=== PATIENT | female | born 1960 | race Caucasian/White ===

== ENCOUNTER → 2020-06-28 10:16 | Outpatient (BNVA) | payer OTHER, SELFPAY | PROVIDERS: PCP Internal Medicine; Referring Provider Internal Medicine; Visit Provider Nurse Practitioner | DX: R11.2 Nausea with vomiting, unspecified (principal); K58.0 Irritable bowel syndrome with diarrhea; K22.4 Dyskinesia of esophagus; K21.9 Gastro-esophageal reflux disease without esophagitis; R63.4 Abnormal weight loss; Z79.899 Other long term (current) drug therapy | CPT/HCPCS: 99213 ==

== ENCOUNTER → 2020-07-19 11:36 | Outpatient (BNVA) | payer OTHER, SELFPAY | PROVIDERS: PCP Internal Medicine; Visit Provider Family Medicine Adult Medicine | DX: G89.29 Other chronic pain (principal); G35 Multiple sclerosis; K50.90 Crohn's disease, unspecified, without complications; F43.10 Post-traumatic stress disorder, unspecified; Z79.891 Long term (current) use of opiate analgesic; Z87.81 Personal history of (healed) traumatic fracture | CPT/HCPCS: 99214 ==

== ENCOUNTER → 2020-08-07 10:07 | Outpatient (BNVA) | payer OTHER, SELFPAY | PROVIDERS: PCP Internal Medicine; Visit Provider Nurse Practitioner | DX: K58.0 Irritable bowel syndrome with diarrhea (principal); K21.9 Gastro-esophageal reflux disease without esophagitis; R63.4 Abnormal weight loss; K22.4 Dyskinesia of esophagus; R11.2 Nausea with vomiting, unspecified; N81.6 Rectocele; Z79.891 Long term (current) use of opiate analgesic | CPT/HCPCS: 99212 ==

== ENCOUNTER → 2020-08-16 11:27 | Outpatient (BNVA) | payer OTHER, SELFPAY | PROVIDERS: PCP Internal Medicine; Visit Provider Family Medicine Adult Medicine | DX: M79.7 Fibromyalgia (principal); K50.90 Crohn's disease, unspecified, without complications; Z87.81 Personal history of (healed) traumatic fracture; Z79.891 Long term (current) use of opiate analgesic | CPT/HCPCS: 99212 ==

== ENCOUNTER → 2020-08-21 13:51 | Outpatient (BNVA) | payer OTHER, SELFPAY | PROVIDERS: PCP Internal Medicine; Visit Provider Family Medicine Adult Medicine | DX: Z87.81 Personal history of (healed) traumatic fracture (principal); Z79.891 Long term (current) use of opiate analgesic | CPT/HCPCS: 99212 ==

== ENCOUNTER 2020-09-20 11:05 | Outpatient (REF) | payer OTHER, SELFPAY | END 2020-09-20 11:06 | disposition home or self-care (01) | LOC: HO.LAB 11:05 | PROVIDERS: Absent Provider Internal Medicine; PCP Internal Medicine; Visit Provider Family Medicine Adult Medicine | DX: J45.909 Unspecified asthma, uncomplicated (principal) | CPT/HCPCS: 36415; 82785; 86003; 99212 ==

== ENCOUNTER → 2020-11-01 16:09 | Outpatient (BNVA) | payer OTHER, SELFPAY | PROVIDERS: PCP Internal Medicine; Visit Provider Family Medicine Adult Medicine ==

== ENCOUNTER → 2020-11-22 15:04 | Outpatient (BNVA) | payer OTHER, SELFPAY | PROVIDERS: PCP Internal Medicine; Visit Provider Family Medicine Adult Medicine | DX: M13.0 Polyarthritis, unspecified (principal); K50.90 Crohn's disease, unspecified, without complications; Z87.81 Personal history of (healed) traumatic fracture | CPT/HCPCS: 99212 ==

== ENCOUNTER → 2020-12-12 10:25 | Outpatient (BNVA) | payer OTHER, SELFPAY | PROVIDERS: PCP Internal Medicine; Visit Provider Orthopaedic Surgery | DX: M65.312 Trigger thumb, left thumb (principal); R20.0 Anesthesia of skin; R20.2 Paresthesia of skin; M18.12 Unilateral primary osteoarthritis of first carpometacarpal joint, left hand | CPT/HCPCS: 99202; J1100 ==

== ENCOUNTER → 2020-12-25 15:59 | Outpatient (BNVA) | payer OTHER, SELFPAY | PROVIDERS: PCP Internal Medicine; Visit Provider Family Medicine Adult Medicine ==

== ENCOUNTER 2020-12-28 16:33 | Outpatient (REF) | payer OTHER, SELFPAY | END 2020-12-28 16:34 | disposition home or self-care (01) | LOC: HO.LNP 16:33 | PROVIDERS: Visit Provider Hospitalist | DX: J01.90 Acute sinusitis, unspecified (principal); Z20.822 Contact with and (suspected) exposure to COVID-19 | CPT/HCPCS: U0003; U0005 ==

== ENCOUNTER 2021-01-18 11:00 | Outpatient (RCR) | payer OTHER, SELFPAY | END 2021-03-08 12:43 | disposition other institution (70) | LOC: HO.PTWFD 11:00 | PROVIDERS: Visit Provider Internal Medicine | DX: M47.816 Spondylosis without myelopathy or radiculopathy, lumbar region (principal) | CPT/HCPCS: 97110; 97162; 97535 ==

== ENCOUNTER → 2021-02-07 11:52 | Outpatient (BNVA) | payer OTHER, SELFPAY | PROVIDERS: PCP Internal Medicine; Visit Provider Family Medicine Adult Medicine ==

== ENCOUNTER → 2021-03-15 14:28 | Outpatient (BNVA) | payer OTHER, SELFPAY | PROVIDERS: PCP Internal Medicine; Visit Provider Nurse Practitioner ==

== ENCOUNTER → 2021-03-29 14:26 | Outpatient (BNVA) | payer OTHER, SELFPAY | PROVIDERS: PCP Internal Medicine; Visit Provider Internal Medicine Pulmonary Disease | DX: J44.9 Chronic obstructive pulmonary disease, unspecified (principal); G47.33 Obstructive sleep apnea (adult) (pediatric); U07.0 Vaping-related disorder; F12.10 Cannabis abuse, uncomplicated; F17.210 Nicotine dependence, cigarettes, uncomplicated; J30.1 Allergic rhinitis due to pollen; Z88.6 Allergy status to analgesic agent; Z88.2 Allergy status to sulfonamides; Z88.8 Allergy status to other drugs, medicaments and biological substances; Z91.048 Other nonmedicinal substance allergy status | CPT/HCPCS: 99212 ==

== ENCOUNTER 2021-05-08 10:05 | Outpatient (REF) | payer OTHER, SELFPAY ==
--- NOTE | 2021-05-08 10:08 | EMG_ITS ---
This is a 60-year-old woman with a history of chronic MS, who was treated with Betaseron in the past, currently off that and taking donepezil and memantine for cognitive and language related problems. She has had bilateral rotator cuff tears and now comes in because of progressive difficulty using her hands with the right being worse than the left with pain and weakness. PHYSICAL EXAMINATION: On examination, she is alert and oriented with slightly hesitant speech at times. She walks with a cane. Her cranial nerves are normal. She has mild atrophy of the ulnar innervated intrinsic hand muscles on the right side with weakness of finger spread. Reflexes symmetrical. IMPRESSION: Multiple sclerosis, rule out carpal tunnel syndrome, rule out ulnar entrapment, rule out cervical radiculopathy. Nerve conduction EMG study: Moderately severe compression palsy of the right ulnar nerve at the elbow. [id number] carpal tunnel syndrome on the right, and mild carpal tunnel syndrome on the left. EMG of the right C5-T1 innervated muscles is consistent with mild denervated changes in the right ulnar innervated intrinsic hand muscles consistent with ulnar neuropathy. MD REBA Kapadia/REINIER / [id number]
== END 2021-05-08 10:06 | disposition home or self-care (01) ==
LOC: HO.NEURO 10:05
PROVIDERS: Visit Provider Orthopaedic Surgery
DX: R20.0 Anesthesia of skin (principal); R20.2 Paresthesia of skin
CPT/HCPCS: 95885; 95913

== ENCOUNTER → 2021-05-13 11:23 | Outpatient (BNVA) | payer OTHER, SELFPAY | PROVIDERS: Visit Provider Orthopaedic Surgery | DX: G56.21 Lesion of ulnar nerve, right upper limb (principal); G56.01 Carpal tunnel syndrome, right upper limb | CPT/HCPCS: 99202 ==

== ENCOUNTER 2021-05-22 12:31 | Outpatient (REF) | payer OTHER, SELFPAY ==
--- NOTE | ~2021-05-22 | US_ITS ---
EXAMINATION: US VENOUS ULTRASOUND WITH DOPPLER LOWER EXTREMITY, BILATERAL CLINICAL INFORMATION: Lower extremity edema. Assess for DVT COMPARISON: None TECHNIQUE: Ultrasound of the deep veins is performed from the hip to the calf with compression sonography and color and pulse Doppler assessment. Spectral analysis with color-flow imaging is performed. FINDINGS: RIGHT: There is normal venous compression and respiratory variation and augmented flow. The visualized common femoral vein, superficial femoral vein, profunda femoral vein, popliteal vein, and the trifurcation region shows no evidence of deep venous thrombosis. No popliteal fossa cyst demonstrated. LEFT: There is normal venous compression and respiratory variation and augmented flow. The visualized common femoral vein, superficial femoral vein, profunda femoral vein, popliteal vein, and the trifurcation region shows no evidence of deep venous thrombosis. No popliteal fossa cyst demonstrated. US/US venous duplex LE BI IMPRESSION: No DVT demonstrated in the bilateral lower extremity.
== END 2021-05-22 12:32 | disposition home or self-care (01) ==
LOC: HO.US 12:31
PROVIDERS: PCP Physician Assistant; Visit Provider Physician Assistant
DX: I77.6 Arteritis, unspecified (principal); R60.0 Localized edema
CPT/HCPCS: 93970

== ENCOUNTER 2021-06-06 09:11 | Day surgery (SDC) | payer OTHER, SELFPAY ==
--- NOTE | 2021-06-05 08:57 | P.CONAN_ITS ---
Documented by User: Pratima Leach NP 06/05/21 09:04 HPI - Anesthesia Eval Consult details Narrative: 60yo F for Right Carpal Tunnel Release with Cubital Tunnel Release vs Transposition *Multiple Med Allergies* Chronic pain, ? treatment. H/O of suboxone per chart PMFSH Active Problems Active Problems: All Active Problems (Updated 05/13/21 @ 13:00 by Mariela Haley MD) Carpal tunnel syndrome of right wrist (Acute) Cubital tunnel syndrome on right (Acute) Smoker (Acute) Screening for hypothyroidism (Acute) Screening for hypercholesterolemia (Acute) Screening for diabetes mellitus (DM) (Acute) Vasculitis (Acute) Lower extremity edema (Acute) Asthma-COPD overlap syndrome (Acute) Constipation (Acute) Thrush (Acute) Furuncles (Acute) Left otitis media (Acute) Annual physical exam (Acute) Lice infested hair (Acute) Domestic concerns (Acute) Bedbug bite (Acute) Laceration of finger (Acute) Acute sinusitis (Acute) Arthritis of carpometacarpal (CMC) joint of left thumb (Acute) Numbness and tingling in both hands (Acute) Trigger finger of left thumb (Acute) Allergic rhinitis, unspecified (Acute) Crohn disease (Acute) Crohn's disease (Acute) Dementia (Acute) Thumb pain (Acute) Lumbar arthropathy (Acute) Polyarthritis (Acute) History of posttraumatic stress disorder (PTSD) (Acute) Right shoulder pain (Acute) History of cervical fracture (Acute) History of Crohn's disease (Acute) Weight loss, abnormal (Acute) GERD (gastroesophageal reflux disease) (Acute) Irritable bowel syndrome with diarrhea (Acute) Rectocele (Acute) Esophageal dysmotility (Acute) Nausea and vomiting (Acute) HSV (herpes simplex virus) anogenital infection (Acute) VÁSQUEZ (nonalcoholic steatohepatitis) (Acute) COPD (chronic obstructive pulmonary disease) (Acute) Depression (Acute) Fibromyalgia (Acute) Multiple sclerosis (Acute) Osteoarthritis (Acute) Migraines, neuralgic (Acute) Past Medical History Medical History Annual physical exam Asthma-COPD overlap syndrome Bladder cancer Crohn disease Crohn's disease Dementia History of cervical fracture History of Crohn's disease History of posttraumatic stress disorder (PTSD) IBS (irritable colon syndrome) Lumbar arthropathy Migraines, neuralgic Multiple sclerosis VÁSQUEZ (nonalcoholic steatohepatitis) Polyarthritis Right shoulder pain Smoker Thumb pain Family History Family History Father Alzheimer disease Lymphoma Cancer Mother Lung cancer Sudden cardiac Cancer CVD (cardiovascular disease) Paternal Grandfather Colon cancer Cancer Maternal Grandfather Sudden cardiac CVD (cardiovascular disease) Surgical History Surgical History History of adenoidectomy History of bladder surgery History of resection of terminal ileum Hx of breast augmentation Hx of colonoscopy (08/07/11) Hx of endoscopy (08/07/11) Hx of foot surgery (04/25/14) Hx of tonsillectomy Social History Social History Household Members Other:: ALONE DISABLED SINCE AROUND 2014 DUE TO MS Housing: Apartment Alcohol intake: current Alcohol intake frequency: holidays/special occasions only Alcohol type: hard liquor Patient Tobacco Use Status: Current everyday Tobacco user Cigarette Packs Per Day: 1 Cigarettes Per Day: 20.00 e-Cigarette/Vaping Use: Former Use Second Hand Smoke Exposure: Yes Use of substances other than those prescribed or required for medical reasons: Yes Substance Use Type: Marijuana Have you been hit, kicked, punched, or otherwise hurt by someone within the past year? If so, by whom?: No Are you DNR?: No Advance Directives: No Advance Directives Information Provided: Yes service: No Current occupational status: disabled Meds Allergies Allergy/AdvReac Type Severity Reaction Status Date / Time aspirin [ASPIRIN] Allergy Unknown STOMACH Verified 05/13/21 11:32 UPSET blue dye [BLUE DYE] Allergy Unknown ANAPHYLAXIS Verified 05/13/21 11:32 escitalopram [From LEXAPRO] Allergy Unknown UNKNOWN Verified 05/13/21 11:32 infliximab [From REMICADE] Allergy Unknown EXACERBATES Verified 05/13/21 11:32 MS naproxen [NAPROXEN] Allergy Unknown SWELLING Verified 05/13/21 11:32 ALL NSAIDS NSAIDS (Non-Steroidal Allergy Unknown ABDOMINAL Verified 05/13/21 11:32 Anti-Inflamma PAIN [NSAIDS (NON-STEROIDAL ANTI-INFLAMMA] olanzapine [OLANZAPINE] Allergy Unknown UNKNOWN Verified 05/13/21 11:32 paroxetine [From PAXIL] Allergy Unknown DIZZINESS Verified 05/13/21 11:32 prednisone [PREDNISONE] Allergy Unknown HALLUCINATI Verified 05/13/21 11:32 ONS Sulfa (Sulfonamide Allergy Unknown HIVES Verified 05/13/21 11:32 Antibiotics) [SULFA (SULFONAMIDE ANTIBIOTICS)] ciprofloxacin [From CIPRO] AdvReac Unknown SKIN Verified 05/13/21 11:32 PEELING ENVIRONMENTAL Allergy Unknown CATS,DOGS,HORSES,MOLD-RED Uncoded 02/07/21 16:10 SKIN,FACIAL SWELLING Home Medications Medication Instructions Recorded Confirmed Last Taken Type donepezil 23 mg tablet 23 mg PO DAILY 06/27/20 04/15/21 Unknown History gabapentin 600 mg tablet 600 mg PO TID 06/27/20 04/15/21 Unknown History ketoconazole 2 % shampoo TOPICAL DAILY 06/27/20 04/15/21 Unknown History lorazepam 0.5 mg tablet 0.5 mg PO BID PRN 06/27/20 04/15/21 Unknown History memantine 5 mg tablet 5 mg PO BID 06/27/20 04/15/21 Unknown History metronidazole 0.75 % topical cream applic TOPICAL 06/27/20 04/15/21 Unknown History miconazole nitrate 2 % vaginal 1 appful VAGINAL BEDTIME 06/27/20 04/15/21 Unknown History cream quetiapine 25 mg tablet mg PO 06/27/20 04/15/21 Unknown History hydroxyzine HCl 25 mg tablet 50 mg PO TID tab 03/15/21 04/15/21 Unknown History hydroxyzine pamoate 50 mg capsule mg PO 03/15/21 04/15/21 Unknown History trazodone 50 mg tablet 75 mg PO BEDTIME PRN tab 03/15/21 04/15/21 Unknown History Exam Exam Date and Time: June 05, 2021 0857 Assessment and Plan Assessment Anesthesia Assessment: Chart Reviewed Documented by User: Nigel Connolly MD 06/06/21 11:41 HPI - Anesthesia Eval Consult details Narrative: 60yo F for Right Carpal Tunnel Release with Cubital Tunnel Release vs Transposition *Multiple Med Allergies* Chronic pain, subtsance abuse. H/O of suboxone per chart On presentation to preop, patient rudely insisting on being given intravenous sedatives and pain medications. [facility] Past Medical History Medical History Annual physical exam Asthma-COPD overlap syndrome Bladder cancer Crohn disease Crohn's disease Dementia History of cervical fracture History of Crohn's disease History of posttraumatic stress disorder (PTSD) IBS (irritable colon syndrome) Lumbar arthropathy Migraines, neuralgic Multiple sclerosis VÁSQUEZ (nonalcoholic steatohepatitis) Polyarthritis Right shoulder pain Smoker Thumb pain Family History Family History Father Alzheimer disease Lymphoma Cancer Mother Lung cancer Sudden cardiac Cancer CVD (cardiovascular disease) Paternal Grandfather Colon cancer Cancer Maternal Grandfather Sudden cardiac CVD (cardiovascular disease) Family history of problems with anesthesia: No Surgical History Surgical History History of adenoidectomy History of bladder surgery History of resection of terminal ileum Hx of breast augmentation Hx of colonoscopy (08/07/11) Hx of endoscopy (08/07/11) Hx of foot surgery (04/25/14) Hx of tonsillectomy History of Problems with Anesthesia: No Social History Social History Household Members Other:: ALONE DISABLED SINCE AROUND 2014 DUE TO MS Housing: Apartment Alcohol intake: current Alcohol intake frequency: holidays/special occasions only Alcohol type: hard liquor Patient Tobacco Use Status: Current everyday Tobacco user Cigarette Packs Per Day: 1 Cigarettes Per Day: 20.00 e-Cigarette/Vaping Use: Former Use Second Hand Smoke Exposure: Yes Use of substances other than those prescribed or required for medical reasons: Yes Substance Use Type: Marijuana Have you been hit, kicked, punched, or otherwise hurt by someone within the past year? If so, by whom?: No Are you DNR?: No Advance Directives: No Advance Directives Information Provided: Yes service: No Current occupational status: disabled Meds Allergies Allergy/AdvReac Type Severity Reaction Status Date / Time aspirin [ASPIRIN] Allergy Unknown STOMACH Verified 05/13/21 11:32 UPSET blue dye [BLUE DYE] Allergy Unknown ANAPHYLAXIS Verified 05/13/21 11:32 escitalopram [From LEXAPRO] Allergy Unknown UNKNOWN Verified 05/13/21 11:32 infliximab [From REMICADE] Allergy Unknown EXACERBATES Verified 05/13/21 11:32 MS naproxen [NAPROXEN] Allergy Unknown SWELLING Verified 05/13/21 11:32 ALL NSAIDS NSAIDS (Non-Steroidal Allergy Unknown ABDOMINAL Verified 05/13/21 11:32 Anti-Inflamma PAIN [NSAIDS (NON-STEROIDAL ANTI-INFLAMMA] olanzapine [OLANZAPINE] Allergy Unknown UNKNOWN Verified 05/13/21 11:32 paroxetine [From PAXIL] Allergy Unknown DIZZINESS Verified 05/13/21 11:32 prednisone [PREDNISONE] Allergy Unknown HALLUCINATI Verified 05/13/21 11:32 ONS Sulfa (Sulfonamide Allergy Unknown HIVES Verified 05/13/21 11:32 Antibiotics) [SULFA (SULFONAMIDE ANTIBIOTICS)] ciprofloxacin [From CIPRO] AdvReac Unknown SKIN Verified 05/13/21 11:32 PEELING [employer]VIRONMENTAL Allergy Unknown CATS,DOGS,HORSES,MOLD-RED Uncoded 02/07/21 16:10 SKIN,FACIAL SWELLING Home Medications Medication Instructions Recorded Confirmed Last Taken Type donepezil 23 mg tablet 23 mg PO DAILY 06/27/20 04/15/21 Unknown History gabapentin 600 mg tablet 600 mg PO TID 06/27/20 04/15/21 Unknown History ketoconazole 2 % shampoo TOPICAL DAILY 06/27/20 04/15/21 Unknown History lorazepam 0.5 mg tablet 0.5 mg PO BID PRN 06/27/20 04/15/21 Unknown History memantine 5 mg tablet 5 mg PO BID 06/27/20 04/15/21 Unknown History metronidazole 0.75 % topical cream applic TOPICAL 06/27/20 04/15/21 Unknown History miconazole nitrate 2 % vaginal 1 appful VAGINAL BEDTIME 06/27/20 04/15/21 Unknown History cream quetiapine 25 mg tablet mg PO 06/27/20 04/15/21 Unknown History hydroxyzine HCl 25 mg tablet 50 mg PO TID tab 03/15/21 04/15/21 Unknown History hydroxyzine pamoate 50 mg capsule mg PO 03/15/21 04/15/21 Unknown History trazodone 50 mg tablet 75 mg PO BEDTIME PRN tab 03/15/21 04/15/21 Unknown History Exam Airway Mallampati Class: I TM Dist: >3cm Neck ROM: Full Denture: Upper and Lower Loose/Missing/Broken Teeth: Yes (Multiple missing and crowns) Assessment and Plan Assessment Anesthesia Assessment: Anesthesia Plan Discussed (Explained that we are unable to give sedatives prior to surgical readiness, including all consents and preop discussions. Plan to premedicate prior to going back to OR.) Final Anesthetic Review Family History of Problems with Anesthesia: No History of Problems with Anesthesia: No NPO: Yes ASA Class: III Final Preanesthetic Review: No Changes in Pt Med Stat and Consent Obtained/Reviewed Patient Risk: Intermediate Procedure Risk: Low Anesthetic Plan Anesthetic Plan: GA Disposition: Standard PACU
[2021-06-06] VITALS (12 sets, daily range): BP systolic 125–176; BP diastolic 66–85; PULSE 60–75; RESP 14–20; TEMP 36.6–37.1; O2SAT 92–98; BMI 20.3
[2021-06-06] MEDS: Lactated Ringers 1,000 ML 100 ML IVCONT (10:17)
--- NOTE | 2021-06-06 11:14 | PC.NURSE ---
PATIENT IRRITATED AND UPSET. STATES SHE HAS BEEN HERE FOR 2 HOURS. STATES SHE TOOK NO MEDICATIONS THIS AM. LIFE CARE PLANNER NOTIFIED (INOCENCIA). DR. HAMLIN NOTIFIED AND ASKED IF OKAY IF PATIENT TOOK HER AM GABAPENTIN AND FAMOTIDINE. DR. HAMLIN STATED IT WAS OKAY AND SO LAYA TOOK HER OWN MEDICATIONS.
--- NOTE | 2021-06-06 11:26 | PC.NURSE ---
MANAGED CARE COORDINATOR (INOCENCIA) SPOKE WITH PATIENT AT BEDSIDE WELL DR. HAMLIN.
--- NOTE | 2021-06-06 12:32 | MHC.SHP ---
Pre-Procedural Eval Section A Date of Service: 06/06/21 The patient is an INPATIENT: No Changes since office visit: No Cold of Flu in the past 2 weeks, No New Medical Problems, No Changes in Medication and No Patient answered all questions The History & Physical has been completed within 30 days and I have reviewed it.: Yes Section B Chief Complaint: Carpal Tunnel Syndrome, Lesion of Ulnar nerve Left Allergies: Allergies Allergy/AdvReac Type Severity Reaction Status Date / Time aspirin [ASPIRIN] Allergy Unknown STOMACH Verified 05/13/21 11:32 UPSET blue dye [BLUE DYE] Allergy Unknown ANAPHYLAXIS Verified 05/13/21 11:32 escitalopram [From LEXAPRO] Allergy Unknown UNKNOWN Verified 05/13/21 11:32 infliximab [From REMICADE] Allergy Unknown EXACERBATES Verified 05/13/21 11:32 MS naproxen [NAPROXEN] Allergy Unknown SWELLING Verified 05/13/21 11:32 ALL NSAIDS NSAIDS (Non-Steroidal Allergy Unknown ABDOMINAL Verified 05/13/21 11:32 Anti-Inflamma PAIN [NSAIDS (NON-STEROIDAL ANTI-INFLAMMA] olanzapine [OLANZAPINE] Allergy Unknown UNKNOWN Verified 05/13/21 11:32 paroxetine [From PAXIL] Allergy Unknown DIZZINESS Verified 05/13/21 11:32 prednisone [PREDNISONE] Allergy Unknown HALLUCINATI Verified 05/13/21 11:32 ONS Sulfa (Sulfonamide Allergy Unknown HIVES Verified 05/13/21 11:32 Antibiotics) [SULFA (SULFONAMIDE ANTIBIOTICS)] ciprofloxacin [From CIPRO] AdvReac Unknown SKIN Verified 05/13/21 11:32 PEELING ENVIRONMENTAL Allergy Unknown CATS,DOGS,HORSES,MOLD-RED Uncoded 02/07/21 16:10 SKIN,FACIAL SWELLING Plan I have reviewed the history and physical and performed a pertinent physical examination on my patient. No changes have occurred unless specified.
--- NOTE | 2021-06-06 12:33 | P.OP_ITS ---
Operative Note Operative Note Date of Service: 06/06/21 Narrative: Operative Note Narrative: Preop diagnosis: 1. Right Cubital tunnel syndrome 2. Right carpal tunnel syndrome Postop diagnosis: Same Procedure: 1. Right Cubital Tunnel Release 2. Right carpal tunnel release Surgeon: Mariela Haley MD Anesthesia: General Findings: Thickening and fibrosis about the ulnar nerve at the cubital tunnel Implants: none Tourniquet time: 28 minutes EBL: 5.0 ml Specimen: none Drains: None Complications: None Disposition: Brought to the recovery room in stable condition Plan: Follow-up in 10-14 days for wound check, and suture removal Indications: The patient is 60 years old with right cubital tunnel syndrome and right carpal tunnel syndrome with dense numbness. She was somewhat tearful and angry in preop hold this morning. When I asked her what was wrong she said her whole body hurts. It sounds like she may have violated a rule with her pain management provider . The risks and benefits of operative treatment, including but not limited to risk of damage to blood vessels, nerves, tendons, infection, recurrence, persistent pain or numbness, incomplete resolution of preoperative symptoms, or need for further surgery were discussed with the patient and they wished to proceed with surgery. Procedure: Once consent was obtained patient was brought back to the operating suite and placed in the operating table in a supine position. Perioperative antibiotics and anesthesia was administered by the anesthesia team. The limb was prepped and draped in a standard surgical fashion, and a sterile tourniquet applied to the proximal aspect of the right upper extremity. The limb was elevated exsanguinated with Esmarch bandage and the tourniquet inflated to 250 mm of mercury for a total tourniquet time of 28 minutes. Once assured that we had a good block, a 1.5 cm longitudinal incision was made centered over the right carpal tunnel. The incision was made through the skin to the subcutaneous tissues using a #15 blade. Dissection was made down to the level of the transverse carpal ligament with care being taken to protect the palmar cutaneous nerve. Once the transverse carpal ligament was clearly visualized, a longitudinal incision was made in the transverse carpal ligament 1st using a #15 blade, then using tenotomy scissors under direct visualization. Care was taken to look for and protect the motor branch of the median nerve when seen in this area. Once satisfied with our carpal tunnel release the wound was irrigated with normal saline. A 6 cm gently curved but longitudinally oriented incision was made centered over the cubital tunnel of the right upper extremity. Incision was made through the skin to the subcutaneous tissues using a # 15 Blade. I then dissected down to the level of the medial epicondyle and the cubital tunnel using tenotomy scissors. Care was taken to protect the lateral antebrachial cutaneous nerve. The ulnar nerve was identified just posterior to the medial intermuscular sept um. Small vessel loop was passed behind the ulnar nerve and used to apply gentle traction to facilitate our release. The ulnar nerve was released in a proximal to distal direction using tenotomy in iris scissors while directly visualizing and protecting the ulnar nerve. Thickening and fibrosis was appreciated about the ulnar nerve as it passed through the cubital tunnel. The ulnar nerve was assessed as I passed the elbow through full flexion and extension and was found to remain stable within its groove. At this point the tourniquet was deflated and hemostasis obtained with a brief period of local pressure and bipolar electrocautery. The wound was copiously irrigated with normal saline. The subcutaneous layer was closed with 4-0 Vicryl suture, and the skin edges were reapproximated with 5-0 nylon suture. The wounds were infiltrated with some 1% lidocaine with epinephrine, and some 0.5% plain Marcaine for postop pain control and sterile dressings and a posterior splint was applied. The patient appears to have tolerated the procedure well and with no complications. All digits were well vascularized conclusion of the case.
[2021-06-06] MEDS: oxyCODONE HCl Immed Release 5 MG TABLET PO (14:04)
[2021-06-06] MEDS: HYDROmorphone HCl 0.5 MG/0.5 ML SYRINGE 0.25 MG IVPUSH (14:11)
[2021-06-06] MEDS: fentaNYL citrate/PF 100 MCG/2 ML VIAL 25 MCG IVPUSH (14:55)
--- NOTE | 2021-06-06 16:39 | W.MHC.F2F ---
Service Date Service Date: 06/06/21 Reasons for Services Reason for physical therapy: therapeutic exercises, restore joint function, assess need for DME and ADL training Reason for occupational therapy: therapeutic exercises, assess need for DME and ADL training Homebound: Leaving the home is medically contraindicated at this time without the asist of a device and/or another person due th the listed conditions above and below. Homebound supporting statement: Pt. is considered homebound due to recent surgery. Unable to drive and unable to use the right upper extremity. Certification: Based on the above findings, I certify that this patient is confined to the home and needs intermittent long term care, physical therapy and/or speech therapy, or continues to need occupational therapy. The patient is under my care, and I have initiated the establishment of the plan of care. The patient will be followed by a physician who will periodically review the plan of care.
== END 2021-06-06 15:49 | disposition home or self-care (01) ==
PROVIDERS: PCP Physician Assistant; Visit Provider Orthopaedic Surgery
PROC: (CPT 64721; principal; 2021-06-06 10:40)
DX: G56.21 Lesion of ulnar nerve, right upper limb (principal); G56.01 Carpal tunnel syndrome, right upper limb; G35 Multiple sclerosis; J44.9 Chronic obstructive pulmonary disease, unspecified; K50.90 Crohn's disease, unspecified, without complications; F43.10 Post-traumatic stress disorder, unspecified; Z88.8 Allergy status to other drugs, medicaments and biological substances; Z88.2 Allergy status to sulfonamides; Z79.899 Other long term (current) drug therapy; F17.210 Nicotine dependence, cigarettes, uncomplicated
CPT/HCPCS: 64718; 64721; J0690; J1170; J2250; J2405; J3010

== ENCOUNTER → 2021-06-17 11:33 | Outpatient (BNVA) | payer OTHER, SELFPAY | PROVIDERS: Visit Provider Orthopaedic Surgery | DX: G56.01 Carpal tunnel syndrome, right upper limb (principal); G56.21 Lesion of ulnar nerve, right upper limb | CPT/HCPCS: 99212 ==

== ENCOUNTER → 2021-07-09 11:26 | Outpatient (BNVA) | payer OTHER, SELFPAY | PROVIDERS: PCP Physician Assistant; Visit Provider Internal Medicine Pulmonary Disease | DX: G47.33 Obstructive sleep apnea (adult) (pediatric) (principal); J44.9 Chronic obstructive pulmonary disease, unspecified | CPT/HCPCS: 99212 ==

== ENCOUNTER → 2021-07-22 09:50 | Outpatient (BNVA) | payer OTHER, SELFPAY | PROVIDERS: PCP Physician Assistant; Visit Provider Nurse Practitioner ==

== ENCOUNTER 2021-08-06 11:05 | Outpatient (REF) | payer OTHER, SELFPAY ==
[2021-08-06 14:08] LABS: MANUAL DIFF FLAG NO
[2021-08-06 14:21] LABS: Basophils Percent Auto 0.5 % (0-2); Eosinophils Absolute Auto 0.1 X10*3/uL (0.0-0.4); Eosinophils Percent Auto 0.9 % (0-4); Hematocrit 44.5 % (37.0-47.0); Hemoglobin 14.8 g/dl (12.0-16.0); Imm Gran Abs Auto 0.02 X10*3/uL (0.00-0.03); Imm Gran Pct Auto 0.2 % (0.0-0.4); Lymphocytes Absolute Auto 2.4 X10*3/uL (1.2-4.9); Lymphocytes Percent Auto 29.3 % (20-40); Mean Corpuscular HGB Conc 33.3 g/dl (31.0-35.0); Mean Corpuscular Hemoglobin 34.4 pg (27.0-33.0); Mean Corpuscular Volume 103.5 fL (80.0-98.0); Mean Platelet Volume 9.4 fL (9.4-12.3); Monocytes Absolute Auto 0.6 X10*3/uL (0.1-1.2); Monocytes Percent Auto 7.6 % (2-11); Neutrophils Percent Auto 61.5 % (45-73); Platelet Count 291 X10*3/uL (160-400); Red Cell Distribution Width 13.8 % (11.0-16.0); White Blood Count 8.1 X10*3/uL (4.8-10.8)
[2021-08-06 14:28] LABS: Alanine Aminotransferase 11 U/L (0-31); Alkaline Phosphatase 110 U/L (39-117); Anion Gap 11 (12-20); Aspartate Amino Transferase 13 U/L (5-31); Bilirubin Total 0.8 mg/dL (0.0-1.0); Blood Urea Nitrogen 15 mg/dL (9-16); Calcium 9.8 mg/dL (8.4-10.2); Carbon Dioxide 26 mmol/L (22-29); Chloride 110 mmol/L (96-108); Estimated Glomerular Filt Rate 57; Glucose Random 94 mg/dL (60-115); Potassium 4.5 mmol/L (3.3-5.1); Rheumatoid Factor < 15.0 IU/mL (<15.0); Sodium 142 mmol/L (135-145); Total Protein 7.6 g/dL (6.5-8.0)
[2021-08-06 14:35] LABS: Estimated Average Glucose 103 mg/dL; Hemoglobin A1c % 5.2 %
[2021-08-06 14:36] LABS: Alanine Aminotransferase 10 U/L (0-31); Alkaline Phosphatase 110 U/L (39-117); Anion Gap 11 (12-20); Aspartate Amino Transferase 14 U/L (5-31); Bilirubin Total 0.8 mg/dL (0.0-1.0); Blood Urea Nitrogen 15 mg/dL (9-16); Calcium 9.7 mg/dL (8.4-10.2); Carbon Dioxide 25 mmol/L (22-29); Chloride 110 mmol/L (96-108); Cholesterol 165 mg/dL; Estimated Glomerular Filt Rate 56; Glucose Fasting 94 mg/dL (60-99); HDL Cholesterol 55 mg/dL; LDL Cholesterol Calculated 95 mg/dl; Potassium 4.3 mmol/L (3.3-5.1); Sodium 142 mmol/L (135-145); Total Protein 7.6 g/dL (6.5-8.0); Triglycerides 75 mg/dL
[2021-08-06 14:58] LABS: TSH reflex Free T4 1.95 uIU/mL (0.32-4.0)
[2021-08-06 15:10] LABS: Folate > 20.0 ng/mL (> or = 4.0); Vitamin B12 1001 pg/mL (200-900)
[2021-08-08 13:51] LABS: Anti Nuclear Antibody Screen NEGATIVE (NEGATIVE)
[2021-08-10 20:06] LABS: JCV Antibody INDETERMINATE; JCV Index Value 0.25
[2021-08-10 21:51] LABS: JCV Ab Inhibition FINAL RSLT: NEGATIVE
== END 2021-08-06 11:06 | disposition home or self-care (01) ==
LOC: HO.WFDLDS 11:05
PROVIDERS: Visit Provider Physician Assistant
DX: Z13.29 Encounter for screening for other suspected endocrine disorder (principal); Z13.220 Encounter for screening for lipoid disorders; G35 Multiple sclerosis; E53.8 Deficiency of other specified B group vitamins; E55.9 Vitamin D deficiency, unspecified; Z79.899 Other long term (current) drug therapy
CPT/HCPCS: 36415; 80053; 80061; 82607; 82746; 83036; 84443; 85025; 86038; 86039; 86431; 86711

== ENCOUNTER → 2021-10-08 11:32 | Outpatient (BNVA) | payer OTHER, SELFPAY | PROVIDERS: PCP Physician Assistant; Visit Provider Internal Medicine Pulmonary Disease | DX: J44.9 Chronic obstructive pulmonary disease, unspecified (principal); G47.33 Obstructive sleep apnea (adult) (pediatric) | CPT/HCPCS: 99212 ==

== ENCOUNTER 2021-10-08 13:46 | Outpatient (REF) | payer OTHER, SELFPAY ==
--- NOTE | ~2021-10-08 | XR_ITS ---
EXAMINATION: XR CERVICAL SPINE CLINICAL INFORMATION: Neck pain COMPARISON: None TECHNIQUE: 3 views of the cervical spine were obtained. FINDINGS: There is maintained cervical lordosis. There is loss of C5-C6 and C6-C7 disc heights with moderate ventral spondylosis. The rest of the disc heights are maintained normal. The vertebral heights and alignment is normal. On oblique views there is a moderate narrowing of bilateral neural foramina at C5-C6 and C6-C7 slightly worse on the left side. There is moderate facet joint arthropathy in the left at C3-C4 and C4-C5 disc levels. The craniovertebral junction and the C1-C2 alignment is normal. The prevertebral soft tissues are normal. XR/XR cervical spine 4V IMPRESSION: Degenerative disc changes with spondylosis C5-C6 and C6-C7 disc levels. Bilateral narrowing of neural foramina C5-C6 and C6-C7 disc level slightly greater on the left side. If patient has upper extremity weakness or numbness an MRI of cervical spine can be performed.
== END 2021-10-08 13:47 | disposition home or self-care (01) ==
LOC: HO.XRAY 13:46
PROVIDERS: PCP Physician Assistant; Visit Provider Nurse Practitioner Family
DX: M54.2 Cervicalgia (principal)
CPT/HCPCS: 72050

== ENCOUNTER 2021-10-23 13:00 | Outpatient (REF) | payer OTHER, SELFPAY ==
--- NOTE | ~2021-10-23 | CT_ITS ---
EXAMINATION: CT HEAD WITHOUT CONTRAST CLINICAL INFORMATION: Headache. COMPARISON: CT head 03/18/2019 TECHNIQUE: Contiguous axial imaging was performed from the skull base to vertex without intravenous administration of contrast. This CT examination was performed using dose optimization techniques as appropriate, variously including the following: *Automated exposure control *Adjustment of mA and/or kV according to patient size (this includes techniques or standardized protocols for targeted exams where dose is matched to indication/reason for exam; i.e. extremities or head) *Use of iterative reconstruction technique DLP: 738 mGy-cm FINDINGS: There is no evidence of acute intracranial hemorrhage or territorial infarction. No abnormal mass effect or midline shift is seen. Moreno to white matter differentiation is well preserved. No extra-axial fluid collections are identified. There is generalized global volume loss. There is mild prominence of the ventricles and the sulci . There is mild hypodensity of the periventricular white matter due to chronic small vessel ischemic disease. There are vascular calcifications of the internal carotid arteries bilaterally. The osseous structures and soft tissues are normal. The mastoid air cells and visualized portions of the paranasal sinuses are well aerated. CT/CT head/brain wo con IMPRESSION: No acute intracranial pathology.
[2021-10-23 13:23] LABS: MANUAL DIFF FLAG NO
[2021-10-23 13:37] LABS: Basophils Percent Auto 0.3 % (0-2); Eosinophils Absolute Auto 0.1 X10*3/uL (0.0-0.4); Eosinophils Percent Auto 0.8 % (0-4); Hematocrit 46.2 % (37.0-47.0); Hemoglobin 15.4 g/dl (12.0-16.0); Imm Gran Abs Auto 0.01 X10*3/uL (0.00-0.03); Imm Gran Pct Auto 0.1 % (0.0-0.4); Lymphocytes Absolute Auto 2.6 X10*3/uL (1.2-4.9); Lymphocytes Percent Auto 27.2 % (20-40); Mean Corpuscular HGB Conc 33.3 g/dl (31.0-35.0); Mean Corpuscular Hemoglobin 35.2 pg (27.0-33.0); Mean Corpuscular Volume 105.7 fL (80.0-98.0); Mean Platelet Volume 9.2 fL (9.4-12.3); Monocytes Absolute Auto 0.6 X10*3/uL (0.1-1.2); Monocytes Percent Auto 6.3 % (2-11); Neutrophils Absolute Auto 6.3 x10*3/uL (2.0-8.3); Neutrophils Percent Auto 65.3 % (45-73); Platelet Count 260 X10*3/uL (160-400); Red Blood Count 4.37 X10*6/uL (4.20-5.50); Red Cell Distribution Width 12.3 % (11.0-16.0); White Blood Count 9.7 X10*3/uL (4.8-10.8)
[2021-10-23 13:57] LABS: Alanine Aminotransferase 12 U/L (0-31); Albumin Level 5.4 g/dL (3.5-5.0); Alkaline Phosphatase 98 U/L (39-117); Anion Gap 17 (12-20); Aspartate Amino Transferase 18 U/L (5-31); Bilirubin Total 0.4 mg/dL (0.0-1.0); Blood Urea Nitrogen 14 mg/dL (9-16); Calcium 10.6 mg/dL (8.4-10.2); Carbon Dioxide 23 mmol/L (22-29); Chloride 105 mmol/L (96-108); Estimated Glomerular Filt Rate 52; Glucose Random 85 mg/dL (60-115); Potassium 4.6 mmol/L (3.3-5.1); Sodium 140 mmol/L (135-145); Total Protein 8.4 g/dL (6.5-8.0)
[2021-10-24 07:47] LABS: HBc Num1 0.14 S/CO (0.00-0.79); HBsAGNum1 0.21 S/CO (0.00-0.99); Hepatitis B Core Antibody Nonreactive (Nonreactive); Hepatitis B Surface Antigen Negative (Negative)
[2021-10-26 11:31] LABS: TS Negative Control Passed; TS Panel A 0; TS Panel B 1; TS Positive Control Passed; TSpotTB Negative (Negative)
== END 2021-10-23 13:01 | disposition home or self-care (01) ==
LOC: HO.CT 13:00
PROVIDERS: Absent Provider Student in an Organized Health Care Education/Training Program; PCP Physician Assistant; Visit Provider Nurse Practitioner Family
DX: R51.9 Headache, unspecified (principal); G35 Multiple sclerosis; Z79.899 Other long term (current) drug therapy
CPT/HCPCS: 36415; 70450; 80053; 85025; 86481; 86704; 86787; 87340

== ENCOUNTER 2021-11-12 11:42 | Outpatient (REF) | payer OTHER, SELFPAY ==
--- NOTE | ~2021-11-12 | MM_ITS ---
EXAMINATION: MM SCREENING DIGITAL BREAST TOMOSYNTHESIS, BILATERAL CLINICAL INFORMATION: Screening. Asymptomatic. The lifetime risk of breast cancer based on the Tyrer-Cuzick Model is 6%. COMPARISON: Mammography: 01/25/2020, 09/30/2016, 03/04/2016, 02/19/2016 TECHNIQUE: Digital mammography is performed in craniocaudal and mediolateral oblique views along with computer-aided detection (CAD). Digital breast tomosynthesis is performed in implant-displaced craniocaudal and implant-displaced mediolateral oblique views along with computer-aided detection (CAD). Synthesized 2D images are generated from the tomosynthesis. FINDINGS: There are scattered areas of fibroglandular density (ACR BI-RADS breast composition Category b). Parenchymal pattern is similar to prior exams. There is no interval mass or developing density or architectural abnormality. No abnormal calcifications. There are bilateral implants with some scattered benign coarse capsular calcification. The right implant again has focal 1 cm herniation superior aspect similar to prior MLO view 2020. MM/MM tomosynthesis screen imp BI IMPRESSION: 1. No mammographic evidence of malignancy. 2. Focal 1 cm herniation superior aspect right implant similar to prior exam 2020. ASSESSMENT: BI-RADS 2: Benign RECOMMENDATION: 1. Routine annual mammography screening. 2. If clinically indicated, noncontrast MRI breasts may be considered for assessment of implant integrity. This patient's information was entered into a reminder system with a target due date for their next mammogram.
== END 2021-11-12 11:43 | disposition home or self-care (01) ==
LOC: HO.MAMMO 11:42
PROVIDERS: PCP Physician Assistant; Visit Provider Physician Assistant
DX: Z12.31 Encounter for screening mammogram for malignant neoplasm of breast (principal)
CPT/HCPCS: 77063; 77067

== ENCOUNTER 2021-12-26 10:29 | Outpatient (REF) | payer OTHER, SELFPAY ==
[2021-12-26 13:40] LABS: Alanine Aminotransferase 17 U/L (0-31); Albumin Level 4.6 g/dL (3.5-5.0); Alkaline Phosphatase 76 U/L (39-117); Anion Gap 14 (12-20); Aspartate Amino Transferase 16 U/L (5-31); Bilirubin Total 0.6 mg/dL (0.0-1.0); Blood Urea Nitrogen 17 mg/dL (9-16); Calcium 9.7 mg/dL (8.4-10.2); Carbon Dioxide 20 mmol/L (22-29); Chloride 110 mmol/L (96-108); Cholesterol 167 mg/dL; Estimated Glomerular Filt Rate 57; Glucose Fasting 93 mg/dL (60-99); HDL Cholesterol 55 mg/dL; LDL Cholesterol Calculated 93 mg/dl; Potassium 4.1 mmol/L (3.3-5.1); Sodium 140 mmol/L (135-145); Total Protein 7.2 g/dL (6.5-8.0); Triglycerides 99 mg/dL
[2021-12-26 13:43] LABS: Estimated Average Glucose 100 mg/dL; Hemoglobin A1c % 5.1 %
== END 2021-12-26 10:30 | disposition home or self-care (01) ==
LOC: HO.WFDLDS 10:29
PROVIDERS: Visit Provider Physician Assistant
DX: Z13.220 Encounter for screening for lipoid disorders (principal); Z13.29 Encounter for screening for other suspected endocrine disorder
CPT/HCPCS: 36415; 80053; 80061; 83036; 84443

== ENCOUNTER 2022-01-30 07:38 | Outpatient (REF) | payer OTHER, SELFPAY | END 2022-01-30 07:39 | disposition home or self-care (01) | LOC: HO.HOSX 07:38 | PROVIDERS: Visit Provider Physician Assistant | DX: Z13.89 Encounter for screening for other disorder (principal) ==

== ENCOUNTER → 2022-02-10 13:12 | Outpatient (BNVA) | payer OTHER, SELFPAY | PROVIDERS: PCP Physician Assistant; Visit Provider Internal Medicine Pulmonary Disease | DX: G47.33 Obstructive sleep apnea (adult) (pediatric) (principal); J44.9 Chronic obstructive pulmonary disease, unspecified | CPT/HCPCS: 99212 ==

== ENCOUNTER 2022-02-10 13:52 | Emergency (ER) | payer OTHER, SELFPAY | END 2022-02-10 15:05 | disposition left against medical advice (07) | PROVIDERS: Emergency Provider Emergency Medicine; PCP Physician Assistant | DX: N39.0 Urinary tract infection, site not specified (principal) ==

== ENCOUNTER 2022-02-11 11:26 | Outpatient (REF) | payer OTHER, SELFPAY | END 2022-02-11 11:27 | disposition home or self-care (01) | LOC: HO.LNP 11:26 | PROVIDERS: Visit Provider Family Medicine | DX: R82.90 Unspecified abnormal findings in urine (principal) | CPT/HCPCS: 87086 ==

== ENCOUNTER 2022-02-14 13:30 | Outpatient (REF) | payer OTHER, SELFPAY ==
--- NOTE | ~2022-02-14 | XR_ITS ---
EXAMINATION: XR SHOULDER, RIGHT CLINICAL INFORMATION: Pain COMPARISON: Previous exam January 2022 TECHNIQUE: 3 views of the right shoulder. FINDINGS: Bone alignment is normal. No fracture or dislocation is seen. There is arthritis at the glenohumeral joint with joint space narrowing and osteophyte formation. There is bony protuberance off the medial humeral neck questionable for a bony exostosis. This appears increased in size inferiorly from most recent exam November 2016. There is mild arthritis at the acromioclavicular joint. Soft tissues are unremarkable. XR/XR shoulder RT min 2V IMPRESSION: Arthritis. Interval increase in size in the bony protuberance off the medial humeral neck probably representing a bony exostosis. Follow-up CT or MRI recommended. Findings will be communicated by the [facility] work flow utilization review coordinator.
== END 2022-02-14 13:31 | disposition home or self-care (01) ==
LOC: HO.HOSX 13:30
PROVIDERS: PCP Physician Assistant; Visit Provider Physician Assistant
DX: M19.011 Primary osteoarthritis, right shoulder (principal)
CPT/HCPCS: 73030; 99202

== ENCOUNTER → 2022-02-17 14:31 | Outpatient (BNVA) | payer OTHER, SELFPAY | PROVIDERS: PCP Physician Assistant; Visit Provider Orthopaedic Surgery | DX: M19.011 Primary osteoarthritis, right shoulder (principal) | CPT/HCPCS: 99212 ==

== ENCOUNTER 2022-03-14 13:05 | Outpatient (REF) | payer OTHER, SELFPAY ==
--- NOTE | ~2022-03-14 | CT_ITS ---
EXAMINATION: CT SHOULDER WITHOUT CONTRAST, RIGHT CLINICAL INFORMATION: Osteoarthritis. COMPARISON: Right shoulder radiographs dated 02/14/2022. TECHNIQUE: Diffuse axial CT images of the right shoulder were obtained without contrast. Multiplanar reformats were provided and reviewed. This CT examination was performed using dose optimization techniques as appropriate, variously including the following: *Automated exposure control *Adjustment of mA and/or kV according to patient size (this includes techniques or standardized protocols for targeted exams where dose is matched to indication/reason for exam; i.e. extremities or head) *Use of iterative reconstruction technique DLP: 187 mGy-cm. FINDINGS: Visualized right lung: Mild emphysematous changes. Bone/joint: Chronic posterior subluxation humeral head with severe posterior glenoid and humeral head bony remodeling. Subchondral sclerosis or subchondral cystic change and large marginal osteophytes. Mild acromioclavicular osteoarthritis. No acute fracture or dislocation. No concerning lytic or blastic osseous lesion. Glenoid version: There is approximately 37 degrees of glenoid retroversion. Estimated depth of the glenoid vault: Approximately 1.6 cm. Glenoid morphology: Walch Type B2. Joint fluid/bursa/soft tissues: Small joint effusion. Multiple ossified loose bodies, the largest of which is within the subcoracoid recess measuring up to 1.[address]/CT shoulder RT wo con IMPRESSION: Severe glenohumeral osteoarthritis with chronic posterior subluxation and prominent glenoid retroversion. Small joint effusion with multiple ossified loose bodies measuring up to 1.9 cm. Mild acromioclavicular osteoarthritis.
== END 2022-03-14 13:06 | disposition home or self-care (01) ==
LOC: HO.CT 13:05
PROVIDERS: Visit Provider Orthopaedic Surgery
DX: M19.011 Primary osteoarthritis, right shoulder (principal)
CPT/HCPCS: 73200

== ENCOUNTER 2022-05-07 06:10 | Inpatient (IN) | payer OTHER, SELFPAY ==
[2022-04-23 12:59] VITALS: BP 143/70; PULSE 76; RESP 20; O2SAT 96; BMI 22.1
--- NOTE | 2022-04-23 13:25 | ECG_ITS ---
Test Reason : PREOP Blood Pressure : / mmHG Vent. Rate : 070 BPM Atrial Rate : 070 BPM P-R Int : 162 ms QRS Dur : 078 ms QT Int : 398 ms P-R-T Axes : 080 079 071 degrees QTc Int : 429 ms Normal sinus rhythm Normal ECG When compared with ECG of 03-SEP-2018 16:41, No significant change was found Referred By: Evangelista Nuno Electronically Signed By:GUMARO LIN
[2022-04-23 13:57] LABS: MANUAL DIFF FLAG NO
[2022-04-23 14:29] LABS: Basophils Percent Auto 0.4 % (0-2); Eosinophils Absolute Auto 0.1 X10*3/uL (0.0-0.4); Eosinophils Percent Auto 1.4 % (0-4); Hematocrit 46.4 % (37.0-47.0); Hemoglobin 15.7 g/dl (12.0-16.0); Imm Gran Abs Auto 0.04 X10*3/uL (0.00-0.03); Imm Gran Pct Auto 0.4 % (0.0-0.4); Lymphocytes Absolute Auto 2.3 X10*3/uL (1.2-4.9); Lymphocytes Percent Auto 24.8 % (20-40); Mean Corpuscular HGB Conc 33.8 g/dl (31.0-35.0); Mean Corpuscular Hemoglobin 34.7 pg (27.0-33.0); Mean Corpuscular Volume 102.7 fL (80.0-98.0); Mean Platelet Volume 8.7 fL (9.4-12.3); Monocytes Absolute Auto 0.8 X10*3/uL (0.1-1.2); Platelet Count 315 X10*3/uL (160-400); Red Blood Count 4.52 X10*6/uL (4.20-5.50); Red Cell Distribution Width 12.8 % (11.0-16.0); White Blood Count 9.4 X10*3/uL (4.8-10.8)
[2022-04-23 14:43] LABS: Anion Gap 16 (12-20); Blood Urea Nitrogen 18 mg/dL (9-16); Calcium 10.6 mg/dL (8.4-10.2); Carbon Dioxide 23 mmol/L (22-29); Chloride 108 mmol/L (96-108); Creatinine Clr Calc Pharmacy 46.2; Estimated Glomerular Filt Rate 45; Glucose Random 97 mg/dL (60-115); Potassium 5.4 mmol/L (3.3-5.1); Sodium 142 mmol/L (135-145)
[2022-04-23 15:33] LABS: MRSA Nasal PCR NEGATIVE (Negative); SA Nasal PCR NEGATIVE (Negative)
--- NOTE | 2022-05-05 13:00 | P.CONAN_ITS ---
Documented by User: Pratima Leach NP 05/05/22 13:03 HPI - Anesthesia Eval Consult details Narrative: 61yo F for Right Shoulder Total Repair [facility] PCP cleared, Neurologist aware of surgery *Multiple Med Allergies* MS tx with Ocrevus infusions PMFSH Active Problems Active Problems: All Active Problems (Updated 05/02/22 @ 13:40 by Theo Kelley) Pre-operative clearance (Acute) Osteoarthritis (Acute) Fibromyalgia (Acute) Depression (Acute) COPD (chronic obstructive pulmonary disease) (Acute) HSV (herpes simplex virus) anogenital infection (Acute) Nausea and vomiting (Acute) Esophageal dysmotility (Acute) Rectocele (Acute) Irritable bowel syndrome with diarrhea (Acute) GERD (gastroesophageal reflux disease) (Acute) Weight loss, abnormal (Acute) Crohn disease (Acute) Allergic rhinitis, unspecified (Acute) Trigger finger of left thumb (Acute) Numbness and tingling in both hands (Acute) Arthritis of carpometacarpal (CMC) joint of left thumb (Acute) Acute sinusitis (Acute) Laceration of finger (Acute) Bedbug bite (Acute) Domestic concerns (Acute) Lice infested hair (Acute) Left otitis media (Acute) Furuncles (Acute) Thrush (Acute) Constipation (Acute) Lower extremity edema (Acute) Vasculitis (Acute) Screening for diabetes mellitus (DM) (Acute) Screening for hypercholesterolemia (Acute) Screening for hypothyroidism (Acute) Cubital tunnel syndrome on right (Acute) Carpal tunnel syndrome of right wrist (Acute) YOHAN (obstructive sleep apnea) (Acute) Annual physical exam (Acute) Multiple sclerosis (Acute) Otitis media (Acute) Breast cancer screening (Acute) Neck pain (Acute) Headache (Acute) Tendinopathy of right shoulder (Acute) Conjunctivitis (Acute) B12 deficiency (Acute) Sinus infection (Acute) Tobacco dependence (Acute) Dysuria (Acute) Chronic pain (Acute) Osteoarthritis of right shoulder (Acute) Laboratory exam ordered as part of routine general medical examination (Acute) Anxiety with depression (Acute) Smoker (Acute) Asthma-COPD overlap syndrome (Acute) Annual physical exam (Acute) Crohn's disease (Acute) Dementia (Acute) Thumb pain (Acute) Lumbar arthropathy (Acute) Polyarthritis (Acute) History of posttraumatic stress disorder (PTSD) (Acute) Right shoulder pain (Acute) History of cervical fracture (Acute) Past Medical History Medical History (Updated 05/02/22 @ 13:40 by Theo Kelley) Annual physical exam Asthma-COPD overlap syndrome Bladder cancer Crohn's disease Dementia History of cervical fracture History of dysphagia History of posttraumatic stress disorder (PTSD) IBS (irritable colon syndrome) Lumbar arthropathy Migraines, neuralgic Multiple sclerosis VÁSQUEZ (nonalcoholic steatohepatitis) Neuropathy OCD (obsessive compulsive disorder) YOHAN (obstructive sleep apnea) Polyarthritis Right shoulder pain Smoker Thumb pain Family History Family History Father Alzheimer disease Lymphoma Cancer Mother Lung cancer Sudden cardiac Cancer CVD (cardiovascular disease) Paternal Grandfather Colon cancer Cancer Maternal Grandfather Sudden cardiac CVD (cardiovascular disease) Family history of problems with anesthesia: No Surgical History Surgical History (Updated 04/23/22 @ 12:13 by Michelle Gómez RN) History of adenoidectomy History of bladder surgery History of carpal tunnel surgery of right wrist History of resection of terminal ileum Hx of breast augmentation Hx of cholecystectomy Hx of colonoscopy (08/07/11) Hx of endoscopy (08/07/11) Hx of foot surgery (04/25/14) Hx of tonsillectomy History of Problems with Anesthesia: No Social History Social History Household Members Other:: ALONE DISABLED SINCE AROUND 2014 DUE TO MS Housing: Apartment Are you a primary child care cook to a significant other at home: No Do you presently have visiting nurse or other home services: Yes (laundry service, meals on wheels - to have eval from elder care) Alcohol intake: current Alcohol intake frequency: holidays/special occasions only Alcohol type: hard liquor Patient Tobacco Use Status: Current everyday Tobacco user Tobacco use type: Cigarette Cigarette Packs Per Day: 0.5 Cigarettes Per Day: 10.0 Years Smoked: 40 yrs Smoked in Last 30 Days: Yes e-Cigarette/Vaping Use: Former Use Patient Interested in Nicotine Replacement: Yes Patient Given Instructions on How to Stop Smoking: Yes Date Education Initiated: 04/23/22 Second Hand Smoke Exposure: Yes Use of substances other than those prescribed or required for medical reasons: Yes Substance Use Type: Marijuana Substance Use Frequency: Daily Have you been hit, kicked, punched, or otherwise hurt by someone within the past year? If so, by whom?: No Are you DNR?: No Advance Directives: No Advance Directives Information Provided: No (refuses) Advance Directives on File: No Recently lost weight without trying: No Eating poorly because of decreased appetite: No Nutrition Risks: Difficulty swallowing Patient : No : No Poor oral hygiene: Yes (Partials) service: No Current occupational status: disabled Current occupational exposures/hazards: No Cognitive needs: No Hearing needs: No Vision needs: No Meds Allergies Allergy/AdvReac Type Severity Reaction Status Date / Time blue dye [BLUE DYE] Allergy Unknown ANAPHYLAXIS Verified 05/02/22 13:19 escitalopram [From LEXAPRO] Allergy Unknown UNKNOWN Verified 05/02/22 13:19 infliximab [From REMICADE] Allergy Unknown EXACERBATES Verified 05/02/22 13:19 MS naproxen [NAPROXEN] Allergy Unknown SWELLING Verified 05/02/22 13:19 ALL NSAIDS NSAIDS (Non-Steroidal Allergy Unknown ABDOMINAL Verified 05/02/22 13:19 Anti-Inflamma PAIN [NSAIDS (NON-STEROIDAL ANTI-INFLAMMA] olanzapine [OLANZAPINE] Allergy Unknown UNKNOWN Verified 05/02/22 13:19 paroxetine [From PAXIL] Allergy Unknown DIZZINESS Verified 05/02/22 13:19 prednisone [PREDNISONE] Allergy Unknown HALLUCINATIONS Verified 05/02/22 13:19 with high doses Sulfa (Sulfonamide Allergy Unknown HIVES Verified 05/02/22 13:19 Antibiotics) [SULFA (SULFONAMIDE ANTIBIOTICS)] sulfasalazine Allergy Hives Verified 05/02/22 13:19 [From Azulfidine] aspirin [ASPIRIN] AdvReac Unknown STOMACH Verified 05/02/22 13:19 UPSET ciprofloxacin [From CIPRO] AdvReac Unknown SKIN Verified 05/02/22 13:19 PEELING clarithromycin [From Biaxin] AdvReac Abdominal Verified 05/02/22 13:19 Pain ENVIRONMENTAL Allergy Unknown CATS,DOGS,HORSES,MOLD-RED Uncoded 04/22/22 08:30 SKIN,FACIAL SWELLING Home Medications Medication Instructions Recorded Confirmed Last Taken Type donepezil 23 mg tablet 23 mg PO BEDTIME 06/27/20 04/23/22 Unknown History gabapentin 600 mg tablet 600 mg PO TID 06/27/20 04/22/22 Unknown History lorazepam 0.5 mg tablet 0.5 mg PO BID PRN Muscle Spasm 06/27/20 04/22/22 Unknown History memantine 5 mg tablet 5 mg PO BID 06/27/20 04/22/22 Unknown History quetiapine 25 mg tablet 25 mg PO BEDTIME 06/27/20 04/23/22 Unknown History hydroxyzine HCl 25 mg tablet 50 mg PO BID 03/15/21 04/23/22 Unknown History trazodone 50 mg tablet 75 mg PO BEDTIME 03/15/21 04/22/22 Unknown History epinephrine 0.3 mg/0.3 mL 0.3 ml IM ONCE PRN Allergic 07/22/21 04/22/22 Unknown History injection, auto-injector Reaction fluocinonide 0.05 % topical topical 07/22/21 04/08/22 Unknown History solution hydroxyzine pamoate 25 mg capsule 25 mg PO DAILY PRN Anxiety 07/22/21 04/22/22 Unknown History sumatriptan succinate 50 mg tablet 50 mg PO NEEDED PRN Migraine 07/22/21 04/23/22 Unknown History Headache acetic acid 2 % ear solution 3 drp otic (ear) left Q6H PRN 04/23/22 04/22/22 Unknown History itchy ear albuterol sulfate 0.63 mg/3 mL 0.63 mg inhalation Q4-6H PRN 04/23/22 04/23/22 Unknown History solution for nebulization Wheezing lifitegrast 5 % eye drops in a 1 drp ophthalmic (eye) BID 04/23/22 04/23/22 05/07/22 History dropperette (Xiidra) mesalamine 1,000 mg rectal 1,000 mg SD BEDTIME PRN rectal 04/23/22 04/22/22 Unknown History suppository bleeding, pain multivitamin 1 tab PO DAILY 04/23/22 04/23/22 Unknown History valacyclovir 1 gram tablet 1,000 mg PO BEDTIME 04/23/22 04/23/22 Unknown History vitamin B complex 1 cap PO DAILY 04/23/22 04/23/22 Unknown History cholecalciferol (vitamin D3) 25 1 PO DAILY 05/02/22 Unknown History mcg (1,000 unit) capsule (Vitamin D3) triamcinolone acetonide 0.1 % 1 appl topical BID 05/02/22 Unknown History lotion Exam Exam Date and Time: May 05, 2022 1300 Height,Weight and Vital Signs: Height 5 ft 7 in Weight 63.957 kg Last Vital Signs Pulse 76 04/23/22 12:59 Resp 20 04/23/22 12:59 BP 143/70 H 04/23/22 12:59 Pulse Ox 96 04/23/22 12:59 O2 Del Method 04/23/22 12:59 Pertinent Lab Results Pertinent Lab Results: Laboratory Tests 04/23/22 04/23/22 04/23/22 13:50 13:55 13:55 Sodium 142 Potassium 5.4 H D Chloride 108 Carbon Dioxide 23 Anion Gap 16 BUN 18 H Creatinine 1.21 Estim Creat Clear Calc 46.2 Estimated GFR 45 Random Glucose 97 Calcium 10.6 H D Nasal Screen MRSA (PCR) Nasal S. aureus Screen Nasal MRSA/S.aureus Interp Blood Type O Negative Antibody Screen NEGATIVE 04/23/22 04/23/22 04/23/22 13:55 13:55 Unknown WBC 9.4 RBC 4.52 Hgb 15.7 Hct 46.4 MCV 102.7 H MCH 34.7 H MCHC 33.8 RDW 12.8 Plt Count 315 MPV 8.7 L Immature Gran % (Auto) 0.4 Neut % (Auto) 64.0 Lymph % (Auto) 24.8 [place] % (Auto) 9.0 Eos % (Auto) 1.4 Baso % (Auto) 0.4 Lymph # (Auto) 2.3 [place] # (Auto) 0.8 Eos # (Auto) 0.1 Baso # (Auto) 0.0 Abs Immat Gran (auto) 0.04 H Absolute Neuts (auto) 6.0 Absolute Nucleated RBC 0.000 Nucleated RBC % (auto) 0.0 Nasal Screen MRSA (PCR) NEGATIVE Nasal S. aureus Screen NEGATIVE Nasal MRSA/S.aureus Interp SEE NOTE Blood Type Antibody Screen Narrative Narrative: EKG 03/2022 Vent. Rate : 070 BPM ? ? Atrial Rate : 070 BPM ?? P-R Int : 162 ms? QRS Dur : 078 ms ? ? QT Int : 398 ms ? ? ? P-R-T Axes : 080 079 071 degrees ?? QTc Int : 429 ms ? Normal sinus rhythm Normal ECG When compared with ECG of 03-SEP-2018 16:41, No significant change was found Assessment and Plan Assessment Anesthesia Assessment: Chart Reviewed Final Anesthetic Review Family History of Problems with Anesthesia: No History of Problems with Anesthesia: No Documented by User: Codi Che MD 05/07/22 09:00 [facility] Past Medical History Medical History (Updated 05/02/22 @ 13:40 by Theo Kelley) Annual physical exam Asthma-COPD overlap syndrome Bladder cancer Crohn's disease Dementia History of cervical fracture History of dysphagia History of posttraumatic stress disorder (PTSD) IBS (irritable colon syndrome) Lumbar arthropathy Migraines, neuralgic Multiple sclerosis VÁSQUEZ (nonalcoholic steatohepatitis) Neuropathy OCD (obsessive compulsive disorder) YOHAN (obstructive sleep apnea) Polyarthritis Right shoulder pain Smoker Thumb pain Family History Family History Father Alzheimer disease Lymphoma Cancer Mother Lung cancer Sudden cardiac Cancer CVD (cardiovascular disease) Paternal Grandfather Colon cancer Cancer Maternal Grandfather Sudden cardiac CVD (cardiovascular disease) Surgical History Surgical History (Updated 04/23/22 @ 12:13 by Michelle Gómez RN) History of adenoidectomy History of bladder surgery History of carpal tunnel surgery of right wrist History of resection of terminal ileum Hx of breast augmentation Hx of cholecystectomy Hx of colonoscopy (08/07/11) Hx of endoscopy (08/07/11) Hx of foot surgery (04/25/14) Hx of tonsillectomy Social History Social History Household Members Other:: ALONE DISABLED SINCE AROUND 2014 DUE TO MS Housing: Apartment Are you a primary child care cook to a significant other at home: No Do you presently have visiting nurse or other home services: Yes (laundry service, meals on wheels - to have eval from elder care) Alcohol intake: current Alcohol intake frequency: holidays/special occasions only Alcohol type: hard liquor Patient Tobacco Use Status: Current everyday Tobacco user Tobacco use type: Cigarette Cigarette Packs Per Day: 0.5 Cigarettes Per Day: 10.0 Years Smoked: 40 yrs Smoked in Last 30 Days: Yes e-Cigarette/Vaping Use: Former Use Patient Interested in Nicotine Replacement: Yes Patient Given Instructions on How to Stop Smoking: Yes Date Education Initiated: 04/23/22 Second Hand Smoke Exposure: Yes Use of substances other than those prescribed or required for medical reasons: Yes Substance Use Type: Marijuana Substance Use Frequency: Daily Have you been hit, kicked, punched, or otherwise hurt by someone within the past year? If so, by whom?: No Are you DNR?: No Advance Directives: No Advance Directives Information Provided: No (refuses) Advance Directives on File: No Recently lost weight without trying: No Eating poorly because of decreased appetite: No Nutrition Risks: Difficulty swallowing Patient : No : No Poor oral hygiene: Yes (Partials) service: No Current occupational status: disabled Current occupational exposures/hazards: No Cognitive needs: No Hearing needs: No Vision needs: No Meds Allergies Allergy/AdvReac Type Severity Reaction Status Date / Time blue dye [BLUE DYE] Allergy Unknown ANAPHYLAXIS Verified 05/02/22 13:19 escitalopram [From LEXAPRO] Allergy Unknown UNKNOWN Verified 05/02/22 13:19 infliximab [From REMICADE] Allergy Unknown EXACERBATES Verified 05/02/22 13:19 MS naproxen [NAPROXEN] Allergy Unknown SWELLING Verified 05/02/22 13:19 ALL NSAIDS NSAIDS (Non-Steroidal Allergy Unknown ABDOMINAL Verified 05/02/22 13:19 Anti-Inflamma PAIN [NSAIDS (NON-STEROIDAL ANTI-INFLAMMA] olanzapine [OLANZAPINE] Allergy Unknown UNKNOWN Verified 05/02/22 13:19 paroxetine [From PAXIL] Allergy Unknown DIZZINESS Verified 05/02/22 13:19 prednisone [PREDNISONE] Allergy Unknown HALLUCINATIONS Verified 05/02/22 13:19 with high doses Sulfa (Sulfonamide Allergy Unknown HIVES Verified 05/02/22 13:19 Antibiotics) [SULFA (SULFONAMIDE ANTIBIOTICS)] sulfasalazine Allergy Hives Verified 05/02/22 13:19 [From Azulfidine] aspirin [ASPIRIN] AdvReac Unknown STOMACH Verified 05/02/22 13:19 UPSET ciprofloxacin [From CIPRO] AdvReac Unknown SKIN Verified 05/02/22 13:19 PEELING clarithromycin [From Biaxin] AdvReac Abdominal Verified 05/02/22 13:19 Pain ENVIRONMENTAL Allergy Unknown CATS,DOGS,HORSES,MOLD-RED Uncoded 04/22/22 08:30 SKIN,FACIAL SWELLING Home Medications Medication Instructions Recorded Confirmed Last Taken Type donepezil 23 mg tablet 23 mg PO BEDTIME 06/27/20 04/23/22 Unknown History gabapentin 600 mg tablet 600 mg PO TID 06/27/20 04/22/22 Unknown History lorazepam 0.5 mg tablet 0.5 mg PO BID PRN Muscle Spasm 06/27/20 04/22/22 Unknown History memantine 5 mg tablet 5 mg PO BID 06/27/20 04/22/22 Unknown History quetiapine 25 mg tablet 25 mg PO BEDTIME 06/27/20 04/23/22 Unknown History hydroxyzine HCl 25 mg tablet 50 mg PO BID 03/15/21 04/23/22 Unknown History trazodone 50 mg tablet 75 mg PO BEDTIME 03/15/21 04/22/22 Unknown History epinephrine 0.3 mg/0.3 mL 0.3 ml IM ONCE PRN Allergic 07/22/21 04/22/22 Unknown History injection, auto-injector Reaction fluocinonide 0.05 % topical topical 07/22/21 04/08/22 Unknown History solution hydroxyzine pamoate 25 mg capsule 25 mg PO DAILY PRN Anxiety 07/22/21 04/22/22 Unknown History sumatriptan succinate 50 mg tablet 50 mg PO NEEDED PRN Migraine 07/22/21 0 04/23/22 Unknown History Headache acetic acid 2 % ear solution 3 drp otic (ear) left Q6H PRN 04/23/22 04/22/22 Unknown History itchy ear albuterol sulfate 0.63 mg/3 mL 0.63 mg inhalation Q4-6H PRN 04/23/22 04/23/22 Unknown History solution for nebulization Wheezing lifitegrast 5 % eye drops in a 1 drp ophthalmic (eye) BID 04/23/22 04/23/22 05/07/22 History dropperette (Xiidra) mesalamine 1,000 mg rectal 1,000 mg SD BEDTIME PRN rectal 04/23/22 04/22/22 Unknown History suppository bleeding, pain multivitamin 1 tab PO DAILY 04/23/22 04/23/22 Unknown History valacyclovir 1 gram tablet 1,000 mg PO BEDTIME 04/23/22 04/23/22 Unknown History vitamin B complex 1 cap PO DAILY 04/23/22 04/23/22 Unknown History cholecalciferol (vitamin D3) 25 1 PO DAILY 05/02/22 Unknown History mcg (1,000 unit) capsule (Vitamin D3) triamcinolone acetonide 0.1 % 1 appl topical BID 05/02/22 Unknown History lotion Exam Height,Weight and Vital Signs: Height 5 ft 7 in Weight 63.957 kg Last Vital Signs Pulse 76 04/23/22 12:59 Resp 20 04/23/22 12:59 BP 143/70 H 04/23/22 12:59 Pulse Ox 96 04/23/22 12:59 O2 Del Method 04/23/22 12:59 Vital Signs Temp Pulse Resp BP Pulse Ox O2 Del Method 05/07/22 07:14 63 16 05/07/22 06:57 99.1 F 66 16 138/68 95 Room Air Pertinent Lab Results Pertinent Lab Results: Laboratory Tests 04/23/22 04/23/22 04/23/22 13:50 13:55 13:55 Sodium 142 Potassium 5.4 H D Chloride 108 Carbon Dioxide 23 Anion Gap 16 BUN 18 H Creatinine 1.21 Estim Creat Clear Calc 46.2 Estimated GFR 45 Random Glucose 97 Calcium 10.6 H D Nasal Screen MRSA (PCR) Nasal S. aureus Screen Nasal MRSA/S.aureus Interp Blood Type O Negative Antibody Screen NEGATIVE 04/23/22 04/23/22 04/23/22 13:55 13:55 Unknown WBC 9.4 RBC 4.52 Hgb 15.7 Hct 46.4 MCV 102.7 H MCH 34.7 H MCHC 33.8 RDW 12.8 Plt Count 315 MPV 8.7 L Immature Gran % (Auto) 0.4 Neut % (Auto) 64.0 Lymph % (Auto) 24.8 [place] % (Auto) 9.0 Eos % (Auto) 1.4 Baso % (Auto) 0.4 Lymph # (Auto) 2.3 [place] # (Auto) 0.8 Eos # (Auto) 0.1 Baso # (Auto) 0.0 Abs Immat Gran (auto) 0.04 H Absolute Neuts (auto) 6.0 Absolute Nucleated RBC 0.000 Nucleated RBC % (auto) 0.0 Nasal Screen MRSA (PCR) NEGATIVE Nasal S. aureus Screen NEGATIVE Nasal MRSA/S.aureus Interp SEE NOTE Blood Type Antibody Screen Lab Results 04/23/22 04/23/22 04/23/22 Range/Units 13:50 13:55 13:55 WBC Cancelled RBC Cancelled Hgb Cancelled Hct Cancelled MCV Cancelled MCH Cancelled MCHC Cancelled RDW Cancelled Plt Count Cancelled MPV Cancelled Immature Gran % (Auto) (0.0-0.4) % Neut % (Auto) (45-73) % Lymph % (Auto) (20-40) % [place] % (Auto) (2-11) % Eos % (Auto) (0-4) % Baso % (Auto) (0-2) % Lymph # (Auto) (1.2-4.9) X10*3/uL [place] # (Auto) (0.1-1.2) X10*3/uL Eos # (Auto) (0.0-0.4) X10*3/uL Baso # (Auto) (0.0-0.2) X10*3/uL Abs Immat Gran (auto) (0.00-0.03) X10*3/uL Absolute Neuts (auto) (2.0-8.3) x10*3/uL Absolute Nucleated RBC Cancelled Nucleated RBC % (auto) Cancelled Sodium 142 (135-145) mmol/L Potassium 5.4 H D (3.3-5.1) mmol/L Chloride 108 (96-108) mmol/L Carbon Dioxide 23 (22-29) mmol/L Anion Gap 16 (12-20) BUN 18 H (9-16) mg/dL Creatinine 1.21 (0.5-1.4) mg/dL Estim Creat Clear Calc 46.2 Estimated GFR 45 Random Glucose 97 (60-115) mg/dL Calcium 10.6 H D (8.4-10.2) mg/dL Nasal Screen MRSA (PCR) (Negative) Nasal S. aureus Screen (Negative) Nasal MRSA/S.aureus Interp COVID-19 (SIA) (Negative) COVID-19 Clin Com Blood Type O Negative Antibody Screen NEGATIVE 04/23/22 04/23/22 04/23/22 Range/Units 13:55 13:55 Unknown WBC 9.4 RBC 4.52 Hgb 15.7 Hct 46.4 MCV 102.7 H MCH 34.7 H MCHC 33.8 RDW 12.8 Plt Count 315 MPV 8.7 L Immature Gran % (Auto) 0.4 (0.0-0.4) % Neut % (Auto) 64.0 (45-73) % Lymph % (Auto) 24.8 (20-40) % [place] % (Auto) 9.0 (2-11) % Eos % (Auto) 1.4 (0-4) % Baso % (Auto) 0.4 (0-2) % Lymph # (Auto) 2.3 (1.2-4.9) X10*3/uL [place] # (Auto) 0.8 (0.1-1.2) X10*3/uL Eos # (Auto) 0.1 (0.0-0.4) X10*3/uL Baso # (Auto) 0.0 (0.0-0.2) X10*3/uL Abs Immat Gran (auto) 0.04 H (0.00-0.03) X10*3/uL Absolute Neuts (auto) 6.0 (2.0-8.3) x10*3/uL Absolute Nucleated RBC 0.000 Nucleated RBC % (auto) 0.0 Sodium Cancelled (135-145) mmol/L Potassium Cancelled (3.3-5.1) mmol/L Chloride Cancelled (96-108) mmol/L Carbon Dioxide Cancelled (22-29) mmol/L Anion Gap Cancelled (12-20) BUN Cancelled (9-16) mg/dL Creatinine Cancelled (0.5-1.4) mg/dL Estim Creat Clear Calc Cancelled Estimated GFR Cancelled Random Glucose Cancelled (60-115) mg/dL Calcium Cancelled (8.4-10.2) mg/dL Nasal Screen MRSA (PCR) NEGATIVE (Negative) Nasal S. aureus Screen NEGATIVE (Negative) Nasal MRSA/S.aureus Interp SEE NOTE COVID-19 (SIA) (Negative) COVID-19 Clin Com Blood Type Antibody Screen 05/07/22 05/07/22 Range/Units 06:08 06:40 WBC RBC Hgb 14.1 Hct 41.6 MCV MCH MCHC RDW Plt Count MPV Immature Gran % (Auto) (0.0-0.4) % Neut % (Auto) (45-73) % Lymph % (Auto) (20-40) % [place] % (Auto) (2-11) % Eos % (Auto) (0-4) % Baso % (Auto) (0-2) % Lymph # (Auto) (1.2-4.9) X10*3/uL [place] # (Auto) (0.1-1.2) X10*3/uL Eos # (Auto) (0.0-0.4) X10*3/uL Baso # (Auto) (0.0-0.2) X10*3/uL Abs Immat Gran (auto) (0.00-0.03) X10*3/uL Absolute Neuts (auto) (2.0-8.3) x10*3/uL Absolute Nucleated RBC Nucleated RBC % (auto) Sodium (135-145) mmol/L Potassium (3.3-5.1) mmol/L Chloride (96-108) mmol/L Carbon Dioxide (22-29) mmol/L Anion Gap (12-20) BUN (9-16) mg/dL Creatinine (0.5-1.4) mg/dL Estim Creat Clear Calc Estimated GFR Random Glucose (60-115) mg/dL Calcium (8.4-10.2) mg/dL Nasal Screen MRSA (PCR) (Negative) Nasal S. aureus Screen (Negative) Nasal MRSA/S.aureus Interp COVID-19 (SIA) Negative (Negative) COVID-19 Clin Com See Note Blood Type Antibody Screen Airway Mallampati Class: II TM Dist: >3cm Neck ROM: Full Loose/Missing/Broken Teeth: Yes (Poor-many missing) Heart: RRR Lungs: CTAB post albuterol treatment Assessment and Plan Assessment Anesthesia Assessment: Anesthesia Plan Discussed Final Anesthetic Review NPO: Yes ASA Class: III Final Preanesthetic Review: No Changes in Pt Med Stat, Meds/Allgs Chart Reviewed, Consent Obtained/Reviewed and Anes Risks/Benef Reviewed Patient Risk: Intermediate Procedure Risk: Intermediate Assessment/Block/Sedation in : Assess/Block/Sedation- Anesthetic Plan Anesthetic Plan: GA and Regional Block (Right brachial plexus block- supraclavicular) Disposition: Standard PACU
[2022-05-07] VITALS (14 sets, daily range): BP systolic 128–167; BP diastolic 58–75; PULSE 63–89; RESP 16–18; TEMP 36.3–37.3; O2SAT 95–99
--- NOTE | ~2022-05-07 | XR_ITS ---
EXAMINATION: XR SHOULDER, RIGHT CLINICAL INFORMATION: Right total shoulder arthroplasty COMPARISON: Radiographs right shoulder 02/14/2022. Breast tomosynthesis 11/12/2021, chest radiograph 09/03/2018 TECHNIQUE: Frontal and lateral views of the right shoulder are obtained. FINDINGS: Status post right shoulder arthroplasty since prior radiographs. Humeral prosthesis is intact. There is no fracture or dislocation or destructive process. No periostitis or osteolysis. The acromioclavicular alignment is normal. There are overlying skin heather. Density with rim calcification overlying lower right chest corresponds to breast implant. XR/XR shoulder RT min 2V IMPRESSION: Status post right shoulder arthroplasty.
[2022-05-07 06:49] LABS: Hematocrit 41.6 % (37.0-47.0); Hemoglobin 14.1 g/dl (12.0-16.0)
[2022-05-07] MEDS: Lactated Ringers 1,000 ML 100 ML IVCONT ×2 (07:06→17:41)
[2022-05-07] MEDS: Albuterol Sulfate (0.083%) 2.5 MG/3 ML VIAL.NEB INHALE (07:12)
[2022-05-07 07:14] LABS: COVID-19 Test Negative (Negative); IDNOW Serial# 55D5AD1C
--- NOTE | 2022-05-07 07:30 | MHC.SHP ---
Pre-Procedural Eval Section A Date of Service: 05/07/22 The patient is an INPATIENT: No Changes since office visit: Yes Patient answered all questions; No Cold of Flu in the past 2 weeks, No New Medical Problems and No Changes in Medication The History & Physical has been completed within 30 days and I have reviewed it.: Yes Section B Chief Complaint: rt shoulder OA Allergies: Allergies Allergy/AdvReac Type Severity Reaction Status Date / Time blue dye [BLUE DYE] Allergy Unknown ANAPHYLAXIS Verified 05/02/22 13:19 escitalopram [From LEXAPRO] Allergy Unknown UNKNOWN Verified 05/02/22 13:19 infliximab [From REMICADE] Allergy Unknown EXACERBATES Verified 05/02/22 13:19 MS naproxen [NAPROXEN] Allergy Unknown SWELLING Verified 05/02/22 13:19 ALL NSAIDS NSAIDS (Non-Steroidal Allergy Unknown ABDOMINAL Verified 05/02/22 13:19 Anti-Inflamma PAIN [NSAIDS (NON-STEROIDAL ANTI-INFLAMMA] olanzapine [OLANZAPINE] Allergy Unknown UNKNOWN Verified 05/02/22 13:19 paroxetine [From PAXIL] Allergy Unknown DIZZINESS Verified 05/02/22 13:19 prednisone [PREDNISONE] Allergy Unknown HALLUCINATIONS Verified 05/02/22 13:19 with high doses Sulfa (Sulfonamide Allergy Unknown HIVES Verified 05/02/22 13:19 Antibiotics) [SULFA (SULFONAMIDE ANTIBIOTICS)] sulfasalazine Allergy Hives Verified 05/02/22 13:19 [From Azulfidine] aspirin [ASPIRIN] AdvReac Unknown STOMACH Verified 05/02/22 13:19 UPSET ciprofloxacin [From CIPRO] AdvReac Unknown SKIN Verified 05/02/22 13:19 PEELING clarithromycin [From Biaxin] AdvReac Abdominal Verified 05/02/22 13:19 Pain ENVIRONMENTAL Allergy Unknown CATS,DOGS,HORSES,MOLD-RED Uncoded 04/22/22 08:30 SKIN,FACIAL SWELLING Plan I have reviewed the history and physical and performed a pertinent physical examination on my patient. No changes have occurred unless specified.
--- NOTE | 2022-05-07 07:36 | PHA.MEDREC ---
Pharmacy Consult ? Medication Reconciliation Pharmacy has completed the medication reconciliation. Reviewed med rec done by nursing
--- NOTE | 2022-05-07 12:00 | PC.NURSE ---
patient made aware her plan of care multiple times. oob with assistance to commode. agitated for the length of time she has been waiting. awaiting for equipment to arrive. c/o right elbow to hand numbness and not her right shoulder. explained multiple times that it is normal from the block and isnt understanding why her shoulder isnt numb. shes been told multiple times by myself and the anesthesiologist of why. repositioned and resting comfortably using her phone at this time.
--- NOTE | 2022-05-07 14:58 | P.BOP_ITS ---
Brief Operative Note Date of Service: 05/07/22 Pre-op diagnosis: Right Shoulder OA Post-op diagnosis: same Procedure: Right TSA Implants: Tournier Surgeon: Evangelista Nuno MD Anesthesia: regional and local Was an Work Environment Safety Inspector used for this Procedure?: Yes Work Environment Safety Inspector: Janet Serrano Estimated blood loss (mL): 200 IV fluids (mL): 1,100 Pathology: other Condition: stable Disposition: PACU
[2022-05-07] MEDS: ondansetron HCL 4 MG/2 ML VIAL IVPUSH (15:42)
[2022-05-07] MEDS: 0.9 % Sodium Chloride Flush 3 ML SYRINGE IVFLUSH (17:40)
[2022-05-07] MEDS: ceFAZolin Sodium/Dextrose,Iso 2 GM/50 ML PIGGYBACK IV (17:41)
[2022-05-07] MEDS: Salmeterol Xinafoate 50 MCG BLST.W.DEV 1 PUFF INHALE (20:01)
[2022-05-07] MEDS: Fluticasone Propionate 100 MCG BLST.W.DEV 2 PUFF INHALE (20:01)
[2022-05-07] MEDS: oxyCODONE HCl Immed Release 5 MG TABLET 10 MG PO (20:11)
[2022-05-07] MEDS: traZODone HCL 25 MG HALFTAB 75 MG PO (20:13)
[2022-05-07] MEDS: Lactase TABLET 1 TAB PO (20:13)
[2022-05-07] MEDS: hydrOXYzine HCL 50 MG TABLET PO (20:14)
[2022-05-07] MEDS: Docusate Sodium 100 MG CAPSULE PO (20:14)
[2022-05-07] MEDS: Famotidine 20 MG TABLET PO (20:14)
[2022-05-07] MEDS: Celecoxib 200 MG CAPSULE PO (20:15)
[2022-05-07] MEDS: oxyCODONE HCl ER 10 MG TAB.ER.12H PO (20:15)
[2022-05-07] MEDS: Memantine HCl 5 MG TABLET PO (20:15)
[2022-05-07] MEDS: Gabapentin 600 MG TABLET PO (20:16)
[2022-05-07] MEDS: Nystatin Oral Susp 500,000 UNIT/5 ML ORAL.SUSP 500000 UNIT PO (20:16)
[2022-05-07] MEDS: Fluticasone Propionate Nasal 16 GM SPRAY 2 SPRAY NOSTRIL-B (20:25)
[2022-05-07] MEDS: QUEtiapine Fumarate 25 MG TABLET PO (21:32)
[2022-05-07] MEDS: HYDROmorphone HCl 0.5 MG/0.5 ML SYRINGE 0.25 MG IVPUSH (23:05)
[2022-05-08] VITALS (9 sets, daily range): BP systolic 118–135; BP diastolic 57–68; PULSE 56–65; RESP 16–18; TEMP 36.2–36.8; O2SAT 95–98
[2022-05-08] MEDS: diphenhydrAMINE HCL 50 MG/ML VIAL 25 MG IVPUSH (00:32)
[2022-05-08] MEDS: oxyCODONE HCl Immed Release 5 MG TABLET 10 MG PO ×4 (01:05→18:36)
[2022-05-08] MEDS: Lactated Ringers 1,000 ML 100 ML IVCONT ×3 (02:45→23:45)
[2022-05-08] MEDS: HYDROmorphone HCl 0.5 MG/0.5 ML SYRINGE 0.25 MG IVPUSH ×3 (04:24→23:43)
[2022-05-08 05:52] LABS: MANUAL DIFF FLAG NO
[2022-05-08 05:53] LABS: Basophils Percent Auto 0.3 % (0-2); Eosinophils Percent Auto 0.2 % (0-4); Hematocrit 33.6 % (37.0-47.0); Hemoglobin 11.7 g/dl (12.0-16.0); Imm Gran Abs Auto 0.04 X10*3/uL (0.00-0.03); Imm Gran Pct Auto 0.4 % (0.0-0.4); Lymphocytes Absolute Auto 1.6 X10*3/uL (1.2-4.9); Lymphocytes Percent Auto 14.4 % (20-40); Mean Corpuscular HGB Conc 34.8 g/dl (31.0-35.0); Mean Corpuscular Hemoglobin 34.9 pg (27.0-33.0); Mean Corpuscular Volume 100.3 fL (80.0-98.0); Mean Platelet Volume 9.1 fL (9.4-12.3); Monocytes Absolute Auto 1.5 X10*3/uL (0.1-1.2); Monocytes Percent Auto 13.1 % (2-11); Neutrophils Absolute Auto 8.1 x10*3/uL (2.0-8.3); Neutrophils Percent Auto 71.6 % (45-73); Platelet Count 228 X10*3/uL (160-400); Red Blood Count 3.35 X10*6/uL (4.20-5.50); Red Cell Distribution Width 12.5 % (11.0-16.0); White Blood Count 11.2 X10*3/uL (4.8-10.8)
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
[2022-05-08 06:27] LABS: Anion Gap 15 (12-20); Blood Urea Nitrogen 14 mg/dL (9-16); Calcium 8.5 mg/dL (8.4-10.2); Carbon Dioxide 21 mmol/L (22-29); Chloride 106 mmol/L (96-108); Creatinine Clr Calc Pharmacy 63.6; Estimated Glomerular Filt Rate > 60; Glucose Fasting 110 mg/dL (60-99); Potassium 4.4 mmol/L (3.3-5.1); Sodium 138 mmol/L (135-145)
[2022-05-08] MEDS: Salmeterol Xinafoate 50 MCG BLST.W.DEV 1 PUFF INHALE ×2 (08:06→19:58)
[2022-05-08] MEDS: Fluticasone Propionate 100 MCG BLST.W.DEV 2 PUFF INHALE ×2 (08:07→19:57)
[2022-05-08] MEDS: Fluticasone Propionate Nasal 16 GM SPRAY 2 SPRAY NOSTRIL-B ×2 (08:22→23:47)
[2022-05-08] MEDS: 0.9 % Sodium Chloride Flush 3 ML SYRINGE IVFLUSH (08:22)
[2022-05-08] MEDS: Famotidine 20 MG TABLET PO ×2 (08:22→21:02)
[2022-05-08] MEDS: hydrOXYzine HCL 50 MG TABLET PO ×2 (08:22→21:02)
[2022-05-08] MEDS: Gabapentin 600 MG TABLET PO ×3 (08:23→21:02)
[2022-05-08] MEDS: Folic Acid 1 MG TABLET PO (08:23)
[2022-05-08] MEDS: Lactase TABLET 1 TAB PO ×4 (08:23→21:02)
[2022-05-08] MEDS: oxyCODONE HCl ER 10 MG TAB.ER.12H PO ×2 (08:23→21:02)
[2022-05-08] MEDS: Cholecalciferol (Vitamin D3) 25 MCG TABLET PO (08:23)
[2022-05-08] MEDS: Celecoxib 200 MG CAPSULE PO ×2 (08:23→21:02)
[2022-05-08] MEDS: Megestrol Acetate 20 MG TABLET 40 MG PO (08:23)
[2022-05-08] MEDS: Multivitamin TABLET 1 TAB PO (08:23)
[2022-05-08] MEDS: Memantine HCl 5 MG TABLET PO ×2 (08:23→21:02)
[2022-05-08] MEDS: Docusate Sodium 100 MG CAPSULE PO ×2 (08:23→21:02)
[2022-05-08] MEDS: Nystatin Oral Susp 500,000 UNIT/5 ML ORAL.SUSP 500000 UNIT PO ×3 (08:24→21:01)
[2022-05-08] MEDS: Lidocaine 4 % Patch ADH..PATCH 2 PATCH TRANSDERMA (08:24)
--- NOTE | 2022-05-08 08:24 | PM.PNORT ---
Subjective Subjective Date of Service: 05/08/22 Interval history: POD1 s/p RTSA. Patient is resting in the chair. Complains of pain increase after working with OT. Ice applied to shoulder. No overnight events. No additional complaints. Physical Exam Vital Signs: Vital Signs: Last Vital Signs Temp 97.4 F 05/08/22 07:20 Pulse 63 05/08/22 08:13 Resp 18 05/08/22 08:13 BP 135/62 05/08/22 07:20 Pulse Ox 97 05/08/22 07:20 O2 Del Method 05/08/22 07:20 O2 Flow Rate 2.0 05/08/22 07:20 BMI result Body Mass Index 22.1 Const: General: cooperative, healthy appearing and no acute distress Resp: Effort & Inspection: normal respiratory effort and able to speak in complete sentences Cardio: Rate: regular rate Peripheral pulses: Peripheral pulses 2+ throughout GI: Palpation (GI): Soft to palpation Skin: Lesions: no lesions Rashes: no rashes Extrem: Other: Right shoulder Aquacel is clean, dry, and intact. Sensation intact. Able to move digits. NVI. Procedures Date of Service Date of Service: 05/08/22 Progress Note: A&P Assessment and plan (1) Status post total shoulder arthroplasty: Status: Acute Plan Continue pain mgmnt Begin ASA for dvt ppx begin OT for RTSA Dispo planning-Pending PT eval, pain mgmnt Time Spent With Patient Time: Total time spent is greater than 50% in coordination of care (as documented) at patient's floor/unit and/or counseling patient: Quality Stroke Does the patient have a stroke diagnosis?: No VTE Prior VTE?: No VTE Risk Level:: Medical - moderate - high VTE Device Contraindication: N/A - Device Ordered VTE Drug Contraindication: N/A - Med Ordered
--- NOTE | 2022-05-08 09:51 | HO.POSTANES ---
Post Anesthesia Evaluation Post Anesthesia Evaluation Vital Signs: Vital Signs Temp Pulse Resp BP Pulse Ox O2 Del Method O2 Flow Rate 05/08/22 08:20 63 05/08/22 08:13 63 18 05/08/22 07:20 97.4 F 58 17 135/62 97 Nasal Cannula 2.0 05/08/22 03:24 97.7 F 58 18 121/57 L 98 Nasal Cannula 2 05/07/22 23:27 97.4 F 68 18 138/62 97 Nasal Cannula 2 05/07/22 23:08 66 156/70 H Anesthesia: Nerve Block and General Endotracheal-GETA Mental Status: Awake Pain Control: Satisfactory (after oral medications) Nausea/Vomiting: None Hydration: Adequate Anesthesia-Related Issues: No Anes. Related Issues Comments: Nerve block did not cover shoulder and wore off 6 hours post-surgery per patient; unable to get sleep; feels better now after oral medications
[2022-05-08] MEDS: Aspirin 325 MG TABLET PO (13:22)
--- NOTE | 2022-05-08 13:49 | MHC.CM.PN ---
EMR REVIEWED, PT ADMITTED S/P R TSA, PT REPORTS SHE LIVES ALONE, USES A CANE FOR DISTANCES BUT NOT AROUND THE HOUSE, PT ALSO HAS A CPAP HOWEVER REPORTS SHE HASN'T USED IT IN OVER 10MOS IT WAS RECALLED, PER RESPIRATORY PT WILL NEED A NEW SLEEP STUDY IT HAS BEEN 2YRS SINCE LAST ONE. PT REPORTS SHE DID HAVE A WAREHOUSE TEAM MEMBER/GRAIN UNLOADER W/[facility] HOWEVER CURRENTLY DOES NOT HAVE ANYONE HER LAST WAREHOUSE TEAM MEMBER STOLE HAIR CONDITIONER FROM HER, PT REPORTS SOMEONE FROM [facility] WAS SUPPOSED TO SEE HER ON THURSDAY HOWEVER THEY CANCELLED. PT LEFT [facility] AND NOW HAS MENTAL HEALTH SERVICES W/[facility]. NEUROLOGIST IS AT THE [facility]. PT DENIES BEING VACCINATED FOR COVID AND ADAMANTLY REFUSES HCP AT THIS TIME OT/PT RECOMMENDING ACUTE REHAB HOWEVER PT ONLY WANTS [facility]REFERRED [facility] AND THEY HAVE DECLINED PT, PT AGREEABLE TO BLANKET SEARCH OF STR'S W/CM REVIEWING BED OFFERS ONCE RECEIVED. D/C PLAN: STR W/BLS TRANSPORT
--- NOTE | 2022-05-08 14:42 | MHC.CM.PN ---
Addendum entered by Breann Jose RN 05/08/22 15:15: Chalo received call back from Rafi and he reported pt declined to set up first appt as she was getting shoulder surgery, Rafi reports he will try to expedite grader tender and services however it could take at least 2 weeks to get a nurse in for assessment and then another week to months to get HH in house however pt is in [place] and they typically have an easier time getting hh services in [place]. Original Note: Chalo left message w/steamfitter supervisor at [facility] [phone] to discuss/clarify home health services as pt reports she currently does not have a claim clerk/paving contractor coming to house.
[2022-05-08] MEDS: QUEtiapine Fumarate 25 MG TABLET PO (21:02)
[2022-05-08] MEDS: LORazepam 0.5 MG TABLET PO (21:02)
[2022-05-08] MEDS: traZODone HCL 25 MG HALFTAB 75 MG PO (21:03)
[2022-05-09] VITALS (8 sets, daily range): BP systolic 98–161; BP diastolic 51–72; PULSE 58–73; RESP 16–20; TEMP 36–36.8; O2SAT 93–97
[2022-05-09] MEDS: oxyCODONE HCl Immed Release 5 MG TABLET 10 MG PO ×3 (03:37→15:21)
[2022-05-09 06:08] LABS: MANUAL DIFF FLAG NO
[2022-05-09 06:14] LABS: Basophils Percent Auto 0.3 % (0-2); Eosinophils Absolute Auto 0.1 X10*3/uL (0.0-0.4); Hematocrit 30.7 % (37.0-47.0); Hemoglobin 10.4 g/dl (12.0-16.0); Imm Gran Abs Auto 0.01 X10*3/uL (0.00-0.03); Imm Gran Pct Auto 0.1 % (0.0-0.4); Lymphocytes Percent Auto 28.1 % (20-40); Mean Corpuscular HGB Conc 33.9 g/dl (31.0-35.0); Mean Corpuscular Hemoglobin 34.2 pg (27.0-33.0); Mean Platelet Volume 9.5 fL (9.4-12.3); Monocytes Absolute Auto 0.9 X10*3/uL (0.1-1.2); Monocytes Percent Auto 12.7 % (2-11); Neutrophils Percent Auto 56.8 % (45-73); Platelet Count 191 X10*3/uL (160-400); Red Blood Count 3.04 X10*6/uL (4.20-5.50); Red Cell Distribution Width 12.8 % (11.0-16.0)
[2022-05-09] MEDS: HYDROmorphone HCl 0.5 MG/0.5 ML SYRINGE 0.25 MG IVPUSH ×4 (06:30→23:30)
--- NOTE | 2022-05-09 06:33 | PC.NURSE ---
pt refused asa last night d/t stomach upset ,
[2022-05-09 06:42] LABS: Anion Gap 12 (12-20); Blood Urea Nitrogen 13 mg/dL (9-16); Carbon Dioxide 23 mmol/L (22-29); Chloride 108 mmol/L (96-108); Estimated Glomerular Filt Rate > 60; Glucose Fasting 105 mg/dL (60-99); Potassium 3.9 mmol/L (3.3-5.1); Sodium 139 mmol/L (135-145)
[2022-05-09] MEDS: Fluticasone Propionate 100 MCG BLST.W.DEV 2 PUFF INHALE ×2 (08:27→20:29)
[2022-05-09] MEDS: Salmeterol Xinafoate 50 MCG BLST.W.DEV 1 PUFF INHALE ×2 (08:27→20:28)
[2022-05-09] MEDS: 0.9 % Sodium Chloride Flush 3 ML SYRINGE IVFLUSH ×2 (09:33→20:32)
[2022-05-09] MEDS: hydrOXYzine HCL 50 MG TABLET PO ×2 (09:34→20:13)
[2022-05-09] MEDS: Acetaminophen 325 MG TABLET 650 MG PO ×2 (09:34→15:22)
[2022-05-09] MEDS: Lactase TABLET 1 TAB PO ×4 (09:34→20:14)
[2022-05-09] MEDS: Multivitamin TABLET 1 TAB PO (09:35)
[2022-05-09] MEDS: oxyCODONE HCl ER 10 MG TAB.ER.12H PO ×2 (09:35→20:15)
[2022-05-09] MEDS: Famotidine 20 MG TABLET PO ×2 (09:35→20:13)
[2022-05-09] MEDS: Gabapentin 600 MG TABLET PO ×3 (09:35→20:13)
[2022-05-09] MEDS: Celecoxib 200 MG CAPSULE PO ×2 (09:35→20:13)
[2022-05-09] MEDS: Lidocaine 4 % Patch ADH..PATCH 2 PATCH TRANSDERMA (09:36)
[2022-05-09] MEDS: Nystatin Oral Susp 500,000 UNIT/5 ML ORAL.SUSP 500000 UNIT PO ×3 (09:36→20:15)
[2022-05-09] MEDS: Folic Acid 1 MG TABLET PO (09:36)
[2022-05-09] MEDS: Docusate Sodium 100 MG CAPSULE PO ×2 (09:36→23:35)
[2022-05-09] MEDS: Memantine HCl 5 MG TABLET PO ×2 (09:36→20:13)
[2022-05-09] MEDS: Fluticasone Propionate Nasal 16 GM SPRAY 2 SPRAY NOSTRIL-B ×2 (09:37→20:22)
[2022-05-09] MEDS: Lactated Ringers 1,000 ML 100 ML IVCONT (09:38)
--- NOTE | 2022-05-09 09:39 | MHC.CM.PN ---
NO BED OFFERS AT THIS TIME, SNF REFERRAL EXPANDED, CM AWAITING BED OFFER.
[2022-05-09] MEDS: Megestrol Acetate 20 MG TABLET 40 MG PO (09:43)
[2022-05-09] MEDS: Cholecalciferol (Vitamin D3) 25 MCG TABLET PO (09:55)
--- NOTE | 2022-05-09 13:49 | MHC.CM.PN ---
CM CONFIRMED W/[facility] PT IS NOT DUE FOR OCREVUS INFUSION ON 06/27/22.
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
[2022-05-09] MEDS: QUEtiapine Fumarate 25 MG TABLET PO (20:13)
[2022-05-09] MEDS: Aspirin 325 MG TABLET PO (20:14)
[2022-05-09] MEDS: traZODone HCL 25 MG HALFTAB 75 MG PO (20:15)
[2022-05-09] MEDS: LORazepam 0.5 MG TABLET PO (23:30)
[2022-05-10] VITALS (9 sets, daily range): BP systolic 110–187; BP diastolic 58–80; PULSE 63–79; RESP 16–18; TEMP 36.2–37; O2SAT 95–98
[2022-05-10] MEDS: oxyCODONE HCl Immed Release 5 MG TABLET 10 MG PO ×3 (03:35→14:28)
[2022-05-10] MEDS: HYDROmorphone HCl 0.5 MG/0.5 ML SYRINGE 0.25 MG IVPUSH ×4 (06:15→21:24)
[2022-05-10 06:25] LABS: MANUAL DIFF FLAG NO
[2022-05-10 06:35] LABS: Basophils Percent Auto 0.5 % (0-2); Eosinophils Absolute Auto 0.2 X10*3/uL (0.0-0.4); Hematocrit 30.2 % (37.0-47.0); Hemoglobin 10.3 g/dl (12.0-16.0); Imm Gran Abs Auto 0.03 X10*3/uL (0.00-0.03); Imm Gran Pct Auto 0.5 % (0.0-0.4); Lymphocytes Absolute Auto 1.6 X10*3/uL (1.2-4.9); Lymphocytes Percent Auto 25.3 % (20-40); Mean Corpuscular HGB Conc 34.1 g/dl (31.0-35.0); Mean Corpuscular Hemoglobin 34.7 pg (27.0-33.0); Mean Corpuscular Volume 101.7 fL (80.0-98.0); Mean Platelet Volume 9.3 fL (9.4-12.3); Monocytes Absolute Auto 0.8 X10*3/uL (0.1-1.2); Monocytes Percent Auto 12.2 % (2-11); Neutrophils Absolute Auto 3.7 x10*3/uL (2.0-8.3); Neutrophils Percent Auto 58.5 % (45-73); Platelet Count 194 X10*3/uL (160-400); Red Blood Count 2.97 X10*6/uL (4.20-5.50); White Blood Count 6.3 X10*3/uL (4.8-10.8)
[2022-05-10 07:00] LABS: Anion Gap 14 (12-20); Blood Urea Nitrogen 10 mg/dL (9-16); Calcium 8.3 mg/dL (8.4-10.2); Carbon Dioxide 25 mmol/L (22-29); Chloride 109 mmol/L (96-108); Creatinine Clr Calc Pharmacy 64.3; Estimated Glomerular Filt Rate > 60; Glucose Fasting 85 mg/dL (60-99); Potassium 4.6 mmol/L (3.3-5.1); Sodium 143 mmol/L (135-145)
--- NOTE | 2022-05-10 07:41 | PM.PNORT ---
Subjective Subjective Date of Service: 05/10/22 Interval history: POD 4 s/p TSA no overnight events her pain is improving Physical Exam Vital Signs: Vital Signs: Last Vital Signs Temp 97.2 F 05/10/22 07:05 Pulse 63 05/10/22 07:05 Resp 18 05/10/22 07:05 BP 110/58 L 05/10/22 07:05 Pulse Ox 96 05/10/22 07:05 O2 Del Method 05/10/22 07:05 O2 Flow Rate 2 05/10/22 07:05 BMI result Body Mass Index 22.1 Const: General: cooperative, healthy appearing and no acute distress Resp: Effort & Inspection: normal respiratory effort and able to speak in complete sentences Cardio: Rate: regular rate Peripheral pulses: Peripheral pulses 2+ throughout GI: Palpation (GI): Soft to palpation Skin: General skin exam: no rashes or lesions noted Extrem: Other: Right shoulder Aquacel is clean, dry, and intact. Sensation intact. Able to move digits. NVI. Procedures Date of Service Date of Service: 05/10/22 Progress Note: A&P Assessment and plan (1) Status post total shoulder arthroplasty: Status: Acute Plan Continue pain mgmnt Begin ASA for dvt ppx begin OT for RTSA Dispo planning-Pending rehab placement vs home care Time Spent With Patient Time: Total time spent is greater than 50% in coordination of care (as documented) at patient's floor/unit and/or counseling patient: Quality Stroke Does the patient have a stroke diagnosis?: No VTE Prior VTE?: No VTE Risk Level:: Medical - moderate - high VTE Device Contraindication: N/A - Device Ordered VTE Drug Contraindication: N/A - Med Ordered
[2022-05-10] MEDS: Salmeterol Xinafoate 50 MCG BLST.W.DEV 1 PUFF INHALE ×2 (08:01→21:05)
[2022-05-10] MEDS: Fluticasone Propionate 100 MCG BLST.W.DEV 2 PUFF INHALE ×2 (08:01→21:05)
[2022-05-10] MEDS: Multivitamin TABLET 1 TAB PO (09:28)
[2022-05-10] MEDS: Megestrol Acetate 20 MG TABLET 40 MG PO (09:28)
[2022-05-10] MEDS: Nystatin Oral Susp 500,000 UNIT/5 ML ORAL.SUSP 500000 UNIT PO ×3 (09:28→21:22)
[2022-05-10] MEDS: Folic Acid 1 MG TABLET PO (09:29)
[2022-05-10] MEDS: Celecoxib 200 MG CAPSULE PO ×2 (09:29→21:20)
[2022-05-10] MEDS: Gabapentin 600 MG TABLET PO ×3 (09:29→21:21)
[2022-05-10] MEDS: Docusate Sodium 100 MG CAPSULE PO ×2 (09:29→21:21)
[2022-05-10] MEDS: Cholecalciferol (Vitamin D3) 25 MCG TABLET PO (09:29)
[2022-05-10] MEDS: oxyCODONE HCl ER 10 MG TAB.ER.12H PO ×2 (09:29→21:23)
[2022-05-10] MEDS: Famotidine 20 MG TABLET PO ×2 (09:30→21:21)
[2022-05-10] MEDS: Memantine HCl 5 MG TABLET PO ×2 (09:30→21:24)
[2022-05-10] MEDS: Lidocaine 4 % Patch ADH..PATCH 2 PATCH TRANSDERMA (09:30)
[2022-05-10] MEDS: hydrOXYzine HCL 50 MG TABLET PO ×2 (09:30→21:22)
[2022-05-10] MEDS: Acetaminophen 325 MG TABLET 650 MG PO ×2 (09:30→16:41)
[2022-05-10] MEDS: Lactase TABLET 1 TAB PO ×4 (09:30→21:22)
[2022-05-10] MEDS: 0.9 % Sodium Chloride Flush 3 ML SYRINGE IVFLUSH ×3 (09:31→22:33)
[2022-05-10] MEDS: Fluticasone Propionate Nasal 16 GM SPRAY 2 SPRAY NOSTRIL-B ×2 (09:36→21:33)
[2022-05-10] MEDS: Aspirin 325 MG TABLET PO (17:28)
[2022-05-10] MEDS: LORazepam 0.5 MG TABLET PO (21:24)
[2022-05-10] MEDS: traZODone HCL 25 MG HALFTAB 75 MG PO (21:24)
[2022-05-10] MEDS: QUEtiapine Fumarate 25 MG TABLET PO (22:32)
[2022-05-11] VITALS (8 sets, daily range): BP systolic 125–145; BP diastolic 58–67; PULSE 57–70; RESP 14–20; TEMP 35.9–37.1; O2SAT 94–97
[2022-05-11] MEDS: HYDROmorphone HCl 0.5 MG/0.5 ML SYRINGE 0.25 MG IVPUSH ×3 (02:26→20:36)
[2022-05-11 05:33] LABS: MANUAL DIFF FLAG NO
[2022-05-11 05:35] LABS: Basophils Percent Auto 0.3 % (0-2); Eosinophils Absolute Auto 0.2 X10*3/uL (0.0-0.4); Eosinophils Percent Auto 3.5 % (0-4); Hemoglobin 11.3 g/dl (12.0-16.0); Imm Gran Abs Auto 0.02 X10*3/uL (0.00-0.03); Imm Gran Pct Auto 0.3 % (0.0-0.4); Lymphocytes Absolute Auto 1.7 X10*3/uL (1.2-4.9); Lymphocytes Percent Auto 26.9 % (20-40); Mean Corpuscular HGB Conc 34.2 g/dl (31.0-35.0); Mean Corpuscular Hemoglobin 34.5 pg (27.0-33.0); Mean Corpuscular Volume 100.6 fL (80.0-98.0); Monocytes Absolute Auto 0.8 X10*3/uL (0.1-1.2); Monocytes Percent Auto 13.2 % (2-11); Neutrophils Absolute Auto 3.5 x10*3/uL (2.0-8.3); Neutrophils Percent Auto 55.8 % (45-73); Platelet Count 225 X10*3/uL (160-400); Red Blood Count 3.28 X10*6/uL (4.20-5.50); Red Cell Distribution Width 12.7 % (11.0-16.0); White Blood Count 6.3 X10*3/uL (4.8-10.8)
[2022-05-11 05:59] LABS: Anion Gap 13 (12-20); Blood Urea Nitrogen 12 mg/dL (9-16); Calcium 8.8 mg/dL (8.4-10.2); Carbon Dioxide 26 mmol/L (22-29); Chloride 109 mmol/L (96-108); Creatinine Clr Calc Pharmacy 58.9; Estimated Glomerular Filt Rate 59; Glucose Fasting 100 mg/dL (60-99); Potassium 4.9 mmol/L (3.3-5.1); Sodium 143 mmol/L (135-145)
[2022-05-11] MEDS: Salmeterol Xinafoate 50 MCG BLST.W.DEV 1 PUFF INHALE ×2 (08:09→19:58)
[2022-05-11] MEDS: Fluticasone Propionate 100 MCG BLST.W.DEV 2 PUFF INHALE ×2 (08:09→19:59)
[2022-05-11] MEDS: Lactase TABLET 1 TAB PO ×4 (08:51→20:40)
[2022-05-11] MEDS: Memantine HCl 5 MG TABLET PO ×2 (08:51→20:41)
[2022-05-11] MEDS: Docusate Sodium 100 MG CAPSULE PO ×2 (08:51→20:39)
[2022-05-11] MEDS: Multivitamin TABLET 1 TAB PO (08:51)
[2022-05-11] MEDS: Folic Acid 1 MG TABLET PO (08:51)
[2022-05-11] MEDS: hydrOXYzine HCL 50 MG TABLET PO ×2 (08:51→20:39)
[2022-05-11] MEDS: oxyCODONE HCl ER 10 MG TAB.ER.12H PO ×2 (08:52→20:39)
[2022-05-11] MEDS: Megestrol Acetate 20 MG TABLET 40 MG PO (08:52)
[2022-05-11] MEDS: Cholecalciferol (Vitamin D3) 25 MCG TABLET PO (08:52)
[2022-05-11] MEDS: Celecoxib 200 MG CAPSULE PO ×2 (08:52→20:40)
[2022-05-11] MEDS: Gabapentin 600 MG TABLET PO ×3 (08:52→20:39)
[2022-05-11] MEDS: Nystatin Oral Susp 500,000 UNIT/5 ML ORAL.SUSP 500000 UNIT PO ×3 (08:52→20:39)
[2022-05-11] MEDS: Famotidine 20 MG TABLET PO ×2 (08:52→20:39)
[2022-05-11] MEDS: Lidocaine 4 % Patch ADH..PATCH 2 PATCH TRANSDERMA (08:53)
[2022-05-11] MEDS: Fluticasone Propionate Nasal 16 GM SPRAY 2 SPRAY NOSTRIL-B ×2 (09:13→20:54)
[2022-05-11] MEDS: 0.9 % Sodium Chloride Flush 3 ML SYRINGE IVFLUSH ×3 (09:14→20:55)
--- NOTE | 2022-05-11 12:47 | PM.PNORT ---
Subjective Subjective Date of Service: 05/11/22 Interval history: POD 5 s/p TSA no overnight events her pain is improving Physical Exam Vital Signs: Vital Signs: Last Vital Signs Temp 96.6 F L 05/11/22 11:01 Pulse 66 05/11/22 11:01 Resp 17 05/11/22 11:01 BP 132/61 05/11/22 11:01 Pulse Ox 95 05/11/22 11:01 O2 Del Method 05/11/22 11:01 O2 Flow Rate 2.0 05/11/22 11:01 BMI result Body Mass Index 22.1 Const: General: cooperative, healthy appearing and no acute distress Resp: Effort & Inspection: normal respiratory effort and able to speak in complete sentences Cardio: Rate: regular rate Peripheral pulses: Peripheral pulses 2+ throughout GI: Palpation (GI): Soft to palpation Skin: General skin exam: no rashes or lesions noted Extrem: Other: Right shoulder Aquacel is clean, dry, and intact. Sensation intact. Able to move digits. NVI. Procedures Date of Service Date of Service: 05/11/22 Progress Note: A&P Assessment and plan (1) Status post total shoulder arthroplasty: Status: Acute Plan Continue pain mgmnt Begin ASA for dvt ppx begin OT for RTSA Dispo planning-Pending rehab placement vs home care Time Spent With Patient Time: Total time spent is greater than 50% in coordination of care (as documented) at patient's floor/unit and/or counseling patient: Quality Stroke Does the patient have a stroke diagnosis?: No VTE Prior VTE?: No VTE Risk Level:: Medical - moderate - high VTE Device Contraindication: N/A - Device Ordered VTE Drug Contraindication: N/A - Med Ordered
--- NOTE | 2022-05-11 13:08 | MHC.CM.PN ---
STRs updated today
[2022-05-11] MEDS: oxyCODONE HCl Immed Release 5 MG TABLET 10 MG PO ×3 (17:02→22:48)
[2022-05-11] MEDS: Sodium Phosphate,Mono-Dibasic 133 ML ENEMA PR (18:07)
[2022-05-11] MEDS: QUEtiapine Fumarate 25 MG TABLET PO (20:41)
[2022-05-11] MEDS: traZODone HCL 25 MG HALFTAB 75 MG PO (20:41)
[2022-05-11] MEDS: LORazepam 0.5 MG TABLET PO (21:14)
[2022-05-12] MEDS: HYDROmorphone HCl 0.5 MG/0.5 ML SYRINGE 0.25 MG IVPUSH ×2 (03:01→10:10)
[2022-05-12 03:15] VITALS: RESP 20
[2022-05-12 05:43] LABS: MANUAL DIFF FLAG NO
[2022-05-12 05:50] LABS: Basophils Percent Auto 0.4 % (0-2); Eosinophils Absolute Auto 0.2 X10*3/uL (0.0-0.4); Eosinophils Percent Auto 3.2 % (0-4); Hematocrit 32.5 % (37.0-47.0); Hemoglobin 10.9 g/dl (12.0-16.0); Imm Gran Abs Auto 0.03 X10*3/uL (0.00-0.03); Imm Gran Pct Auto 0.4 % (0.0-0.4); Lymphocytes Absolute Auto 1.5 X10*3/uL (1.2-4.9); Lymphocytes Percent Auto 19.9 % (20-40); Mean Corpuscular HGB Conc 33.5 g/dl (31.0-35.0); Mean Corpuscular Hemoglobin 33.7 pg (27.0-33.0); Mean Corpuscular Volume 100.6 fL (80.0-98.0); Mean Platelet Volume 9.3 fL (9.4-12.3); Monocytes Absolute Auto 0.9 X10*3/uL (0.1-1.2); Monocytes Percent Auto 12.5 % (2-11); Neutrophils Absolute Auto 4.8 x10*3/uL (2.0-8.3); Neutrophils Percent Auto 63.6 % (45-73); Platelet Count 222 X10*3/uL (160-400); Red Blood Count 3.23 X10*6/uL (4.20-5.50); Red Cell Distribution Width 12.7 % (11.0-16.0); White Blood Count 7.5 X10*3/uL (4.8-10.8)
[2022-05-12 06:15] LABS: Anion Gap 17 (12-20); Blood Urea Nitrogen 13 mg/dL (9-16); Calcium 8.4 mg/dL (8.4-10.2); Carbon Dioxide 20 mmol/L (22-29); Chloride 108 mmol/L (96-108); Creatinine Clr Calc Pharmacy 62.1; Estimated Glomerular Filt Rate > 60; Glucose Fasting 92 mg/dL (60-99); Potassium 4.6 mmol/L (3.3-5.1); Sodium 140 mmol/L (135-145)
[2022-05-12] MEDS: oxyCODONE HCl Immed Release 5 MG TABLET 10 MG PO ×2 (06:32→12:49)
[2022-05-12] MEDS: Fluticasone Propionate 100 MCG BLST.W.DEV 2 PUFF INHALE (07:48)
[2022-05-12] MEDS: Salmeterol Xinafoate 50 MCG BLST.W.DEV 1 PUFF INHALE (07:48)
[2022-05-12 08:00] VITALS: BP 138/63; PULSE 65; RESP 18; TEMP 36.5; O2SAT 97
[2022-05-12] MEDS: hydrOXYzine HCL 50 MG TABLET PO (09:37)
[2022-05-12] MEDS: Gabapentin 600 MG TABLET PO (09:37)
[2022-05-12] MEDS: Docusate Sodium 100 MG CAPSULE PO (09:37)
[2022-05-12] MEDS: oxyCODONE HCl ER 10 MG TAB.ER.12H PO (09:40)
[2022-05-12] MEDS: Folic Acid 1 MG TABLET PO (09:40)
[2022-05-12] MEDS: Famotidine 20 MG TABLET PO (09:40)
[2022-05-12] MEDS: Cholecalciferol (Vitamin D3) 25 MCG TABLET PO (09:41)
[2022-05-12] MEDS: Memantine HCl 5 MG TABLET PO (09:41)
[2022-05-12] MEDS: Megestrol Acetate 20 MG TABLET 40 MG PO (09:41)
[2022-05-12] MEDS: Lactase TABLET 1 TAB PO (09:41)
[2022-05-12] MEDS: Celecoxib 200 MG CAPSULE PO (09:41)
[2022-05-12] MEDS: Multivitamin TABLET 1 TAB PO (09:41)
[2022-05-12] MEDS: Nystatin Oral Susp 500,000 UNIT/5 ML ORAL.SUSP 500000 UNIT PO (09:42)
[2022-05-12] MEDS: Fluticasone Propionate Nasal 16 GM SPRAY 2 SPRAY NOSTRIL-B (09:42)
[2022-05-12] MEDS: Lidocaine 4 % Patch ADH..PATCH 2 PATCH TRANSDERMA (09:43)
[2022-05-12] MEDS: 0.9 % Sodium Chloride Flush 3 ML SYRINGE IVFLUSH (09:54)
--- NOTE | 2022-05-12 11:46 | W.MHC.F2F ---
Service Date Service Date: 05/12/22 Encounter Date of encounter: 05/12/22 Reasons for Services Signs and symptoms assessed: right shoulder replacement-difficulty with balance and ADLs Reason for physical therapy: home safety and mobility, therapeutic exercises, restore joint function, gait/transfer training, ADL training and energy conservation Reason for occupational therapy: home safety and mobility, therapeutic exercises, restore joint function, gait/transfer training, ADL training and energy conservation Overseeing Care: Evangelista Nuno Homebound: Leaving the home is medically contraindicated at this time without the asist of a device and/or another person due th the listed conditions above and below. Reason homebound: unsteady gait / fall risk, poor balance / fall risk and unable to drive Homebound supporting statement: Pt. is considered home bound due to recent surgery. Unable to drive, poor balance, poor gait mechanics. Certification: Based on the above findings, I certify that this patient is confined to the home and needs intermittent care home care, physical therapy and/or speech therapy, or continues to need occupational therapy. The patient is under my care, and I have initiated the establishment of the plan of care. The patient will be followed by a physician who will periodically review the plan of care.
--- NOTE | 2022-05-12 12:00 | MHC.CM.PN ---
PATIENT TO DC HOME WITH NEW [facility] PATIENT TO ARRANGE HER OWN TRANSPORT [facility]ROUGH [facility] (PT-1) RN AWARE OF PLAN
--- NOTE | 2022-05-12 12:34 | P.DS_ITS ---
DS: Providers Provider Date of Service: 05/13/22 Date of admission: 05/07/22 06:10 Primary care physician: Santiago Valladares PA-C Consults: 05/07/22 16:59 Consult to Hospitalist Routine Consulting Provider: Hospitalist Reason For Exam: routine medical management DS: Diagnosis Discharge Diagnosis (1) Status post total shoulder arthroplasty: Status: Acute DS: Summary Hospital Course Hospital Course: The patient underwent a successful right total shoulder arthroplasty, was transferred to PACU and then to the floor to recover. During their stay, their vitals were stable 97.7, afebrile at . Labs were unremarkable, H/H 10.9/32.5. POD 1 she was started on ASA 325 mg bid for DVT ppx, they also received OT daily. Prior to discharge, their dressing was change, incision clean dry and intact, new Aquacel dressing applied and the plan was to be discharged home with services. Time Spent with Patient Time attestation: Total time spent providing and/or coordinating discharge services: Discharge coordination time: Less than 30 minutes Quality: Safe Use of Opioids Does Pt have an Active Cancer Diagnosis on the Problem List?: No Quality: Stroke Does the patient have a stroke diagnosis?: No Physical Exam Vital Signs: Vital Signs: Last Vital Signs Temp 97.7 F 05/12/22 08:00 Pulse 65 05/12/22 08:00 Resp 18 05/12/22 08:00 BP 138/63 05/12/22 08:00 Pulse Ox 97 05/12/22 08:00 O2 Del Method 05/12/22 08:00 O2 Flow Rate 2.0 05/12/22 08:00 BMI result Body Mass Index 22.1 Const: General: cooperative, healthy appearing and no acute distress Resp: Effort & Inspection: normal respiratory effort and able to speak in complete sentences Cardio: Rate: regular rate Peripheral pulses: Peripheral pulses 2+ throughout GI: Palpation (GI): Soft to palpation Skin: General skin exam: no rashes or lesions noted Extrem: Other: Right shoulder Aquacel is clean, dry, and intact. Sensation intact. Able to move digits. NVI. DS: Data Data Completed and Pending Pending studies at discharge: Pending at discharge 05/07/22 15:21 Surgical [PTH] Routine Labs on day of discharge: Laboratory Results - last 24 hr 05/12/22 05/12/22 05:14 05:14 WBC 7.5 RBC 3.23 L Hgb 10.9 L Hct 32.5 L MCV 100.6 H MCH 33.7 H MCHC 33.5 RDW 12.7 Plt Count 222 MPV 9.3 L Immature Gran % (Auto) 0.4 Neut % (Auto) 63.6 Lymph % (Auto) 19.9 L Sutton % (Auto) 12.5 H Eos % (Auto) 3.2 Baso % (Auto) 0.4 Lymph # (Auto) 1.5 Sutton # (Auto) 0.9 Eos # (Auto) 0.2 Baso # (Auto) 0.0 Abs Immat Gran (auto) 0.03 Absolute Neuts (auto) 4.8 Absolute Nucleated RBC 0.000 Nucleated RBC % (auto) 0.0 Sodium 140 Potassium 4.6 Chloride 108 Carbon Dioxide 20 L Anion Gap 17 BUN 13 Creatinine 0.90 Estim Creat Clear Calc 62.1 Estimated GFR > 60 Fasting Glucose 92 Calcium 8.4 Discharge Plan Discharge Patient Disposition: Home Health Service Discharge Diagnosis: TSA right shoulder Referrals: Aline MEDRANO [Outside] - 1 Week Janet Serrano PA-C [Physician Deputy Chief Sheriff] - 2 Weeks (05/22/22 2:00 [facility] Janet Serrano PA-C) Discharge Medications: New oxycodone 10 mg tablet 10 mg PO Q4H PRN (Reason: Pain, Moderate (Pain Scale 4-6) 7 Days Qty: 42 0RF Rx Instructions: Partial Fill upon patient request. celecoxib 200 mg Capsule 200 mg PO BID 30 Days Qty: 60 0RF acetaminophen 325 mg Tablet 650 mg PO Q6H PRN (Reason: Pain, Mild (Pain Scale 1-3)) 30 Days Qty: 240 0RF aspirin 325 mg Tablet 325 mg PO BID 42 Days Qty: 84 0RF docusate sodium 100 mg Capsule 100 mg PO BID 14 Days Qty: 28 0RF Continued Narcan 4 mg/actuation spray,non-aerosol 4 mg intranasal Q2M PRN (Reason: opioid overdose) 1 Days Qty: 2 1RF Rx Instructions: spray 1 dose into ONE nostril; alternate nostrils w each dose until help arrives diclofenac sodium 1 % gel 2 g topical .QD Qty: 100 3RF lidocaine [Lidoderm] 5 % adhesive patch,medicated 2 patch topical DAILY Qty: 60 2RF Rx Instructions: leave on most painful area both shoulders for up to 12 hrs prochlorperazine [Compro] 25 mg suppository 25 mg MO TID PRN (Reason: for nausea/vomiting) Qty: 90 3RF folic acid 1 mg tablet 1 mg PO DAILY 90 Days Qty: 90 2RF magnesium chloride 71.5 mg tablet,delayed release (DR/EC) 71.5 mg PO BID Qty: 180 3RF cyanocobalamin (vitamin B-12) 1,000 mcg/mL solution 1,000 mcg IM QWEEK Qty: 12 12RF (DME) BD Integra Syringe 3 mL 25 gauge x 5/8 syringe See Rx Instructions .Route Qty: 100 1RF Rx Instructions: As directed cholecalciferol (vitamin D3) 25 mcg (1,000 unit) tablet 25 mcg PO DAILY Qty: 90 1RF megestrol 40 mg tablet 40 mg PO DAILY Qty: 30 3RF fluticasone propionate [Flovent HFA] 110 mcg/actuation HFA aerosol inhaler 2 puff PO Q12H 30 Days Qty: 1 12RF Spiriva with HandiHaler 18 mcg capsule, w/inhalation device 1 cap inhalation DAILY 30 Days Qty: 60 3RF Rx Instructions: puncture 1 cap using device; one dose = 2 inhalations lactase 3,000 unit tablet 3,000 unit PO QID Qty: 240 5RF fluticasone propionate 50 mcg/actuation spray,suspension 2 spray intranasal BID 30 Days Qty: 16 2RF Serevent Diskus 50 mcg/dose blister with device 1 inh inhalation BID Qty: 60 3RF Xiidra 5 % dropperette 1 drp ophthalmic (eye) BID acetic acid 2 % solution 3 drp otic (ear) left Q6H PRN (Reason: itchy ear) Rx Instructions: apply to (cotton) wick; replace wick every 24 hours valacyclovir 1 gram tablet 1,000 mg PO BEDTIME mesalamine 1,000 mg suppository 1,000 mg MO BEDTIME PRN (Reason: rectal bleeding, pain) multivitamin Tablet 1 tab PO DAILY vitamin B complex Capsule 1 cap PO DAILY albuterol sulfate 0.63 mg/3 mL Solution For Nebulization 0.63 mg INHALATION Q4-6H PRN (Reason: Wheezing) miscellaneous medical supply Misc 1 ea miscellaneous DAILY 99 Days Qty: 2 0RF olopatadine 0.2 % drops 1 drp ophthalmic (eye) DAILY 15 Days Qty: 2.5 0RF nicotine (polacrilex) 4 mg mini lozenge 4 mg buccal Q8H PRN (Reason: nicotine cravings) 30 Days Qty: 81 0RF triamcinolone acetonide 0.1 % lotion 1 appl topical BID cholecalciferol (vitamin D3) [Vitamin D3] 25 mcg (1,000 unit) capsule 1 PO DAILY memantine 5 mg tablet 5 mg PO BID donepezil 23 mg tablet 23 mg PO BEDTIME quetiapine 25 mg tablet 25 mg PO BEDTIME gabapentin 600 mg tablet 600 mg PO TID lorazepam 0.5 mg tablet 0.5 mg PO BID PRN (Reason: Muscle Spasm) trazodone 50 mg tablet 75 mg PO BEDTIME hydroxyzine HCl 25 mg tablet 50 mg PO BID sumatriptan succinate 50 mg tablet 50 mg PO NEEDED PRN (Reason: Migraine Headache) hydroxyzine pamoate 25 mg capsule 25 mg PO DAILY PRN (Reason: Anxiety) fluocinonide 0.05 % solution topical epinephrine 0.3 mg/0.3 mL auto-injector 0.3 ml IM ONCE PRN (Reason: Allergic Reaction) nystatin 100,000 unit/mL suspension 5 ml PO TID 7 Days Qty: 105 3RF Rx Instructions: swish and swallow psyllium husk [Metamucil] 0.52 gram capsule 0.52 g PO DAILY 30 Days Qty: 30 6RF famotidine 20 mg tablet 20 mg PO BID Qty: 180 3RF No Action albuterol sulfate [ProAir HFA] 90 mcg/actuation HFA aerosol inhaler 2 puff PO Q2H PRN (Reason: for wheezing) Qty: 8.5 12RF Discharge Orders: Discharge Order (Routine); Ordered 05/12/22 Ordered By: Jair Taylor Diet: Regular diet Activity on Discharge: sling Stand Alone Forms: Patient Portal Discharge page Care Plan Goals: Restore function of joint Health Concerns: none Plan of Treatment: Physical Therapy Pain management DVT prophylaxis Assessment: * Wear sling at all times unless for hygiene and exercises * Pendelums three times a day * Physical Therapy/ Occupation therapy * ---No raising Right arm above 30 degrees, No ER/IR beyond 30 degrees, no Abduction beyond 90 degrees * ---No heavy lifting * ---Elbow and wrist ROM ok * Aspirin 81mg twice a day * Follow up with orthopedics in 2 weeks Discharge Date/Time: 05/12/22 13:21
[2022-05-12] MEDS: Sodium Phosphate,Mono-Dibasic 133 ML ENEMA PR (12:49)
--- NOTE | 2022-05-20 07:43 | P.OP_ITS ---
Operative Note Operative Note Date of Service: 05/07/22 Narrative: Date of Service: 05/07/22 Pre-op diagnosis: Right Shoulder OA Post-op diagnosis: same Procedure: Right TSA Implants: Tournier: Cortiloc pegged glenoid- M40 48 132.5 Flex stem with a 19mm low offset 45 HH Surgeon: Evangelista Nuno MD Anesthesia: regional and local Was an Scientist/Engineer used for this Procedure?: Yes Scientist/Engineer: Janet Serrano Estimated blood loss (mL): 200 IV fluids (mL): 1,100 Pathology: other Condition: stable Disposition: PACU Procedure in detail: Patient was brought to the operating room and placed in the beach chair position on the surgical table. The limb was prepped and draped in standard sterile fashion and a time out was called to identify proper site, proper procedure and IV antibiotics per weight were administered. I began by making a deltopectoral incision from the coracoid to the pectoralis insertion. Blunt dissection identified the cephalic vein which was retracted laterally. Blunt dissection was taken down to the 3 sisters which were cauterized. I then made a full- thickness capsulotomy including the subscapularis. A 1 cm cuff was left for repair. This was then tagged and the arm was externally rotated and extended and the head was dislocated. The humeral head was eburnated and there was a very large inferior osteophyte that was removed with an osteotome. The RTC was intact. An anatomic head cut was made in patient's natural inclination (approximately 132 degree) . A starter awl was used to identify the canal and then I broached up to a size #4 at 30 degrees of version. I then placed my head protector and turned my attention to the glenoid. Posterior anterior and superior glenoid retractors were placed and the biceps was tenotomized and labral tissue was removed. Based on the preoperative CT and templating a guide pin was placed in approximately 5 degrees of retroversion and neutral inclination. Using a wedge Reamer I reamed down to bleeding bone circumferentially and placed the size 40M glenoid drill guide. My final glenoid was cemented in place while applying axial compression. Once the cement was dry all excess cement was removed. I then returned to the humerus where I trialed a 4b stem with a low offset 19 head. I was satisfied with the height and the stability. I irrigated copiously and then implanted in the final implants. I was satisfied with the stability of the implants. I then irrigated and repaired the subscapularis with fiberwire. I closed in a layered fashion with absorbable suture and heather and the patient was placed in a sterile dressing and an abduction sling. She was extubated brought to recovery room stable condition there were no known complications.
== END 2022-05-12 13:21 | disposition home health service (06) | DRG 322 ==
LOC: HO.SSSA 06:33 → HO.S3 14:42
PROVIDERS: Physician Assistant; Admitting Provider Orthopaedic Surgery; PCP Family Medicine; Visit Provider Orthopaedic Surgery
PROC: 0RRJ0JZ Replacement of Right Shoulder Joint with Synthetic Substitute, Open Approach (ICD-10-PCS; principal; 2022-05-07 07:30)
DX: M19.011 Primary osteoarthritis, right shoulder (principal); K75.81 Nonalcoholic steatohepatitis (NASH); F17.210 Nicotine dependence, cigarettes, uncomplicated; J44.9 Chronic obstructive pulmonary disease, unspecified; G47.33 Obstructive sleep apnea (adult) (pediatric); G35 Multiple sclerosis; F32.A Depression, unspecified; F41.9 Anxiety disorder, unspecified; F43.10 Post-traumatic stress disorder, unspecified; K52.9 Noninfective gastroenteritis and colitis, unspecified; Z71.6 Tobacco abuse counseling; Z20.822 Contact with and (suspected) exposure to COVID-19; Z88.0 Allergy status to penicillin; Z88.2 Allergy status to sulfonamides; Z88.1 Allergy status to other antibiotic agents; Z88.6 Allergy status to analgesic agent; Z88.8 Allergy status to other drugs, medicaments and biological substances; Z79.51 Long term (current) use of inhaled steroids; Z79.899 Other long term (current) drug therapy
CPT/HCPCS: 36415; 73030; 80048; 80051; 82310; 82565; 82947; 84520; 85014; 85018; 85025; 85027; 86850; 86900; 86901; 87635; 87640; 87641; 88304; 88311; 93005; 97110; 97116; 97162; 97166; 97535; C1713; C1776; J0131; J0690; J1100; J1170; J1200; J2250; J2405; J2550; J2795; J3010

== ENCOUNTER → 2022-06-12 12:53 | Outpatient (BNVA) | payer OTHER, SELFPAY | PROVIDERS: PCP Family Medicine; Visit Provider Internal Medicine Pulmonary Disease | DX: J44.9 Chronic obstructive pulmonary disease, unspecified (principal); J45.40 Moderate persistent asthma, uncomplicated; G47.33 Obstructive sleep apnea (adult) (pediatric); Z79.899 Other long term (current) drug therapy | CPT/HCPCS: 99212 ==

== ENCOUNTER 2022-06-19 07:48 | Outpatient (REF) | payer OTHER, SELFPAY ==
--- NOTE | ~2022-06-19 | XR_ITS ---
EXAMINATION: XR SHOULDER, RIGHT CLINICAL INFORMATION: Pain COMPARISON: Right shoulder x-rays 05/07/2022 TECHNIQUE: Two views of the right shoulder. FINDINGS: Patient is status post right shoulder arthroplasty. Components are in expected orientation. There is no periprosthetic fracture identified. Mild hypertrophic changes of the right acromioclavicular joint. Visualized right-sided ribs and lung parenchyma are unremarkable. Peripherally calcified breast implant partially visualized. XR/XR shoulder RT min 2V IMPRESSION: Unremarkable postoperative appearance of the right shoulder.
== END 2022-06-19 07:49 | disposition home or self-care (01) ==
LOC: HO.HOSX 07:48
PROVIDERS: Visit Provider Physician Assistant
DX: M25.511 Pain in right shoulder (principal)
CPT/HCPCS: 73030

== ENCOUNTER → 2022-07-03 13:54 | Outpatient (BNVA) | payer OTHER, SELFPAY | PROVIDERS: PCP Family Medicine; Visit Provider Internal Medicine Pulmonary Disease | DX: J44.9 Chronic obstructive pulmonary disease, unspecified (principal) | CPT/HCPCS: 99211 ==

== ENCOUNTER → 2022-09-04 13:29 | Outpatient (BNVA) | payer OTHER, SELFPAY | PROVIDERS: PCP Family Medicine; Visit Provider Internal Medicine Pulmonary Disease | DX: G47.33 Obstructive sleep apnea (adult) (pediatric) (principal); U07.0 Vaping-related disorder; F12.20 Cannabis dependence, uncomplicated; J44.9 Chronic obstructive pulmonary disease, unspecified; J45.40 Moderate persistent asthma, uncomplicated; F17.210 Nicotine dependence, cigarettes, uncomplicated; Z91.09 Other allergy status, other than to drugs and biological substances; Z99.89 Dependence on other enabling machines and devices | CPT/HCPCS: 99212 ==

== ENCOUNTER 2022-10-03 11:00 | Outpatient (RCR) | payer OTHER, SELFPAY ==
--- NOTE | 2022-05-23 09:11 | MHC.PT.EP ---
[facility] [place] [facility] [place] [facility] [place] [facility] [address] [place] [address] [phone] F: [phone] F: [phone] F: [phone] F: [phone] Physical Therapy Plan of Care Date of Evaluation: Date of Surgery: 05/07/22 Diagnosis: S/P Rt TSA Assessment: 61 YO FEMALE REF TO PT S/P Rt TSA ON 05/07/22. SHE IS RIGHT HAND DOMINANT AND SHE RESIDES ALONE. OBJECTIVELY, Pt HAS POST-OP FINDINGS OF LIMITED Rt SH ROM, DECR POSTURAL AWARENESS , (+) SOFT TISSUE IRRIT, DECR POST RC/ SCAP STRENGTH, AND FLUCTUATING PAIN. FUNCTIONALLY, Pt HAS BEEN COMPENSATING W ADLs SHE RESIDES ALONE-> INCR DEMANDS ON LEFT UE FOR DRESSING, HYGIENE, ETC. Pt IS A GOOD CANDIDATE FOR SKILLED PT TO GUIDE HER ALONG HER POST-OP COURSE, REINFORCE PRECAUTIONS/RESTRICTIONS, ADDRESS PAIN MGMT, AND PER PROTOCOL INCR ROM AND STRENGTH TO MAXIMIZE HER FUNCTIONAL INDEPENDENCE. Frequency and Duration: The patient will be seen 2 x WK x 10 WKS Short Term Goals: *Pt'S Rt SH PAIN DECR TO 2-3/10 W REG ADLs *Pt INDEP SELF-CORRECT POSTURE TO REDUCE SH MECH STRESS *Pt DEMON IMPROVED PROM-> AAROM Rt SH PER PROTOCOL Shelter Goals: *Pt INDEP HEP PROGR AND SELF-SX MGMT STRATEGIES FOR Rt SH Pt RESUME REG ADLs TO [place] PER PROTOCOL/ ORTHO CLEARANCE *Pt ACHIEVE WFL STRENGTH AND AROM IN Rt SH COMPLEX Treatment Plan: Modalities to reduce pain, spasms and effusion. Manual therapy to restore motion and function. Therapeutic exercise to improve strength and flexibility. Neuromuscular re-education for posture and balance. Therapeutic activities to return to functional activities of daily living. Electronically signed by: ZAC VASQUEZ,PT Please sign and return to therapist. Thank you for your referral.
--- NOTE | 2022-08-06 13:47 | MHC.PT.OD ---
[facility] [place] Office [place] Office [place] Office [address] [place] [address] [phone] F: [phone] F: [phone] F: [phone] F: [phone] Physical Therapy Daily Note Diagnosis: S/P Rt TSA Date of Surgery: 05/07/22 Date of Evaluation: 05/22/22 Date of Treatment: 07/23/22 Treatments to Date: 11 Cancellations to Date: No Shows to Date: Authorized Visits: Insurance End Date: Precautions/ Contraindications:PER ABBEY PORRAS (+)Rt SUBSCAPULARIS REPAIR : ER TO NEUTRAL ONLY, NO RESISTANCE AND FOLLOW TSA RESTRICTIONS/ PRECAUTIONS PER PROTOCOL IN CHART Subjective: Pt IS 11 WEEKS PO TODAY. REPORTS SOME RELIEF WITH KT, OVERALL SOME INCREASE IN PAIN WITH NEW TB EXS, REPORTS RELIEF FROM STM Pain Score and Location: 7 R UPPER ARM Objective Flowsheet: Tests & Measures [facility] [address] [place] [address] Drive [address] [place] [address] Office Visit Report Signed Patient: Negirta LuMR#: [id number] : 9Acct:[id number] Age/Sex: 61 / FADM/SER Date: 06/19/22 Loc: HO.HOSADM/SER Time:1312 Attending Provider: Janet Serrano PA-C cc: Lito Castro MD; Janet Serrano PA-C~ Intake Vital Signs 06/19/22 13:27 Height 5 ft 3 in Weight 147 lb BMI 26.0 Intake Visit Reasons: PO TSA 05/07/22 NE Intake Note: Negrita 61 yr old female presents today for her P/O visit for her TSA from 05/07/22. States she is working with P.T for improvement. Feeling a little sore today after P.T messaging her arm. Allergies blue dye [BLUE DYE] Allergy (Unknown, Verified 06/19/22 13:28) ANAPHYLAXIS escitalopram [From LEXAPRO] Allergy (Unknown, Verified 06/19/22 13:28) UNKNOWN infliximab [From REMICADE] Allergy (Unknown, Verified 06/19/22 13:28) EXACERBATES MS naproxen [NAPROXEN] Allergy (Unknown, Verified 06/19/22 13:28) SWELLING ALL NSAIDS NSAIDS (Non-Steroidal Anti-Inflamma [NSAIDS (NON-STEROIDAL ANTI-INFLAMMA] Allergy (Unknown, Verified 06/19/22 13:28) ABDOMINAL PAIN olanzapine [OLANZAPINE] Allergy (Unknown, Verified 06/19/22 13:28) UNKNOWN paroxetine [From PAXIL] Allergy (Unknown, Verified 06/19/22 13:28) DIZZINESS prednisone [PREDNISONE] Allergy (Unknown, Verified 06/19/22 13:28) HALLUCINATIONS with high doses Sulfa (Sulfonamide Antibiotics) [SULFA (SULFONAMIDE ANTIBIOTICS)] Allergy (Unknown, Verified 06/19/22 13:28) HIVES sulfasalazine [From Azulfidine] Allergy (Verified 06/19/22 13:28) Hives aspirin [ASPIRIN] Adverse Reaction (Unknown, Verified 06/19/22 13:28) STOMACH UPSET ciprofloxacin [From CIPRO] Adverse Reaction (Unknown, Verified 06/19/22 13:) SKIN PEELING clarithromycin [From Biaxin] Adverse Reaction (Verified 06/19/22 13:28) Abdominal Pain ENVIRONMENTAL Allergy (Unknown, Uncoded 06/19/22 13:28) CATS,DOGS,HORSES,MOLD-RED SKIN,FACIAL SWELLING HPI PO TSA 05/07/22 NE HPI Details 61-year-old female presents in the office today 6 weeks status post right total shoulder arthroplasty, which was performed on 05/07/[address] Nuno. The patient confirms working with physical therapy for improvement in the right shoulder. She states she is sore today but that is due to physical therapy measuring her arms. [facility] Medical History Annual physical exam Asthma-COPD overlap syndrome Bladder cancer Crohn's disease Dementia History of cervical fracture History of dysphagia History of posttraumatic stress disorder (PTSD) IBS (irritable colon syndrome) Lumbar arthropathy Migraines, neuralgic Multiple sclerosis VÁSQUEZ (nonalcoholic steatohepatitis) Neuropathy OCD (obsessive compulsive disorder) YOHAN (obstructive sleep apnea) Polyarthritis Right shoulder pain Smoker Thumb pain Surgical History History of adenoidectomy History of bladder surgery History of carpal tunnel surgery of right wrist History of resection of terminal ileum Hx of breast augmentation Hx of cholecystectomy Hx of colonoscopy (08/07/11) Hx of endoscopy (08/07/11) Hx of foot surgery (04/25/14) Hx of tonsillectomy Family History Father Alzheimer disease Lymphoma Cancer Mother Lung cancer Sudden cardiac Cancer CVD (cardiovascular disease) Paternal Grandfather Colon cancer Cancer Maternal Grandfather Sudden cardiac CVD (cardiovascular disease) Social History Household Members: None Household Members Other:: ALONE DISABLED SINCE AROUND 2014 DUE TO MS Housing: Apartment Are you a primary career coach to a significant other at home: No Do you presently have visiting nurse or other home services: No Alcohol intake: current Alcohol intake frequency: holidays/special occasions only Alcohol type: hard liquor Patient Tobacco Use Status: Current someday Tobacco user Tobacco use type: Cigarette Cigarette Packs Per Day: 0.5 Cigarettes Per Day: 0.5 Years Smoked: 47 e-Cigarette/Vaping Use: Former Use Second Hand Smoke Exposure: No Substance Use Type: Marijuana service: No Current occupational status: disabled Current occupational exposures/hazards: No Cognitive needs: No Hearing needs: No Vision needs: No Review of Systems Const All systems reviewed & are unremarkable except as noted in HPI and below Physical Exam Vital Signs: BMI result Body Mass Index 26.0 Const General: cooperative and no acute distress Orientation/consciousness: patient oriented x3 Resp Effort & Inspection: normal respiratory effort and able to speak in complete sentences Cardio Rate: regular rate Peripheral pulses: Peripheral pulses 2+ throughout GI Palpation (GI): Soft to palpation Skin Lesions: no lesions Rashes: no rashes Neuro General: patient oriented x3 Extrem Other: Right shoulder: Incision sites are completely healed and well approximated. No signs of infection. Forward flexion is 80 degrees. Abduction is 80 degrees. NVI. Psych Mental Status: mental status grossly normal Assessment & Plan Assessment & Plan (1) Osteoarthritis of right shoulder: Code(s): M19.011 - Primary osteoarthritis, right shoulder Plan Ms. Lu is a 61-year-old female who presents in the office today 6 weeks status post right total shoulder arthroplasty, which was performed on 05/07/[address] Nuno. The patient confirms working with physical therapy for improvement in the right shoulder. She states she is sore today but that is due to physical therapy measuring her arms. The patient will discontinue the use of the sling at 6 weeks. She will continue to work with physical therapy. Follow up with Dr. Nuno in 6 weeks, or sooner if needed. X-rays of the right shoulder, obtained while in the office today, revealed intact orthopedic hardware with no dislocation. Orders: Orders XR shoulder RT min 2V Today M25.519 - Pain in unspecified shoulder Medications: Changed From oxycodone Partial Fill upon patient request. 10 mg PO Q6H 7 days PRN 28 tabs 0RF Pain, Moderate (Pain Scale 4-6 To oxycodone Partial Fill upon patient request. 5 mg PO Q6H PRN 28 tabs 0RF Pain, Moderate (Pain Scale 4-6 7 days Patient Instructions: Scribed for Janet Serrano PA-C by Dorothy Nelson medical staff assistant, on 06/19/2022. I, Janet Serrano PA-C, have personally reviewed and agreed with the information entered by the medical staff assistant. Coding Level of Care Code Global (55510) Diagnoses Osteoarthritis of right shoulder M19.011 Documented By:Janet Serrano06/19/22 1325 Signed By:<Electronically signed by Janet Serrano>06/19/22 1431 PROM Rt Sh flex 90*, abd 45*, ER TO NEUTRAL No steri-strips, Presents to office with DONJOY sling with ABD wedge. 07/30/22 Dr. Nuno follow-up. Exercises REV AAROM TABLE SLIDE SHLDER FLEXION, AAROM SHLDER FLEX WITH CANE IN HL, REV MAT EX R SHLDER FLEX, EXT, ABD WITH POSTURE CUES X 10 R EA. AT MIRROR FOR AROM SHLDER FLEX AND ABD X 5 R EA WITH EMPHASIS ON NO UT COMP Education re: postural awareness, iso scap squeeze seated and supine, impact of posture. SEATED FOR STM/IASTM HG 6 R UPPER ARM F/B MH X 10 MIN TO SAME Modalities Pt encouraged to stretch 2x/ daily, low reps gentle intensity of pull, states has been stretching, 1x/daily because the stretch hurts too much. Pt seated with application of ice x 10 minutes each. Assessment: FU ORTHO =NOV 2. CUES FOR FORM WITH STRETCHES AND EXS. 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
--- NOTE | 2022-11-19 15:01 | MHC.PT.DC ---
[facility] [place] Office [place] Office [place] Office [address] [place] [address] [phone] F: [phone] F: [phone] F: [phone] F: [phone] Physical Therapy Discharge Report Diagnosis: S/p Rt TSA Date of Surgery: 05/07/22 Date of Evaluation: 05/22/22 Date of Discharge: 10/03/22 Treatments to Date: 15 Cancellations to Date: No Shows to Date: Discharge Status: Achieved Goals Improved Function Independent with HEP Discharge Summary: 10/03/21 Pt has attended 15 sessions of PT to date since R TSA 05/07/22. Pt has been issued a written HEP program and has been educated re: joint protection measures. She continues to express pain in her proximal shoulder and reports using it more than before. She has been advised to modify movements of abduction and perform flexion to reduce strain on her replacement. Functionally she is able to complete ADLS with good ability. She has met STG/LTG with therapy at this time and has been encouraged to keep her exercises pain-free. She verbalizes understanding but reports inconsistent completion of gentle IR and periscap strengthening activities She has ongoing weakness but has plateaued in her progress with PT at this time. She expresses overall significant improvement in her R shoulder since having surgery and reports muscular pain in her bicep today. Electronically signed by: Please sign and return to therapist. Thank you for your referral.
== END 2022-11-19 15:02 | disposition home or self-care (01) ==
LOC: HO.PTWFD 11:00
PROVIDERS: Visit Provider Physician Assistant
DX: Z96.611 Presence of right artificial shoulder joint (principal)
CPT/HCPCS: 97110; 97140; 97150; 97161; 97530

== ENCOUNTER 2022-10-03 11:00 | Outpatient (REF) | payer OTHER, SELFPAY ==
[2022-10-06 09:20] LABS: Syphilis Screen Nonreactive (Nonreactive)
[2022-10-06 09:35] LABS: HBsAGNum1 0.39 S/CO (0.00-0.99); HIV AB/AG Nonreactive (Nonreactive); HIV Num 1 0.05 S/CO (0.00-0.99); Hepatitis B Surface Antigen Negative (Negative); ~HepC Num1 0.05 S/CO (0.00-0.79); ~Hepatitis C Antibody Nonreactive (Nonreactive)
== END 2022-10-03 11:01 | disposition home or self-care (01) ==
LOC: HO.WFDLDS 11:00
PROVIDERS: PCP Family Medicine; Visit Provider Obstetrics & Gynecology Female Pelvic Medicine and Reconstructive Surgery
DX: Z11.4 Encounter for screening for human immunodeficiency virus [HIV] (principal); Z11.3 Encounter for screening for infections with a predominantly sexual mode of transmission
CPT/HCPCS: 36415; 86780; 86803; 87340; 87389

== ENCOUNTER 2022-12-04 09:42 | Outpatient (REF) | payer OTHER, SELFPAY ==
[2022-12-04 11:43] LABS: MANUAL DIFF FLAG NO
[2022-12-04 12:05] LABS: Basophils Absolute Auto 0.1 X10*3/uL (0.0-0.2); Basophils Percent Auto 0.8 % (0-2); Eosinophils Absolute Auto 0.4 X10*3/uL (0.0-0.4); Eosinophils Percent Auto 4.7 % (0-4); Hematocrit 45.9 % (37.0-47.0); Hemoglobin 15.3 g/dl (12.0-16.0); Imm Gran Abs Auto 0.02 X10*3/uL (0.00-0.03); Imm Gran Pct Auto 0.3 % (0.0-0.4); Mean Corpuscular HGB Conc 33.3 g/dl (31.0-35.0); Mean Corpuscular Hemoglobin 33.8 pg (27.0-33.0); Mean Corpuscular Volume 101.3 fL (80.0-98.0); Mean Platelet Volume 8.9 fL (9.4-12.3); Monocytes Absolute Auto 0.8 X10*3/uL (0.1-1.2); Monocytes Percent Auto 9.8 % (2-11); Neutrophils Absolute Auto 4.5 x10*3/uL (2.0-8.3); Neutrophils Percent Auto 58.4 % (45-73); Platelet Count 302 X10*3/uL (160-400); Red Blood Count 4.53 X10*6/uL (4.20-5.50); Red Cell Distribution Width 12.7 % (11.0-16.0); White Blood Count 7.7 X10*3/uL (4.8-10.8)
[2022-12-04 12:08] LABS: Appearance Urine Cloudy; Color Urine Dark Yellow; Glucose Urine UA Negative (Negative); Leukocyte Esterase Urine Small (1+) (Negative); Nitrite Urine Negative (Negative); PH 5.5 (5.0-9.0); Specific Gravity - Urine 1.025 (1.005-1.025); UMIC TRIGGER UA YES; Urine Blood Negative (Negative); Urine Ketones Trace mg/dL (Negative); Urine Protein Negative (Neg-Trace)
[2022-12-04 12:22] LABS: Bacteria Urine 1+ (None Seen); Calcium Oxalate Crystals Urine Present; Hyaline Casts Urine 0-2 /LPF (0-2); RBC Urine 0-2 /HPF (0-2); WBC Urine 21-50 /HPF (0-5)
[2022-12-04 12:49] LABS: Creatinine Urine 221.46 mg/dL; Microalbum/Creatinine Ratio Ur 5.4 ug/mg cr
[2022-12-04 16:31] LABS: Alanine Aminotransferase 36 U/L (0-31); Albumin Level 4.5 g/dL (3.5-5.0); Alkaline Phosphatase 93 U/L (39-117); Anion Gap 17 (12-20); Aspartate Amino Transferase 23 U/L (5-31); Bilirubin Total 0.7 mg/dL (0.0-1.0); Blood Urea Nitrogen 15 mg/dL (9-16); Calcium 9.4 mg/dL (8.4-10.2); Carbon Dioxide 22 mmol/L (22-29); Chloride 108 mmol/L (96-108); Cholesterol 196 mg/dL; Estimated Glomerular Filt Rate > 60; Glucose Fasting 110 mg/dL (60-99); HDL Cholesterol 59 mg/dL; Iron 68 mcg/dL (30-160); LDL Cholesterol Calculated 120 mg/dl; Percent Iron Saturation 21 % (15-50); Potassium 4.5 mmol/L (3.3-5.1); Sodium 142 mmol/L (135-145); Total Iron Binding Capacity 319 mcg/dL (228-428); Total Protein 6.5 g/dL (6.5-8.0); Triglycerides 85 mg/dL; Unsaturated Iron Binding 251 ug/dL
[2022-12-04 16:43] LABS: Folate 18.7 ng/mL (> or = 4.0); Vitamin B12 1557 pg/mL (200-900); Vitamin D 25-OH Total 46.3 ng/mL (>30)
== END 2022-12-04 09:43 | disposition home or self-care (01) ==
LOC: HO.WFDLDS 09:42
PROVIDERS: Visit Provider Family Medicine
DX: Z00.00 Encounter for general adult medical examination without abnormal findings (principal); E53.8 Deficiency of other specified B group vitamins; E55.9 Vitamin D deficiency, unspecified; D64.9 Anemia, unspecified; I10 Essential (primary) hypertension
CPT/HCPCS: 36415; 80053; 80061; 81001; 81003; 82043; 82306; 82607; 82746; 83540; 84443; 85025

== ENCOUNTER → 2022-12-05 13:35 | Outpatient (BNVA) | payer OTHER, SELFPAY | PROVIDERS: PCP Family Medicine; Visit Provider Internal Medicine Pulmonary Disease | DX: G47.33 Obstructive sleep apnea (adult) (pediatric) (principal); J44.9 Chronic obstructive pulmonary disease, unspecified; Z99.89 Dependence on other enabling machines and devices | CPT/HCPCS: 99212 ==

== ENCOUNTER 2022-12-23 13:51 | Outpatient (REF) | payer OTHER, SELFPAY ==
--- NOTE | ~2022-12-23 | MM_ITS ---
EXAMINATION: MM SCREENING DIGITAL BREAST TOMOSYNTHESIS, BILATERAL CLINICAL INFORMATION: Screening. Asymptomatic. The lifetime risk of breast cancer based on the Tyrer-Cuzick Model is 4.7%. COMPARISON: Mammography: November 12, 2021 and studies dating back to February 19, 2016 TECHNIQUE: Digital mammography is performed in craniocaudal and mediolateral oblique views along with computer-aided detection (CAD). Digital breast tomosynthesis is performed in implant-displaced craniocaudal and implant-displaced mediolateral oblique views along with computer-aided detection (CAD). Synthesized 2D images are generated from the tomosynthesis. FINDINGS: There are scattered areas of fibroglandular density (ACR BI-RADS breast composition Category b). There is a stable parenchymal pattern without new abnormal dominant mass or suspicious grouping of microcalcifications. There is stable appearance of the bilateral breast implants. Focal superior capsular herniation is again seen. Some capsular calcifications are noted. No evidence of free silicone. MM/MM tomosynthesis screen imp BI IMPRESSION: There are no significant changes from prior study. ASSESSMENT: BI-RADS 2: Benign RECOMMENDATION: Routine annual mammography screening. This patient's information was entered into a reminder system with a target due date for their next mammogram.
== END 2022-12-23 13:52 | disposition home or self-care (01) ==
LOC: HO.MAMMO 13:51
PROVIDERS: Visit Provider Family Medicine
DX: Z12.31 Encounter for screening mammogram for malignant neoplasm of breast (principal)
CPT/HCPCS: 77063; 77067

== ENCOUNTER 2023-03-13 15:10 | Outpatient (REF) | payer OTHER, SELFPAY ==
[2023-03-13 19:22] LABS: Influenza A PCR NEGATIVE (Negative); Influenza B PCR NEGATIVE (Negative); Resp Syncy Virus RNA Qual PCR NEGATIVE (Negative); SARS COV2 PCR INHOUSE NEGATIVE (Negative)
== END 2023-03-13 15:11 | disposition home or self-care (01) ==
LOC: HO.LAB 15:10
PROVIDERS: Visit Provider Family Medicine
DX: Z20.822 Contact with and (suspected) exposure to COVID-19 (principal); Z00.00 Encounter for general adult medical examination without abnormal findings; R05.9 Cough, unspecified
CPT/HCPCS: 0241U

== ENCOUNTER 2023-04-30 07:46 | Outpatient (REF) | payer OTHER, SELFPAY ==
--- NOTE | ~2023-04-30 | XR_ITS ---
EXAMINATION: XR SHOULDER, RIGHT CLINICAL INFORMATION: Pain in unspecified shoulder COMPARISON: Right shoulder 06/19/2022 TECHNIQUE: AP neutral, Grashey and axillary views of the right shoulder. FINDINGS: The patient is status post right shoulder arthroplasty. Components are in expected orientation. There is no periprosthetic fracture identified. Mild hypertrophic changes of the right acromioclavicular joint. Visualized right-sided ribs and lung parenchyma are unremarkable. Partially calcified breast implant is partially visualized. XR/XR shoulder RT min 2V IMPRESSION: Unremarkable postoperative appearance of the right shoulder.
== END 2023-04-30 07:47 | disposition home or self-care (01) ==
LOC: HO.HOSX 07:46
PROVIDERS: Visit Provider Orthopaedic Surgery
DX: M25.511 Pain in right shoulder (principal); Z96.611 Presence of right artificial shoulder joint
CPT/HCPCS: 73030; 99212

== ENCOUNTER 2023-04-30 13:12 | Outpatient (AMB) | payer OTHER, SELFPAY ==
--- NOTE | 2023-04-30 13:20 | MHC.OFFVIS ---
Intake Intake Visit Reasons: Ov- S/P TSA 05/07/22 NE Intake Note: Negrita is a 62 year old female who presents today for a follow up appointment of her right shoulder s/p Right TSA 05/07/22. Patient reports that she is doing well but feels a pain /tightness around the arm below the shoulder but the shoulder itself is feeling great. She is no longer in physical therapy. She would like to discuss restrictions with stretching.reaching and lifting. Allergies blue dye [BLUE DYE] Allergy (Unknown, Verified 04/30/23 13:33) ANAPHYLAXIS escitalopram [From LEXAPRO] Allergy (Unknown, Verified 04/30/23 13:33) UNKNOWN infliximab [From REMICADE] Allergy (Unknown, Verified 04/30/23 13:33) EXACERBATES MS naproxen [NAPROXEN] Allergy (Unknown, Verified 04/30/23 13:33) SWELLING ALL NSAIDS NSAIDS (Non-Steroidal Anti-Inflamma [NSAIDS (NON-STEROIDAL ANTI-INFLAMMA] Allergy (Unknown, Verified 04/30/23 13:33) ABDOMINAL PAIN olanzapine [OLANZAPINE] Allergy (Unknown, Verified 04/30/23 13:33) UNKNOWN paroxetine [From PAXIL] Allergy (Unknown, Verified 04/30/23 13:33) DIZZINESS prednisone [PREDNISONE] Allergy (Unknown, Verified 04/30/23 13:33) HALLUCINATIONS with high doses Sulfa (Sulfonamide Antibiotics) [SULFA (SULFONAMIDE ANTIBIOTICS)] Allergy (Unknown, Verified 04/30/23 13:33) HIVES sulfasalazine [From Azulfidine] Allergy (Verified 04/30/23 13:33) Hives aspirin [ASPIRIN] Adverse Reaction (Unknown, Verified 04/30/23 13:33) STOMACH UPSET ciprofloxacin [From CIPRO] Adverse Reaction (Unknown, Verified 04/30/23 13:33) SKIN PEELING clarithromycin [From Biaxin] Adverse Reaction (Verified 04/30/23 13:33) Abdominal Pain ENVIRONMENTAL Allergy (Unknown, Uncoded 04/30/23 13:33) CATS,DOGS,HORSES,MOLD-RED SKIN,FACIAL SWELLING HPI Ov- S/P TSA 05/07/22 NE HPI Details Negrita is a 61 year old woman ~1 year S/P right TSA. She says she is doing well in regards to her shoulder. She denies any pain and is happy with the results of her surgery. She complains of some tightness in her arm, below her shoulder. She says she has a feeling of some muscle soreness in her arm, and is somewhat limited in overhead motion. She completed her course of PT. She has Crohn's disease and is unable to tolerate normal NSAIDs. She takes Celebrex and says this helps her pain without causing GI upset. [facility] Medical History (Updated 03/13/23 @ 15:16 by Theo Kelley) Annual physical exam Asthma-COPD overlap syndrome Bladder cancer Crohn's disease Dementia History of cervical fracture History of dysphagia History of posttraumatic stress disorder (PTSD) IBS (irritable colon syndrome) Lumbar arthropathy Migraines, neuralgic Multiple sclerosis VÁSQUEZ (nonalcoholic steatohepatitis) Neuropathy OCD (obsessive compulsive disorder) YOHAN (obstructive sleep apnea) Polyarthritis Right shoulder pain Smoker Thumb pain Surgical History (Updated 04/30/23 @ 13:23 by Radha Guzman [facility]) History of adenoidectomy History of arthroplasty of right shoulder (05/07/22) History of bladder surgery History of carpal tunnel surgery of right wrist (~05/2021) History of resection of terminal ileum Hx of breast augmentation Hx of cholecystectomy Hx of colonoscopy (08/07/11) Hx of endoscopy (08/07/11) Hx of foot surgery (04/25/14) Hx of tonsillectomy Family History Father Alzheimer disease Lymphoma Cancer Mother Lung cancer Sudden cardiac Cancer CVD (cardiovascular disease) Paternal Grandfather Colon cancer Cancer Maternal Grandfather Sudden cardiac CVD (cardiovascular disease) Social History Household Members: None Household Members Other:: ALONE DISABLED SINCE AROUND 2014 DUE TO MS Housing: Apartment Are you a primary healthcare management consultant to a significant other at home: No Do you presently have visiting nurse or other home services: No Alcohol intake: current Alcohol intake frequency: holidays/special occasions only Alcohol type: hard liquor Patient Tobacco Use Status: Current everyday Tobacco user Tobacco use type: Cigarette Cigarette Packs Per Day: 0.5 Cigarettes Per Day: 0.5 Years Smoked: 47 e-Cigarette/Vaping Use: Former Use Second Hand Smoke Exposure: No Substance Use Type: Marijuana service: No Current occupational status: disabled Current occupational exposures/hazards: No Cognitive needs: No Hearing needs: No Vision needs: No Review of Systems Const All systems reviewed & are unremarkable except as noted in HPI and below Physical Exam Const General: no acute distress and alert Orientation/consciousness: patient oriented x3 Neuro General: patient oriented x3 Extrem Other: Right Shoulder: Well-healed incision 90/120/40/L5 - liftoff Excellent strength in empty can testing Psych Appearance: grossly normal Affect: normal affect Attitude: cooperative Results Reviewed Results Reviewed: I personally reviewed relevant radiographs. Unremarkable postoperative appearance of the right shoulder. Assessment & Plan Assessment & Plan (1) Status post total shoulder arthroplasty: Code(s): Z96.619 - Presence of unspecified artificial shoulder joint Plan: This is a 61 year old woman S/P right TSA, DOS: 05/07/22. She is doing well and is happy with the results of her surgery. She denies any shoulder pain, but has some soreness in her deltoid and is mildly limitedi n overhead motion. I recommend she continue activity as tolerated and work on kamari-scapular strengthening and maintaining posture. She should avoid overhead lifting and may continue taking Celebrex as needed. She can follow up prn. Plan Scribed for Evangelista Nuno MD by César Glez, medical services assistant, on 04/30/23 at 1:45 PM, EST. Coding Level of Care Code Est Pt Level 3 (22731) Diagnoses Status post total shoulder arthroplasty Z96.619
== END 2023-04-30 13:43 | disposition home or self-care (01) ==
PROVIDERS: Visit Provider Orthopaedic Surgery
DX: Z47.1 Aftercare following joint replacement surgery (principal); Z96.611 Presence of right artificial shoulder joint
CPT/HCPCS: 99213

== ENCOUNTER 2023-05-12 09:11 | Outpatient (AMB) | payer OTHER, SELFPAY ==
--- NOTE | 2023-05-12 09:28 | A.OFFPC_ITS ---
Vital Signs 05/12/23 09:29 Height 5 ft 3 in Weight 146 lb 6 oz BMI 25.9 BP 120/72 Blood Pressure Location Lt brachial Position Sitting Pulse 83 Pulse Source Pulse Oximeter Pulse Oximetry (%) 98 Oxygen Delivery Method Room Air Intake Visit Reasons: F/U Intake Note: Patient is here for follow up on blood sugar. Allergies blue dye [BLUE DYE] Allergy (Unknown, Verified 05/12/23 09:35) ANAPHYLAXIS escitalopram [From LEXAPRO] Allergy (Unknown, Verified 05/12/23 09:35) UNKNOWN infliximab [From REMICADE] Allergy (Unknown, Verified 05/12/23 09:35) EXACERBATES MS naproxen [NAPROXEN] Allergy (Unknown, Verified 05/12/23 09:35) SWELLING ALL NSAIDS NSAIDS (Non-Steroidal Anti-Inflamma [NSAIDS (NON-STEROIDAL ANTI-INFLAMMA] Allergy (Unknown, Verified 05/12/23 09:35) ABDOMINAL PAIN olanzapine [OLANZAPINE] Allergy (Unknown, Verified 05/12/23 09:35) UNKNOWN paroxetine [From PAXIL] Allergy (Unknown, Verified 05/12/23 09:35) DIZZINESS prednisone [PREDNISONE] Allergy (Unknown, Verified 05/12/23 09:35) HALLUCINATIONS with high doses Sulfa (Sulfonamide Antibiotics) [SULFA (SULFONAMIDE ANTIBIOTICS)] Allergy (Unknown, Verified 05/12/23 09:35) HIVES sulfasalazine [From Azulfidine] Allergy (Verified 05/12/23 09:35) Hives aspirin [ASPIRIN] Adverse Reaction (Unknown, Verified 05/12/23 09:35) STOMACH UPSET ciprofloxacin [From CIPRO] Adverse Reaction (Unknown, Verified 05/12/23 09:35) SKIN PEELING clarithromycin [From Biaxin] Adverse Reaction (Verified 05/12/23 09:35) Abdominal Pain ENVIRONMENTAL Allergy (Unknown, Uncoded 05/12/23 09:35) CATS,DOGS,HORSES,MOLD-RED SKIN,FACIAL SWELLING Medication List - Last Reconciled 05/12/23 by Lito Castro MD acetaminophen 650 mg (2 x 325 mg) PO Q6H PRN acetic acid 2% 3 drps otic (ear) left Q6H PRN 10 days albuterol sulfate 0.63 mg inhalation Q4-6H PRN azithromycin (Zithromax Z-Jose Elias) take 500 mg today (day 1), then 250 mg for 4 days (days 2-5) PO 5 days nvrdhujllw-wyxxpkqn-iuuyzlmkqa 160-9-4.8 mcg/actuation (Breztri Aerosphere) 2 inhalations inhalation BID 30 days calcium polycarbophil (FiberCon) 625 mg PO DAILY 90 days celecoxib 200 mg PO BID cetirizine 10 mg PO DAILY cholecalciferol (vitamin D3) (Vitamin D3) 25 mcg PO DAILY 30 days cyanocobalamin (vitamin B-12) 1,000 mcg IM QWEEK diclofenac sodium 1% 2 grams topical .QD donepezil 23 mg PO BEDTIME epinephrine 0.3 mL IM ONCE PRN famotidine 20 mg PO BID fluocinonide 0.05% topical fluticasone propionate 50 mcg/actuation 2 sprays intranasal BID 30 days folic acid 1 mg PO DAILY 90 days gabapentin 600 mg PO TID 30 days hydroxyzine HCl 25 mg PO BEDTIME incontinence pad, liner, disp Long. Daily as directed, 90 days lactase 3,000 units PO QID Lactobac. rhamnosus GG-inulin 10 billion cell -200 mg ([facility] Mighty[employer]eting) 1 cap PO DAILY 90 days lifitegrast 5% (Xiidra) 1 drp ophthalmic (eye) BID loperamide 4 mg PO BID lorazepam 0.5 mg PO BID PRN magnesium chloride 71.5 mg PO BID megestrol 20 mg PO DAILY 30 days memantine 5 mg PO BID mesalamine 1,000 mg TX BEDTIME PRN miscellaneous medical supply 1 ea miscellaneous DAILY 99 days miscellaneous medical supply Poise pads. 2 per day. 90 day supply; 90 days multivitamin 1 tab PO DAILY naloxone 4 mg/actuation (Narcan) 4 mg intranasal Q2M PRN 1 day nicotine (polacrilex) 4 mg buccal Q8H PRN 30 days nystatin 5 mL PO TID 7 days prochlorperazine (Compro) 25 mg TX TID PRN sumatriptan succinate 50 mg PO NEEDED PRN syringe with needle, safety (BD Integra Syringe) As directed trazodone 75 mg PO BEDTIME triamcinolone acetonide 0.1% 1 appl topical BID valacyclovir 1,000 mg PO BEDTIME Tobacco use date assessed: 05/12/23 Dental Screening Dental Screen Date: 05/12/23 Did you have a dental visit in the last 12 months?: Yes Did you have a dental problem in the last 6 months where you did not have access to dental care?: No Was dental information given to patient?: No HPI F/U HPI Details Pt presents to f/u chronic conditions. Hx of elevated fasting glucose. A1c today 05/12/23 5.3%, which improved from 5.6% in November. Pt notes she has made changes to her diet and has lost about 14 lbs. She continues to be followed by orthopedics for multiple joint pain. [facility] Medical History Annual physical exam Asthma-COPD overlap syndrome Bladder cancer Crohn's disease Dementia History of cervical fracture History of dysphagia History of posttraumatic stress disorder (PTSD) IBS (irritable colon syndrome) Lumbar arthropathy Migraines, neuralgic Multiple sclerosis VÁSQUEZ (nonalcoholic steatohepatitis) Neuropathy OCD (obsessive compulsive disorder) YOHAN (obstructive sleep apnea) Polyarthritis Right shoulder pain Smoker Thumb pain Surgical History History of adenoidectomy History of arthroplasty of right shoulder (05/07/22) History of bladder surgery History of carpal tunnel surgery of right wrist (~05/2021) History of resection of terminal ileum Hx of breast augmentation Hx of cholecystectomy Hx of colonoscopy (08/07/11) Hx of endoscopy (08/07/11) Hx of foot surgery (04/25/14) Hx of tonsillectomy Family History Father Alzheimer disease Lymphoma Cancer Mother Lung cancer Sudden cardiac Cancer CVD (cardiovascular disease) Paternal Grandfather Colon cancer Cancer Maternal Grandfather Sudden cardiac CVD (cardiovascular disease) Social History Household Members: None Household Members Other:: ALONE DISABLED SINCE AROUND 2014 DUE TO MS Housing: Apartment Are you a primary career development director to a significant other at home: No Do you presently have visiting nurse or other home services: No Alcohol intake: current Alcohol intake frequency: holidays/special occasions only Alcohol type: hard liquor Patient Tobacco Use Status: Current everyday Tobacco user Tobacco use type: Cigarette Cigarette Packs Per Day: 0.5 Cigarettes Per Day: 3 Years Smoked: 47 e-Cigarette/Vaping Use: Former Use Second Hand Smoke Exposure: No Substance Use Type: Marijuana service: No Current occupational status: disabled Current occupational exposures/hazards: No Cognitive needs: No Hearing needs: No Vision needs: No Questionnaire Thrive Questionnaire Date Thrive assessed: 02/05/22 JOSIE-7 AMB Questionnaire JOSIE-7 Date JOSIE - 7 assessed: 02/05/22 Source: Developed by Drs. Derrick Alfonso, Veronica Caraballo, Raul Zepeda and colleagues, with an educational fabi from [employer]. Review of Systems Const Denies chills, Denies fatigue, Denies fever(s), Denies headache(s) and Denies weakness ENT Denies dizziness and Denies headache(s) Card Denies dyspnea Resp Denies cough, Denies dyspnea, Denies wheezing and Denies other (shortness of breath) Musc Denies numbness and Denies tingling Neuro Denies dizziness, Denies headache(s), Denies numbness, Denies tingling and Denies weakness Psych Denies anxiety and Denies depression Endo Denies fatigue Aller/Immun Denies wheezing Physical exam (Primary Care) Vital Signs: Last Vital Signs Pulse 83 05/12/23 09:29 BP 120/72 05/12/23 09:29 Pulse Ox 98 05/12/23 09:29 Oxygen Delivery Method Room Air 05/12/23 09:29 BMI result Body Mass Index 25.9 Tobacco/Smoking Status: Tobacco use Status Tobacco use date assessed 05/12/23 05/12/23 09:48 Patient Tobacco Use Status Current everyday Tobacco 05/12/23 09:32 Tobacco use type Cigarette 05/12/23 09:32 e-Cigarette/Vaping Use Former Use 05/12/23 09:32 Thrive Assessment: Date of Thrive Assessment Date Thrive assessed 02/05/22 05/12/23 09:32 Const General: well developed; No acute distress Nutritional Appearance: well nourished Orientation/consciousness: patient oriented x3 HENMT Head: Yes normocephalic and Yes atraumatic Eyes General: appearance normal, both eyes and all related structures Pupils: Equal, round and reactive pupils present EOM: EOMs intact bilaterally Resp Effort & Inspection: normal respiratory effort Neuro General: patient oriented x3 and gait normal Cranial nerves: Yes Equal, round and reactive pupils present Psych Affect: normal affect Assessment and Plan Assessment & Plan (1) Elevated fasting glucose: Code(s): R73.01 - Impaired fasting glucose Plan: A1c had been 5.6% in November so we were following this. She has been working on some dietary changes and her A1c is now 5.3%. She has a strong family history of diabetes Will continue to follow and I encouraged ongoing lifestyle changes including exercise. (2) Otitis externa: Code(s): H60.90 - Unspecified otitis externa, unspecified ear Plan: Patient already has ascetic acid drops at home though she has not been using them. Encouraged her to try this. She will call me if not improved (3) Crohn's disease: Code(s): K50.90 - Crohn's disease, unspecified, without complications Plan: History of Crohn's and on mesalamine which is helping. Continue current regimen and follow-up with GI as recommended (4) Multiple sclerosis: Code(s): G35 - Multiple sclerosis Plan: Currently stable (5) Left wrist pain: Code(s): M25.532 - Pain in left wrist Plan: Multiple joints with pain including shoulders and she is followed by Ortho. Also having issues with her left risks and base of thumb She will see Dr. Haley for this Orders: Orders Comprehensive [place]. Panel Fast Today Z00.00 - Encounter for general adult medical examination without abnormal findings Hemoglobin A1c Today R73.01 - Impaired fasting glucose Lipid Panel Today Z00.00 - Encounter for general adult medical examination without abnormal findings TSH reflex Free T4 Today Z00.00 - Encounter for general adult medical examination without abnormal findings Microalbumin, Random (w Creat) Today I10 - Essential (primary) hypertension Complete Blood Count Auto Diff Today Z00.00 - Encounter for general adult medical examination without abnormal findings UA and rflx microscopic Today Z00.00 - Encounter for general adult medical examination without abnormal findings Coding Level of Care Code Est Pt Level 4 (71635) Diagnoses Elevated fasting glucose R73.01 Otitis externa H60.90 Crohn's disease K50.90 Multiple sclerosis G35 Left wrist pain M25.532
[2023-05-12 09:29] VITALS: BP 120/72; PULSE 83; O2SAT 98; BMI 25.9
== END 2023-05-12 10:18 | disposition home or self-care (01) ==
PROVIDERS: PCP Family Medicine; Visit Provider Family Medicine
DX: R73.01 Impaired fasting glucose (principal); K50.90 Crohn's disease, unspecified, without complications; G35 Multiple sclerosis; M25.532 Pain in left wrist
CPT/HCPCS: 83036; 99214

== ENCOUNTER 2023-06-03 07:12 | Outpatient (REF) | payer OTHER, SELFPAY ==
--- NOTE | ~2023-06-03 | XR_ITS ---
EXAMINATION: XR HAND, LEFT CLINICAL INFORMATION: Pain left hand. COMPARISON: None available. TECHNIQUE: PA, lateral, and oblique views of the left hand. FINDINGS: There is loss of PIP and DIP joint space with minimal periarticular spurring in the DIP joints second through fifth digit. And PIP joint second fourth and fifth digits. No visible acute fracture, dislocation or subluxation. No bony erosive changes. No soft tissue abnormality. There is mild loss of first carpometacarpal joint space with periarticular spurring. The soft tissues are normal.. XR/XR hand LT min 3V IMPRESSION: Mild degenerative changes PIP and DIP joints and first carpometacarpal joint. No visible acute fracture, dislocation or subluxation seen.
== END 2023-06-03 07:13 | disposition home or self-care (01) ==
LOC: HO.HOSX 07:12
PROVIDERS: Visit Provider Orthopaedic Surgery
DX: M18.12 Unilateral primary osteoarthritis of first carpometacarpal joint, left hand (principal)
CPT/HCPCS: 73130; 99212

== ENCOUNTER 2023-06-03 10:31 | Outpatient (AMB) | payer OTHER, SELFPAY ==
[2023-06-03 10:49] VITALS: BMI 25.9
--- NOTE | 2023-06-03 10:49 | A.OFFVIS_ITS ---
Intake Vital Signs 06/03/23 10:49 Height 5 ft 3 in Weight 146 lb BMI 25.9 Intake Visit Reasons: New Prob- Left hand/ thumb pain Intake Note: Negrita 62 yr old - hand dominant female presents today for her left hand thumb pain. Hx of right CTR and cubital 06/06/[address] Haley. States while doing laundry she slammed her thumb into her washer. Seen at [facility] in February 2022 where xrays were taken and finger was splinted. States she thought would it get better but it hasnt gotten better. She does play Call of Duty and uses her thumb a lot. Hx Of MS, crohn's disease. Allergies blue dye [BLUE DYE] Allergy (Unknown, Verified 06/03/23 10:59) ANAPHYLAXIS escitalopram [From LEXAPRO] Allergy (Unknown, Verified 06/03/23 10:59) UNKNOWN infliximab [From REMICADE] Allergy (Unknown, Verified 06/03/23 10:59) EXACERBATES MS naproxen [NAPROXEN] Allergy (Unknown, Verified 06/03/23 10:59) SWELLING ALL NSAIDS NSAIDS (Non-Steroidal Anti-Inflamma [NSAIDS (NON-STEROIDAL ANTI-INFLAMMA] Allergy (Unknown, Verified 06/03/23 10:59) ABDOMINAL PAIN olanzapine [OLANZAPINE] Allergy (Unknown, Verified 06/03/23 10:59) UNKNOWN paroxetine [From PAXIL] Allergy (Unknown, Verified 06/03/23 10:59) DIZZINESS prednisone [PREDNISONE] Allergy (Unknown, Verified 06/03/23 10:59) HALLUCINATIONS with high doses Sulfa (Sulfonamide Antibiotics) [SULFA (SULFONAMIDE ANTIBIOTICS)] Allergy (Unknown, Verified 06/03/23 10:59) HIVES sulfasalazine [From Azulfidine] Allergy (Verified 06/03/23 10:59) Hives aspirin [ASPIRIN] Adverse Reaction (Unknown, Verified 06/03/23 10:59) STOMACH UPSET ciprofloxacin [From CIPRO] Adverse Reaction (Unknown, Verified 06/03/23 10:59) SKIN PEELING clarithromycin [From Biaxin] Adverse Reaction (Verified 06/03/23 10:59) Abdominal Pain ENVIRONMENTAL Allergy (Unknown, Uncoded 06/03/23 10:59) CATS,DOGS,HORSES,MOLD-RED SKIN,FACIAL SWELLING HPI New Prob- Left hand/ thumb pain HPI Details Negrita is a 62 year old right hand dominant woman who presents with complaints of chronic left thumb pain. She complains of pain in her left thumb, worse with pinching, gripping, and overuse of her thumb. The pain seems to be in the ulnar aspect of her MCP joint, and also in the volar aspect of her basal joint. 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 In talking with her, it seems that what bothers her most is the fact that she has an adduction deformity of her 1st metacarpal that does not allow her hand to be open fully, or allow for a wide open medical staff services manager which she demonstrates that she can do with her right hand. She says she jammed her thumb into her washing machine last year (02/2022), and was seen at [facility] where she was given a splint and X-rays were taken. She asked about pain medication or a referral to Pain Management, as she has pain all over her body. She says she is tired of injections in the past and says she had several prior to having her right TSA ~1 year ago. She has a hx of right carpal & cubital tunnel release by me on 06/06/21. She says this improved her symptoms but she continues to have some numbness as she has neuropathy related to her MS. She plays video games and uses her thumbs frequently, which is painful. She has a hx of MS and Crohn's disease. She is currently on Entocort steroids. [facility] Medical History Annual physical exam Asthma-COPD overlap syndrome Bladder cancer Crohn's disease Dementia History of cervical fracture History of dysphagia History of posttraumatic stress disorder (PTSD) IBS (irritable colon syndrome) Lumbar arthropathy Migraines, neuralgic Multiple sclerosis VÁSQUEZ (nonalcoholic steatohepatitis) Neuropathy OCD (obsessive compulsive disorder) YOHAN (obstructive sleep apnea) Polyarthritis Right shoulder pain Smoker Thumb pain Surgical History History of adenoidectomy History of arthroplasty of right shoulder (05/07/22) History of bladder surgery History of carpal tunnel surgery of right wrist (~05/2021) History of resection of terminal ileum Hx of breast augmentation Hx of cholecystectomy Hx of colonoscopy (08/07/11) Hx of endoscopy (08/07/11) Hx of foot surgery (04/25/14) Hx of tonsillectomy Family History (Reviewed 05/12/23 @ 09:37 by Cristin Voss [facility]) Father Alzheimer disease Lymphoma Cancer Mother Lung cancer Sudden cardiac Cancer CVD (cardiovascular disease) Paternal Grandfather Colon cancer Cancer Maternal Grandfather Sudden cardiac CVD (cardiovascular disease) Social History Household Members: None Household Members Other:: ALONE DISABLED SINCE AROUND 2014 DUE TO MS Housing: Apartment Are you a primary pet care attendant to a significant other at home: No Do you presently have visiting nurse or other home services: No Alcohol intake: current Alcohol intake frequency: holidays/special occasions only Alcohol type: hard liquor Patient Tobacco Use Status: Current everyday Tobacco user Tobacco use type: Cigarette Cigarette Packs Per Day: 0.5 Cigarettes Per Day: 3 Years Smoked: 47 e-Cigarette/Vaping Use: Former Use Second Hand Smoke Exposure: No Substance Use Type: Marijuana service: No Current occupational status: disabled Current occupational exposures/hazards: No Cognitive needs: No Hearing needs: No Vision needs: No Review of Systems Const All systems reviewed & are unremarkable except as noted in HPI and below Physical Exam Vital Signs: BMI result Body Mass Index 25.9 Const General: cooperative, healthy appearing and no acute distress Orientation/consciousness: patient oriented x3 HEENT Head: Yes normocephalic and Yes atraumatic Eyes EOM: EOMs intact bilaterally Resp Effort & Inspection: normal respiratory effort and able to speak in complete sentences Cardio Jugular venous distension: no JVD Skin General skin exam: turgor normal Rashes: no rashes Neuro General: patient oriented x3 Extrem Other: Evaluation of Left Upper Extremity: The patient is alert, oriented, and in no acute distress Neuro: Median, Ulnar, Radial nerves motor and sensory intact and sensation is normal to the tips of all digits Vascular: Cap refill brisk ROM: She can make a fist and extend all her digits No locking or catching Skin: No lacerations or abrasions. General: No Ecchymosis. No Erythema or evidence of infection. Mildly tender over the volar aspect of the basal joint No tenderness over the dorsal aspect of the basal joint + Shoulder sign Mild tenderness over the MCP ulnar collateral ligament. MCP radial collateral and ulnar collateral ligaments stable. Visible ADduction deformity of the 1st metacarpal and she feels limited in her motion She cannot get her hand flat on the table and cannot ABduct her thumb to a wide grasp No tenderness over the MCP joint No tenderness over the 1st dorsal compartment Radiographs: 3 views of the left hand, with attention to the thumb, were taken and viewed by me today in clinic. They show end stage basal joint osteoarthritis with near complete loss of joint space, subluxation, subchondral sclerosis, and osteophyte formation. Psych Appearance: grossly normal Affect: normal affect Attitude: cooperative Assessment & Plan Assessment & Plan (1) Osteoarthritis of carpometacarpal joint of left thumb: Code(s): M18.12 - Unilateral primary osteoarthritis of first carpometacarpal joint, left hand Plan Assessment & Plan: 1. Left basal joint osteoarthritis With visible ADduction deformity I educated her about this condition Her primary complaint today seems to be her limited motion, as she is concerned that she cannot get her hand flat on a table surface or ABduct her thumb to a wide grasp without discomfort in the ulnar aspect of the MCP joint I had a long discussion with her concerning treatment options, and she continued to express a desire to proceed with surgery. It seems she primarily wants surgery to change the position of her thumb and correct her ABduction deformity I do not think she would benefit much from a steroid injection as she did not have much tenderness on exam, the joint does not appear to be particularly painful, and the patient was not interested in injections either She was fitted for a comfort cool brace to wear with daily activity I discussed activity modification, she should limit or avoid any heavy or r epetitive pinching or gripping activities I ordered OT hand therapy to work on optimizing left hand function She is pretty sure that she wants to have this surgery. I want to make sure that the indications are appropriate, and her expectations and understanding of the surgery and its postop recovery are well understood by our patient. She definitely has significant basal joint arthritis. Pain does not seem to be so much of an issue, but it appears to me that it is the lack of 1st metacarpal abduction and how this affects her overall hand function that bothers her the most. She will follow up in 2 months. We can again discuss surgery, and in particular the postoperative course as we consider possible basal joint arthroplasty with madison trapezii ectomy and LR TI. This should be a 30 minute appointment Please note that greater than 60 minutes was spent with this patient going over the history, evaluating the patient and radiographs, formulating possible treatment options, discussing them with the patient, and documenting the visit. Scribed for Mariela Haley MD by César Glez, biomedical engineer, on 06/03/23 at 11:35 AM, EST. Orders: Orders XR hand LT min 3V Today M79.642 - Pain in left hand OT Evaluation and Treatment Today M18.12 - Unilateral primary osteoarthritis of first carpometacarpal joint, left hand Coding Level of Care Code New Pt Level 5 (40849) Diagnoses Osteoarthritis of carpometacarpal joint of left thumb M18.12
== END 2023-06-03 11:43 | disposition home or self-care (01) ==
PROVIDERS: PCP Family Medicine; Visit Provider Orthopaedic Surgery
DX: M18.12 Unilateral primary osteoarthritis of first carpometacarpal joint, left hand (principal)
CPT/HCPCS: 99214

== ENCOUNTER 2023-06-12 13:18 | Outpatient (AMB) | payer OTHER, SELFPAY ==
--- NOTE | 2023-06-12 13:29 | A.OFFVIS_ITS ---
Intake Vital Signs 06/12/23 13:30 Height 5 ft 3 in Weight 147 lb 11.355 oz BMI 26.2 BP 132/64 Blood Pressure Location Lt brachial Position Sitting Pulse 72 Pulse Source Doppler Pulse Oximetry (%) 96 Oxygen Delivery Method Room Air Intake Visit Reasons: Obstructive sleep apnea Allergies blue dye [BLUE DYE] Allergy (Unknown, Verified 06/12/23 13:35) ANAPHYLAXIS escitalopram [From LEXAPRO] Allergy (Unknown, Verified 06/12/23 13:35) UNKNOWN infliximab [From REMICADE] Allergy (Unknown, Verified 06/12/23 13:35) EXACERBATES MS naproxen [NAPROXEN] Allergy (Unknown, Verified 06/12/23 13:35) SWELLING ALL NSAIDS NSAIDS (Non-Steroidal Anti-Inflamma [NSAIDS (NON-STEROIDAL ANTI-INFLAMMA] Allergy (Unknown, Verified 06/12/23 13:35) ABDOMINAL PAIN olanzapine [OLANZAPINE] Allergy (Unknown, Verified 06/12/23 13:35) UNKNOWN paroxetine [From PAXIL] Allergy (Unknown, Verified 06/12/23 13:35) DIZZINESS prednisone [PREDNISONE] Allergy (Unknown, Verified 06/12/23 13:35) HALLUCINATIONS with high doses Sulfa (Sulfonamide Antibiotics) [SULFA (SULFONAMIDE ANTIBIOTICS)] Allergy (Unknown, Verified 06/12/23 13:35) HIVES sulfasalazine [From Azulfidine] Allergy (Verified 06/12/23 13:35) Hives aspirin [ASPIRIN] Adverse Reaction (Unknown, Verified 06/12/23 13:35) STOMACH UPSET ciprofloxacin [From CIPRO] Adverse Reaction (Unknown, Verified 06/12/23 13:35) SKIN PEELING clarithromycin [From Biaxin] Adverse Reaction (Verified 06/12/23 13:35) Abdominal Pain ENVIRONMENTAL Allergy (Unknown, Uncoded 06/03/23 10:59) CATS,DOGS,HORSES,MOLD-RED SKIN,FACIAL SWELLING HPI Obstructive sleep apnea HPI Details 62-year-old, active 40+ pack-year smoker , now also vapes marijuana, followed for underlying severe obstructive sleep apnea and moderate persistent asthma. Patient is using BrezTri with good control of her underlying symptoms.? She was tried on Dupixent, however she was not able to tolerated.? 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 She continues on CPAP with reasonable control of her underlying obstructive sleep apnea. Today patient complains of exacerbation of underlying allergic rhinitis. [facility] Medical History Annual physical exam Asthma-COPD overlap syndrome Bladder cancer Crohn's disease Dementia History of cervical fracture History of dysphagia History of posttraumatic stress disorder (PTSD) IBS (irritable colon syndrome) Lumbar arthropathy Migraines, neuralgic Multiple sclerosis VÁSQUEZ (nonalcoholic steatohepatitis) Neuropathy OCD (obsessive compulsive disorder) YOHAN (obstructive sleep apnea) Polyarthritis Right shoulder pain Smoker Thumb pain Surgical History History of adenoidectomy History of arthroplasty of right shoulder (05/07/22) History of bladder surgery History of carpal tunnel surgery of right wrist (~05/2021) History of resection of terminal ileum Hx of breast augmentation Hx of cholecystectomy Hx of colonoscopy (08/07/11) Hx of endoscopy (08/07/11) Hx of foot surgery (04/25/14) Hx of tonsillectomy Family History Father Alzheimer disease Lymphoma Cancer Mother Lung cancer Sudden cardiac Cancer CVD (cardiovascular disease) Paternal Grandfather Colon cancer Cancer Maternal Grandfather Sudden cardiac CVD (cardiovascular disease) Social History Household Members: None Household Members Other:: ALONE DISABLED SINCE AROUND 2014 DUE TO MS Housing: Apartment Are you a primary patient care specialist to a significant other at home: No Do you presently have visiting nurse or other home services: No Alcohol intake: current Alcohol intake frequency: holidays/special occasions only Alcohol type: hard liquor Patient Tobacco Use Status: Current everyday Tobacco user Tobacco use type: Cigarette Cigarette Packs Per Day: 0.5 Cigarettes Per Day: 3 Years Smoked: 47 e-Cigarette/Vaping Use: Former Use Second Hand Smoke Exposure: No Substance Use Type: Marijuana service: No Current occupational status: disabled Current occupational exposures/hazards: No Cognitive needs: No Hearing needs: No Vision needs: No Review of Systems Const Denies daytime sleepiness, Denies excessive sweating, Denies fatigue, Denies fever(s), Denies lethargy, Denies malaise, Denies night sweats, Denies snoring and Denies weight loss Eyes Denies blurry vision and Denies itchy eyes ENT Reports nasal congestion, Reports post nasal drip, Denies sinus pain, Denies sinus pressure and Denies other ( Thrush) Card Denies chest pain, Denies pedal edema, Denies dyspnea, Denies orthopnea and Denies paroxysmal nocturnal dyspnea Resp Denies cough, Denies hemoptysis, Denies excessive phlegm production, Denies dyspnea, Denies snoring and Denies wheezing GI Denies abdominal pain and Denies heartburn Musc Denies myalgias, Denies arthralgias and Denies joint swelling Skin/Breast Denies rash Neuro Denies memory loss and Denies seizure-like activity Psych Denies abnormal sleep pattern, Denies anxiety and Denies memory loss Endo Denies excessive sweating, Denies fatigue and Denies heat intolerance Arian/Lymph Denies easy bruising Aller/Immun Denies itchy eyes, Denies seasonal rhinorrhea and Denies wheezing Physical Exam Vital Signs: Last Vital Signs Pulse 72 06/12/23 13:30 BP 132/64 06/12/23 13:30 Pulse Ox 96 06/12/23 13:30 Oxygen Delivery Method Room Air 06/12/23 13:30 BMI result Body Mass Index 26.2 Const General: no acute distress and alert Nutritional Appearance: not obese Orientation/consciousness: Other orientation findings ( oriented) HEENT Head: Yes atraumatic Eyes General: appearance normal, both eyes and all related structures Sclerae: sclerae normal EOM: EOMs intact bilaterally Neck Neck: Yes supple Lymphatic: no lymphadenopathy noted Resp Effort & Inspection: normal respiratory effort and no use of accessory muscles Auscultation: clear to auscultation bilaterally Cardio Rate: regular rate Rhythm: regular rhythm Heart sounds: no gallops, no murmurs and no rubs Skin General skin exam: other ( warm) Extrem General: No clubbing, No cyanosis and No edema Assessment & Plan Assessment & Plan (1) COPD (chronic obstructive pulmonary disease): Code(s): J44.9 - Chronic obstructive pulmonary disease, unspecified Plan: Reasonably well controlled on current regimen of BrezTri and albuterol MDI. Continue current regimen. (2) YOHAN on CPAP: Code(s): G47.33 - Obstructive sleep apnea (adult) (pediatric); Z99.89 - Dependence on other enabling machines and devices Plan: Control on current CPAP regimen. Continue current CPAP regimen. (3) Allergic rhinitis, unspecified: Code(s): J30.9 - Allergic rhinitis, unspecified Qualifiers: Allergic rhinitis trigger: other Allergic rhinitis seasonality: unspecified Qualified Code(s): J30.89 - Other allergic rhinitis Plan: Now with worsening symptoms. Will start on empiric nasal ipratropium. Medications: New ipratropium bromide administer into each nostril 2 sprays intranasal TID-QID 30 days PRN 15 mL 6RF allergy symptoms Coding Level of Care Code Est Pt Level 4 (41576) Diagnoses COPD (chronic obstructive pulmonary disease) J44.9 YOHAN on CPAP G47.33; Z99.89 Allergic rhinitis due to other allergic trigger, unspecified seasonality J30.89 Allergic rhinitis trigger: other Allergic rhinitis seasonality: unspecified
[2023-06-12 13:30] VITALS: BP 132/64; PULSE 72; O2SAT 96; BMI 26.2
== END 2023-06-12 13:52 | disposition home or self-care (01) ==
PROVIDERS: PCP Family Medicine; Visit Provider Internal Medicine Pulmonary Disease
DX: J44.9 Chronic obstructive pulmonary disease, unspecified (principal); G47.33 Obstructive sleep apnea (adult) (pediatric); Z99.89 Dependence on other enabling machines and devices; J30.89 Other allergic rhinitis
CPT/HCPCS: 99214

== ENCOUNTER → 2023-06-12 13:18 | Outpatient (BNVA) | payer OTHER, SELFPAY | PROVIDERS: PCP Family Medicine; Visit Provider Internal Medicine Pulmonary Disease | DX: G47.33 Obstructive sleep apnea (adult) (pediatric) (principal); J44.9 Chronic obstructive pulmonary disease, unspecified; J30.89 Other allergic rhinitis; Z99.89 Dependence on other enabling machines and devices | CPT/HCPCS: 99212 ==

== ENCOUNTER 2023-06-19 10:39 | Outpatient (AMB) | payer OTHER, SELFPAY ==
[2023-06-19 10:42] VITALS: BP 130/76; PULSE 86; O2SAT 96; BMI 26.2
--- NOTE | 2023-06-19 10:42 | A.OFFPC_ITS ---
Vital Signs 06/19/23 10:42 Height 5 ft 3 in Weight 148 lb BMI 26.2 BP 130/76 Blood Pressure Location Lt brachial Position Sitting Pulse 86 Pulse Source Pulse Oximeter Pulse Oximetry (%) 96 Oxygen Delivery Method Room Air Intake Visit Reasons: left hand, back & neck pain - pain mgmt referral Intake Note: Patient is here for left hand, back and neck pain, and pain management referral. Allergies blue dye [BLUE DYE] Allergy (Unknown, Verified 06/19/23 10:46) ANAPHYLAXIS escitalopram [From LEXAPRO] Allergy (Unknown, Verified 06/19/23 10:46) UNKNOWN infliximab [From REMICADE] Allergy (Unknown, Verified 06/19/23 10:46) EXACERBATES MS naproxen [NAPROXEN] Allergy (Unknown, Verified 06/19/23 10:46) SWELLING ALL NSAIDS NSAIDS (Non-Steroidal Anti-Inflamma [NSAIDS (NON-STEROIDAL ANTI-INFLAMMA] Allergy (Unknown, Verified 06/19/23 10:46) ABDOMINAL PAIN olanzapine [OLANZAPINE] Allergy (Unknown, Verified 06/19/23 10:46) UNKNOWN paroxetine [From PAXIL] Allergy (Unknown, Verified 06/19/23 10:46) DIZZINESS prednisone [PREDNISONE] Allergy (Unknown, Verified 06/19/23 10:46) HALLUCINATIONS with high doses Sulfa (Sulfonamide Antibiotics) [SULFA (SULFONAMIDE ANTIBIOTICS)] Allergy (Unknown, Verified 06/19/23 10:46) HIVES sulfasalazine [From Azulfidine] Allergy (Verified 06/19/23 10:46) Hives aspirin [ASPIRIN] Adverse Reaction (Unknown, Verified 06/19/23 10:46) STOMACH UPSET ciprofloxacin [From CIPRO] Adverse Reaction (Unknown, Verified 06/19/23 10:46) SKIN PEELING clarithromycin [From Biaxin] Adverse Reaction (Verified 06/19/23 10:46) Abdominal Pain ENVIRONMENTAL Allergy (Unknown, Uncoded 06/19/23 10:46) CATS,DOGS,HORSES,MOLD-RED SKIN,FACIAL SWELLING Tobacco use date assessed: 06/19/23 Dental Screening Dental Screen Date: 06/19/23 Did you have a dental visit in the last 12 months?: Yes Did you have a dental problem in the last 6 months where you did not have access to dental care?: No Was dental information given to patient?: Patient has dentist HPI left hand, back & neck pain - pain mgmt referral HPI Details 62 y/o female presents to f/u L hand [place] n, back pain, and neck pain. She is requesting a pain management referral. Pt notes naproxen has helped with her arthritis but reports it bothers her Crohns disease. She has been using only gabapentin [place] pain [facility] Medical History OCD (obsessive compulsive disorder) History of dysphagia Neuropathy YOHAN (obstructive sleep apnea) Smoker Asthma-COPD overlap syndrome Annual physical exam Dementia Thumb pain Lumbar arthropathy Polyarthritis History of posttraumatic stress disorder (PTSD) Right shoulder pain History of cervical fracture VÁSQUEZ (nonalcoholic steatohepatitis) Bladder cancer Multiple sclerosis Migraines, neuralgic IBS (irritable colon syndrome) Crohn's disease Surgical History History of arthroplasty of right shoulder (05/07/22) Hx of cholecystectomy History of carpal tunnel surgery of right wrist (~05/2021) History of bladder surgery Hx of endoscopy (08/07/11) Hx of colonoscopy (08/07/11) Hx of foot surgery (04/25/14) History of resection of terminal ileum History of adenoidectomy Hx of tonsillectomy Hx of breast augmentation Family History Father Alzheimer disease Lymphoma Cancer Mother Lung cancer Sudden cardiac Cancer CVD (cardiovascular disease) Paternal Grandfather Colon cancer Cancer Maternal Grandfather Sudden cardiac CVD (cardiovascular disease) Social History Household Members: None Household Members Other:: ALONE DISABLED SINCE AROUND 2014 DUE TO MS Housing: Apartment Are you a primary senior care provider to a significant other at home: No Do you presently have visiting nurse or other home services: No Alcohol intake: current Alcohol intake frequency: holidays/special occasions only Alcohol type: hard liquor Patient Tobacco Use Status: Current everyday Tobacco user Tobacco use type: Cigarette Cigarette Packs Per Day: 0.5 Cigarettes Per Day: 3 Years Smoked: 47 e-Cigarette/Vaping Use: Former Use Second Hand Smoke Exposure: No Substance Use Type: Marijuana service: No Current occupational status: disabled Current occupational exposures/hazards: No Cognitive needs: No Hearing needs: No Vision needs: No Questionnaire Thrive Questionnaire Date Thrive assessed: 02/05/22 JOSIE-7 AMB Questionnaire JOSIE-7 Date JOSIE - 7 assessed: 02/05/22 Source: Developed by Drs. Derrick Alfonso, Veronica Caraballo, Raul Zepeda and colleagues, with an educational fabi from [employer]. Physical exam (Primary Care) Vital Signs: Last Vital Signs Pulse 86 06/19/23 10:42 BP 130/76 06/19/23 10:42 Pulse Ox 96 06/19/23 10:42 Oxygen Delivery Method Room Air 06/19/23 10:42 BMI result Body Mass Index 26.2 Tobacco/Smoking Status: Tobacco use Status Tobacco use date assessed 06/19/23 06/19/23 10:54 Patient Tobacco Use Status Current everyday Tobacco 06/19/23 10:54 Tobacco use type Cigarette 06/19/23 10:54 e-Cigarette/Vaping Use Former Use 06/19/23 10:54 Thrive Assessment: Date of Thrive Assessment Date Thrive assessed 02/05/22 06/19/23 10:54 Assessment and Plan Assessment & Plan (1) Neck pain: Code(s): M54.2 - Cervicalgia Plan: Neck and back pain as well as polyarthralgia. Also has osteoarthritis, fibromyalgia and history of MS. Numerous forms of pain - referred to pain management Patient notes that she had been given opioids in the past with Dr. Prabhakar. We discussed that I want to have pain management see her for other modalities of pain control and she understands this. We can follow-up after pain management to evaluate for a need for any other pain control methods. (2) Back pain: Code(s): M54.9 - Dorsalgia, unspecified (3) Polyarthritis: Code(s): M13.0 - Polyarthritis, unspecified Plan: As above (4) Left hand pain: Code(s): M79.642 - Pain in left hand Plan: She is followed by Hand surgery for osteoarthritis in the left hand and thumb Orders: Referrals Pain Management Referral M54.2 - Cervicalgia, M54.9 - Dorsalgia, unspecified Medications: New duloxetine (Cymbalta) 30 mg PO BID 60 caps 1RF 30 days Coding Level of Care Code Est Pt Level 4 (99558) Diagnoses Neck pain M54.2 Back pain M54.9 Polyarthritis M13.0 Left hand pain M79.642
== END 2023-06-19 12:05 | disposition home or self-care (01) ==
PROVIDERS: PCP Family Medicine; Visit Provider Family Medicine
DX: M54.2 Cervicalgia (principal); M54.9 Dorsalgia, unspecified; M13.0 Polyarthritis, unspecified; M79.642 Pain in left hand
CPT/HCPCS: 99214

== ENCOUNTER 2023-06-19 12:09 | Outpatient (REF) | payer OTHER, SELFPAY ==
[2023-06-19 14:27] LABS: MANUAL DIFF FLAG NO
[2023-06-19 14:40] LABS: Basophils Absolute Auto 0.1 X10*3/uL (0.0-0.2); Basophils Percent Auto 0.5 % (0-2); Eosinophils Absolute Auto 0.1 X10*3/uL (0.0-0.4); Eosinophils Percent Auto 0.6 % (0-4); Hematocrit 44.9 % (37.0-47.0); Hemoglobin 14.7 g/dl (12.0-16.0); Imm Gran Abs Auto 0.08 X10*3/uL (0.00-0.03); Imm Gran Pct Auto 0.6 % (0.0-0.4); Mean Corpuscular HGB Conc 32.7 g/dl (31.0-35.0); Mean Corpuscular Hemoglobin 33.9 pg (27.0-33.0); Mean Corpuscular Volume 103.5 fL (80.0-98.0); Mean Platelet Volume 9.2 fL (9.4-12.3); Monocytes Absolute Auto 1.1 X10*3/uL (0.1-1.2); Neutrophils Absolute Auto 9.3 x10*3/uL (2.0-8.3); Neutrophils Percent Auto 73.3 % (45-73); Platelet Count 305 X10*3/uL (160-400); Red Blood Count 4.34 X10*6/uL (4.20-5.50); Red Cell Distribution Width 13.9 % (11.0-16.0); White Blood Count 12.7 X10*3/uL (4.8-10.8)
[2023-06-19 14:45] LABS: Estimated Average Glucose 105 mg/dL; Hemoglobin A1c % 5.3 % (<6.0)
[2023-06-19 14:52] LABS: Appearance Urine Clear; Color Urine Dark Yellow; Glucose Urine UA Negative (Negative); Leukocyte Esterase Urine Trace (Negative); Nitrite Urine Negative (Negative); PH 5.5 (5.0-9.0); Specific Gravity - Urine >= 1.030 (1.005-1.025); UMIC TRIGGER UA YES; Urine Blood Negative (Negative); Urine Ketones Trace mg/dL (Negative); Urine Protein Trace mg/dL (Neg-Trace)
[2023-06-19 14:59] LABS: Alanine Aminotransferase 17 U/L (0-31); Albumin Level 4.7 g/dL (3.5-5.0); Alkaline Phosphatase 101 U/L (39-117); Aspartate Amino Transferase 14 U/L (5-31); Bilirubin Direct 0.2 mg/dL (0.0-0.5); Bilirubin Total 0.4 mg/dL (0.0-1.0); Blood Urea Nitrogen 20 mg/dL (9-16); Estimated Glomerular Filt Rate > 60; Total Protein 7.5 g/dL (6.5-8.0)
[2023-06-19 15:03] LABS: Alanine Aminotransferase 18 U/L (0-31); Albumin Level 4.7 g/dL (3.5-5.0); Alkaline Phosphatase 101 U/L (39-117); Anion Gap 15 (12-20); Aspartate Amino Transferase 15 U/L (5-31); Bilirubin Total 0.4 mg/dL (0.0-1.0); Blood Urea Nitrogen 20 mg/dL (9-16); Calcium 9.9 mg/dL (8.4-10.2); Carbon Dioxide 22 mmol/L (22-29); Chloride 110 mmol/L (96-108); Cholesterol 175 mg/dL (<200); Estimated Glomerular Filt Rate > 60; Glucose Fasting 101 mg/dL (60-99); HDL Cholesterol 81 mg/dL (>40); LDL Cholesterol Calculated 81 mg/dL (<100); Potassium 5.2 mmol/L (3.3-5.1); Sodium 142 mmol/L (135-145); Total Protein 7.6 g/dL (6.5-8.0); Triglycerides 68 mg/dL (<150)
[2023-06-19 15:20] LABS: TSH reflex Free T4 1.37 uIU/mL (0.32-4.0)
[2023-06-19 15:24] LABS: Bacteria Urine 1+ (None Seen); Calcium Oxalate Crystals Urine Present; Hyaline Casts Urine 0-2 /LPF (0-2); WBC Urine 21-50 /HPF (0-5)
[2023-06-19 15:33] LABS: Creatinine Urine 207.93 mg/dL; Microalbum/Creatinine Ratio Ur 7.6 ug/mg cr (<30)
[2023-06-24 12:08] LABS: IgA 78 mg/dL (70-320); IgG 772 mg/dL (600-1540); IgM 58 mg/dL (50-300)
== END 2023-06-19 12:10 | disposition home or self-care (01) ==
LOC: HO.WFDLDS 12:09
PROVIDERS: Physician Assistant; Visit Provider Family Medicine
DX: Z00.00 Encounter for general adult medical examination without abnormal findings (principal); R73.01 Impaired fasting glucose; I10 Essential (primary) hypertension; G35 Multiple sclerosis; Z51.81 Encounter for therapeutic drug level monitoring
CPT/HCPCS: 36415; 80053; 80061; 80076; 81001; 82043; 82248; 82565; 82570; 82784; 83036; 84443; 84520; 85025

== ENCOUNTER 2023-07-24 11:11 | Outpatient (AMB) | payer OTHER, SELFPAY ==
[2023-07-24 11:14] VITALS: BP 166/77; PULSE 83; RESP 14; O2SAT 94; BMI 25.9
--- NOTE | 2023-07-24 11:14 | A.OFFVIS_ITS ---
Intake Vital Signs 07/24/23 11:14 Height 5 ft 3 in Weight 146 lb BMI 25.9 BP 166/77 H Blood Pressure Location Lt brachial Position Sitting Respiration 14 Pulse 83 Pulse Source Pulse Oximeter Pulse Oximetry (%) 94 Oxygen Delivery Method Room Air Intake Visit Reasons: back pain/confirmed Allergies blue dye [BLUE DYE] Allergy (Unknown, Verified 07/24/23 11:17) ANAPHYLAXIS escitalopram [From LEXAPRO] Allergy (Unknown, Verified 07/24/23 11:17) UNKNOWN infliximab [From REMICADE] Allergy (Unknown, Verified 07/24/23 11:17) EXACERBATES MS naproxen [NAPROXEN] Allergy (Unknown, Verified 07/24/23 11:17) SWELLING ALL NSAIDS NSAIDS (Non-Steroidal Anti-Inflamma [NSAIDS (NON-STEROIDAL ANTI-INFLAMMA] Allergy (Unknown, Verified 07/24/23 11:17) ABDOMINAL PAIN olanzapine [OLANZAPINE] Allergy (Unknown, Verified 07/24/23 11:17) UNKNOWN paroxetine [From PAXIL] Allergy (Unknown, Verified 07/24/23 11:17) DIZZINESS prednisone [PREDNISONE] Allergy (Unknown, Verified 07/24/23 11:17) HALLUCINATIONS with high doses Sulfa (Sulfonamide Antibiotics) [SULFA (SULFONAMIDE ANTIBIOTICS)] Allergy (Unknown, Verified 07/24/23 11:17) HIVES sulfasalazine [From Azulfidine] Allergy (Verified 07/24/23 11:17) Hives aspirin [ASPIRIN] Adverse Reaction (Unknown, Verified 07/24/23 11:17) STOMACH UPSET ciprofloxacin [From CIPRO] Adverse Reaction (Unknown, Verified 07/24/23 11:17) SKIN PEELING clarithromycin [From Biaxin] Adverse Reaction (Verified 07/24/23 11:17) Abdominal Pain ENVIRONMENTAL Allergy (Unknown, Uncoded 07/24/23 11:17) CATS,DOGS,HORSES,MOLD-RED SKIN,FACIAL SWELLING Medication List - Last Reconciled 07/24/23 by Nae De Leon LPN acetaminophen 650 mg (2 x 325 mg) PO Q6H PRN acetic acid 2% 3 drps otic (ear) left Q6H PRN 10 days albuterol sulfate 0.63 mg inhalation Q4-6H PRN amoxicillin 2,000 mg (4 x 500 mg) PO ONCE 1 day [id number]-[id number] 160-9-4.8 mcg/actuation (Breztri Aerosphere) 2 inhalations inhalation BID 30 days calcium polycarbophil (FiberCon) 625 mg PO DAILY 90 days cetirizine 10 mg PO DAILY cholecalciferol (vitamin D3) (Vitamin D3) 25 mcg PO DAILY 30 days cyanocobalamin (vitamin B-12) 1,000 mcg IM QWEEK diclofenac sodium 1% 2 grams topical .QD donepezil 23 mg PO BEDTIME epinephrine 0.3 mL IM ONCE PRN famotidine 20 mg PO BID fluocinonide 0.05% topical fluticasone propionate 50 mcg/actuation 2 sprays intranasal BID 30 days folic acid 1 mg PO DAILY 90 days gabapentin 600 mg PO TID 30 days incontinence pad, liner, disp Long. Daily as directed, 90 days ipratropium bromide 2 sprays intranasal TID-QID PRN 30 days lactase 3,000 units PO QID Lactobac. rhamnosus GG-inulin 10 billion cell -200 mg ([facility] CausePlay) 1 cap PO DAILY 90 days lifitegrast 5% (Xiidra) 1 drp ophthalmic (eye) BID loperamide 4 mg PO BID lorazepam 0.5 mg PO BID PRN magnesium chloride 71.5 mg PO BID megestrol 20 mg PO DAILY 30 days memantine 5 mg PO BID mesalamine 1,000 mg MA BEDTIME PRN miscellaneous medical supply 1 ea miscellaneous DAILY 99 days miscellaneous medical supply Poise pads. 2 per day. 90 day supply; 90 days naloxone 4 mg/actuation (Narcan) 4 mg intranasal Q2M PRN 1 day nicotine (polacrilex) 4 mg buccal Q8H PRN 30 days nystatin 5 mL PO TID 7 days prochlorperazine (Compro) 25 mg MA TID PRN sumatriptan succinate 50 mg PO NEEDED PRN syringe with needle, safety (BD Integra Syringe) As directed trazodone 75 mg PO BEDTIME triamcinolone acetonide 0.1% 1 appl topical BID valacyclovir 1,000 mg PO BEDTIME HPI back pain/confirmed HPI Details 62-year-old female who presents today to the office for a back pain. She reports muscle spasticity in multiple locations of her body. Her legs are most bothersome. Her neurology provider recommended trialing the baclofen pump. She tried taking tizanidine three times a day, but she developed urinary incontinence and blurry vision. She started taking gabapentin and Ativan 0.5 mg with minimal benefit. She has difficulty with movements. She also has mild muscle spasms around her abdomen. She used to work 40 to 56 hours a week in the past. She has noticed weakness in her lower extremities, and she has difficulty sitting straight for long periods of time. She was put on disability in 2013. She had shoulder replacement surgery. She has a history of MS. [facility] Medical History OCD (obsessive compulsive disorder) History of dysphagia Neuropathy YOHAN (obstructive sleep apnea) Smoker Asthma-COPD overlap syndrome Annual physical exam Dementia Thumb pain Lumbar arthropathy Polyarthritis History of posttraumatic stress disorder (PTSD) Right shoulder pain History of cervical fracture VÁSQUEZ (nonalcoholic steatohepatitis) Bladder cancer Multiple sclerosis Migraines, neuralgic IBS (irritable colon syndrome) Crohn's disease Surgical History History of arthroplasty of right shoulder (05/07/22) Hx of cholecystectomy History of carpal tunnel surgery of right wrist (~05/2021) History of bladder surgery Hx of endoscopy (08/07/11) Hx of colonoscopy (08/07/11) Hx of foot surgery (04/25/14) History of resection of terminal ileum History of adenoidectomy Hx of tonsillectomy Hx of breast augmentation Family History Father Alzheimer disease Lymphoma Cancer Mother Lung cancer Sudden cardiac Cancer CVD (cardiovascular disease) Paternal Grandfather Colon cancer Cancer Maternal Grandfather Sudden cardiac CVD (cardiovascular disease) Social History Household Members: None Household Members Other:: ALONE DISABLED SINCE AROUND 2014 DUE TO MS Housing: Apartment Are you a primary primary care provider to a significant other at home: No Do you presently have visiting nurse or other home services: No Alcohol intake: current Alcohol intake frequency: holidays/special occasions only Alcohol type: hard liquor Patient Tobacco Use Status: Current everyday Tobacco user Tobacco use type: Cigarette Cigarette Packs Per Day: 0.5 Cigarettes Per Day: 3 Years Smoked: 47 e-Cigarette/Vaping Use: Former Use Second Hand Smoke Exposure: No Substance Use Type: Marijuana service: No Current occupational status: disabled Current occupational exposures/hazards: No Cognitive needs: No Hearing needs: No Vision needs: No Review of Systems Const All systems reviewed & are unremarkable except as noted in HPI and below Physical Exam Vital Signs: Last Vital Signs Pulse 83 07/24/23 11:14 Resp 14 07/24/23 11:14 BP 166/77 H 07/24/23 11:14 Pulse Ox 94 07/24/23 11:14 Oxygen Delivery Method Room Air 07/24/23 11:14 BMI result Body Mass Index 25.9 General: Appears afebrile. Alert and oriented. Mood and affect appropriate. Follows and participates in conversation appropriately. Respiratory effort is unlabored. Able to transition from sit to stand unassisted. Ambulates with bilaterally normal heel strike and toe off. Results Reviewed Results Reviewed: No imaging is available for review. Assessment & Plan Assessment & Plan (1) Multiple sclerosis: Code(s): G35 - Multiple sclerosis (2) Muscle spasticity: Code(s): M62.838 - Other muscle spasm Plan Discussed trial of intrathecal pain pump with baclofen as a treatment option. 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 Will schedule her for a trial of intrathecal Baclofen injection at L3-4 (50 mcg). Discussed the risks and benefits of the procedure with the patient in detail. All questions were answered. The patient is on board with the plan. We will place a psychology referral for clearance prior to proceeding. Justification for interventional therapy: ? Patient with average pain > 6/10 ? Patient has exhausted conservative therapy Scribed for Dr. Connolly by Juan M Morris, spanish medical interpreter, on 07/24/2023. I, Dr. Connolly, have personally reviewed and agree with the information entered by the scribe. Coding Level of Care Code Est Pt Level 4 (57067) Diagnoses Multiple sclerosis G35 Muscle spasticity M62.838
== END 2023-07-24 11:58 | disposition home or self-care (01) ==
PROVIDERS: PCP Family Medicine; Visit Provider Internal Medicine
DX: G35 Multiple sclerosis (principal); M62.838 Other muscle spasm
CPT/HCPCS: 99214

== ENCOUNTER → 2023-07-24 11:11 | Outpatient (BNVA) | payer OTHER, SELFPAY | PROVIDERS: PCP Family Medicine; Visit Provider Internal Medicine | DX: G35 Multiple sclerosis (principal); G62.9 Polyneuropathy, unspecified; M62.838 Other muscle spasm | CPT/HCPCS: 99212 ==

== ENCOUNTER 2023-08-18 11:50 | Outpatient (AMB) | payer OTHER, SELFPAY ==
--- NOTE | 2023-08-18 11:52 | MHC.PC.OV ---
Vital Signs 08/18/23 11:53 Height 5 ft 3 in Weight 148 lb 2 oz BMI 26.2 Respiration 18 Pulse 92 Pulse Source Pulse Oximeter Temp 98.2 F Temp Source Oral Pulse Oximetry (%) 96 Oxygen Delivery Method Room Air Intake Visit Reasons: CPE Intake Note: Patient reports she has been feeling unwell and weakened x3 weeks, post Ocrevus. Patient reports low temperatures as low as 93 degrees, upper respiratory pain, breathing difficulty, sore throat, ear pain in particular left ear. Patient reports coughing nonstop for 30 minutes while trying to breathe between coughing. Patient states she has rib pain from this coughing. Patient reports she has dizziness all of the time. Patient reports she has spasms with her hands. She states if she prepares a meal she can't eat the meal because her hands seize up. Director Of Strategic Programs Required: No Accompanied by: Self / Same As Patient Allergies blue dye [BLUE DYE] Allergy (Unknown, Verified 08/18/23 12:03) ANAPHYLAXIS escitalopram [From LEXAPRO] Allergy (Unknown, Verified 08/18/23 12:03) UNKNOWN infliximab [From REMICADE] Allergy (Unknown, Verified 08/18/23 12:03) EXACERBATES MS naproxen [NAPROXEN] Allergy (Unknown, Verified 08/18/23 12:03) SWELLING ALL NSAIDS NSAIDS (Non-Steroidal Anti-Inflamma [NSAIDS (NON-STEROIDAL ANTI-INFLAMMA] Allergy (Unknown, Verified 08/18/23 12:03) ABDOMINAL PAIN olanzapine [OLANZAPINE] Allergy (Unknown, Verified 08/18/23 12:03) UNKNOWN paroxetine [From PAXIL] Allergy (Unknown, Verified 08/18/23 12:03) DIZZINESS prednisone [PREDNISONE] Allergy (Unknown, Verified 08/18/23 12:03) HALLUCINATIONS with high doses Sulfa (Sulfonamide Antibiotics) [SULFA (SULFONAMIDE ANTIBIOTICS)] Allergy (Unknown, Verified 08/18/23 12:03) HIVES sulfasalazine [From Azulfidine] Allergy (Verified 08/18/23 12:03) Hives aspirin [ASPIRIN] Adverse Reaction (Unknown, Verified 08/18/23 12:03) STOMACH UPSET ciprofloxacin [From CIPRO] Adverse Reaction (Unknown, Verified 08/18/23 12:03) SKIN PEELING clarithromycin [From Biaxin] Adverse Reaction (Verified 08/18/23 12:03) Abdominal Pain ENVIRONMENTAL Allergy (Unknown, Uncoded 08/18/23 12:03) CATS,DOGS,HORSES,MOLD-RED SKIN,FACIAL SWELLING Tobacco use date assessed: 08/18/23 Fall risk assessment: No Falls in past year Last assessed Fall Risk: 08/18/23 Dental Screening Dental Screen Date: 08/18/23 Did you have a dental visit in the last 12 months?: Yes Did you have a dental problem in the last 6 months where you did not have access to dental care?: No Was dental information given to patient?: Patient has dentist HPI CPE HPI Details 62 y/o female presents today for a physical but would like to convert this visit to an acute visit. Patient reports she has been feeling unwell and weakened x3 weeks, post Ocrevus. Patient reports low temperatures as low as 93 degrees, upper respiratory pain, breathing difficulty, sore throat, ear pain in particular left ear. Patient reports coughing nonstop for 30 minutes while trying to breathe between coughing. Patient states she has rib pain from this coughing. Patient reports she has dizziness all of the time. Patient reports she has spasms with her hands. She states if she prepares a meal she can't eat the meal because her hands seize up. [facility] Medical History OCD (obsessive compulsive disorder) History of dysphagia Neuropathy YOHAN (obstructive sleep apnea) Smoker Asthma-COPD overlap syndrome Annual physical exam Dementia Thumb pain Lumbar arthropathy Polyarthritis History of posttraumatic stress disorder (PTSD) Right shoulder pain History of cervical fracture VÁSQUEZ (nonalcoholic steatohepatitis) Bladder cancer Multiple sclerosis Migraines, neuralgic IBS (irritable colon syndrome) Crohn's disease Surgical History History of arthroplasty of right shoulder (05/07/22) Hx of cholecystectomy History of carpal tunnel surgery of right wrist (~05/2021) History of bladder surgery Hx of endoscopy (08/07/11) Hx of colonoscopy (08/07/11) Hx of foot surgery (04/25/14) History of resection of terminal ileum History of adenoidectomy Hx of tonsillectomy Hx of breast augmentation Family History Father Alzheimer disease Lymphoma Cancer Mother Lung cancer Sudden cardiac Cancer CVD (cardiovascular disease) Paternal Grandfather Colon cancer Cancer Maternal Grandfather Sudden cardiac CVD (cardiovascular disease) Household Members: None Household Members Other:: ALONE DISABLED SINCE AROUND 2014 DUE TO MS Housing: Apartment Are you a primary behavioral health care manager to a significant other at home: No Do you presently have visiting nurse or other home services: No Alcohol intake: current Alcohol intake frequency: holidays/special occasions only Alcohol type: hard liquor Patient Tobacco Use Status: Current everyday Tobacco user Tobacco use type: Cigarette Cigarette Packs Per Day: 0.5 Cigarettes Per Day: 3 Years Smoked: 47 e-Cigarette/Vaping Use: Former Use Second Hand Smoke Exposure: No Substance Use Type: Marijuana service: No Current occupational status: disabled Current occupational exposures/hazards: No Cognitive needs: No Hearing needs: No Vision needs: No Questionnaire PHQ-9 Over the last 2 weeks, how often have you been bothered by any of the following problems? 1. Little interest or pleasure in doing things: not at all 2. Feeling down, depressed, or hopeless: not at all 3. Trouble falling or staying asleep, or sleeping too much: not at all 4. Feeling tired or having little energy: not at all 5. Poor appetite or overeating: not at all 6. Feeling bad about yourself - or that you are a failure or have let yourself or your family down: not at all 7. Trouble concentrating on things, such as reading the newspaper or watching television: not at all 8. Moving or speaking so slowly that other people could have noticed. Or the opposite - being so fidgety or restless that you have been moving around a lot more than usual: not at all 9. Thoughts that you would be better off or of hurting yourself in some way: not at all Total score: 0 Depression Screening Interpretation: Negative Depression Screening Done: Yes 71747 - PHQ-9 Billing: Yes Source: Developed by Drs. Derrick Alfonso, Veronica Caraballo, Raul Zepeda and colleagues, with an educational fabi from [employer]. Thrive Questionnaire Date Thrive assessed: 08/18/23 I am a: Patient What is your living situation today?: I have a steady place to live Within the past 12 months, did the food you bought not last and you didn't have the money to get more?: Never true Within the past 12 months, did you worry whether your food would run out before you got money to buy more?: Never true Do you have trouble paying for medicines?: No Do you have trouble getting transportation to medical appointments?: No Do you have trouble paying your heating and electricity bill?: No Do you have trouble taking care of your child, family member or friend?: No Do you have trouble with day-to-day activities such as bathing, preparing meals, shopping, managing finances, etc.?: No Are you currently unemployed and looking for a job?: No Are you interested in more education?: No Please select the resources that you would like help with: None Currently or been in a relationship where the following occur: no concerns reported AUDIT C Alcohol Use Questionnaire (AUDIT-C) 1. How often do you have a drink containing alcohol?: Never 3. How often do you have six or more drinks on one occasion?: Never Total Score: 0 JOSIE-7 AMB Questionnaire JOSIE-7 Date JOSIE - 7 assessed: 08/18/23 Feeling nervous, anxious, or on edge: 0 = Not at all Not being able to stop or control worryin = Not at all Worrying too much about different things: 0 = Not at all Trouble relaxin = Not at all Being so restless that it is hard to sit still: 0 = Not at all Becoming easily annoyed or irritable: 0 = Not at all Feeling afraid as if something awful might happen: 0 = Not at all Total JOSIE-7 score (0-4 normal; 5-9 mild; 10-14 moderate; 15-21 severe): 0 Source: Developed by Drs. Derrick Alfonso, Veronica Caraballo, Raul Zepeda and colleagues, with an educational fabi from [employer]. JOSIE-7 Assessment Billing JOSIE-7 Assessment Tool: JOSIE-7 Assessment 40551 Review of Systems Const Reports fatigue, Denies headache(s) and Reports weakness ENT Denies dizziness, Denies headache(s) and Reports sore throat Card Denies chest pain, Denies lightheadedness, Denies dyspnea and Denies other (Palpitations) Resp Denies cough, Denies dyspnea, Denies wheezing and Denies other ( shortness of breath) Musc Denies numbness and Denies tingling Neuro Denies dizziness, Denies headache(s), Denies numbness, Denies tingling, Denies paresthesias and Reports weakness Psych Denies anxiety and Denies depression Endo Reports fatigue Aller/Immun Denies wheezing Physical exam (Primary Care) Vital Signs: Last Vital Signs Temp 98.2 F 08/18/23 11:53 Pulse 92 08/18/23 11:53 Resp 18 08/18/23 11:53 Pulse Ox 96 08/18/23 11:53 Oxygen Delivery Method Room Air 08/18/23 11:53 BMI result Body Mass Index 26.2 Tobacco/Smoking Status: Tobacco use Status Tobacco use date assessed 08/18/23 08/18/23 12:12 Patient Tobacco Use Status Current everyday Tobacco 08/18/23 12:12 Tobacco use type Cigarette 08/18/23 12:12 e-Cigarette/Vaping Use Former Use 08/18/23 12:12 PHQ-9: PHQ-9 Score PHQ-9: Total score 0 08/18/23 12:14 Depression Screening Interpretation: Negative Thrive Assessment: Date of Thrive Assessment Date Thrive assessed 08/18/23 08/18/23 12:12 Currently or been in a relationship where the following occur: no concerns reported Const General: no acute distress and well developed Nutritional Appearance: well nourished Orientation/consciousness: patient oriented x3 [facility] Head: Yes normocephalic and Yes atraumatic Eyes General: appearance normal, both eyes and all related structures Pupils: Equal, round and reactive pupils present EOM: EOMs intact bilaterally Resp Effort & Inspection: normal respiratory effort Cardio Rate: regular rate Rhythm: regular rhythm Heart sounds: S1 normal heart sound present, S2 normal heart sound present, no gallops, no murmurs and no rubs Neuro General: patient oriented x3 and gait normal Cranial nerves: Yes Equal, round and reactive pupils present Psych Affect: normal affect Assessment and Plan Assessment & Plan (1) Abnormal lung sounds: Code(s): R09.89 - Other specified symptoms and signs involving the circulatory and respiratory systems Plan: Urine?for?pneumonia Start?amoxicillin Get?chest?x-ray (2) Fatigue: Code(s): R53.83 - Other fatigue Plan: Possible?viral?illness?verses?pneumonia Checking?COVID/flu/RSV?as?well?as?interventions?above (3) Viral illness: Code(s): B34.9 - Viral infection, unspecified Plan: May?have?underlying?viral?illness Checking?COVID/flu/RSV (4) Fibromyalgia: Code(s): M79.7 - Fibromyalgia Plan: Had?discussed?Cymbalta?but?this?has?a?blue?diet?patient?has?anaphylaxis?from?blue?dyes. Should?be?able?to?use?another?SNRI?with?similar?characteristics. Can?try?devenlafaxine?which?does?not?have?blue?dye.??Will?likely?need?a?prior?authorization?as?insurance?would?likely?prefer?venlafaxine?which?does?have?blue?dye. Will?send?script?for?desvenlafaxine?and?get?PA?if?needed. Advised?she?check?with?the?pharmacist?regarding desvenlafaxine to?ensure?it?has?no?blue dye (5) Chronic pain: Code(s): G89.29 - Other chronic pain Plan: Muscle?cramping?and?pain?which?may?be?partly?secondary?to?multiple?sclerosis Now?seeing?pain?management?and?plan?is?for?a?baclofen?pump Follow-up?with?pain?management?as?recommended (6) Multiple sclerosis: Code(s): G35 - Multiple sclerosis Plan: Taking Ocrevus. Has?a?few rash?like?spots?on?posterior?forearms?but?no?were?else.??She?notes?that?these?coincided?with?Ocrevus?administration Check?with?your?neurologist Orders: Orders Comprehensive [place]. Panel Fast Today Z00.00 - Encounter for general adult medical examination without abnormal findings UA and rflx microscopic Today Z00.00 - Encounter for general adult medical examination without abnormal findings XR chest 2V Today R09.89 - Other specified symptoms and signs involving the circulatory and respiratory systems Complete Blood Count Auto Diff Today Z00.00 - Encounter for general adult medical examination without abnormal findings Lipid Panel Today Z00.00 - Encounter for general adult medical examination without abnormal findings Microalbumin, Random (w Creat) Today I10 - Essential (primary) hypertension TSH reflex Free T4 Today Z00.00 - Encounter for general adult medical examination without abnormal findings Medications: New desvenlafaxine ER 100 mg PO DAILY 30 days 30 tabs 2RF amoxicillin 500 mg PO Q12H 20 tabs 0RF 10 days Coding Level of Care Code Est Pt Level 4 (62477) Diagnoses Abnormal lung sounds R09.89 Fatigue R53.83 Viral illness B34.9 Fibromyalgia M79.7 Chronic pain G89.29 Multiple sclerosis G35 Additional Codes JOSIE-7 Assessment Billing - JOSIE-7 Assessment Tool: JOSIE-7 Assessment 10041 ([id number])
[2023-08-18 11:53] VITALS: PULSE 92; RESP 18; TEMP 36.8; O2SAT 96; BMI 26.2
== END 2023-08-18 12:48 | disposition home or self-care (01) ==
PROVIDERS: PCP Family Medicine; Visit Provider Family Medicine
DX: R09.89 Other specified symptoms and signs involving the circulatory and respiratory systems (principal); G35 Multiple sclerosis; R53.83 Other fatigue; F17.210 Nicotine dependence, cigarettes, uncomplicated; B34.9 Viral infection, unspecified; M79.7 Fibromyalgia; G89.29 Other chronic pain
CPT/HCPCS: 99214

== ENCOUNTER 2023-08-18 12:53 | Outpatient (REF) | payer OTHER, SELFPAY ==
[2023-08-19 13:27] LABS: Influenza A PCR NEGATIVE (Negative); Influenza B PCR NEGATIVE (Negative); Resp Syncy Virus RNA Qual PCR NEGATIVE (Negative); SARS COV2 PCR INHOUSE NEGATIVE (Negative)
== END 2023-08-18 12:54 | disposition home or self-care (01) ==
LOC: HO.LAB 12:53
PROVIDERS: Visit Provider Family Medicine
DX: Z11.52 Encounter for screening for COVID-19 (principal); Z20.822 Contact with and (suspected) exposure to COVID-19; B34.9 Viral infection, unspecified
CPT/HCPCS: 0241U

== ENCOUNTER 2023-09-01 13:30 | Outpatient (RCR) | payer OTHER, SELFPAY ==
--- NOTE | 2023-07-14 14:03 | MHC.OT.EP ---
[address] [phone] Occupational Therapy Plan of Care Patient Name: Negrita Lu Date of Evaluation: 07/14/23 Diagnosis: Left thumb MCP OA Pain Location: Left MCP and CMC, ache and tender Pain Score: 6 Pain Scale Used: Numeric (0 - 10) Aggravating Factors: Pinching, heavy gripping Alleviating Factors: Thumb spica orthosis, Tylenol, Ice pack, Heat packs Assessment: Pt w/ hx of left thumb pain after injury two years ago, pain has persisted and she followed up with Dr Haley for further assessment. X-ray shows mild degenerative changes PIP and DIP joints and first carpometacarpal joint. Pt referred to OT for cont'd management of pain, joint protection and stability. On assessment today, she reports difficulty with heavier gripping and pinching tasks, joint ache and deformity in left thumb. She has good strength with gross grasp, but painful w/ pinch and impaired coordination/speed w/ FMC tasks. She has been wearing pre-bonnie thumb spica orthosis with some relief, but will benefit from cont'd therapy services to address functional strengthening, joint protection, activity modification and pain management. Frequency and Duration: The patient will be seen 2x/wk for 3 weeks Short Term Goals: Ind w/ orthosis wear at nighttime and w/ functional tasks Good follow through w/ HEP Pt to report use of heat/cold modalities for comfort in home Pt to demo ease w/ correction of thumb CMC/MCP positioning for light pinch/pick-up tasks Pt to report good follow through w/ joint protection for self care and cooking/homecare tasks Histologist Goals: same as above Treatment Plan: Therapeutic Exercise Therapeutic Activity Home Exercise Program Splinting Patient Education ADL Training Paraffin Fluidotherapy MHP Cold Packs Joint Mobilization Soft Tissue Mobilization Kinesiotaping Electronically Signed By: Thea Barrera OTR/L CHT Please Sign and return to therapist. Thank you once again for your referral.
--- NOTE | 2023-09-11 08:32 | MHC.OT.DC ---
[address] [phone] F: [phone] Occupational Therapy Discharge Note Patient Name: Negrita Lu Provider: Dr Mariela Haley Diagnosis: Left thumb MCP OA Date of Evaluation: 07/14/23 Date of Discharge: 09/11/23 Treatments to Date: 7 Discharge Summary: Negrita was referred to OT for left hand pain due to OA. She has had good follow through w/ HEP, CMC orthosis wear and mindfulness of CMC joint protection. Still w/ thumb pain and difficulty w/ heavy tasks, reports spasms in thumb that cause thumb to flex/adduct into painful position. Still w/ adduction deformity but good understanding of self management and will follow up w/ MD for further options. Electronically Signed By: MEENAKSHI Bernal/Laury ALFARO Reviewed/agree with student documentation: N/A Therapist: MEENAKSHI Bernal/Laury ALFARO Please Sign and return to therapist, thank you for your referral.
== END 2023-09-11 08:32 | disposition home or self-care (01) ==
LOC: HO.OT 13:30
PROVIDERS: PCP Family Medicine; Visit Provider Orthopaedic Surgery
DX: M18.12 Unilateral primary osteoarthritis of first carpometacarpal joint, left hand (principal)
CPT/HCPCS: 97110; 97140; 97166

== ENCOUNTER 2023-09-04 13:27 | Outpatient (AMB) | payer OTHER, SELFPAY ==
[2023-09-04 13:41] VITALS: BP 134/70; PULSE 93; O2SAT 94; BMI 26.4
--- NOTE | 2023-09-04 13:41 | A.OFFPC_ITS ---
Vital Signs 09/04/23 13:41 Height 5 ft 3 in Weight 149 lb BMI 26.4 BP 134/70 Blood Pressure Location Lt brachial Position Sitting Pulse 93 Pulse Source Pulse Oximeter Pulse Oximetry (%) 94 Oxygen Delivery Method Room Air Intake Visit Reasons: ? ear infection, right eye concern Intake Note: Patient is here with question of ear infection in her ears, she would like to know what her LFT's are. She had a lot of work done at the hospital. Patient has not heard from pain management. Allergies blue dye [BLUE DYE] Allergy (Unknown, Verified 09/04/23 13:47) ANAPHYLAXIS escitalopram [From LEXAPRO] Allergy (Unknown, Verified 09/04/23 13:47) UNKNOWN infliximab [From REMICADE] Allergy (Unknown, Verified 09/04/23 13:47) EXACERBATES MS naproxen [NAPROXEN] Allergy (Unknown, Verified 09/04/23 13:47) SWELLING ALL NSAIDS NSAIDS (Non-Steroidal Anti-Inflamma [NSAIDS (NON-STEROIDAL ANTI-INFLAMMA] Allergy (Unknown, Verified 09/04/23 13:47) ABDOMINAL PAIN olanzapine [OLANZAPINE] Allergy (Unknown, Verified 09/04/23 13:47) UNKNOWN paroxetine [From PAXIL] Allergy (Unknown, Verified 09/04/23 13:47) DIZZINESS prednisone [PREDNISONE] Allergy (Unknown, Verified 09/04/23 13:47) HALLUCINATIONS with high doses Sulfa (Sulfonamide Antibiotics) [SULFA (SULFONAMIDE ANTIBIOTICS)] Allergy (Unknown, Verified 09/04/23 13:47) HIVES sulfasalazine [From Azulfidine] Allergy (Verified 09/04/23 13:47) Hives aspirin [ASPIRIN] Adverse Reaction (Unknown, Verified 09/04/23 13:47) STOMACH UPSET ciprofloxacin [From CIPRO] Adverse Reaction (Unknown, Verified 09/04/23 13:47) SKIN PEELING clarithromycin [From Biaxin] Adverse Reaction (Verified 09/04/23 13:47) Abdominal Pain ENVIRONMENTAL Allergy (Unknown, Uncoded 09/04/23 13:47) CATS,DOGS,HORSES,MOLD-RED SKIN,FACIAL SWELLING Tobacco use date assessed: 09/04/23 Dental Screening Dental Screen Date: 09/04/23 Did you have a dental visit in the last 12 months?: Yes Did you have a dental problem in the last 6 months where you did not have access to dental care?: No Was dental information given to patient?: Patient has dentist HPI ? ear infection, right eye concern HPI Details 62 y/o female presents with ? ear infect ion. She had questions about labs from [facility] - liver enzymes were fine. She notes she had been there for shortness of breath/possible COPD exacerbation. She?was?given?prednisone Also?has?complaints?of?bilateral?ear?pain,?left?worse?than?right [facility] Medical History OCD (obsessive compulsive disorder) History of dysphagia Neuropathy YOHAN (obstructive sleep apnea) Smoker Asthma-COPD overlap syndrome Annual physical exam Dementia Thumb pain Lumbar arthropathy Polyarthritis History of posttraumatic stress disorder (PTSD) Right shoulder pain History of cervical fracture VÁSQUEZ (nonalcoholic steatohepatitis) Bladder cancer Multiple sclerosis Migraines, neuralgic IBS (irritable colon syndrome) Crohn's disease Surgical History History of arthroplasty of right shoulder (05/07/22) Hx of cholecystectomy History of carpal tunnel surgery of right wrist (~05/2021) History of bladder surgery Hx of endoscopy (08/07/11) Hx of colonoscopy (08/07/11) Hx of foot surgery (04/25/14) History of resection of terminal ileum History of adenoidectomy Hx of tonsillectomy Hx of breast augmentation Family History Father Alzheimer disease Lymphoma Cancer Mother Lung cancer Sudden cardiac Cancer CVD (cardiovascular disease) Paternal Grandfather Colon cancer Cancer Maternal Grandfather Sudden cardiac CVD (cardiovascular disease) Social History Household Members: None Household Members Other:: ALONE DISABLED SINCE AROUND 2014 DUE TO MS Housing: Apartment Are you a primary vision care associate to a significant other at home: No Do you presently have visiting nurse or other home services: No Alcohol intake: current Alcohol intake frequency: holidays/special occasions only Alcohol type: hard liquor Patient Tobacco Use Status: Current everyday Tobacco user Tobacco use type: Cigarette Cigarette Packs Per Day: 0.5 Cigarettes Per Day: 3 Years Smoked: 47 e-Cigarette/Vaping Use: Former Use Second Hand Smoke Exposure: No Substance Use Type: Marijuana service: No Current occupational status: disabled Current occupational exposures/hazards: No Cognitive needs: No Hearing needs: No Vision needs: No Questionnaire Thrive Questionnaire Date Thrive assessed: 08/18/23 JOSIE-7 AMB Questionnaire JOSIE-7 Date JOSIE - 7 assessed: 08/18/23 Source: Developed by Drs. Derrick Alfonso, Veronica Caraballo, Raul Zepeda and colleagues, with an educational fabi from [employer]. Review of Systems Const Denies chills, Denies fatigue, Denies fever(s), Denies headache(s) and Denies weakness ENT Denies dizziness and Denies headache(s) Card Denies chest pain, Denies lightheadedness, Denies dyspnea and Denies other (Palpitations) Resp Denies cough, Denies dyspnea, Denies wheezing and Denies other ( shortness of breath) Musc Denies numbness and Denies tingling Neuro Denies dizziness, Denies headache(s), Denies numbness, Denies tingling, Denies paresthesias and Denies weakness Psych Denies anxiety and Denies depression Endo Denies fatigue Aller/Immun Denies wheezing Physical exam (Primary Care) Vital Signs: Last Vital Signs Pulse 93 09/04/23 13:41 BP 134/70 09/04/23 13:41 Pulse Ox 94 09/04/23 13:41 Oxygen Delivery Method Room Air 09/04/23 13:41 BMI result Body Mass Index 26.4 Tobacco/Smoking Status: Tobacco use Status Tobacco use date assessed 09/04/23 09/04/23 13:55 Patient Tobacco Use Status Current everyday Tobacco 09/04/23 13:45 Tobacco use type Cigarette 09/04/23 13:45 e-Cigarette/Vaping Use Former Use 09/04/23 13:45 Thrive Assessment: Date of Thrive Assessment Date Thrive assessed 08/18/23 09/04/23 13:45 Const General: no acute distress and well developed Nutritional Appearance: well nourished Orientation/consciousness: patient oriented x3 HENMT Other: Erythema bilaterally and purulence behind the L TM Head: Yes normocephalic and Yes atraumatic Eyes General: appearance normal, both eyes and all related structures Pupils: Equal, round and reactive pupils present EOM: EOMs intact bilaterally Resp Effort & Inspection: normal respiratory effort Auscultation: not clear to auscultation bilaterally Cardio Rate: regular rate Rhythm: regular rhythm Heart sounds: S1 normal heart sound present, S2 normal heart sound present, no gallops, no murmurs and no rubs Neuro General: patient oriented x3 and gait normal Cranial nerves: Yes Equal, round and reactive pupils present Psych Affect: normal affect Assessment and Plan Assessment & Plan (1) Otitis media: Code(s): H66.90 - Otitis media, unspecified, unspecified ear Qualifiers: Chronicity: unspecified Laterality: left Otitis media type: allergic Qualified Code(s): H65.92 - Unspecified nonsuppurative otitis media, left ear Plan: Left?otitis?media Will?give?her?a?Z-Jose Elias.??Patient?denies?allergy?to?Z-Jose Elias Continue?prednisone?whi ch?was?given?for?shortness?of?breath?and?COPD?exacerbation She?can?let?me?know?if?not?getting?better She?has?an?appointment?in?October (2) Abnormal lung sounds: Code(s): R09.89 - Other specified symptoms and signs involving the circulatory and respiratory systems Plan: As?above (3) COPD exacerbation: Code(s): J44.1 - Chronic obstructive pulmonary disease with (acute) exacerbation Plan: As?above?and?continue?inhaled?medications (4) Crohn disease: Code(s): K50.90 - Crohn's disease, unspecified, without complications Qualifiers: Digestive disease complication type: unspecified complication Gastrointestinal tract location: large intestine Qualified Code(s): K50.119 - Crohn's disease of large intestine with unspecified complications Plan: Followed?by?GI?at[facility] She?notes?that?she?still?has?abdominal?discomfort?and?bloating Advised?she?follow-up?with?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 She?can?give?me?the?name?of?a?medical?massage?therapist Coding Level of Care Code Est Pt Level 4 (24265) Diagnoses Allergic otitis media of left ear, unspecified chronicity H65.92 Chronicity: unspecified Laterality: left Otitis media type: allergic Abnormal lung sounds R09.89 COPD exacerbation J44.1 Crohn's disease of large intestine with complication K50.119 Digestive disease complication type: unspecified complication Gastrointestinal tract location: large intestine Multiple sclerosis G35
== END 2023-09-04 14:24 | disposition home or self-care (01) ==
PROVIDERS: PCP Family Medicine; Visit Provider Family Medicine
DX: J44.1 Chronic obstructive pulmonary disease with (acute) exacerbation (principal); K50.119 Crohn's disease of large intestine with unspecified complications; G35 Multiple sclerosis; H65.92 Unspecified nonsuppurative otitis media, left ear; R09.89 Other specified symptoms and signs involving the circulatory and respiratory systems
CPT/HCPCS: 99214

== ENCOUNTER 2023-10-09 13:25 | Outpatient (AMB) | payer OTHER, SELFPAY ==
[2023-10-09 13:32] VITALS: BP 142/90; PULSE 101; O2SAT 96; BMI 26.9
--- NOTE | 2023-10-09 13:32 | MHC.OFFVIS ---
Intake Vital Signs 10/09/23 13:32 Height 5 ft 3 in Weight 152 lb BMI 26.9 BP 142/90 H Blood Pressure Location Rt brachial Position Sitting Pulse 101 H Pulse Source Doppler Pulse Oximetry (%) 96 Oxygen Delivery Method Room Air Intake Visit Reasons: Obstructive sleep apnea Allergies blue dye [BLUE DYE] Allergy (Unknown, Verified 09/04/23 13:47) ANAPHYLAXIS escitalopram [From LEXAPRO] Allergy (Unknown, Verified 09/04/23 13:47) UNKNOWN infliximab [From REMICADE] Allergy (Unknown, Verified 09/04/23 13:47) EXACERBATES MS naproxen [NAPROXEN] Allergy (Unknown, Verified 09/04/23 13:47) SWELLING ALL NSAIDS NSAIDS (Non-Steroidal Anti-Inflamma [NSAIDS (NON-STEROIDAL ANTI-INFLAMMA] Allergy (Unknown, Verified 09/04/23 13:47) ABDOMINAL PAIN olanzapine [OLANZAPINE] Allergy (Unknown, Verified 09/04/23 13:47) UNKNOWN paroxetine [From PAXIL] Allergy (Unknown, Verified 09/04/23 13:47) DIZZINESS prednisone [PREDNISONE] Allergy (Unknown, Verified 09/04/23 13:47) HALLUCINATIONS with high doses Sulfa (Sulfonamide Antibiotics) [SULFA (SULFONAMIDE ANTIBIOTICS)] Allergy (Unknown, Verified 09/04/23 13:47) HIVES sulfasalazine [From Azulfidine] Allergy (Verified 09/04/23 13:47) Hives aspirin [ASPIRIN] Adverse Reaction (Unknown, Verified 09/04/23 13:47) STOMACH UPSET ciprofloxacin [From CIPRO] Adverse Reaction (Unknown, Verified 09/04/23 13:47) SKIN PEELING clarithromycin [From Biaxin] Adverse Reaction (Verified 09/04/23 13:47) Abdominal Pain ENVIRONMENTAL Allergy (Unknown, Uncoded 09/04/23 13:47) CATS,DOGS,HORSES,MOLD-RED SKIN,FACIAL SWELLING HPI Obstructive sleep apnea HPI Details 62-year-old, active 40+ pack-year recent smoker, now also vapes marijuana, followed for underlying severe obstructive sleep apnea and moderate persistent asthma. Patient is using BrezTri with good control of her underlying symptoms.? She was tried on Dupixent, however she was not able to tolerated.? Patient continuous on antigen injections with her electrotyper and reports improved symptom control. She continues on CPAP with reasonable control of her underlying obstructive sleep apnea. Patient did have a recent exacerbation treated with several courses of antibiotics and prednisone and now is back to baseline. [facility] Medical History OCD (obsessive compulsive disorder) History of dysphagia Neuropathy YOHAN (obstructive sleep apnea) Smoker Asthma-COPD overlap syndrome Annual physical exam Dementia Thumb pain Lumbar arthropathy Polyarthritis History of posttraumatic stress disorder (PTSD) Right shoulder pain History of cervical fracture VÁSQUEZ (nonalcoholic steatohepatitis) Bladder cancer Multiple sclerosis Migraines, neuralgic IBS (irritable colon syndrome) Crohn's disease Surgical History History of arthroplasty of right shoulder (05/07/22) Hx of cholecystectomy History of carpal tunnel surgery of right wrist (~05/2021) History of bladder surgery Hx of endoscopy (08/07/11) Hx of colonoscopy (08/07/11) Hx of foot surgery (04/25/14) History of resection of terminal ileum History of adenoidectomy Hx of tonsillectomy Hx of breast augmentation Family History Father Alzheimer disease Lymphoma Cancer Mother Lung cancer Sudden cardiac Cancer CVD (cardiovascular disease) Paternal Grandfather Colon cancer Cancer Maternal Grandfather Sudden cardiac CVD (cardiovascular disease) Social History Household Members: None Household Members Other:: ALONE DISABLED SINCE AROUND 2014 DUE TO MS Housing: Apartment Are you a primary medicare nurse to a significant other at home: No Do you presently have visiting nurse or other home services: No Alcohol intake: current Alcohol intake frequency: holidays/special occasions only Alcohol type: hard liquor Patient Tobacco Use Status: Current everyday Tobacco user Tobacco use type: Cigarette Cigarette Packs Per Day: 0.5 Cigarettes Per Day: 3 Years Smoked: 47 e-Cigarette/Vaping Use: Former Use Second Hand Smoke Exposure: No Substance Use Type: Marijuana service: No Current occupational status: disabled Current occupational exposures/hazards: No Cognitive needs: No Hearing needs: No Vision needs: No Review of Systems Const Denies daytime sleepiness, Denies excessive sweating, Denies fatigue, Denies fever(s), Denies lethargy, Denies malaise, Denies night sweats, Denies snoring and Denies weight loss Eyes Denies blurry vision and Denies itchy eyes ENT Denies nasal congestion, Denies post nasal drip, Denies sinus pain, Denies sinus pressure and Denies other ( Thrush) Card Denies chest pain, Denies pedal edema, Denies dyspnea, Denies orthopnea and Denies paroxysmal nocturnal dyspnea Resp Denies cough, Denies hemoptysis, Denies excessive phlegm production, Denies dyspnea, Denies snoring and Denies wheezing GI Denies abdominal pain and Denies heartburn Musc Denies myalgias, Denies arthralgias and Denies joint swelling Skin/Breast Denies rash Neuro Denies memory loss and Denies seizure-like activity Psych Denies abnormal sleep pattern, Denies anxiety and Denies memory loss Endo Denies excessive sweating, Denies fatigue and Denies heat intolerance Arian/Lymph Denies easy bruising Aller/Immun Denies itchy eyes, Denies seasonal rhinorrhea and Denies wheezing Physical Exam Vital Signs: Last Vital Signs Pulse 101 H 10/09/23 13:32 BP 142/90 H 10/09/23 13:32 Pulse Ox 96 10/09/23 13:32 Oxygen Delivery Method Room Air 10/09/23 13:32 BMI result Body Mass Index 26.9 Const General: no acute distress and alert Nutritional Appearance: not obese Orientation/consciousness: Other orientation findings ( oriented) HEENT Head: Yes atraumatic Eyes General: appearance normal, both eyes and all related structures Sclerae: sclerae normal EOM: EOMs intact bilaterally Neck Neck: Yes supple Lymphatic: no lymphadenopathy noted Resp Effort & Inspection: normal respiratory effort and no use of accessory muscles Auscultation: clear to auscultation bilaterally Cardio Rate: regular rate Rhythm: regular rhythm Heart sounds: no gallops, no murmurs and no rubs Skin General skin exam: other ( warm) Extrem General: No clubbing, No cyanosis and No edema Assessment & Plan Assessment & Plan (1) YOHAN on CPAP: Code(s): G47.33 - Obstructive sleep apnea (adult) (pediatric); Z99.89 - Dependence on other enabling machines and devices Plan: Well controlled on current CPAP therapy. Continue CPAP therapy. (2) COPD (chronic obstructive pulmonary disease): Code(s): J44.9 - Chronic obstructive pulmonary disease, unspecified Plan: Well controlled on BrezTri, duo nebs, and albuterol MDI. Continue current regimen. Coding Level of Care Code Est Pt Level 4 (32548) Diagnoses YOHAN on CPAP G47.33; Z99.89 COPD (chronic obstructive pulmonary disease) J44.9
== END 2023-10-09 13:57 | disposition home or self-care (01) ==
PROVIDERS: PCP Family Medicine; Visit Provider Internal Medicine Pulmonary Disease
DX: G47.33 Obstructive sleep apnea (adult) (pediatric) (principal); Z99.89 Dependence on other enabling machines and devices; J44.9 Chronic obstructive pulmonary disease, unspecified
CPT/HCPCS: 99214

== ENCOUNTER → 2023-10-09 13:25 | Outpatient (BNVA) | payer OTHER, SELFPAY | PROVIDERS: PCP Family Medicine; Visit Provider Internal Medicine Pulmonary Disease | DX: G47.33 Obstructive sleep apnea (adult) (pediatric) (principal); J44.9 Chronic obstructive pulmonary disease, unspecified; Z79.899 Other long term (current) drug therapy; Z99.89 Dependence on other enabling machines and devices | CPT/HCPCS: 99212 ==

== ENCOUNTER 2023-11-03 13:41 | Outpatient (AMB) | payer OTHER, SELFPAY ==
[2023-11-03 14:06] VITALS: BP 130/80; PULSE 85; O2SAT 96; BMI 26.8
--- NOTE | 2023-11-03 14:06 | MHC.PC.OV ---
Vital Signs 11/03/23 14:06 Height 5 ft 3 in Weight 151 lb 8 oz BMI 26.8 BP 130/80 Blood Pressure Location Lt brachial Position Sitting Pulse 85 Pulse Source Pulse Oximeter Pulse Oximetry (%) 96 Oxygen Delivery Method Room Air Intake Visit Reasons: CPE Intake Note: Patient is here for her physical today. Patient would like a prescription of Folic Acid. Allergies blue dye [BLUE DYE] Allergy (Unknown, Verified 11/03/23 14:07) ANAPHYLAXIS escitalopram [From LEXAPRO] Allergy (Unknown, Verified 11/03/23 14:07) UNKNOWN infliximab [From REMICADE] Allergy (Unknown, Verified 11/03/23 14:07) EXACERBATES MS naproxen [NAPROXEN] Allergy (Unknown, Verified 11/03/23 14:07) SWELLING ALL NSAIDS NSAIDS (Non-Steroidal Anti-Inflamma [NSAIDS (NON-STEROIDAL ANTI-INFLAMMA] Allergy (Unknown, Verified 11/03/23 14:07) ABDOMINAL PAIN olanzapine [OLANZAPINE] Allergy (Unknown, Verified 11/03/23 14:07) UNKNOWN paroxetine [From PAXIL] Allergy (Unknown, Verified 11/03/23 14:07) DIZZINESS prednisone [PREDNISONE] Allergy (Unknown, Verified 11/03/23 14:07) HALLUCINATIONS with high doses Sulfa (Sulfonamide Antibiotics) [SULFA (SULFONAMIDE ANTIBIOTICS)] Allergy (Unknown, Verified 11/03/23 14:07) HIVES sulfasalazine [From Azulfidine] Allergy (Verified 11/03/23 14:07) Hives aspirin [ASPIRIN] Adverse Reaction (Unknown, Verified 11/03/23 14:07) STOMACH UPSET ciprofloxacin [From CIPRO] Adverse Reaction (Unknown, Verified 11/03/23 14:07) SKIN PEELING clarithromycin [From Biaxin] Adverse Reaction (Verified 11/03/23 14:07) Abdominal Pain ENVIRONMENTAL Allergy (Unknown, Uncoded 11/03/23 14:07) CATS,DOGS,HORSES,MOLD-RED SKIN,FACIAL SWELLING Medication List - Last Reconciled 11/03/23 by Lito Castro MD acetaminophen 650 mg (2 x 325 mg) PO Q6H PRN acetic acid 2% 3 drps otic (ear) left Q6H PRN 10 days albuterol sulfate 0.63 mg inhalation Q4-6H PRN amoxicillin 500 mg PO Q12H 10 days amoxicillin 2,000 mg (4 x 500 mg) PO ONCE 1 day azithromycin (Zithromax Z-Jose Elias) take 500 mg today (day 1), then 250 mg for 4 days (days 2-5) PO 5 days yathwulnye-zwyvhnrx-exueqqcapv 160-9-4.8 mcg/actuation (Breztri Aerosphere) 2 inhalations inhalation BID 30 days calcium polycarbophil (FiberCon) 625 mg PO DAILY 90 days cetirizine 10 mg PO DAILY cholecalciferol (vitamin D3) (Vitamin D3) 25 mcg PO DAILY 30 days cyanocobalamin (vitamin B-12) 1,000 mcg IM QWEEK desvenlafaxine ER 100 mg PO DAILY 30 days diclofenac sodium 1% 2 grams topical .QD donepezil 23 mg PO BEDTIME epinephrine 0.3 mL IM ONCE PRN famotidine 20 mg PO BID fluocinonide 0.05% topical fluticasone propionate 50 mcg/actuation 2 sprays intranasal BID 30 days folic acid 1 mg PO DAILY 90 days gabapentin 600 mg PO TID 30 days incontinence pad, liner, disp Long. Daily as directed, 90 days ipratropium bromide 2 sprays intranasal TID-QID PRN 30 days lactase 3,000 units PO QID Lactobac. rhamnosus GG-inulin 10 billion cell -200 mg ([facility] enVista) 1 cap PO DAILY 90 days lifitegrast 5% (Xiidra) 1 drp ophthalmic (eye) BID loperamide 4 mg PO BID lorazepam 0.5 mg PO BID PRN magnesium chloride 71.5 mg PO BID megestrol 20 mg PO DAILY 30 days memantine 5 mg PO BID mesalamine 1,000 mg NC BEDTIME PRN miscellaneous medical supply 1 ea miscellaneous DAILY 99 days miscellaneous medical supply Poise pads. 2 per day. 90 day supply; 90 days naloxone 4 mg/actuation (Narcan) 4 mg intranasal Q2M PRN 1 day nicotine (polacrilex) 4 mg buccal Q8H PRN 30 days nystatin 5 mL PO TID 7 days prochlorperazine (Compro) 25 mg NC TID PRN sumatriptan succinate 50 mg PO NEEDED PRN syringe with needle, safety (BD Integra Syringe) As directed trazodone 75 mg PO BEDTIME triamcinolone acetonide 0.1% 1 appl topical BID valacyclovir 1,000 mg PO BEDTIME Tobacco use date assessed: 11/03/23 Fall risk assessment: No Falls in past year Last assessed Fall Risk: 11/03/23 Dental Screening Dental Screen Date: 11/03/23 Did you have a dental visit in the last 12 months?: Yes Did you have a dental problem in the last 6 months where you did not have access to dental care?: No Was dental information given to patient?: Patient has dentist HPI CPE HPI Details 62 y/o female presents for an extended exam with f/u labs and health maintenance. No recent CPE-labs to review. Pt reports L ear discomfort. Pt reports last mammogram was in November, which was fine. She reports last colonoscopy was a few months ago with Dr. Clark. She reports she is unsure when her next follow-up is. She reports she tries to eat a healthy diet. HPI Comments History of Present Illness Details Documentation assistance for Lito Castro MD, was provided by Theo Kelley, Embedded Systems Software Engineer on 11/03/2023 2:47 PM EST. I, Dr. Castro, have read, observed, and verified documentation. [facility] Medical History OCD (obsessive compulsive disorder) History of dysphagia Neuropathy YOHAN (obstructive sleep apnea) Smoker Asthma-COPD overlap syndrome Annual physical exam Dementia Thumb pain Lumbar arthropathy Polyarthritis History of posttraumatic stress disorder (PTSD) Right shoulder pain History of cervical fracture VÁSQUEZ (nonalcoholic steatohepatitis) Bladder cancer Multiple sclerosis Migraines, neuralgic IBS (irritable colon syndrome) Crohn's disease Surgical History History of arthroplasty of right shoulder (05/07/22) Hx of cholecystectomy History of carpal tunnel surgery of right wrist (~05/2021) History of bladder surgery Hx of endoscopy (08/07/11) Hx of colonoscopy (08/07/11) Hx of foot surgery (04/25/14) History of resection of terminal ileum History of adenoidectomy Hx of tonsillectomy Hx of breast augmentation Family History Father Alzheimer disease Lymphoma Cancer Mother Lung cancer Sudden cardiac Cancer CVD (cardiovascular disease) Paternal Grandfather Colon cancer Cancer Maternal Grandfather Sudden cardiac CVD (cardiovascular disease) Social History Household Members: None Household Members Other:: ALONE DISABLED SINCE AROUND 2014 DUE TO MS Housing: Apartment Are you a primary chiropractic care to a significant other at home: No Do you presently have visiting nurse or other home services: No Alcohol intake: current Alcohol intake frequency: holidays/special occasions only Alcohol type: hard liquor Patient Tobacco Use Status: Current everyday Tobacco user Tobacco use type: Cigarette Cigarette Packs Per Day: 0.5 Cigarettes Per Day: 3 Years Smoked: 47 e-Cigarette/Vaping Use: Former Use Second Hand Smoke Exposure: No Substance Use Type: Marijuana service: No Current occupational status: disabled Current occupational exposures/hazards: No Cognitive needs: No Hearing needs: No Vision needs: No Questionnaire PHQ-9 Over the last 2 weeks, how often have you been bothered by any of the following problems? 1. Little interest or pleasure in doing things: not at all 2. Feeling down, depressed, or hopeless: not at all 3. Trouble falling or staying asleep, or sleeping too much: not at all 4. Feeling tired or having little energy: nearly every day 5. Poor appetite or overeating: not at all 6. Feeling bad about yourself - or that you are a failure or have let yourself or your family down: not at all 7. Trouble concentrating on things, such as reading the newspaper or watching television: nearly every day (Due to MS) 8. Moving or speaking so slowly that other people could have noticed. Or the opposite - being so fidgety or restless that you have been moving around a lot more than usual: not at all 9. Thoughts that you would be better off or of hurting yourself in some way: not at all Total score: 6 Depression Screening Interpretation: Positive Depression Screening Follow-up: In treatment Depression Screening Done: Yes 96410 - PHQ-9 Billing: Yes Source: Developed by Drs. Derrick Alfonso, Veronica Caraballo, Raul Zepeda and colleagues, with an educational fabi from [employer]. Thrive Questionnaire Date Thrive assessed: 11/03/23 I am a: Patient What is your living situation today?: I have a steady place to live Within the past 12 months, did the food you bought not last and you didn't have the money to get more?: Sometimes True Within the past 12 months, did you worry whether your food would run out before you got money to buy more?: Sometimes True Do you have trouble paying for medicines?: No Do you have trouble getting transportation to medical appointments?: No Do you have trouble paying your heating and electricity bill?: No Do you have trouble taking care of your child, family member or friend?: No Do you have trouble with day-to-day activities such as bathing, preparing meals, shopping, managing finances, etc.?: Yes Are you currently unemployed and looking for a job?: No Are you interested in more education?: No THRIVE Score: 2 AUDIT C Alcohol Use Questionnaire (AUDIT-C) 1. How often do you have a drink containing alcohol?: Never 3. How often do you have six or more drinks on one occasion?: Never Total Score: 0 JOSIE-7 AMB Questionnaire JOSIE-7 Date JOSIE - 7 assessed: 11/03/23 Feeling nervous, anxious, or on edge: 0 = Not at all Not being able to stop or control worryin = Nearly every day Worrying too much about different things: 0 = Not at all Trouble relaxin = Not at all Being so restless that it is hard to sit still: 0 = Not at all Becoming easily annoyed or irritable: 0 = Not at all Feeling afraid as if something awful might happen: 0 = Not at all Total JOSIE-7 score (0-4 normal; 5-9 mild; 10-14 moderate; 15-21 severe): 3 Source: Developed by Drs. Derrick Alfonso, Veronica Caraballo, Raul Zepeda and colleagues, with an educational fabi from [employer]. JOSIE-7 Assessment Billing JOSIE-7 Assessment Tool: JOSIE-7 Assessment 83253 Review of Systems Const Denies chills, Denies fatigue, Denies fever(s), Denies headache(s) and Denies weakness Eyes Denies change in vision ENT Denies dizziness, Denies headache(s), Denies hearing loss, Denies nasal congestion, Denies sinus pain, Denies sinus pressure and Denies sore throat Card Denies chest pain, Denies lightheadedness, Denies dyspnea and Denies other (palpitations) Resp Denies cough, Denies dyspnea and Denies wheezing GI Denies abdominal pain, Denies melena, Denies hematochezia, Denies change in bowel habits, Denies dyspepsia and Denies nausea Denies hematuria and Denies dysuria Musc Denies abnormal gait, Denies myalgias, Denies arthralgias, Denies numbness and Denies tingling Skin/Breast Denies rash, Denies unusual bruising and Denies wounds Neuro Denies abnormal gait, Denies dizziness, Denies headache(s), Denies memory loss, Denies numbness, Denies Sensory deficit (Neuro), Denies tingling and Denies weakness Psych Denies anxiety, Denies depression and Denies memory loss Endo Denies cold intolerance, Denies fatigue, Denies heat intolerance, Denies polydipsia and Denies polyuria Arian/Lymph Denies easy bleeding and Denies easy bruising Aller/Immun Denies wheezing Physical exam (Primary Care) Vital Signs: Last Vital Signs Pulse 85 11/03/23 14:06 BP 130/80 11/03/23 14:06 Pulse Ox 96 11/03/23 14:06 Oxygen Delivery Method Room Air 11/03/23 14:06 BMI result Body Mass Index 26.8 Tobacco/Smoking Status: Tobacco use Status Tobacco use date assessed 11/03/23 11/03/23 14:09 Patient Tobacco Use Status Current everyday Tobacco 11/03/23 14:06 Tobacco use type Cigarette 11/03/23 14:06 e-Cigarette/Vaping Use Former Use 11/03/23 14:06 PHQ-9: PHQ-9 Score PHQ-9: Total score 6 11/03/23 14:19 Depression Screening Interpretation: Positive Depression Screening Follow-up: In treatment Thrive Assessment: Date of Thrive Assessment Date Thrive assessed 11/03/23 11/03/23 14:19 Const General: no acute distress, well developed, alert and awake Nutritional Appearance: well nourished Orientation/consciousness: patient oriented x3 HENMT Head: Yes normocephalic and Yes atraumatic Ears: hearing grossly normal bilaterally and TM's normal bilaterally General nose exam: Normal external nose present and Normal nares present Mouth: Normal oral and palatal mucosa present and moist mucous membranes Teeth and gingiva: dentition normal Throat: Yes posterior oropharynx normal Eyes General: appearance normal, both eyes and all related structures Pupils: Equal, round and reactive pupils present and Pupil accommodation reflex normal EOM: EOMs intact bilaterally Neck Neck: Yes normal visual inspection, Yes no lymphadenopathy and Yes trachea midline Thyroid: Thyroid normal Carotids: no bruits Lymphatic: no lymphadenopathy noted Chest Chest palpation & inspection: normal inspection of the chest Resp Effort & Inspection: normal respiratory effort Auscultation: clear to auscultation bilaterally Cardio Rate: regular rate Rhythm: regular rhythm Heart sounds: S1 normal heart sound present, S2 normal heart sound present, no gallops, no murmurs and no rubs Bruits: no abdominal aortic bruits and no carotid bruits GI Palpation (GI): No Abdominal aortic bruit present, Soft to palpation, nontender, No hepatosplenomegaly present and No Rebound tenderness present Auscultation: normal bowel sounds General: Yes no CVA tenderness Back/Spine/Pelvis Back: no CVA tenderness Cervical Spine: cervical ROM normal and No Cervical spine tenderness Thoracic/Lumbar Spine: thoraco-lumbar ROM normal, No pain with thoraco-lumbar ROM, No thoracic spinal tenderness and No lumbar spinal tenderness Skin Lesions: no lesions Rashes: no rashes Trauma: no lacerations or abrasions Wounds: no wounds Nails: normal Neuro General: patient oriented x3 Cranial nerves: Yes Equal, round and reactive pupils present Cognition (Neuro): normal cognition Gait exam (Neuro): Normal gait present Motor exam (neuro): 5/5 motor strength present throughout Sensory Exam: No Sensory deficit (Neuro) Deep tendon reflexes (DTR's): Right patellar reflex intensity grade: 2+ and Left patellar reflex intensity grade: 2+ Extrem General: Yes normal to inspection and No edema Psych Appearance: grossly normal Affect: normal affect Attitude: cooperative Thought process: Normal thought process present Assessment and Plan Assessment & Plan (1) Anxiety with depression: Code(s): F41.8 - Other specified anxiety disorders Plan: Fairly?well?controlled?on?does?venlafaxine. Continue?current?medication (2) Irritation of ear: Code(s): H93.8X9 - Other specified disorders of ear, unspecified ear Plan: Mild?irritation?of?left?ear?canal She?uses?steroid?drops?for?this?and?can?continue (3) Screening for colon cancer: Code(s): Z12.11 - Encounter for screening for malignant neoplasm of colon Plan: Recent?colonoscopy. Will?request?report (4) Breast cancer screening by mammogram: Code(s): Z12.31 - Encounter for screening mammogram for malignant neoplasm of breast Plan: Mammogram?last?year?in?November?was?okay. Due?for?mammogram?again?next?month.??Ordered (5) Screening for osteoporosis: Code(s): Z13.820 - Encounter for screening for osteoporosis Plan: Has?not?had?bone?density?testing?in?over?2?years - ordered (6) Adult general medical exam: Code(s): Z00.00 - Encounter for general adult medical examination without abnormal findings Orders: Orders MM tomosynthesis screening BI Today Z12.31 - Encounter for screening mammogram for malignant neoplasm of breast XR DEXA axial skeleton Today M81.0 - Age-related osteoporosis without current pathological fracture Medications: Refilled folic acid 1 mg PO DAILY 90 tabs 2RF 90 days Patient Instructions: 62-year-old?female?presents?for?extended?exam Coding Level of Care Code Est Pt Level 4 (86197) Diagnoses Anxiety with depression F41.8 Irritation of ear H93.8X9 Screening for colon cancer Z12.11 Breast cancer screening by mammogram Z12.31 Screening for osteoporosis Z13.820 Adult general medical exam Z00.00 Additional Codes JOSIE-7 Assessment Billing - JOSIE-7 Assessment Tool: JOSIE-7 Assessment [id number] ([id number])
== END 2023-11-03 14:57 | disposition home or self-care (01) ==
PROVIDERS: PCP Family Medicine; Visit Provider Family Medicine
DX: Z00.00 Encounter for general adult medical examination without abnormal findings (principal); F41.8 Other specified anxiety disorders; H93.8X2 Other specified disorders of left ear; Z12.11 Encounter for screening for malignant neoplasm of colon; Z12.31 Encounter for screening mammogram for malignant neoplasm of breast; Z13.820 Encounter for screening for osteoporosis
CPT/HCPCS: 96127; 99396

== ENCOUNTER 2023-11-24 10:00 | Outpatient (REF) | payer OTHER, SELFPAY ==
[2023-11-24 11:17] LABS: Appearance Urine Cloudy; Color Urine Dark Yellow; Glucose Urine UA Negative (Negative); Leukocyte Esterase Urine Moderate (2+) (Negative); Nitrite Urine Negative (Negative); PH 5.5 (5.0-9.0); Specific Gravity - Urine 1.025 (1.005-1.025); UMIC TRIGGER UA YES; Urine Blood Negative (Negative); Urine Ketones Negative (Negative); Urine Protein Negative (Neg-Trace)
[2023-11-24 11:19] LABS: MANUAL DIFF FLAG NO
[2023-11-24 11:24] LABS: Bacteria Urine 4+ (None Seen); Hyaline Casts Urine 0-2 /LPF (0-2); RBC Urine 0-2 /HPF (0-2); WBC Urine >50 /HPF (0-5)
[2023-11-24 11:27] LABS: Basophils Absolute Auto 0.1 X10*3/uL (0.0-0.2); Basophils Percent Auto 0.5 % (0-2); Eosinophils Absolute Auto 0.1 X10*3/uL (0.0-0.4); Eosinophils Percent Auto 0.9 % (0-4); Hemoglobin 15.1 g/dl (12.0-16.0); Imm Gran Abs Auto 0.11 X10*3/uL (0.00-0.03); Imm Gran Pct Auto 0.8 % (0.0-0.4); Lymphocytes Absolute Auto 3.6 X10*3/uL (1.2-4.9); Lymphocytes Percent Auto 27.9 % (20-40); Mean Corpuscular HGB Conc 33.6 g/dl (31.0-35.0); Mean Corpuscular Hemoglobin 34.6 pg (27.0-33.0); Mean Platelet Volume 8.9 fL (9.4-12.3); Monocytes Absolute Auto 1.3 X10*3/uL (0.1-1.2); Monocytes Percent Auto 10.1 % (2-11); Neutrophils Absolute Auto 7.8 x10*3/uL (2.0-8.3); Neutrophils Percent Auto 59.8 % (45-73); Platelet Count 314 X10*3/uL (160-400); Red Blood Count 4.37 X10*6/uL (4.20-5.50); Red Cell Distribution Width 14.3 % (11.0-16.0)
[2023-11-24 12:41] LABS: Creatinine Urine 170.39 mg/dL; Microalbum/Creatinine Ratio Ur 10.5 ug/mg cr (<30)
[2023-11-24 12:41] LABS: Alanine Aminotransferase 27 U/L (0-31); Albumin Level 4.6 g/dL (3.5-5.0); Alkaline Phosphatase 85 U/L (39-117); Anion Gap 13 (12-20); Aspartate Amino Transferase 19 U/L (5-31); Bilirubin Total 0.8 mg/dL (0.0-1.0); Blood Urea Nitrogen 18 mg/dL (9-16); Calcium 10.2 mg/dL (8.4-10.2); Carbon Dioxide 30 mmol/L (22-29); Chloride 104 mmol/L (96-108); Cholesterol 194 mg/dL (<200); Estimated Glomerular Filt Rate > 60; Glucose Fasting 98 mg/dL (60-99); HDL Cholesterol 89 mg/dL (>40); LDL Cholesterol Calculated 88 mg/dL (<100); Potassium 4.8 mmol/L (3.3-5.1); Sodium 142 mmol/L (135-145); Total Protein 7.5 g/dL (6.5-8.0); Triglycerides 88 mg/dL (<150)
[2023-11-24 12:44] LABS: TSH reflex Free T4 3.66 uIU/mL (0.32-4.0)
== END 2023-11-24 10:01 | disposition home or self-care (01) ==
LOC: HO.WFDLDS 10:00
PROVIDERS: Visit Provider Family Medicine
DX: Z00.00 Encounter for general adult medical examination without abnormal findings (principal); I10 Essential (primary) hypertension
CPT/HCPCS: 36415; 80053; 80061; 81001; 82043; 82570; 84443; 85025

== ENCOUNTER 2023-12-08 15:23 | Outpatient (AMB) | payer OTHER, SELFPAY ==
--- NOTE | 2023-12-08 15:16 | MHC.PC.OV ---
Intake Visit Reasons: Follow up labs Intake Note: Patient is folloing up on her labs today, and still complains of dizziness and weakness today. Allergies blue dye [BLUE DYE] Allergy (Unknown, Verified 12/08/23 15:17) ANAPHYLAXIS escitalopram [From LEXAPRO] Allergy (Unknown, Verified 12/08/23 15:17) UNKNOWN infliximab [From REMICADE] Allergy (Unknown, Verified 12/08/23 15:17) EXACERBATES MS naproxen [NAPROXEN] Allergy (Unknown, Verified 12/08/23 15:17) SWELLING ALL NSAIDS NSAIDS (Non-Steroidal Anti-Inflamma [NSAIDS (NON-STEROIDAL ANTI-INFLAMMA] Allergy (Unknown, Verified 12/08/23 15:17) ABDOMINAL PAIN olanzapine [OLANZAPINE] Allergy (Unknown, Verified 12/08/23 15:17) UNKNOWN paroxetine [From PAXIL] Allergy (Unknown, Verified 12/08/23 15:17) DIZZINESS prednisone [PREDNISONE] Allergy (Unknown, Verified 12/08/23 15:17) HALLUCINATIONS with high doses Sulfa (Sulfonamide Antibiotics) [SULFA (SULFONAMIDE ANTIBIOTICS)] Allergy (Unknown, Verified 12/08/23 15:17) HIVES sulfasalazine [From Azulfidine] Allergy (Verified 12/08/23 15:17) Hives aspirin [ASPIRIN] Adverse Reaction (Unknown, Verified 12/08/23 15:17) STOMACH UPSET ciprofloxacin [From CIPRO] Adverse Reaction (Unknown, Verified 12/08/23 15:17) SKIN PEELING clarithromycin [From Biaxin] Adverse Reaction (Verified 12/08/23 15:17) Abdominal Pain ENVIRONMENTAL Allergy (Unknown, Uncoded 12/08/23 15:17) CATS,DOGS,HORSES,MOLD-RED SKIN,FACIAL SWELLING Tobacco use date assessed: 11/03/23 Fall risk assessment: No Falls in past year Last assessed Fall Risk: 12/08/23 Dental Screening Dental Screen Date: 12/08/23 Did you have a dental visit in the last 12 months?: Yes Did you have a dental problem in the last 6 months where you did not have access to dental care?: No Was dental information given to patient?: Patient has dentist HPI Follow up labs HPI Details 62 y/o female presents to review CPE-labs via telemedicine. Also discussing screening for cervical cancer. Labs were drawn 11/24/23. Reviewed labs with pt. Elevated WBC at 13.0. Triglycerides 88. TC 194. LDL 88. HDL 89. Bacteria in urine. Pt reports her Crohn's disease has been acting up and has been experiencing multiple episodes of diarrhea. [facility] Medical History OCD (obsessive compulsive disorder) History of dysphagia Neuropathy YOHAN (obstructive sleep apnea) Smoker Asthma-COPD overlap syndrome Annual physical exam Dementia Thumb pain Lumbar arthropathy Polyarthritis History of posttraumatic stress disorder (PTSD) Right shoulder pain History of cervical fracture VÁSQUEZ (nonalcoholic steatohepatitis) Bladder cancer Multiple sclerosis Migraines, neuralgic IBS (irritable colon syndrome) Crohn's disease Surgical History History of arthroplasty of right shoulder (05/07/22) Hx of cholecystectomy History of carpal tunnel surgery of right wrist (~05/2021) History of bladder surgery Hx of endoscopy (08/07/11) Hx of colonoscopy (08/07/11) Hx of foot surgery (04/25/14) History of resection of terminal ileum History of adenoidectomy Hx of tonsillectomy Hx of breast augmentation Family History Father Alzheimer disease Lymphoma Cancer Mother Lung cancer Sudden cardiac Cancer CVD (cardiovascular disease) Paternal Grandfather Colon cancer Cancer Maternal Grandfather Sudden cardiac CVD (cardiovascular disease) Social History Household Members: None Household Members Other:: ALONE DISABLED SINCE AROUND 2014 DUE TO MS Housing: Apartment Are you a primary critical care physician to a significant other at home: No Do you presently have visiting nurse or other home services: No Alcohol intake: current Alcohol intake frequency: holidays/special occasions only Alcohol type: hard liquor Patient Tobacco Use Status: Current everyday Tobacco user Tobacco use type: Cigarette Cigarette Packs Per Day: 0.5 Cigarettes Per Day: 2 Years Smoked: 47 e-Cigarette/Vaping Use: Former Use Second Hand Smoke Exposure: No Substance Use Type: Marijuana service: No Current occupational status: disabled Current occupational exposures/hazards: No Cognitive needs: No Hearing needs: No Vision needs: No Questionnaire Thrive Questionnaire Date Thrive assessed: 11/03/23 JOSIE-7 AMB Questionnaire JOSIE-7 Date JOSIE - 7 assessed: 11/03/23 Source: Developed by Drs. Derrick Alfonso, Veronica Caraballo, Raul Zepeda and colleagues, with an educational fabi from [email or web address]. Physical exam (Primary Care) Tobacco/Smoking Status: Tobacco use Status Tobacco use date assessed 11/03/23 12/08/23 15:18 Patient Tobacco Use Status Current everyday Tobacco 12/08/23 15:18 Tobacco use type Cigarette 12/08/23 15:18 e-Cigarette/Vaping Use Former Use 12/08/23 15:18 Thrive Assessment: Date of Thrive Assessment Date Thrive assessed 11/03/23 12/08/23 15:18 Telehealth Telehealth Location of provider rendering services: practice address Location of patient: address on file Patient Identification confirmed using: Name, : Yes Telehealth method: voice only Patient verbally consented to treatment: Yes Patient verbally consented to billing insurance company: Yes Patient informed of any privacy concerns related to visit: Yes Minutes spent on Phone/Video with Pt.: 15 Assessment and Plan Assessment & Plan (1) Elevated WBC count: Code(s): D72.829 - Elevated white blood cell count, unspecified Plan: Mildly?elevated?white?blood?cell?count?but?patient?uses?steroids?when?she?gets?flare-ups?of?Crohns (2) Crohn's disease: Code(s): K50.90 - Crohn's disease, unspecified, without complications Plan: Patient?is?uncertain?if?she?is?having?a?flare-up?of?Crohn's?and?white?blood?cell?count?is?mildly?elevated However?she?also?has?some?suprapubic?tenderness/pressure?and?urine?studies?may?suggest?a?UTI Advised?she?contact?her?fence post cutter?for?possible?Crohn's?flare Will?also?treat?possible?urinary?tract?infection Also?having?some?diarrhea?which?can?be?due?to?Crohn's?or?UTI. She?has?been?using?loperamide?but?she?notes?that?when?she?takes?2-4?mg?she?gets?bound?up.??Currently?has?only?capsules?so?she?can?not?decrease?her?dose. Sending?a?script?for?loperamide?2?mg?tablets?and?she?can?break?these?in?half?to?try?1?mg?dosing. (3) Bacteria in urine: Code(s): R82.71 - Bacteriuria Plan: Possible?UTI?as?patient?does?have?some?symptoms?consistent?with?this?however?she?also?has?Crohn's?and?may?be?having?a?flare?up. Sending?a?script?for?Macrobid?which?has?helped?her?in?the?past. (4) Screening for cervical cancer: Code(s): Z12.4 - Encounter for screening for malignant neoplasm of cervix Plan: Advised?she?contact??[facility],?her?OBGYN?at?[facility]?to?discuss?Pap?smear. (5) Macrocytosis: Code(s): D75.89 - Other specified diseases of blood and blood-forming organs Plan: Mild?macrocytosis. Possibly?secondary?to?alcohol?use. Possible?B12?or?folate?deficiency We?can?follow?this Orders: Orders MM tomosynthesis screening BI Today Z12.31 - Encounter for screening mammogram for malignant neoplasm of breast Medications: New loperamide 2 mg PO QID 30 days PRN 120 tabs 0RF loose stool Coding Level of Care Code Tele Est Pt Level 2 (71002) Diagnoses Elevated WBC count D72.829 Crohn's disease K50.90 Bacteria in urine R82.71 Screening for cervical cancer Z12.4 Macrocytosis D75.89
== END 2023-12-08 16:01 | disposition home or self-care (01) ==
LOC: HO.HMGFM 15:24
PROVIDERS: PCP Family Medicine; Visit Provider Family Medicine
DX: D72.829 Elevated white blood cell count, unspecified (principal); K50.90 Crohn's disease, unspecified, without complications; R82.71 Bacteriuria; D75.89 Other specified diseases of blood and blood-forming organs
CPT/HCPCS: 99212

== ENCOUNTER 2024-01-15 13:14 | Outpatient (REF) | payer MEDICARE, MEDICAID, SELFPAY ==
--- NOTE | ~2024-01-15 | MM_ITS ---
EXAMINATION: BONE DENSITOMETRY CLINICAL INDICATION: Age-related osteoporosis without current pathological fracture. COMPARISON: This is the patient's baseline examination. TECHNIQUE: Using a Shoulder Options DXA System (software version: 13.1) manufactured by [employer], dual-energy x-ray absorptiometry was performed of the lumbar spine and left hip. The images are of good technical quality. Summary results are attached. FINDINGS: LEFT FEMUR, NECK: BMD 0.910 g/cm2, Z-score 0.5, T-score -0.9, normal. LEFT FEMUR, TOTAL: BMD 0.816 g/cm2, Z-score -0.4, T-score -1.5, osteopenia. AP SPINE L1-L4: BMD 1.272 g/cm2, Z-score 2.2, T-score 0.8, normal. IDENTIFIED RISK FACTORS: Anticonvulsant, early menopause, glucocorticoids (chronic), height loss, secondary osteoporosis, tobacco use (current smoker). HISTORY OF FRACTURE: None listed. MEDICATIONS: Calcium, vitamin D. MM/XR DEXA axial skeleton IMPRESSION: 1. DIAGNOSIS: Osteopenia based on the lowest T-score value of -1.5 in the total femur applying World Health Organization criteria. 2. 10-YEAR FRACTURE RISK PREDICTION, FRAX: Major osteoporotic fracture (clinical spine, forearm, hip or shoulder) 11.9%. Hip fracture 1.6%. 3. Treatment Recommendations: NOF guidelines recommend consideration for treatment in postmenopausal women and men age 50 and older presenting with the following: -A hip or vertebral (clinical or morphometric) fracture. -T-score less than or equal to -2.5 at the femoral neck or spine after appropriate evaluation to exclude secondary causes. -Low bone mass at the hip or spine and a 10-year fracture probability by FRAX of greater than or equal to 3% for hip fracture or greater than or equal to 20% for major osteoporotic fracture based on the [place] adapted WHO algorithm. 4. Other Recommendations: All treatment decisions require clinical judgment and consideration of individual patient factors, including patient preferences, comorbidities, previous drug use, risk factors not captured in the FRAX model (e.g. frailty, falls, vitamin D deficiency, increased bone turnover, interval significant decline in bone density) and possible under or overestimation of fracture risk by FRAX. Additional medical evaluation for secondary cause of low bone mineral density may be appropriate. FUTURE SCAN RECOMMENDATION: People with diagnosed cases of osteoporosis or at high risk for fracture should have regular bone mineral density tests. For patients eligible for Medicare, routine testing is allowed once every 2 years. The testing frequency can be increased to one year for patients who have rapidly progressing disease, those who are receiving or discontinuing medical therapy to restore bone mass, or have additional risk factors.
--- NOTE | ~2024-01-15 | MM_ITS ---
EXAMINATION: MM SCREENING DIGITAL BREAST TOMOSYNTHESIS, BILATERAL WITH BREAST IMPLANTS CLINICAL INFORMATION: Screening. Asymptomatic. COMPARISON: Mammography: This study is compared with prior examinations dating back to 2017. TECHNIQUE: Digital mammography is performed in craniocaudal and mediolateral oblique views along with computer-aided detection (CAD). Digital breast tomosynthesis is performed in implant-displaced craniocaudal and implant-displaced mediolateral oblique views along with computer-aided detection (CAD). Synthesized 2D images are generated from the tomosynthesis. FINDINGS: There are scattered areas of fibroglandular density (ACR BI-RADS breast composition Category b). There are bilateral, retropectoral silicone breast implants. There are no significant masses, abnormal calcifications, or other abnormalities. There is unchanged, bilateral capsular calcification and an unchanged focal bulge of superior aspect of the right breast implant. MM/MM tomosynthesis screen imp BI IMPRESSION: No mammographic evidence of malignancy. ASSESSMENT: BI-RADS BI-RADS 2 - Benign Findings RECOMMENDATION: Routine annual mammography screening. 1 year F/U This patient's information was entered into a reminder system with a target due date for their next mammogram.
== END 2024-01-15 13:15 | disposition home or self-care (01) ==
LOC: HO.MAMMO 13:14
PROVIDERS: PCP Family Medicine; Visit Provider Family Medicine
DX: Z12.31 Encounter for screening mammogram for malignant neoplasm of breast (principal); Z13.820 Encounter for screening for osteoporosis; M81.0 Age-related osteoporosis without current pathological fracture; Z78.0 Asymptomatic menopausal state
CPT/HCPCS: 77063; 77067; 77080

== ENCOUNTER → 2024-01-15 13:30 | Outpatient (BNV) | payer MEDICARE, MEDICAID, SELFPAY | PROVIDERS: PCP Family Medicine; Visit Provider Radiology Diagnostic Radiology | DX: Z12.31 Encounter for screening mammogram for malignant neoplasm of breast (principal) | CPT/HCPCS: 77063; 77067 ==

== ENCOUNTER 2024-02-12 13:29 | Outpatient (AMB) | payer MEDICARE, MEDICAID, SELFPAY ==
--- NOTE | 2024-02-12 13:36 | MHC.OFFVIS ---
Vital Signs 02/12/24 13:37 Height 5 ft 3 in Weight 156 lb BMI 27.6 BP 128/67 Blood Pressure Location Lt brachial Position Sitting Pulse 99 Pulse Source Doppler Pulse Oximetry (%) 93 Oxygen Delivery Method Room Air Intake Visit Reasons: copd Allergies blue dye [BLUE DYE] Allergy (Unknown, Verified 12/08/23 15:17) ANAPHYLAXIS escitalopram [From LEXAPRO] Allergy (Unknown, Verified 12/08/23 15:17) UNKNOWN infliximab [From REMICADE] Allergy (Unknown, Verified 12/08/23 15:17) EXACERBATES MS naproxen [NAPROXEN] Allergy (Unknown, Verified 12/08/23 15:17) SWELLING ALL NSAIDS NSAIDS (Non-Steroidal Anti-Inflamma [NSAIDS (NON-STEROIDAL ANTI-INFLAMMA] Allergy (Unknown, Verified 12/08/23 15:17) ABDOMINAL PAIN olanzapine [OLANZAPINE] Allergy (Unknown, Verified 12/08/23 15:17) UNKNOWN paroxetine [From PAXIL] Allergy (Unknown, Verified 12/08/23 15:17) DIZZINESS prednisone [PREDNISONE] Allergy (Unknown, Verified 12/08/23 15:17) HALLUCINATIONS with high doses Sulfa (Sulfonamide Antibiotics) [SULFA (SULFONAMIDE ANTIBIOTICS)] Allergy (Unknown, Verified 12/08/23 15:17) HIVES sulfasalazine [From Azulfidine] Allergy (Verified 12/08/23 15:17) Hives aspirin [ASPIRIN] Adverse Reaction (Unknown, Verified 12/08/23 15:17) STOMACH UPSET ciprofloxacin [From CIPRO] Adverse Reaction (Unknown, Verified 12/08/23 15:17) SKIN PEELING clarithromycin [From Biaxin] Adverse Reaction (Verified 12/08/23 15:17) Abdominal Pain ENVIRONMENTAL Allergy (Unknown, Uncoded 12/08/23 15:17) CATS,DOGS,HORSES,MOLD-RED SKIN,FACIAL SWELLING HPI HPI copd: Details: 63-year-old, active 40+ pack-year recent smoker, now also vapes marijuana, followed for underlying severe obstructive sleep apnea and moderate persistent asthma. Patient is using BrezTri with good control of her underlying symptoms.? She was tried on Dupixent, however she was not able to tolerated.? Patient continues to follow-up with her blood bank assistant. She denies acute exacerbations her asthma. Though she does complain of worsening environmental allergy symptoms. [facility] Medical History OCD (obsessive compulsive disorder) History of dysphagia Neuropathy YOHAN (obstructive sleep apnea) Smoker Asthma-COPD overlap syndrome Annual physical exam Dementia Thumb pain Lumbar arthropathy Polyarthritis History of posttraumatic stress disorder (PTSD) Right shoulder pain History of cervical fracture VÁSQUEZ (nonalcoholic steatohepatitis) Bladder cancer Multiple sclerosis Migraines, neuralgic IBS (irritable colon syndrome) Crohn's disease Surgical History History of arthroplasty of right shoulder (05/07/22) Hx of cholecystectomy History of carpal tunnel surgery of right wrist (~05/2021) History of bladder surgery Hx of endoscopy (08/07/11) Hx of colonoscopy (08/07/11) Hx of foot surgery (04/25/14) History of resection of terminal ileum History of adenoidectomy Hx of tonsillectomy Hx of breast augmentation Family History Father Alzheimer disease Lymphoma Cancer Mother Lung cancer Sudden cardiac Cancer CVD (cardiovascular disease) Paternal Grandfather Colon cancer Cancer Maternal Grandfather Sudden cardiac CVD (cardiovascular disease) Social History Household Members: None Household Members Other:: ALONE DISABLED SINCE AROUND 2014 DUE TO MS Housing: Apartment Are you a primary career and guidance counselor to a significant other at home: No Do you presently have visiting nurse or other home services: No Alcohol intake: current Alcohol intake frequency: holidays/special occasions only Alcohol type: hard liquor Patient Tobacco Use Status: Current everyday Tobacco user Tobacco use type: Cigarette Cigarette Packs Per Day: 0.5 Cigarettes Per Day: 2 Years Smoked: 47 e-Cigarette/Vaping Use: Former Use Second Hand Smoke Exposure: No Substance Use Type: Marijuana service: No Current occupational status: disabled Current occupational exposures/hazards: No Cognitive needs: No Hearing needs: No Vision needs: No Review of Systems Const Denies daytime sleepiness, Denies excessive sweating, Denies fatigue, Denies fever(s), Denies lethargy, Denies malaise, Denies night sweats, Denies snoring and Denies weight loss Eyes Denies blurry vision and Denies itchy eyes ENT Denies nasal congestion, Denies post nasal drip, Denies sinus pain, Denies sinus pressure and Denies other ( Thrush) Card Denies chest pain, Denies pedal edema, Denies dyspnea, Denies orthopnea and Denies paroxysmal nocturnal dyspnea Resp Reports cough, Denies hemoptysis, Denies excessive phlegm production, Denies dyspnea, Denies snoring and Denies wheezing GI Denies abdominal pain and Denies heartburn Musc Denies myalgias, Denies arthralgias and Denies joint swelling Skin/Breast Denies rash Neuro Denies memory loss and Denies seizure-like activity Psych Denies abnormal sleep pattern, Denies anxiety and Denies memory loss Endo Denies excessive sweating, Denies fatigue and Denies heat intolerance Arian/Lymph Denies easy bruising Aller/Immun Denies itchy eyes, Reports seasonal rhinorrhea and Denies wheezing Physical Exam Vital Signs: Last Vital Signs Pulse 99 02/12/24 13:37 BP 128/67 02/12/24 13:37 Pulse Ox 93 02/12/24 13:37 Oxygen Delivery Method Room Air 02/12/24 13:37 BMI result Body Mass Index 27.6 Const General: no acute distress and alert Nutritional Appearance: not obese Orientation/consciousness: Other orientation findings ( oriented) HEENT Head: Yes atraumatic Eyes General: appearance normal, both eyes and all related structures Sclerae: sclerae normal EOM: EOMs intact bilaterally Neck Neck: Yes supple Lymphatic: no lymphadenopathy noted Resp Effort & Inspection: normal respiratory effort and no use of accessory muscles Auscultation: clear to auscultation bilaterally Cardio Rate: regular rate Rhythm: regular rhythm Heart sounds: no gallops, no murmurs and no rubs Skin General skin exam: other ( warm) Extrem General: No clubbing, No cyanosis and No edema Assessment & Plan Assessment & Plan (1) YOHAN on CPAP: Code(s): G47.33 - Obstructive sleep apnea (adult) (pediatric); Z99.89 - Dependence on other enabling machines and devices Category: Medical Plan: Well controlled on CPAP therapy, however patient is not fully compliant with her CPAP at this time secondary to environmental allergies. (2) Asthma-COPD overlap syndrome: Code(s): J44.9 - Chronic obstructive pulmonary disease, unspecified Category: Medical Plan: Well controlled on BrezTri, duo nebs, and albuterol MDI. Patient has been advised to utilize her nebulizer more often as needed. Coding Level of Care Code Est Pt Level 4 (92876) Diagnoses YOHAN on CPAP G47.33; Z99.89 Asthma-COPD overlap syndrome J44.9
[2024-02-12 13:37] VITALS: BP 128/67; PULSE 99; O2SAT 93; BMI 27.6
== END 2024-02-12 14:05 | disposition home or self-care (01) ==
PROVIDERS: PCP Family Medicine; Visit Provider Internal Medicine Pulmonary Disease
DX: G47.33 Obstructive sleep apnea (adult) (pediatric) (principal); Z99.89 Dependence on other enabling machines and devices; J44.9 Chronic obstructive pulmonary disease, unspecified
CPT/HCPCS: 99214

== ENCOUNTER → 2024-02-12 13:29 | Outpatient (BNVA) | payer MEDICARE, MEDICAID, SELFPAY | PROVIDERS: PCP Family Medicine; Visit Provider Internal Medicine Pulmonary Disease | DX: G47.33 Obstructive sleep apnea (adult) (pediatric) (principal); J44.9 Chronic obstructive pulmonary disease, unspecified; Z99.89 Dependence on other enabling machines and devices | CPT/HCPCS: 99212 ==

== ENCOUNTER 2024-03-21 08:38 | Outpatient (REF) | payer MEDICARE, MEDICAID, SELFPAY | END 2024-03-21 08:39 | disposition home or self-care (01) | LOC: HO.HOSX 08:38 | PROVIDERS: Visit Provider Orthopaedic Surgery | DX: Z13.89 Encounter for screening for other disorder (principal) ==

== ENCOUNTER 2024-04-26 09:05 | Outpatient (AMB) | payer MEDICARE, MEDICAID, SELFPAY ==
--- NOTE | 2024-04-26 09:19 | MHC.PC.OV ---
Vital Signs 04/26/24 09:27 Height 5 ft 7 in Weight 146 lb 2 oz BMI 22.9 BP 110/60 Blood Pressure Location Lt brachial Position Sitting Respiration 16 Pulse 70 Pulse Source Palpation Temp 98.6 F Temp Source Oral Intake Visit Reasons: Follow-up diverticulitis Intake Note: follow up from ER Is last menstrual period known: No Post menopausal: Yes Patient : No Allergies blue dye [BLUE DYE] Allergy (Unknown, Verified 04/26/24 09:37) ANAPHYLAXIS escitalopram [From LEXAPRO] Allergy (Unknown, Verified 04/26/24 09:37) UNKNOWN infliximab [From REMICADE] Allergy (Unknown, Verified 04/26/24 09:37) EXACERBATES MS naproxen [NAPROXEN] Allergy (Unknown, Verified 04/26/24 09:37) SWELLING ALL NSAIDS NSAIDS (Non-Steroidal Anti-Inflamma [NSAIDS (NON-STEROIDAL ANTI-INFLAMMA] Allergy (Unknown, Verified 04/26/24 09:37) ABDOMINAL PAIN olanzapine [OLANZAPINE] Allergy (Unknown, Verified 04/26/24 09:37) UNKNOWN paroxetine [From PAXIL] Allergy (Unknown, Verified 04/26/24 09:37) DIZZINESS prednisone [PREDNISONE] Allergy (Unknown, Verified 04/26/24 09:37) HALLUCINATIONS with high doses Sulfa (Sulfonamide Antibiotics) [SULFA (SULFONAMIDE ANTIBIOTICS)] Allergy (Unknown, Verified 04/26/24 09:37) HIVES sulfasalazine [From Azulfidine] Allergy (Verified 04/26/24 09:37) Hives aspirin [ASPIRIN] Adverse Reaction (Unknown, Verified 04/26/24 09:37) STOMACH UPSET ciprofloxacin [From CIPRO] Adverse Reaction (Unknown, Verified 04/26/24 09:37) SKIN PEELING clarithromycin [From Biaxin] Adverse Reaction (Verified 04/26/24 09:37) Abdominal Pain ENVIRONMENTAL Allergy (Unknown, Uncoded 12/08/23 15:17) CATS,DOGS,HORSES,MOLD-RED SKIN,FACIAL SWELLING Medication List - Last Reconciled 04/26/24 by Mary Beth Buckley, INTELLIGENCE ANALYST- albuterol sulfate 0.63 mg inhalation Q4-6H PRN albuterol sulfate 90 mcg/actuation (Ventolin HFA) 2 puffs inhalation Q4-6H PRN 30 days amoxicillin 2,000 mg (4 x 500 mg) PO ONCE guisjuucrv-xvynbmmh-uegoxzwtap 160-9-4.8 mcg/actuation (Breztri Aerosphere) 2 inhalations inhalation BID 30 days cetirizine 10 mg PO DAILY cholecalciferol (vitamin D3) (Vitamin D3) 25 mcg PO DAILY 30 days cyanocobalamin (vitamin B-12) 1,000 mcg IM QWEEK diclofenac sodium 1% 2 grams topical .QD donepezil 23 mg PO BEDTIME epinephrine 0.3 mL IM ONCE PRN famotidine 20 mg PO BID fluocinonide 0.05% topical fluticasone propionate 50 mcg/actuation 2 sprays intranasal BID 30 days folic acid 1 mg PO DAILY 90 days gabapentin 600 mg PO TID 30 days incontinence pad, liner, disp Long. Daily as directed, 90 days ipratropium bromide 2 sprays intranasal TID-QID PRN 30 days lactase 3,000 units PO QID Lactobac. rhamnosus GG-inulin 10 billion cell -200 mg ([facility]) 1 cap PO DAILY 90 days lifitegrast 5% (Xiidra) 1 drp ophthalmic (eye) BID loperamide 2 mg PO QID PRN 30 days lorazepam 0.5 mg PO BID PRN magnesium chloride 71.5 mg PO BID megestrol 20 mg PO DAILY 30 days memantine 5 mg PO BID mesalamine 1,000 mg MA BEDTIME PRN miscellaneous medical supply 1 ea miscellaneous DAILY 99 days miscellaneous medical supply Poise pads. 2 per day. 90 day supply; 90 days naloxone 4 mg/actuation (Narcan) 4 mg intranasal Q2M PRN 1 day nystatin 5 mL PO TID 7 days prochlorperazine (Compro) 25 mg MA TID PRN sumatriptan succinate 50 mg PO NEEDED PRN syringe with needle, safety (BD Integra Syringe) As directed trazodone 75 mg PO BEDTIME triamcinolone acetonide 0.1% 1 appl topical BID valacyclovir 1,000 mg PO BEDTIME Tobacco use date assessed: 04/26/24 Dental Screening Dental Screen Date: 04/26/24 Did you have a dental visit in the last 12 months?: Yes Did you have a dental problem in the last 6 months where you did not have access to dental care?: Yes Was dental information given to patient?: Patient has dentist HPI HPI Comments History of Present Illness Details Here today for hospital discharge follow up. She was not scheduled as such. Therefore I do not have the records for this. She tells me today that she was seen at [facility] sometime in March but she can not recall the date and she was diagnosed with diverticulitis, pneumoniae and cyst on her kidney -left. I asked for time was about to get these records so that I could serve her better, she reports that there was no need to as the care there was incompetent. 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 chart review shows she has Dementia. Be that as it may she reports that she was prescribed amoxicillin as she is taking that as directed. She also stated that she was given antibiotics to use for diverticulitis flares previously, had some of the slept over at home, so she is taking that and then she will complete a new prescription for amoxicillin. She states that she needs a prescription for ensure as she has no appetite and is losing weight. She would like this written for 3 times per day. States she is really concerned about the cyst on her kidneys given history of bladder cancer. Reports to me that she has a follow up with a surgeon named Dr. Woods next month, and an ultrasound follow up tomorrow. She is unsure what type of surgeon Dr. Woods. She also states that she is active with pulmonology at [facility]. Finally she is active with a sanforizer for her diverticulitis. Her appointment is not until May. States that while the thermometer does not read febrile, she knows that she has a fever. current every day smoker. Exam Awake alert oriented, nontoxic appearing Regular rate and rhythm Lung sounds clear to auscultation Abdomen soft, normoactive bowel sounds, tender over transverse lower abdomen, mild epigastric pain with tenderness, no peritoneal signs Speech is rambling, calling everybody incompetent, mentions phones and Internet not working due to the presidential election, talking about biological warfare, unable to redirect. Very odd affect. Plan I have encouraged her to call her sanforizer as well as her cord cutter to make a follow up regarding her hospital visit. I have written her prescription for ensure daily. Should she feel like she needs more, I have advised her to work with her sanforizer, primary care provider or other care team members to request an increase in the unsure. She told me to trupti the Insurance company to get the RX covered for TID. I did not reply to this comment. She should complete her antibiotics as directed. Diet as tolerated. She should also follow up with her ultrasound as well as the surgeon. Finally i advised her to fu with her PCP for ongoing care of her chronic medical conditions. The records were received after she left the office which indicates she was seen in the emergency room on 04/08/2024 with chief complaints of abdominal pain and dysphagia. Initial labs show unremarkable CBC, alk-phos mildly elevated at 121 otherwise normal CMP, CT of the neck.chest, abd and pelvis: showed a small amount of secretions within the trachea, scattered micro nodules and calcified granulomas, right basilar atelectasis, few tree-in-bud pattern punctate nodules in the right upper lobe. Mild coronary artery calcification, moderate vascular calcification of the aorta without aneurysm, bilat breast implants with capsular calcifications, 1.2 cm indeterminate hypodense lesion left kidney lower pole, small hypodensities that are too small to characterize are noted, requiring no dedicated follow up. Bladder normal. Stomach diffuse wall thickening of the sigmoid colon with mild adjacent inflammatory stranding of the diverticula, severe arteriosclerotic vascular calcification of the blood vessels without aneurysm, the impression is mild bronchiolitis in the right upper lobe, sigmoid diverticulitis without evidence of perforation or abscess, indeterminate hypodense lesion in the left kidney follow up with an ultrasound She was prescribed Augmentin 1 tab 2 times per day for 10 days. Smoking cessation. After review of the records, she needs to FU with PCP for CAD, i asked her to schedule a routine fu with PCP on her way out today. I will cont to recommend fu with GI, Pulm and Uro/Surgeon for the other findings. This note is constructed using voice recognition software. While every effort has been made to ensure accuracy in chrome cleaner, still errors may have been included Sometimes, these errors may affect the content or meaning of the given sentence . Total time spent caring for the patient today was 45 minutes. This includes time spent before the visit reviewing the chart, time spent during the visit, and time spent after the visit on documentation [facility] Medical History OCD (obsessive compulsive disorder) History of dysphagia Neuropathy YOHAN (obstructive sleep apnea) Smoker Asthma-COPD overlap syndrome Annual physical exam Dementia Thumb pain Lumbar arthropathy Polyarthritis History of posttraumatic stress disorder (PTSD) Right shoulder pain History of cervical fracture VÁSQUEZ (nonalcoholic steatohepatitis) Bladder cancer Multiple sclerosis Migraines, neuralgic IBS (irritable colon syndrome) Crohn's disease Surgical History History of arthroplasty of right shoulder (05/07/22) Hx of cholecystectomy History of carpal tunnel surgery of right wrist (~05/2021) History of bladder surgery Hx of endoscopy (08/07/11) Hx of colonoscopy (08/07/11) Hx of foot surgery (04/25/14) History of resection of terminal ileum History of adenoidectomy Hx of tonsillectomy Hx of breast augmentation Family History Father Alzheimer disease Lymphoma Cancer Mother Lung cancer Sudden cardiac Cancer CVD (cardiovascular disease) Paternal Grandfather Colon cancer Cancer Maternal Grandfather Sudden cardiac CVD (cardiovascular disease) Social History Household Members: None Household Members Other:: ALONE DISABLED SINCE AROUND 2014 DUE TO MS Housing: Apartment Are you a primary personal care home administrator to a significant other at home: No Do you presently have visiting nurse or other home services: No Alcohol intake: current Alcohol intake frequency: holidays/special occasions only Alcohol type: hard liquor Patient Tobacco Use Status: Current everyday Tobacco user Tobacco use type: Cigarette Cigarette Packs Per Day: 0.5 Cigarettes Per Day: 2 Years Smoked: 47 e-Cigarette/Vaping Use: Former Use Second Hand Smoke Exposure: No Substance Use Type: Marijuana service: No Current occupational status: disabled Current occupational exposures/hazards: No Cognitive needs: No Hearing needs: No Vision needs: No Questionnaire Thrive Questionnaire Date Thrive assessed: 11/03/23 JOSIE-7 AMB Questionnaire JOSIE-7 Date JOSIE - 7 assessed: 11/03/23 Source: Developed by Drs. Derrick Alfonso, Veronica Raul Avila and colleagues, with an educational fabi from [employer]. Physical exam (Primary Care) Vital Signs: Last Vital Signs Temp 98.6 F 04/26/24 09:27 Pulse 70 04/26/24 09:27 Resp 16 04/26/24 09:27 BP 110/60 04/26/24 09:27 BMI result Body Mass Index 22.9 Tobacco/Smoking Status: Tobacco use Status Tobacco use date assessed 04/26/24 04/26/24 09:30 Patient Tobacco Use Status Current everyday Tobacco 04/26/24 09:30 Tobacco use type Cigarette 04/26/24 09:30 e-Cigarette/Vaping Use Former Use 04/26/24 09:30 Are you ready to quit: No Tobacco cessation counseling provided: Yes Items discussed: Other Relapse Prevention: discussed the importance of a supportive environment, discussed extending NRT, discussed negative mood or depression after quitting, weight gain after smoking is common and discussed dietary, exercise and/or lifestyle changes Number of minutes spent counselin CPT code: 45816 - 4-10 Minutes Thrive Assessment: Date of Thrive Assessment Date Thrive assessed 11/03/23 04/26/24 09:30 Assessment and Plan Assessment & Plan (1) Hospital discharge follow-up: Code(s): Z09 - Encounter for follow-up examination after completed treatment for conditions other than malignant neoplasm (2) Imbalance of constituents of food intake: Code(s): E63.1 - Imbalance of constituents of food intake (3) Lung nodule, multiple: Comment: CT 04/08/24 at [facility]: scattered micro nodules and calcified granulomas, right basilar atelectasis, few tree-in-bud pattern punctate nodules in the right upper lobe. Code(s): R91.8 - Other nonspecific abnormal finding of lung field (4) Bronchiolitis: Code(s): J21.9 - Acute bronchiolitis, unspecified (5) CAD in [place] artery: Comment: CT 04/08/24 at [facility] Mild coronary artery calcification, moderate vascular calcification of the aorta without aneurysm, , severe arteriosclerotic vascular calcification of the blood vessels without aneurysm, Code(s): I25.10 - Atherosclerotic heart disease of [place] coronary artery without angina pectoris (6) Sigmoid diverticulitis: Comment: CT 04/08/24 at [facility] sigmoid diverticulitis without evidence of perforation or abscess, Code(s): K57.32 - Diverticulitis of large intestine without perforation or abscess without bleeding (7) Left renal mass: Comment: CT 04/08/24 at [facility] 1.2 cm indeterminate hypodense lesion left kidney lower pole, Code(s): N28.89 - Other specified disorders of kidney and ureter Medications: New food supplemt, lactose-reduced (Ensure Original oral liquid) Take 8 oz daily 1 ea PO DAILY 7,200 mL 3RF E63.1 - Imbalance of constituents of food intake Patient Instructions: Smoking Cessation How to Quit There are a lot of ways to quit smoking and many resources to help you. Family members, friends, and co-workers may be supportive or encouraging, but to be successful the desire and commitment to quit must be your own. Most people who have been able to successfully quit smoking made at least one unsuccessful attempt in the past. Try not to view past attempts to quit as failures, but rather as learning experiences. Stopping smoking or using smokeless tobacco is difficult, but anyone can do it. Know the symptoms to expect when you stop. Common symptoms include: ? An intense craving for nicotine ? Anxiety, tension, restlessness, frustration, or impatience ? Difficulty concentrating ? Drowsiness or trouble sleeping, as well as bad dreams and nightmares ? Drowsiness and trouble sleeping ? Headaches ? Increased appetite and weight gain ? Irritability or depression How severe your symptoms are depends on how long you smoked and how many cigarettes you smoked each day. Feel ready to quit? ? First and foremost, set a quit date and quit completely on that day. Before your quit date, you may begin reducing your cigarette use. But remember, there is no safe level of cigarette smoking. ? List the reasons why you want to quit. Include both short- and long-term benefits. ? Identify the times you are most likely to smoke. For example, do you tend to smoke when feeling stressed or down? When out at night with friends? While drinking coffee or alcohol? When bored? While driving? Right after a meal or sex? During a work break? While watching TV or playing cards? When you are with other smokers? ? Let all of your friends, family, and co-workers know of your plan to stop smoking and your quit date. Just being aware that they know what you're going through can be helpful, especially when you are grumpy. ? Get rid of all your cigarettes just before the quit date, and clean out anything that smells like smoke, such as clothes and furniture. Make a plan about what you will do instead of smoking at those times when you are most likely to smoke. ? Be as specific as possible. For example, drink tea instead of coffee -- tea may not trigger the desire for a cigarette. Or, take a walk when you feel stressed. ? Remove ashtrays and cigarettes from the car. Place pretzels or hard candies there instead. Pretend-smoke with a straw. ? Find activities that focus your hands and mind but are not taxing or fattening. Computer games, solitaire, knitting, sewing, and crossword puzzles may help. ? If you normally smoke after eating, find other ways to end a meal. Play a tape or CD, eat a piece of fruit, get up and make a phone call, or take a walk (a good distraction that also horton calories). Make other changes in your lifestyle. ? Change your daily schedule and habits. Eat at different times or eat several small meals instead of three large ones. Sit in a different chair or even a different room. ? Satisfy your oral habits by eating celery or other low-calorie snack, chewing sugarless gum, or sucking on a cinnamon stick. ? Go to public places and restaurants where smoking is prohibited or restricted. ? Eat regular meals and don't eat too much candy or sweet things. ? Get more exercise. Take walks or ride a bike. Exercise helps relieve the urge to smoke. Set short-term quitting goals and reward yourself when you meet them. ? Every day, put the money you normally spend on cigarettes in a jar. Then buy something pleasurable after a period of time. ? Try not to think about all the days ahead you will need to avoid smoking. Take it one day at a time. ? Even one puff or one cigarette will make your desire for more cigarettes even stronger. However, it is normal to make mistakes. So even if you have one cigarette, you don't need to take the next one. Other tips to help you quit smoking and stick to it: ? Enroll in a smoking cessation program (hospitals, health departments, community centers, and work sites often offer programs). Learn about self-hypnosis or other techniques. ? Ask your health care provider about prescription medications that are safe and appropriate for you. ? Find out about nicotine patches, gum, and sprays. The [place] [employer]'s web site -- www.cancer.org -- is an excellent resource for smokers who are trying to quit, and the [employer] [place] [employer] can help some smokers kick the habit. Above all, don't get discouraged if you aren't able to quit smoking the first time. Nicotine addiction is a hard habit to break. Try something different next time. Develop new strategies, and try again. Many people take several attempts to finally kick the habit. Coding Level of Care Code Est Pt Level 5 (71454) Diagnoses Hospital discharge follow-up Z09 Imbalance of constituents of food intake E63.1 Lung nodule, multiple R91.8 Bronchiolitis J21.9 CAD in [place] artery I25.10 Sigmoid diverticulitis K57.32 Left renal mass N28.89 Additional Codes Vital Signs *Quality* - CPT code: 45731 - 4-10 Minutes ([id number])
[2024-04-26 09:27] VITALS: BP 110/60; PULSE 70; RESP 16; TEMP 37; BMI 22.9
== END 2024-04-26 09:53 | disposition home or self-care (01) ==
PROVIDERS: PCP Family Medicine; Visit Provider Nurse Practitioner Family
DX: E63.1 Imbalance of constituents of food intake (principal); R91.8 Other nonspecific abnormal finding of lung field; J21.9 Acute bronchiolitis, unspecified; I25.10 Atherosclerotic heart disease of native coronary artery without angina pectoris; K57.32 Diverticulitis of large intestine without perforation or abscess without bleeding; N28.89 Other specified disorders of kidney and ureter; F17.210 Nicotine dependence, cigarettes, uncomplicated; Z09 Encounter for follow-up examination after completed treatment for conditions other than malignant neoplasm
CPT/HCPCS: 99214; 99406

== ENCOUNTER 2024-08-04 15:05 | Outpatient (AMB) | payer MEDICARE, MEDICAID, SELFPAY ==
[2024-08-04 15:11] VITALS: BP 138/78; PULSE 80; O2SAT 99; BMI 26.0
--- NOTE | 2024-08-04 15:11 | MHC.OFFVIS ---
Vital Signs 08/04/24 15:11 Height 5 ft 3 in Weight 146 lb 9.718 oz BMI 26.0 BP 138/78 Blood Pressure Location Rt brachial Position Sitting Pulse 80 Pulse Source Doppler Pulse Oximetry (%) 99 Oxygen Delivery Method Nasal Cannula Oxygen Flow Rate 3 Intake Visit Reasons: copd Allergies blue dye [BLUE DYE] Allergy (Unknown, Verified 04/26/24 09:37) ANAPHYLAXIS escitalopram [From LEXAPRO] Allergy (Unknown, Verified 04/26/24 09:37) UNKNOWN infliximab [From REMICADE] Allergy (Unknown, Verified 04/26/24 09:37) EXACERBATES MS naproxen [NAPROXEN] Allergy (Unknown, Verified 04/26/24 09:37) SWELLING ALL NSAIDS NSAIDS (Non-Steroidal Anti-Inflamma [NSAIDS (NON-STEROIDAL ANTI-INFLAMMA] Allergy (Unknown, Verified 04/26/24 09:37) ABDOMINAL PAIN olanzapine [OLANZAPINE] Allergy (Unknown, Verified 04/26/24 09:37) UNKNOWN paroxetine [From PAXIL] Allergy (Unknown, Verified 04/26/24 09:37) DIZZINESS prednisone [PREDNISONE] Allergy (Unknown, Verified 04/26/24 09:37) HALLUCINATIONS with high doses Sulfa (Sulfonamide Antibiotics) [SULFA (SULFONAMIDE ANTIBIOTICS)] Allergy (Unknown, Verified 04/26/24 09:37) HIVES sulfasalazine [From Azulfidine] Allergy (Verified 04/26/24 09:37) Hives aspirin [ASPIRIN] Adverse Reaction (Unknown, Verified 04/26/24 09:37) STOMACH UPSET ciprofloxacin [From CIPRO] Adverse Reaction (Unknown, Verified 04/26/24 09:37) SKIN PEELING clarithromycin [From Biaxin] Adverse Reaction (Verified 04/26/24 09:37) Abdominal Pain ENVIRONMENTAL Allergy (Unknown, Uncoded 12/08/23 15:17) CATS,DOGS,HORSES,MOLD-RED SKIN,FACIAL SWELLING HPI HPI copd: Details: 63-year-old, active 40+ pack-year recent smoker, now also vapes marijuana, followed for underlying severe obstructive sleep apnea and moderate persistent asthma. Patient is using BrezTri with good control of her underlying symptoms.? She was tried on Dupixent, however she was not able to tolerate it.? Patient continues to follow-up with her animal chiropractor. She denies acute exacerbations her asthma. Patient had recent COVID-19 was discharged from hospital on 3 L supplemental oxygen. [facility] Medical History OCD (obsessive compulsive disorder) History of dysphagia Neuropathy YOHAN (obstructive sleep apnea) Smoker Asthma-COPD overlap syndrome Annual physical exam Dementia Thumb pain Lumbar arthropathy Polyarthritis History of posttraumatic stress disorder (PTSD) Right shoulder pain History of cervical fracture VÁSQUEZ (nonalcoholic steatohepatitis) Bladder cancer Multiple sclerosis Migraines, neuralgic IBS (irritable colon syndrome) Crohn's disease Surgical History History of arthroplasty of right shoulder (05/07/22) Hx of cholecystectomy History of carpal tunnel surgery of right wrist (~05/2021) History of bladder surgery Hx of endoscopy (08/07/11) Hx of colonoscopy (08/07/11) Hx of foot surgery (04/25/14) History of resection of terminal ileum History of adenoidectomy Hx of tonsillectomy Hx of breast augmentation Family History Father Alzheimer disease Lymphoma Cancer Mother Lung cancer Sudden cardiac Cancer CVD (cardiovascular disease) Paternal Grandfather Colon cancer Cancer Maternal Grandfather Sudden cardiac CVD (cardiovascular disease) Social History Household Members: None Household Members Other:: ALONE DISABLED SINCE AROUND 2014 DUE TO MS Housing: Apartment Are you a primary early breastfeeding care specialist to a significant other at home: No Do you presently have visiting nurse or other home services: No Alcohol intake: current Alcohol intake frequency: holidays/special occasions only Alcohol type: hard liquor Patient Tobacco Use Status: Current everyday Tobacco user Tobacco use type: Cigarette Cigarette Packs Per Day: 0.5 Cigarettes Per Day: 2 Years Smoked: 47 e-Cigarette/Vaping Use: Former Use Second Hand Smoke Exposure: No Substance Use Type: Marijuana service: No Current occupational status: disabled Current occupational exposures/hazards: No Cognitive needs: No Hearing needs: No Vision needs: No Review of Systems Const Denies daytime sleepiness, Denies excessive sweating, Denies fatigue, Denies fever(s), Denies lethargy, Denies malaise, Denies night sweats, Denies snoring and Denies weight loss Eyes Denies blurry vision and Denies itchy eyes ENT Denies nasal congestion, Denies post nasal drip, Denies sinus pain, Denies sinus pressure and Denies other ( Thrush) Card Denies chest pain, Denies pedal edema, Denies dyspnea, Reports dyspnea on exertion, Denies orthopnea and Denies paroxysmal nocturnal dyspnea Resp Denies cough, Denies hemoptysis, Denies excessive phlegm production, Denies dyspnea, Reports dyspnea on exertion, Denies snoring and Denies wheezing GI Denies abdominal pain and Denies heartburn Musc Denies myalgias, Denies arthralgias and Denies joint swelling Skin/Breast Denies rash Neuro Denies memory loss and Denies seizure-like activity Psych Denies abnormal sleep pattern, Denies anxiety and Denies memory loss Endo Denies excessive sweating, Denies fatigue and Denies heat intolerance Arian/Lymph Denies easy bruising Aller/Immun Denies itchy eyes, Denies seasonal rhinorrhea and Denies wheezing Physical Exam Vital Signs: Last Vital Signs Pulse 80 08/04/24 15:11 BP 138/78 08/04/24 15:11 Pulse Ox 99 08/04/24 15:11 Oxygen Delivery Method Nasal Cannula 08/04/24 15:11 Oxygen Flow Rate 3 08/04/24 15:11 BMI result Body Mass Index 26.0 Const General: no acute distress and alert Nutritional Appearance: not obese Orientation/consciousness: Other orientation findings ( oriented) HEENT Head: Yes atraumatic Eyes General: appearance normal, both eyes and all related structures Sclerae: sclerae normal EOM: EOMs intact bilaterally Neck Neck: Yes supple Lymphatic: no lymphadenopathy noted Resp Effort & Inspection: normal respiratory effort and no use of accessory muscles Auscultation: clear to auscultation bilaterally Cardio Rate: regular rate Rhythm: regular rhythm Heart sounds: no gallops, no murmurs and no rubs Skin General skin exam: other ( warm) Extrem General: No clubbing, No cyanosis and No edema Assessment & Plan Assessment & Plan (1) Asthma-COPD overlap syndrome: Code(s): J44.9 - Chronic obstructive pulmonary disease, unspecified Category: Medical Plan: Well controlled on current regimen of BrezTri and albuterol MDI. Continue current regimen. (2) YOHAN on CPAP: Code(s): G47.33 - Obstructive sleep apnea (adult) (pediatric); Z99.89 - Dependence on other enabling machines and devices Category: Medical Plan: Well controlled on current CPAP therapy. Continue CPAP therapy. (3) Supplemental oxygen dependent: Code(s): Z99.81 - Dependence on supplemental oxygen Category: Medical Plan: Discharged on supplemental oxygen after recent COVID-19 hospitalization. Supplemental oxygen/6 minute walk test/POC evaluation performed during this office visit. Patient is able to maintain normal oximetry on exertion with portable oxygen concentrator setting 3. Updated order placed with [employer]. Coding Level of Care Code Est Pt Level 4 (12644) Complex EM visit Add On G2211 Diagnoses Asthma-COPD overlap syndrome J44.9 YOHAN on CPAP G47.33; Z99.89 Supplemental oxygen dependent Z99.81
== END 2024-08-04 15:41 | disposition home or self-care (01) ==
LOC: HO.HPS 15:06
PROVIDERS: PCP Family Medicine; Visit Provider Internal Medicine Pulmonary Disease
DX: J44.9 Chronic obstructive pulmonary disease, unspecified (principal); G47.33 Obstructive sleep apnea (adult) (pediatric); Z99.89 Dependence on other enabling machines and devices; Z99.81 Dependence on supplemental oxygen
CPT/HCPCS: 99214; G2211

== ENCOUNTER → 2024-08-04 15:05 | Outpatient (BNVA) | payer OTHER, SELFPAY | PROVIDERS: PCP Family Medicine; Visit Provider Internal Medicine Pulmonary Disease | DX: J44.9 Chronic obstructive pulmonary disease, unspecified (principal); J45.40 Moderate persistent asthma, uncomplicated; G47.33 Obstructive sleep apnea (adult) (pediatric); F17.210 Nicotine dependence, cigarettes, uncomplicated; Z99.81 Dependence on supplemental oxygen; Z99.89 Dependence on other enabling machines and devices | CPT/HCPCS: 99212 ==

== ENCOUNTER 2025-04-19 14:58 | Outpatient (AMB) | payer MEDICARE, MEDICAID, SELFPAY ==
--- OUTSIDE RECORDS SUMMARY | 2024-07-01 11:25 | XMS_ITS | Encounter Summary ---
Author Organization [facility] [place] [address] Care Team Providers Care Oracle Software Engineer Name Role Phone Lito Castro MD Primary Care Provider [phone] Encounter Details Date Type Department Care Team (Late st Contact Info) Description 07/01/2024 11:25 AM EDT Hospital Encounter TH HISTORIC ENCOUNTERS [facility] ONLY Vijay Grissom MD [address] [facility] [address] [place] [address] Social History Tobacco Use Types [...] Grissom MD - 07/01/2024 11:00 AM EDT [facility] Cc: MS [...] tablet, , Disp: , Rfl: ??? Lactobacillus-Inulin ([facility]) CAPS, , Disp: , Rfl: ??? [...] CRAVINGS, Disp: , Rfl: ??? nystatin (MYCOSTATIN) [id number] UNIT/ML suspension, Take 5 mL (500,000 Units [...] She had multiple hospitalization with COVID/COVID-pneumonia at [facility] lastmonth she is also been having [...] diagnostic plan: -Will hold off Ocrevus per [facility] protocol and we discussed in the beginning of July after her GI evaluation MRI brain with and without contrast on annual basis to ensure radiological stability B. Symptomatic therapy plan: Gait and balance: Continue home PT/OT Urinary urgency: Will refer to a urologist for evaluation Mood changes: Continue with [facility] for behavioral health services Cognitive concerns: Neuropsych [...] 40 minutes. The majority of the actual litr-oi-hrfe visit was spent counseling the patient with respect to the current neurological picture. Vijay Grissom MD documented in this encounter Plan of Treatment Upcoming Encounters Date Type Department Care Team (Late st Contact Info) Description 05/23/2025 11:00 AM EDT Office Visit Gastroenterology - [place] [address] [place] [address] Marcelino Clark MD [address] [facility] [address] [place] [address] documented as of this encounter Visit Diagnoses Not on filedocumented in this encounter Care Teams Oracle Software Engineer Relationship Specialty Start Date End Date Lito Castro MD [address] [place] [address] Dr Carter [address] [place], [place] PCP - General 07/01/24 08/08/24 documented as of this encounter
--- NOTE | 2025-04-19 15:30 | A.OFFPC_ITS ---
Vital Signs 04/19/25 15:35 Height 5 ft 3 in Weight 133 lb 4 oz BMI 23.6 BP 138/60 Blood Pressure Location Lt brachial Position Sitting Respiration 16 Pulse 79 Pulse Source Pulse Oximeter Temp 99.2 F Temp Source Oral Pulse Oximetry (%) 94 Oxygen Delivery Method Nasal Cannula Oxygen Flow Rate 3 Intake Visit Reasons: [facility] ED on 04/12 Intake Note: patient is scheduled for ed follow up from [facility] Leather Grainer Required: No Allergies blue dye (BLUE DYE) Allergy (Unknown, Verified 04/19/25 15:31) ANAPHYLAXIS escitalopram (From LEXAPRO) Allergy (Unknown, Verified 04/19/25 15:31) UNKNOWN infliximab (From REMICADE) Allergy (Unknown, Verified 04/19/25 15:31) EXACERBATES MS naproxen (NAPROXEN) Allergy (Unknown, Verified 04/19/25 15:31) SWELLING ALL NSAIDS NSAIDS (Non-Steroidal Anti-Inflamma (NSAIDS (NON-STEROIDAL ANTI-INFLAMMA) Allergy (Unknown, Verified 04/19/25 15:31) ABDOMINAL PAIN olanzapine (OLANZAPINE) Allergy (Unknown, Verified 04/19/25 15:31) UNKNOWN paroxetine (From PAXIL) Allergy (Unknown, Verified 04/19/25 15:31) DIZZINESS prednisone (PREDNISONE) Allergy (Unknown, Verified 04/19/25 15:31) HALLUCINATIONS with high doses Sulfa (Sulfonamide Antibiotics) (SULFA (SULFONAMIDE ANTIBIOTICS)) Allergy (Unknown, Verified 04/19/25 15:31) HIVES sulfasalazine (From Azulfidine) Allergy (Verified 04/19/25 15:31) Hives aspirin (ASPIRIN) Adverse Reaction (Unknown, Verified 04/19/25 15:31) STOMACH UPSET ciprofloxacin (From CIPRO) Adverse Reaction (Unknown, Verified 04/19/25 15:31) SKIN PEELING clarithromycin (From Biaxin) Adverse Reaction (Verified 04/19/25 15:31) Abdominal Pain ENVIRONMENTAL Allergy (Unknown, Uncoded 12/08/23 15:17) CATS,DOGS,HORSES,MOLD-RED SKIN,FACIAL SWELLING Medication List - Last Reconciled 04/19/25 by Lito Castro MD albuterol sulfate 0.63 mg inhalation Q4-6H PRN albuterol sulfate 90 mcg/actuation (Ventolin HFA) 2 puffs inhalation Q4-6H PRN 30 days wenqbpdazu-vxecjcmq-eeeekikxbx 160-9-4.8 mcg/actuation (Breztri Aerosphere) 2 inhalations PO BID cetirizine 10 mg PO DAILY cholecalciferol (vitamin D3) (Vitamin D3) 25 mcg PO DAILY 30 days cyanocobalamin (vitamin B-12) 1,000 mcg IM QWEEK diclofenac sodium 1% 2 grams topical .QD donepezil 23 mg PO BEDTIME epinephrine 0.3 mL IM ONCE PRN famotidine 20 mg PO BID fluticasone propionate 50 mcg/actuation 2 sprays intranasal BID 30 days folic acid 1 mg PO DAILY 90 days food supplemt, lactose-reduced (Ensure Original oral liquid) 1 ea PO DAILY gabapentin 600 mg PO TID 30 days incontinence pad, liner, disp Long. Daily as directed, 90 days ipratropium bromide 2 sprays intranasal TID-QID PRN ipratropium-albuterol 0.5 mg-3 mg(2.5 mg base)/3 mL 3 mL inhalation Q4-6H PRN lactase 3,000 units PO QID Lactobac. rhamnosus GG-inulin 10 billion cell -200 mg ([facility]) 1 cap PO DAILY 90 days lifitegrast 5% (Xiidra) 1 drp ophthalmic (eye) BID loperamide 2 mg PO QID PRN 30 days lorazepam 0.5 mg PO BID PRN magnesium chloride 71.5 mg PO BID megestrol 20 mg PO DAILY 30 days memantine 5 mg PO BID 90 days mesalamine 1,000 mg NM BEDTIME PRN miscellaneous medical supply 1 ea miscellaneous DAILY 99 days miscellaneous medical supply Poise pads. 2 per day. 90 day supply; 90 days naloxone 4 mg/actuation (Narcan) 4 mg intranasal Q2M PRN 1 day nystatin 5 mL PO TID 7 days penicillin V potassium 500 mg PO TID 10 days prednisone 4 tabs daily for 4 days, 3 tabs daily for 2 days, 2 tabs daily for 2 days, 1 tab daily for 2 days PO daily; 10 days prochlorperazine (Compro) 25 mg NM TID PRN sumatriptan succinate 50 mg PO NEEDED PRN syringe with needle, safety (BD Integra Syringe) As directed trazodone 75 mg PO BEDTIME triamcinolone acetonide 0.1% 1 appl topical BID valacyclovir 1,000 mg PO BEDTIME Tobacco use date assessed: 04/26/24 Dental Screening Dental Screen Date: 04/26/24 [facility] ED on 04/12 HPI Details 64 y/o female presents to f/u ED visit for shortness of breath, chest discomfort. She is on oxygen. Hx of asthma-COPD overlap syndrome. Cardiac work up and EKG had been fine. Has an appt. with pulmonology at the beginning of April. She reports ongoing shortness of breath. Pt reports a dental abscess. Pt reports some nausea. Reports ongoing tremors/dyskinesia - hx of MS. HPI Comments History of Present Illness Details Documentation assistance for Lito Castro MD, was provided by Theo Kelley, Accountant Controller on 04/19/2025 at 4:29 PM EST. I, Dr. Castro, have read, observed, and verified documentation. ? [facility] Medical History OCD (obsessive compulsive disorder) History of dysphagia Neuropathy YOHAN (obstructive sleep apnea) Smoker Asthma-COPD overlap syndrome Annual physical exam Dementia Thumb pain Lumbar arthropathy Polyarthritis History of posttraumatic stress disorder (PTSD) Right shoulder pain History of cervical fracture VÁSQUEZ (nonalcoholic steatohepatitis) Bladder cancer Multiple sclerosis Migraines, neuralgic IBS (irritable colon syndrome) Crohn's disease Surgical History History of arthroplasty of right shoulder (05/07/22) Hx of cholecystectomy History of carpal tunnel surgery of right wrist (~05/2021) History of bladder surgery Hx of endoscopy (08/07/11) Hx of colonoscopy (08/07/11) Hx of foot surgery (04/25/14) History of resection of terminal ileum History of adenoidectomy Hx of tonsillectomy Hx of breast augmentation Family History Father Alzheimer disease Lymphoma Cancer Mother Lung cancer Sudden cardiac Cancer CVD (cardiovascular disease) Paternal Grandfather Colon cancer Cancer Maternal Grandfather Sudden cardiac CVD (cardiovascular disease) Social History (Reviewed 12/08/23 @ 15:20 by RONNA Kumar Household Members: None Household Members Other:: ALONE DISABLED SINCE AROUND 2015 DUE TO MS Housing: Apartment Are you a primary child care center assistant director to a significant other at home: No Do you presently have visiting nurse or other home services: No Alcohol intake: current Alcohol intake frequency: holidays/special occasions only Alcohol type: hard liquor Patient Tobacco Use Status: Current everyday Tobacco user Tobacco use type: Cigarette Cigarette Packs Per Day: 0.5 Cigarettes Per Day: 2 Years Smoked: 47 Packs Per Year: 24 Packs per year/per ci.70 e-Cigarette/Vaping Use: Former Use Second Hand Smoke Exposure: No Substance Use Type: Marijuana service: No Current occupational status: disabled Current occupational exposures/hazards: No Cognitive needs: No Hearing needs: No Vision needs: No Questionnaire PHQ-9 Over the last 2 weeks, how often have you been bothered by any of the following problems? 1. Little interest or pleasure in doing things: not at all 2. Feeling down, depressed, or hopeless: several days 3. Trouble falling or staying asleep, or sleeping too much: not at all 4. Feeling tired or having little energy: not at all 5. Poor appetite or overeating: not at all 6. Feeling bad about yourself - or that you are a failure or have let yourself or your family down: not at all 7. Trouble concentrating on things, such as reading the newspaper or watching television: not at all 8. Moving or speaking so slowly that other people could have noticed. Or the opposite - being so fidgety or restless that you have been moving around a lot more than usual: not at all 9. Thoughts that you would be better off or of hurting yourself in some way: not at all Total score: 1 Source: Developed by Drs. Derrick Alfonso, Veronica Caraballo, Raul Zepeda and colleagues, with an educational fabi from [employer]. Thrive Questionnaire Date Thrive assessed: 11/03/23 I am a: Patient What is your living situation today?: I have a steady place to live Within the past 12 months, did the food you bought not last and you didn't have the money to get more?: Never true Within the past 12 months, did you worry whether your food would run out before you got money to buy more?: Never true Do you have trouble paying for medicines?: No Do you have trouble getting transportation to medical appointments?: Yes Do you have trouble paying your heating and electricity bill?: No Do you have trouble taking care of your child, family member or friend?: No Do you have trouble with day-to-day activities such as bathing, preparing meals, shopping, managing finances, etc.?: No Are you currently unemployed and looking for a job?: No Are you interested in more education?: No Please select the resources that you would like help with: Transportation Currently or been in a relationship where the following occur: I choose not to answer THRIVE Score: 1 AUDIT C Alcohol Use Questionnaire (AUDIT-C) 1. How often do you have a drink containing alcohol?: Never Total Score: 0 JOSIE-7 AMB Questionnaire JOSIE-7 Date JOSIE - 7 assessed: 11/03/23 Feeling nervous, anxious, or on edge: 0 = Not at all Not being able to stop or control worryin = Not at all Worrying too much about different things: 0 = Not at all Trouble relaxin = Not at all Being so restless that it is hard to sit still: 0 = Not at all Becoming easily annoyed or irritable: 0 = Not at all Feeling afraid as if something awful might happen: 0 = Not at all Total JOSIE-7 score (0-4 normal; 5-9 mild; 10-14 moderate; 15-21 severe): 0 Source: Developed by Drs. Derrick Alfonso, Veronica Caraballo, Raul Zepeda and colleagues, with an educational fabi from [employer]. Review of Systems Const Denies chills, Denies fatigue, Denies fever(s), Denies headache(s) and Denies weakness ENT Denies dizziness and Denies headache(s) Card Reports dyspnea Resp Reports dyspnea and Denies wheezing GI Reports nausea Musc Denies numbness and Denies tingling Neuro Denies dizziness, Denies headache(s), Denies numbness, Denies tingling, Denies paresthesias and Denies weakness Psych Denies anxiety and Denies depression Endo Denies fatigue Aller/Immun Denies wheezing Physical exam (Primary Care) Vital Signs: Last Vital Signs Temp 99.2 F 04/19/25 15:35 Pulse 79 04/19/25 15:35 Resp 16 04/19/25 15:35 BP 138/60 04/19/25 15:35 Pulse Ox 94 04/19/25 15:35 Oxygen Delivery Method Nasal Cannula 04/19/25 15:35 Oxygen Flow Rate 3 04/19/25 15:35 BMI result Body Mass Index 23.6 Tobacco/Smoking Status: Tobacco use Status Tobacco use date assessed 04/26/24 04/19/25 15:38 Patient Tobacco Use Status Current everyday Tobacco 04/19/25 15:38 Tobacco use type Cigarette 04/19/25 15:38 e-Cigarette/Vaping Use Former Use 04/19/25 15:38 PHQ-9: PHQ-9 Score PHQ-9: Total score 1 04/19/25 16:16 Thrive Assessment: Date of Thrive Assessment Date Thrive assessed 11/03/23 04/19/25 15:38 Currently or been in a relationship where the following occur: I choose not to answer Const General: no acute distress and well developed Nutritional Appearance: well nourished Orientation/consciousness: patient oriented x3 HENMT Head: Yes normocephalic and Yes atraumatic Eyes General: appearance normal, both eyes and all related structures Pupils: Equal, round and reactive pupils present EOM: EOMs intact bilaterally Resp Effort & Inspection: normal respiratory effort Auscultation: clear to auscultation bilaterally Cardio Rate: regular rate Rhythm: regular rhythm Heart sounds: S1 normal heart sound present, S2 normal heart sound present, no gallops, no murmurs and no rubs Neuro General: patient oriented x3 and gait normal Cranial nerves: Yes Equal, round and reactive pupils present Psych Affect: normal affect Coding Level of Care Code Est Pt Level 5 (86091) Diagnoses Asthma-COPD overlap syndrome J44.9 Shortness of breath R06.02 Multiple sclerosis G35 Dental abscess K04.7 Nausea R11.0 Overgrown nail L60.2 Assessment & Plan Assessment & Plan (1) Asthma-COPD overlap syndrome: Code(s): J44.9 - Chronic obstructive pulmonary disease, unspecified Category: Medical Plan: Asthma COPD overlap with ongoing shortness of breath. Following up ED visit for COPD exacerbation. EKG was within normal limits and troponin delta reassuring. Ruling out ACS. Patient reassured today. EKG today shows: Normal sinus rhythm, normal axis, no hypertrophy, no ST-T-wave changes. Continue inhaled medications Will give her a prednisone taper as she is still quite short of breath Has follow-up with pulmonology in a few weeks. (2) Shortness of breath: Code(s): R06.02 - Shortness of breath Category: Medical Plan: As above (3) Multiple sclerosis: Code(s): G35 - Multiple sclerosis Category: Medical Plan: Worsening weakness and some memory changes as well as tremor and dyskinesia. She says she has not seen her neurologist in quite some time Referred back to Neurology (4) Dental abscess: Code(s): K04.7 - Periapical abscess without sinus Category: Medical Plan: Large dental abscess right lower molar. Will give her a script for penicillin VK Follow-up with a dentist Warm saltwater gargles (5) Nausea: Code(s): R11.0 - Nausea Category: Medical Plan: Patient has frequent nausea She says she has been given ondansetron in the past. Will give her a short script for this in a encouraged her to use only sparingly. (6) Overgrown nail: Code(s): L60.2 - Onychogryphosis Category: Medical Plan He has an appointment with me at the end of next month. Also has an appointment at the beginning of next month with her rent and housing investigator. Orders: Referrals Neurology Referral G35 - Multiple sclerosis Podiatry Referral L60.2 - Onychogryphosis Medications: New ondansetron 4 mg PO DAILY PRN 12 tabs 0RF nausea and vomiting 28 days prednisone 4 tabs daily for 4 days, 3 tabs daily for 2 days, 2 tabs daily for 2 days, 1 tab daily for 2 days PO daily; 28 tabs 0RF 10 days penicillin V potassium 500 mg PO TID 30 tabs 0RF 10 days
[2025-04-19 15:35] VITALS: BP 138/60; PULSE 79; RESP 16; TEMP 37.3; O2SAT 94; BMI 23.6
--- OUTSIDE RECORDS SUMMARY | 2025-04-19 15:35 | XMS_ITS | Clinical Summary ---
Author Organization [facility] Address [address] [place] [id number] Phone Care Team Providers Care High School Coach Name Role Phone Unavailable Primary Care Provider Unavailabl e Social History Tobacco Use Types Packs/Day Years Used Date Smoking Tobacco: Never Assessed Education Answer Date Recorded Are you interested in more education? Not on kvng e 01/23/2023 Are you concerned about learning? Not on file 01/23/2023 No 01/23/2023 No 01/23/2023 Digital Access Answer Date Recorded No 02/24/2023 No 02/24/2023 No 02/24/2023 Reliable internet access at home? Not on file 02/24/2023 Device with a working camera? Not on file Comments Unknown Sex and Gender Information Value Date Recorded Sex Assigned at Not on file Legal Sex Unknown 02/10/2019 11:26 AM EDT Gender Identity Not on file Sexual Orientation Not on file Plan of Treatment Not on file Medical Devices Not on file Additional Source Comments The information contained in this document represents components of the legal health record. It is not the complete legal health record.[facility]
--- OUTSIDE RECORDS SUMMARY | 2025-04-19 15:35 | XMS_ITS | Clinical Summary ---
Author Organization [facility] Address [address] [place] [address] Care Team Providers Care Rotary Envelope Machine Operator Name Role Phone Lito Castro MD Primary Care Provider [phone] Allergies Active Allergy Reactions Criticality Noted Date Comments Aspirin 09/04/2021 No reaction documented. Blue Dyes (Parenteral) Anaphylaxis High 03/14/2013 Ciprofloxacin Swelling 07/24/2021 Ciprofloxacin-Hydrocorti sone 09/04/2021 No reaction documented. Clarithromycin 10/22/2021 Dicyclomine 10/22/2021 Fd&C Blue #1 ([place] Blue) Anaphylaxis High 07/24/2021 Nsaids Nausea And Vomiting 05/13/2013 Paroxetine 09/04/2021 No reaction documented. Penicillins 03/14/2013 Infliximab High 07/24/2021 Sulfa Antibiotics 03/14/2013 Medications Medication Sig Dispensed Refills Start Date End Date Status salmeterol (SEREVENT) 50 MCG/DOSE diskus inhaler Inhale 1 inhalation. into the lungs 2 (two) times a day. 0 Active ipratropium (ATROVENT) 0.02 % nebulizer solution Take 2.5 mL (500 mcg total) by nebulization 4 (four) times a day. 0 Active fluticasone (FLONASE) 50 MCG/ACT nasal spray spray/apply 1 spray in each nostril daily. 0 Active cyanocobalamin (VITAMIN B12) 1000 MCG/ML injection Inject 1 mL (1,000 mcg total) into the muscle once a week. 0 Active tiotropium (SPIRIVA) [address] 1 capsule (18 mcg total) into inhaler and inhale daily. 0 Active Lidocaine 1.8 % PTCH Apply topically as needed. 0 Active psyllium (METAMUCIL) 58.6 % packet Take 1 packet by mouth daily. 0 Active traZODone (DESYREL) 25 MG split tablet Take 3 split tablet (75 mg total) by mouth every night at bedtime. 0 Active folic acid (FOLVITE) tablet 1 mg Take 1 tablet (1 mg total) by mouth daily. 0 Active LORazepam (ATIVAN) 0.5 MG tablet Take 1 tablet (0.5 mg total) by mouth every 8 (eight) hours as needed. 0 Active nystatin (MYCOSTATIN) 109904 UNIT/ML suspension Take 5 mL (500,000 Units total) by mouth 4 (four) times a day. 0 Active Diclofenac-Na Hyaluron-Niacin 3-2-4 % GEL Apply topically. 0 Active valACYclovir (VALTREX) 1000 MG tablet Take 1 tablet (1,000 mg total) by mouth. 0 10/30/2017 Active ProAir HFA 108 (90 Base) MCG/ACT inhaler TAKE 2 PUFFS BY MOUTH EVERY 2 HRS NEEDED FOR WHEEZING 0 04/10/2022 Active famotidine (PEPCID) 20 MG tablet 0 04/19/2022 Active hydrOXYzine (VISTARIL) 25 MG capsule TAKE 1 CAPSULE BY MOUTH ONCE A DAY NEEDED FOR ANXIETY, ITCHING 0 04/10/2022 Active Lactase Enzyme 3000 units tablet 0 04/17/2022 Active Xiidra 5 % SOLN Place 1 drop into both eyes 2 (two) times a day. 0 04/10/2022 Active Slow-Mag 71.5-119 MG TBEC Take 1 tablet by mouth 2 (two) times a day. 0 03/24/2022 Active nicotine polacrilex (COMMIT) 4 MG lozenge 4 MG BUCCAL EVERY 8 HOURS 30 DAYS NEEDED FOR NICOTINE CRAVINGS 0 02/05/2022 Active Calcium Polycarbophil (FIBER-CAPS PO) Take by mouth. 0 Activ e SUMAtriptan (IMITREX) 50 MG tablet 1 po qd prn migraine 10 tablet 5 01/30/2023 Active Lactobacillus-Inuli n ([facility]) CAPS 0 10/29/2023 Active gabapentin (NEURONTIN) 600 MG tablet Take 1 tablet (600 mg total) by mouth 3 (three) times a day. 90 tablet 5 02/02/2024 Active D3-1000 25 MCG (1000 UT) capsule 1 po qd 60 capsule 5 03/02/2024 Active Donepezil HCl 23 MG TABS Take 1 tablet by mouth daily. 30 tablet 5 03/07/2024 Active memantine (NAMENDA) 5 MG tablet Take 1 tablet (5 mg total) by mouth 2 (two) times a day. 180 tablet 5 03/07/2024 Active tiZANidine (ZANAFLEX) 2 MG capsule 1 tablets in morning 1 tablet afternoon and 2 tablets at night 120 capsule 3 07/01/2024 Active Active Problems Problem Noted Date Diagnosed Date Multiple sclerosis 11/25/2021 Family History Medical History Relation Name Comments Alzheimer's disease Father Lymphoma Father Diabetes Mother Heart attack Mother Multiple sclerosis Neg Hx Relation Name Status Comments Father Mother Social History Tobacco Use Types Packs/Day Years Used Date Smoking Tobacco: Every Day Cigarettes 1 Smokeless Tobacco: Never Tobacco Cessation:Ready to Q uit: Not Asked; Counseling Given: Not Answered Alcohol Use Standard Drinks/Week Comments Yes 0 (1 standard drink = 0.6 oz pur e alcohol) Social Sex and Gender Information Value Date Recorded Sex Assigned at Female 07/24/2021 10:45 AM EDT Gender Identity Not on file Sexual Orientation Not on file Job Start Date Occupation Industry Not on file Not on file Not on file Last Filed Vital Signs Vital Sign Reading Time Taken Comments Blood Pressure 161/84 07/01/2024 11:35 AM EDT Pulse 85 07/01/2024 11:35 AM EDT Temperature 35.6 C (96 F) 01/19/2024 1:21 PM EDT Respiratory Rate 20 01/05/2024 3:42 PM EDT Oxygen Saturation 94% 01/19/2024 1:21 PM EDT Inhaled Oxygen Concentration - - Weight 71.7 kg (158 lb) 01/19/2024 1:21 PM EDT Height 170.2 cm (5' 7 ) 01/19/2024 1:21 PM EDT Body Mass Index 24.75 01/19/2024 1:21 PM EDT Plan of Treatment Health Maintenance Due Date Last Done Comments Hepatitis C Screening 1960 COVID-19 Vaccine (#1) 07/02/1959 Depression Screening 1970 BMI Counseling 1976 Preventative Health Evaluation 1976 Tobacco Cessation Counseling 1976 DTap / Tdap / Td (1 - Tdap) 1977 Colon Cancer Screening (Colonoscopy) 01/01/2004 Breast Cancer Screening (Mammogram) 2008 Shingrix-Zoster Vaccine (1 of 2) 2008 Pneumococcal Vaccine (2 of 2 - PCV) 08/12/2014 08/12/2013 Fall Risk Assessment 01/01/2024 Osteoporosis Screening (DEXA Scan) 01/01/2024 Influenza Vaccine (#1) 2025 RSV Adult > 60+ Yrs or Pregn ant (1 - 1-dose 75+ series) 2033 Hepatitis B Vaccines Aged Out No long er eligible based on patient's age to complete this topic RSV Ped < 20 months Aged Out No longe r eligible based on patient's age to complete this topic Care Teams Rotary Envelope Machine Operator Relationship Specialty Start Date End Date Lito Castro MD [address] [place] [id number] PCP - General Family Medicine 04/28/22
== END 2025-04-19 16:35 | disposition home or self-care (01) ==
PROVIDERS: PCP Family Medicine; Visit Provider Family Medicine
DX: J44.9 Chronic obstructive pulmonary disease, unspecified (principal); R06.02 Shortness of breath; G35 Multiple sclerosis; K04.7 Periapical abscess without sinus; R11.0 Nausea; L60.2 Onychogryphosis

== ENCOUNTER → 2025-04-19 14:58 | Outpatient (BNVA) | payer MEDICARE, SELFPAY | PROVIDERS: PCP Student in an Organized Health Care Education/Training Program; Visit Provider Family Medicine | DX: J44.9 Chronic obstructive pulmonary disease, unspecified (principal); R06.02 Shortness of breath; G35 Multiple sclerosis; K04.7 Periapical abscess without sinus; R11.0 Nausea; L60.2 Onychogryphosis | CPT/HCPCS: 99212 ==

== ENCOUNTER 2025-05-08 14:09 | Outpatient (AMB) | payer MEDICARE, MEDICAID, SELFPAY ==
--- OUTSIDE RECORDS SUMMARY | 2024-07-01 11:25 | XMS_ITS | Encounter Summary ---
Author Organization Jayda [facility] [place] [address] Care Team Providers Care Dentofacial Orthopedics Dentist Name Role Phone Lito Castro MD Primary Care Provider [phone] Encounter Details Date Type Department Care Team (Late st Contact Info) Description 07/01/2024 11:25 AM EDT Hospital Encounter TH HISTORIC ENCOUNTERS [facility] ONLY Vijay Grissom MD [address] [facility] 150 [place] [address] Social History Tobacco Use Types [...] Grissom MD - 07/01/2024 11:00 AM EDT [facility] Cc: MS HPI: Patient [...] tablet, , Disp: , Rfl: ??? Lactobacillus-Inulin ([facility] Digestive [facility]) CAPS, , Disp: , Rfl: ??? [...] CRAVINGS, Disp: , Rfl: ??? nystatin (MYCOSTATIN) [id number] UNIT/ML suspension, Take 5 mL (500,000 Units [...] She had multiple hospitalization with COVID[facility]COVID[facility]neumonia at [facility] lastmonth she is also been having [...] diagnostic plan: -Will hold off Ocrevus per [facility] protocol and we discussed in the beginning of July after her GI evaluation MRI brain with and without contrast on annual basis to ensure radiological stability B. Symptomatic therapy plan: Gait and balance: Continue home PT/OT Urinary urgency: Will refer to a urologist for evaluation Mood changes: Continue with [facility] for behavioral health services Cognitive [...] 40 minutes. The majority of the actual oqfy-dz-yvtb visit was spent counseling the patient with respect to the current neurological picture. Vijay Grissom MD documented in this encounter Plan of Treatment Upcoming Encounters Date Type Department Care Team (Late st Contact Info) Description 05/23/2025 11:00 AM EDT Office Visit Gastroenterology - [place] [address] [phone] Marcelino Clark MD 175 [facility] 200 [place] [address] 07/17/2025 1:15 PM EDT Office Visit Orthopedic Surgery - [place] [address] [phone] Maulik Walter DPLonnie [address] [address] documented as of this encounter Visit Diagnoses Not on filedocumented in this encounter Care Teams Dentofacial Orthopedics Dentist Relationship Specialty Start Date End Date Lito Castro MD [address] [place] [address] Dr Carter [facility] JEFFERSON Mireles PCP - General 07/01/24 08/08/24 documented as of this encounter
[2025-05-08 14:14] VITALS: BP 128/62; PULSE 118; O2SAT 91; BMI 26.0
--- NOTE | 2025-05-08 14:14 | MHC.OFFVIS ---
Vital Signs 05/08/25 14:14 Height 5 ft 3 in Weight 147 lb BMI 26.0 BP 128/62 Blood Pressure Location Rt brachial Position Sitting Pulse 118 H Pulse Source Pulse Oximeter Pulse Oximetry (%) 91 L Oxygen Delivery Method Nasal Cannula Oxygen Flow Rate 2 Intake Visit Reasons: copd Allergies blue dye (BLUE DYE) Allergy (Unknown, Verified 05/08/25 14:27) ANAPHYLAXIS escitalopram (From LEXAPRO) Allergy (Unknown, Verified 05/08/25 14:27) UNKNOWN infliximab (From REMICADE) Allergy (Unknown, Verified 05/08/25 14:27) EXACERBATES MS naproxen (NAPROXEN) Allergy (Unknown, Verified 05/08/25 14:27) SWELLING ALL NSAIDS NSAIDS (Non-Steroidal Anti-Inflamma (NSAIDS (NON-STEROIDAL ANTI-INFLAMMA) Allergy (Unknown, Verified 05/08/25 14:27) ABDOMINAL PAIN olanzapine (OLANZAPINE) Allergy (Unknown, Verified 05/08/25 14:27) UNKNOWN paroxetine (From PAXIL) Allergy (Unknown, Verified 05/08/25 14:27) DIZZINESS prednisone (PREDNISONE) Allergy (Unknown, Verified 05/08/25 14:27) HALLUCINATIONS with high doses Sulfa (Sulfonamide Antibiotics) (SULFA (SULFONAMIDE ANTIBIOTICS)) Allergy (Unknown, Verified 05/08/25 14:27) HIVES sulfasalazine (From Azulfidine) Allergy (Verified 05/08/25 14:27) Hives aspirin (ASPIRIN) Adverse Reaction (Unknown, Verified 05/08/25 14:27) STOMACH UPSET ciprofloxacin (From CIPRO) Adverse Reaction (Unknown, Verified 05/08/25 14:27) SKIN PEELING clarithromycin (From Biaxin) Adverse Reaction (Verified 05/08/25 14:27) Abdominal Pain ENVIRONMENTAL Allergy (Unknown, Uncoded 12/08/23 15:17) CATS,DOGS,HORSES,MOLD-RED SKIN,FACIAL SWELLING HPI HPI copd: Details: 64-year-old, active 40+ pack-year recent smoker, now also vapes marijuana, followed for underlying severe obstructive sleep apnea and moderate persistent asthma. Patient is using BrezTri previously with good control of her underlying symptoms.? She was tried on Dupixent, however she was not able to tolerate it.? Patient continues to follow-up with her humidifier attendant. Patient has recent hospitalization for COPD exacerbation and is still continuing to recover from it. PFSH Medical History OCD (obsessive compulsive disorder) History of dysphagia Neuropathy YOHAN (obstructive sleep apnea) Smoker Asthma-COPD overlap syndrome Annual physical exam Dementia Thumb pain Lumbar arthropathy Polyarthritis History of posttraumatic stress disorder (PTSD) Right shoulder pain History of cervical fracture VÁSQUEZ (nonalcoholic steatohepatitis) Bladder cancer Multiple sclerosis Migraines, neuralgic IBS (irritable colon syndrome) Crohn's disease Surgical History History of arthroplasty of right shoulder (05/07/22) Hx of cholecystectomy History of carpal tunnel surgery of right wrist (~05/2021) History of bladder surgery Hx of endoscopy (08/07/11) Hx of colonoscopy (08/07/11) Hx of foot surgery (04/25/14) History of resection of terminal ileum History of adenoidectomy Hx of tonsillectomy Hx of breast augmentation Family History Father Alzheimer disease Lymphoma Cancer Mother Lung cancer Sudden cardiac Cancer CVD (cardiovascular disease) Paternal Grandfather Colon cancer Cancer Maternal Grandfather Sudden cardiac CVD (cardiovascular disease) Social History Household Members: None Household Members Other:: ALONE DISABLED SINCE AROUND 2015 DUE TO MS Housing: Apartment Are you a primary respiratory care program director to a significant other at home: No Do you presently have visiting nurse or other home services: No Alcohol intake: current Alcohol intake frequency: holidays/special occasions only Alcohol type: hard liquor Patient Tobacco Use Status: Current everyday Tobacco user Tobacco use type: Cigarette Cigarette Packs Per Day: 0.5 Cigarettes Per Day: 2 Years Smoked: 47 e-Cigarette/Vaping Use: Former Use Second Hand Smoke Exposure: No Substance Use Type: Marijuana service: No Current occupational status: disabled Current occupational exposures/hazards: No Cognitive needs: No Hearing needs: No Vision needs: No Review of Systems Const Denies daytime sleepiness, Denies excessive sweating, Denies fatigue, Denies fever(s), Denies lethargy, Denies malaise, Denies night sweats, Denies snoring and Denies weight loss Eyes Denies blurry vision and Denies itchy eyes ENT Denies nasal congestion, Denies post nasal drip, Denies sinus pain, Denies sinus pressure and Denies other ( Thrush) Card Denies chest pain, Denies pedal edema, Denies dyspnea, Denies orthopnea and Denies paroxysmal nocturnal dyspnea Resp Denies cough, Denies hemoptysis, Denies excessive phlegm production, Denies dyspnea, Denies snoring and Denies wheezing GI Denies abdominal pain and Denies heartburn Musc Denies myalgias, Denies arthralgias and Denies joint swelling Skin/Breast Denies rash Neuro Denies memory loss and Denies seizure-like activity Psych Denies abnormal sleep pattern, Denies anxiety and Denies memory loss Endo Denies excessive sweating, Denies fatigue and Denies heat intolerance Arian/Lymph Denies easy bruising Aller/Immun Denies itchy eyes, Denies seasonal rhinorrhea and Denies wheezing Physical Exam Vital Signs: Last Vital Signs Pulse 118 H 05/08/25 14:14 BP 128/62 05/08/25 14:14 Pulse Ox 91 L 05/08/25 14:14 Oxygen Delivery Method Nasal Cannula 05/08/25 14:14 Oxygen Flow Rate 2 05/08/25 14:14 BMI result Body Mass Index 26.0 Const General: no acute distress and alert Nutritional Appearance: not obese Orientation/consciousness: Other orientation findings ( oriented) HEENT Head: Yes atraumatic Eyes General: appearance normal, both eyes and all related structures Sclerae: sclerae normal EOM: EOMs intact bilaterally Neck Neck: Yes supple Lymphatic: no lymphadenopathy noted Resp Effort & Inspection: normal respiratory effort and no use of accessory muscles Auscultation: clear to auscultation bilaterally Cardio Rate: regular rate Rhythm: regular rhythm Heart sounds: no gallops, no murmurs and no rubs Skin General skin exam: other ( warm) Extrem General: No clubbing, No cyanosis and No edema Assessment & Plan Assessment & Plan (1) Asthma-COPD overlap syndrome: Code(s): J44.9 - Chronic obstructive pulmonary disease, unspecified Category: Medical Plan: Severe COPD now suboptimally controlled on Breztri, duo nebs, and albuterol MDI. Will add Brovana. Will refer to Pulmonary rehab. (2) Supplemental oxygen dependent: Code(s): Z99.81 - Dependence on supplemental oxygen Category: Medical Plan: Continue supplemental oxygen to maintain saturation of 89-92%. (3) Tobacco dependence: Code(s): F17.200 - Nicotine dependence, unspecified, uncomplicated Category: Medical Plan: Will refer to lung cancer screening program. Orders: Orders PFT pulmonary function test Today J44.9 - Chronic obstructive pulmonary disease, unspecified Pulmonary Rehab Today J44.9 - Chronic obstructive pulmonary disease, unspecified Coding Level of Care Code Est Pt Level 4 (95537) Complex EM visit Add On G2211 Diagnoses Asthma-COPD overlap syndrome J44.9 Supplemental oxygen dependent Z99.81 Tobacco dependence F17.200
--- OUTSIDE RECORDS SUMMARY | 2025-05-08 14:39 | XMS_ITS | Clinical Summary ---
Author Organization [facility] Address [address] [facility] [facility] [address] [facility] [address] [place] [phone] Phone Care Team Providers Care Corporate Development Manager Name Role Phone Unavailable Primary Care Provider [...] It is not the complete legal health record.[facility]
--- OUTSIDE RECORDS SUMMARY | 2025-05-08 14:39 | XMS_ITS | Clinical Summary ---
Author Organization [facility] Address [address] [place] [address] Care Team Providers Care Carpenter Assistant Installer Name Role Phone Lito Castro MD Primary Care Provider [phone] Allergies Active Allergy Reactions Criticality Noted Date Comments Aspirin 09/04/2021 No reaction documented. Blue Dyes (Parenteral) Anaphylaxis High 03/14/2013 Ciprofloxacin Swelling 07/24/2021 Ciprofloxacin-Hydrocorti sone 09/04/2021 No reaction documented. Clarithromycin 10/22/2021 Dicyclomine 10/22/2021 Fd&C Blue #1 (Limestone Blue) Anaphylaxis High 07/24/2021 Nsaids Nausea And [...] hours as needed. 0 Active nystatin (MYCOSTATIN) 825154 UNIT/ML suspension Take 5 mL (500,000 Units [...] 10 tablet 5 01/30/2023 Active Lactobacillus-Inuli n ([facility]) CAPS 0 10/29/2023 Active gabapentin (NEURONTIN) 600 [...] age to complete this topic Care Teams Carpenter Assistant Installer Relationship Specialty Start Date End Date Lito Castro MD [address] [place] [id number] PCP - General Family Medicine 04/28/22
--- OUTSIDE RECORDS SUMMARY | 2025-05-08 14:40 | XMS_ITS ---
Author Name [facility] Organization Unknown History of Medication Use Medication Directions Dispensed Refills Start Date End Date Stat us donepeziL (ARICEPT) 23 mg tablet TAKE 1 TABLET (23 MG TOTAL) BY MOUTH 1 (ONE) TIME EACH DAY. 03/08/2025 active cholecalciferol (VITAMIN D-3) 25 mcg (1,000 unit) capsule Take 1 capsule (1,000 Units total) by mouth 1 (one) time each day. 03/07/2025 active gabapentin (NEURONTIN) 600 mg tablet Take 1 tablet (600 mg total) by mouth 3 (three) times a day. Take 1 tablet (600 mg total) by mouth 3 (three) times a day. 03/07/2025 active tiZANidine (ZANAFLEX) 2 mg tablet TAKE 1 TABLET BY MOUTH EVERY MORNING , TAKE 1 TABLET BY MOUTH IN THE AFTERNOON AND TAKE 2 TABLETS BY MOUTH EVERY EVENING 03/07/2025 active acetaminophen (TYLENOL) 500 mg tablet TAKE 1 TABLET BY MOUTH EVERY SIX HOURS NEEDED FOR PAIN 03/01/2025 active clotrimazole (LOTRIMIN) 1 % cream Apply topically 2 (two) times a day. 03/01/2025 active hydrOXYzine HCL (ATARAX) 25 mg tablet Take 1 tablet (25 mg total) by mouth every 8 (eight) hours if needed for anxiety. 03/01/2025 active nutritional supplement-fiber liquid Take 1 each by mouth 2 (two) times a day. 11/28/2024 active diclofenac-hyaluronate -niacin 3-2-4 % gel Apply 2 g topically 4 (four) times a day if needed (pain). 10/25/2024 active famotidine (PEPCID) 20 mg tablet TAKE 1 TABLET BY MOUTH TWICE A DAY 09/22/2024 active mesalamine (CANASA) 1,000 mg suppository UNWRAP AND INSERT 1 SUPPOSITORY RECTALLY AT BEDTIME 09/22/2024 active cholestyramine light (Prevalite) 4 gram packet Take 1 packet (4 g total) by mouth 3 (three) times a day after meals. 09/07/2024 active budesonide 9 mg tablet,delayed and ext.release TAKE 1 TABLET BY MOUTH DAILY 08/30/2024 active cholestyramine (QUESTRAN) 4 gram powder Take 1 packet (4 g total) by mouth 2 (two) times a day with meals. Dissolve in 8 oz of liquid and drink before a meal 08/04/2024 active Breztri Aerosphere 160-9-4.8 mcg/actuation HFA aerosol inhaler inhaler 03/18/2024 active tiZANidine (ZANAFLEX) 2 MG capsule 1 po qd in am 05/15/2023 active Donepezil HCl 23 MG TABS Take 1 tablet by mouth daily. 02/10/2023 active gabapentin (NEURONTIN) 600 MG tablet Take 1 tablet (600 mg total) by mouth 3 (three) times a day. 02/10/2023 active SUMAtriptan (IMITREX) 50 MG tablet 1 po qd prn migraine 01/30/2023 active Lactase Enzyme 3000 units tablet 04/17/2022 active lifitegrast (Xiidra) 5 % dropperette 1 drop. 04/10/2022 active Slow-Mag 71.5-119 MG TBEC Take 1 tablet by mouth 2 (two) times a day. 03/24/2022 active nicotine polacrilex (COMMIT) 4 MG lozenge 4 MG BUCCAL EVERY 8 HOURS 30 DAYS NEEDED FOR NICOTINE CRAVINGS 02/05/2022 active memantine (NAMENDA) 5 mg tablet Take 1 tablet (5 mg total) by mouth 2 (two) times a day. 11/04/2021 active salmeteroL (SEREVENT) 50 mcg/dose diskus inhaler Inhale 1 puff by mouth. 11/04/2021 active SUMAtriptan (IMITREX) 50 mg tablet Take 1 tablet (50 mg total) by mouth every 2 hours as needed. 11/04/2021 active QUEtiapine (SEROquel) 25 mg tablet 10/28/2021 active hydrOXYzine pamoate (VISTARIL) 25 mg capsule TAKE 1 CAPSULE BY MOUTH ONCE A DAY NEEDED FOR ANXIETY, ITCHING 10/27/2021 active lactase (LACTAID) 3,000 unit tablet 10/12/2021 active tiotropium (SPIRIVA) 18 mcg per inhalation capsule Place 1 capsule (18 mcg total) into inhaler and inhale. 10/03/2021 active folic acid (FOLVITE) 1 mg tablet Take 1 tablet (1 mg total) by mouth. 09/02/2021 active valACYclovir (VALTREX) 1 gram tablet Take 1 tablet (1,000 mg total) by mouth. 06/18/2014 active ketoconazole (NIZORAL) 2 % shampoo SHAMPOO TWICE A WEEK UNTIL CLEAR 02/10/2014 active albuterol HFA (PROAIR HFA ; PROVENTIL HFA ; VENTOLIN HFA) 90 mcg/actuation inhaler Inhale 2 puffs by mouth. 06/23/2013 active Calcium Polycarbophil (FIBER-CAPS PO) Take by mouth. activ e cyanocobalamin (VITAMIN B-12) 1,000 mcg/mL injection Inject 1 mL (1,000 mcg total) into the shoulder, thigh, or buttocks. active fluticasone propionate (FLONASE) 50 mcg/actuation nasal spray 1 spray. active ipratropium (ATROVENT) 0.02 % nebulizer solution 2.5 mL (0.5 mg total). active lidocaine 1.8 % adhesive patch,medicated Apply topically. act janina LORazepam (ATIVAN) 0.5 mg tablet Take 1 tablet (0.5 mg total) by mouth every 8 hours as needed. active LORazepam (ATIVAN) 0.5 MG tablet Take 1 tablet (0.5 mg total) by mouth every 8 (eight) hours as needed. active multivitamin tablet Take 1 tablet by mouth 1 (one) time each day. active psyllium (METAMUCIL) 3.4 gram packet Take 1 packet by mouth. active psyllium (METAMUCIL) 58.6 % packet Take 1 packet by mouth daily. active salmeterol (SEREVENT) 50 MCG/DOSE diskus inhaler Inhale 1 inhalation. into the lungs 2 (two) times a day. active tiotropium (SPIRIVA) [address] 1 capsule (18 mcg total) into inhaler and inhale daily. active vitamin C tablet Take 1 tablet (100 mg total) by mouth. active Allergies Allergen Reaction Severity Comment Documented Date Source Status DICYCLOMINE 10/22/2021 [facility] active PAROXETINE No reaction documented. 09/04/2021 [facility] active FD AND C BLUE NO.1 ALUMINUM RAMIREZ ANAPHYLAXIS 07/24/2021 [facility] active NSAIDS NAUSEA AND VOMITING 05/13/2013 [facility] active NSAIDS (NON-STEROIDAL ANTI-INFLAMMATORY DRUG) NAUSEA AND VOMITING 05/13/2013 [facility] active SULFA (SULFONAMIDE ANTIBIOTICS) 03/14/2013 [facility] active SULFA ANTIBIOTICS 03/14/2013 [facility] ac tive ASPIRIN No reaction documented. [facility] BLUE DYE ANAPHYLAXIS [facility] BLUE DYES (PARENTERAL) ANAPHYLAXIS [facility] CIPROFLOXACIN SWELLING [facility] CIPROFLOXACIN-HYDR OCORTISONE No reaction documented. [facility] CLARITHROMYCIN [facility] FD&C BLUE #1 (BRILLIANT BLUE [facility]) ANAPHYLAXIS [facility] FD&C BLUE #1 (BRILLIANT BLUE) ANAPHYLAXIS [facility] INFLIXIMAB [facility] PENICILLINS [facility] Problems Problem Status Onset Date Problem Type Date of Resoluti on Source Multiple sclerosis active 2021-11-25 [facility]Act [facility]
== END 2025-05-08 14:42 | disposition home or self-care (01) ==
LOC: HO.HPS 14:10
PROVIDERS: PCP Student in an Organized Health Care Education/Training Program; Visit Provider Internal Medicine Pulmonary Disease
DX: J44.9 Chronic obstructive pulmonary disease, unspecified (principal); Z99.81 Dependence on supplemental oxygen; F17.200 Nicotine dependence, unspecified, uncomplicated
CPT/HCPCS: 99214; G2211

== ENCOUNTER → 2025-05-08 14:09 | Outpatient (BNVA) | payer MEDICARE, MEDICAID, SELFPAY | PROVIDERS: PCP Student in an Organized Health Care Education/Training Program; Visit Provider Internal Medicine Pulmonary Disease | DX: J44.89 Other specified chronic obstructive pulmonary disease (principal); Z99.81 Dependence on supplemental oxygen; F17.200 Nicotine dependence, unspecified, uncomplicated; Z79.899 Other long term (current) drug therapy | CPT/HCPCS: 99212 ==

== ENCOUNTER 2025-05-12 14:17 | Emergency (ER) | payer MEDICARE, MEDICAID, SELFPAY ==
--- OUTSIDE RECORDS SUMMARY | 2024-07-01 11:25 | XMS_ITS | Encounter Summary ---
Author Organization Jayda [facility] [place] [address] Care Team Providers Care Semiconductor Package Symbol Stamper Name Role Phone Lito Castro MD Primary Care Provider [phone] [phone] Encounter Details Date Type Department Care Team (Late st Contact Info) Description 07/01/2024 11:25 AM EDT Hospital Encounter TH HISTORIC ENCOUNTERS [facility] ONLY Vijay Grissom MD [address] [facility] [address] [place] [address] Social History Tobacco Use Types Packs/Day Years [...] in this encounter Progress Notes * Vijay Grisosm MD - 07/01/2024 11:00 AM EDT [facility] Cc: MS HPI: [...] tablet, , Disp: , Rfl: ??? Lactobacillus-Inulin ([facility] Digestive [facility]) CAPS, , Disp: , Rfl: ??? [...] CRAVINGS, Disp: , Rfl: ??? nystatin (MYCOSTATIN) [id number] UNIT/ML suspension, Take 5 mL (500,000 Units [...] She had multiple hospitalization with COVID/COVID-pneumonia at [facility] lastmonth she is also been having [...] diagnostic plan: -Will hold off Ocrevus per [facility] protocol and we discussed in the beginning of July after her GI evaluation MRI brain with and without contrast on annual basis to ensure radiological stability B. Symptomatic therapy plan: Gait and balance: Continue home PT/OT Urinary urgency: Will refer to a urologist for evaluation Mood changes: Continue with [facility] for behavioral health services Cognitive concerns: Neuropsych [...] 40 minutes. The majority of the actual matq-gr-kdzr visit was spent counseling the patient with respect to the current neurological picture. Vijay Grissom MD documented in this encounter Plan of Treatment Upcoming Encounters Date Type Department Care Team (Late st Contact Info) Description 05/23/2025 11:00 AM EDT Office Visit Gastroenterology - [place] 175 [facility] 175 [facility] 200 [place] [phone] Marcelino Clark MD 175 [facility] 200 [place] [address] 07/04/2025 3:30 PM EDT Office Visit [facility] [address] [place] [phone] Yolande Napier PA 175 [facility] [address] [place] [address] 07/17/2025 1:15 PM EDT Office Visit Orthopedic Surgery - [place] [address] [facility] [address] [place] [phone] Maulik Walter DPM 175 [facility] [address] [place] [address] documented as of this encounter Visit Diagnoses Not on filedocumented in this encounter Care Teams Semiconductor Package Symbol Stamper Relationship Specialty Start Date End Date Lito Castro MD [address] [place] [address] Dr Carter [facility] JEFFERSON Mireles PCP - General 07/01/24 08/08/24 documented as of this encounter
[2025-05-12 14:37] VITALS: BP 158/67; PULSE 82; RESP 22; TEMP 36.9; O2SAT 99; BMI 23.5
[2025-05-12 14:42] VITALS: BP 165/86; PULSE 82; O2SAT 96
--- OUTSIDE RECORDS SUMMARY | 2025-05-12 14:55 | XMS_ITS | Clinical Summary ---
Author Organization [facility] Address [address] [place] [address] Care Team Providers Care Rides Supervisor Name Role Phone Lito Castro MD Primary Care Provider [phone]- [phone] Allergies Active Allergy Reactions Criticality Noted Date Comments Aspirin 09/04/2021 No reaction documented. Blue Dyes (Parenteral) Anaphylaxis High 03/14/2013 Ciprofloxacin Swelling 07/24/2021 Ciprofloxacin-Hydrocorti sone 09/04/2021 No reaction documented. Clarithromycin 10/22/2021 Dicyclomine 10/22/2021 Fd&C Blue #1 ([place]ather[place] Blue) Anaphylaxis High 07/24/2021 Nsaids Nausea And [...] hours as needed. 0 Active nystatin (MYCOSTATIN) 467465 UNIT/ML suspension Take 5 mL (500,000 Units [...] 5 01/30/2023 Active Lactobacillus-Inuli n ([facility]) CAPS 0 10/29/2023 Active gabapentin (NEURONTIN) 600 [...] age to complete this topic Care Teams Rides Supervisor Relationship Specialty Start Date End Date Lito Castro MD [address] [place] [phone] PCP - General Family Medicine 04/28/22
--- OUTSIDE RECORDS SUMMARY | 2025-05-12 14:55 | XMS_ITS | Clinical Summary ---
Author Organization [facility] Address [address] [facility] [address] [place] [phone] Phone Care Team Providers Care Client Liaison Name Role Phone Unavailable Primary Care Provider [...] It is not the complete legal health record.[facility]
--- NOTE | 2025-05-12 16:13 | ED.SOB ---
HPI - SOB/Dyspnea General Chief Complaint: Dyspnea Stated Complaint: SOB,'LONG-TERM COVID' PER EMS Time Seen by Provider: 05/12/25 14:42 History of Present Illness ED Provider: Natalio Ndiaye MD HPI Narrative: [age] female who presents subjectively telling me her shortness of breath is worsening but has no distress or hypoxia. She was recently increased on to 4 L nasal cannula on Thursday by pulmonology here Dr. Barnes off. Patient denies hemoptysis, fever chest pain and she has been taking the medications as prescribed since discharge. Related Data Home Medications ?Medication ?Instructions ?Recorded ?Confirmed donepezil 23 mg tablet 23 mg PO BEDTIME 06/27/20 04/19/25 lorazepam 0.5 mg tablet 0.5 mg PO BID PRN Muscle Spasm 06/27/20 04/19/25 trazodone 50 mg tablet 75 mg PO BEDTIME 03/15/21 04/19/25 epinephrine 0.3 mg/0.3 mL 0.3 ml IM ONCE PRN Allergic 07/22/21 04/19/25 injection, auto-injector Reaction sumatriptan succinate 50 mg tablet 50 mg PO NEEDED PRN Migraine 07/22/21 04/19/25 Headache albuterol sulfate 0.63 mg/3 mL 0.63 mg inhalation Q4-6H PRN 04/23/22 04/19/25 solution for nebulization Wheezing lifitegrast 5 % eye drops in a 1 drp ophthalmic (eye) BID 04/23/22 04/19/25 dropperette (Xiidra) mesalamine 1,000 mg rectal 1,000 mg NV BEDTIME PRN rectal 04/23/22 04/19/25 suppository bleeding, pain triamcinolone acetonide 0.1 % 1 appl topical BID 05/02/22 04/19/25 lotion cetirizine 10 mg tablet 10 mg PO DAILY 07/31/22 04/19/25 Previous Rx's ?Medication ?Instructions ?Recorded naloxone 4 mg/actuation nasal 4 mg intranasal Q2M PRN opioid 11/27/20 spray (Narcan) overdose 1 day #2 ea diclofenac sodium 1 % topical gel 2 g topical .QD #100 grams 12/05/20 prochlorperazine 25 mg rectal 25 mg NV TID PRN for 03/27/21 suppository (Compro) nausea/vomiting #90 supp miscellaneous medical supply 1 ea miscellaneous DAILY 99 days 04/15/21 #2 ea syringe with needle, safety 3 mL #100 ea 03/03/22 25 gauge x 5/8 (BD Integra Syringe) gabapentin 600 mg tablet 600 mg PO TID 30 days #90 tabs 06/26/22 incontinence pad, liner, disp #104 ea 09/12/22 miscellaneous medical supply See Rx Instructions miscellaneous 11/14/22 .COMPLEX 90 days #180 ea cholecalciferol (vitamin D3) 25 25 mcg PO DAILY 30 days #30 caps 01/12/23 mcg (1,000 unit) capsule (Vitamin D3) famotidine 20 mg tablet 20 mg PO BID #180 tabs 02/04/23 fluticasone propionate 50 2 spray intranasal BID 30 days #16 02/04/23 mcg/actuation nasal grams spray,suspension loperamide 2 mg tablet 2 mg PO QID PRN loose stool 30 12/08/23 days #120 tabs food supplemt, lactose-reduced 1 ea PO DAILY #7,200 mL 04/26/24 (Ensure Original oral liquid) ipratropium bromide 42 mcg (0.06 2 spray intranasal TID-QID PRN for 06/23/24 %) nasal spray allergies #15 mL valacyclovir 1 gram tablet 1,000 mg PO BEDTIME #90 tabs 09/22/24 albuterol sulfate 90 mcg/actuation 2 puff inhalation Q4-6H PRN 01/19/25 aerosol inhaler (Ventolin HFA) shortness of breath or wheezing 30 days #1 ea lactase 3,000 unit tablet 3,000 unit PO QID #240 tabs 01/19/25 magnesium chloride 71.5 mg 71.5 mg PO BID #180 tabs 01/19/25 (magnesium chloride) tablet,delayed release nystatin 100,000 unit/mL oral 5 ml PO TID oral candidasis 7 days 01/19/25 suspension #105 mL ipratropium 0.5 mg-albuterol 3 mg 3 ml inhalation Q4-6H PRN wheezing 03/14/25 (2.5 mg base)/3 mL nebulization #360 mL soln Lactobacillus rhamnosus GG 10 1 cap PO DAILY 90 days #90 caps 03/31/25 billion cell-inulin 200 mg capsule ([facility]) megestrol 20 mg tablet 20 mg PO DAILY 30 days #30 tabs 03/31/25 memantine 5 mg tablet 5 mg PO BID 90 days #180 tabs 04/08/25 ondansetron 4 mg disintegrating 4 mg PO DAILY PRN nausea and 04/19/25 tablet vomiting 28 days #12 tabs penicillin V potassium 500 mg 500 mg PO TID 10 days #30 tabs 04/19/25 tablet prednisone 10 mg tablet See Rx Instructions PO DAILY 10 04/19/25 days #28 tabs folic acid 1 mg tablet 1 mg PO DAILY 90 days #90 tabs 04/27/25 budesonide 160 mcg-glycopyr 9 2 inh PO BID #10.7 grams 05/01/25 mcg-formot 4.8 mcg/actuation HFA inhaler (Breztri Aerosphere) arformoterol 15 mcg/2 mL solution 2 ml inhalation BID #120 mL 05/10/25 for nebulization (Brovana) cyanocobalamin (vitamin B-12) 1,000 mcg IM QMONTH 90 days #3 mL 05/12/25 1,000 mcg/mL injection solution ferrous sulfate 220 mg (44 mg 110 mg (2.5 mL) PO DAILY 30 days 05/12/25 iron)/5 mL oral elixir #75 mL syringe with needle, safety 3 mL #3 ea 05/12/25 23 gauge x 1 1/2 (BD Eclipse Luer-Emmanuel) Allergies Allergy/AdvReac Type Severity Reaction Status Date / Time blue dye (BLUE DYE) Allergy Unknown ANAPHYLAXIS Verified 05/12/25 14:43 escitalopram (From LEXAPRO) Allergy Unknown UNKNOWN Verified 05/12/25 14:43 infliximab (From REMICADE) Allergy Unknown EXACERBATES Verified 05/12/25 14:43 MS naproxen (NAPROXEN) Allergy Unknown SWELLING Verified 05/12/25 14:43 ALL NSAIDS NSAIDS (Non-Steroidal Allergy Unknown ABDOMINAL Verified 05/12/25 14:43 Anti-Inflamma (NSAIDS PAIN (NON-STEROIDAL ANTI-INFLAMMA) olanzapine (OLANZAPINE) Allergy Unknown UNKNOWN Verified 05/12/25 14:43 paroxetine (From PAXIL) Allergy Unknown DIZZINESS Verified 05/12/25 14:43 prednisone (PREDNISONE) Allergy Unknown HALLUCINATIONS Verified 05/12/25 14:43 with high doses Sulfa (Sulfonamide Allergy Unknown HIVES Verified 05/12/25 14:43 Antibiotics) (SULFA (SULFONAMIDE ANTIBIOTICS)) sulfasalazine (From Allergy Hives Verified 05/12/25 14:43 Azulfidine) aspirin (ASPIRIN) AdvReac Unknown STOMACH Verified 05/08/25 14:27 UPSET ciprofloxacin (From CIPRO) AdvReac Unknown SKIN Verified 05/08/25 14:27 PEELING clarithromycin (From Biaxin) AdvReac Abdominal Verified 05/08/25 14:27 Pain ENVIRONMENTAL Allergy Unknown CATS,DOGS,HORSES,MOLD-RED Uncoded 12/08/23 15:17 SKIN,FACIAL SWELLING PMFSH Past Medical History Medical History OCD (obsessive compulsive disorder) History of dysphagia Neuropathy YOHAN (obstructive sleep apnea) Smoker Asthma-COPD overlap syndrome Annual physical exam Dementia Thumb pain Lumbar arthropathy Polyarthritis History of posttraumatic stress disorder (PTSD) Right shoulder pain History of cervical fracture VÁSQUEZ (nonalcoholic steatohepatitis) Bladder cancer Multiple sclerosis Migraines, neuralgic IBS (irritable colon syndrome) Crohn's disease Surgical History History of arthroplasty of right shoulder (05/07/22) Hx of cholecystectomy History of carpal tunnel surgery of right wrist (~05/2021) History of bladder surgery Hx of endoscopy (08/07/11) Hx of colonoscopy (08/07/11) Hx of foot surgery (04/25/14) History of resection of terminal ileum History of adenoidectomy Hx of tonsillectomy Hx of breast augmentation Family History Family History Father Alzheimer disease Lymphoma Cancer Mother Lung cancer Sudden cardiac Cancer CVD (cardiovascular disease) Paternal Grandfather Colon cancer Cancer Maternal Grandfather Sudden cardiac CVD (cardiovascular disease) Social History Social History Household Members: None Household Members Other:: ALONE DISABLED SINCE AROUND 2014 DUE TO MS Housing: Apartment Are you a primary career services director to a significant other at home: No Do you presently have visiting nurse or other home services: No Alcohol intake: current Alcohol intake frequency: holidays/special occasions only Alcohol type: hard liquor Patient Tobacco Use Status: Current everyday Tobacco user Tobacco use type: Cigarette Cigarette Packs Per Day: 0.5 Cigarettes Per Day: 2 Years Smoked: 47 e-Cigarette/Vaping Use: Former Use Second Hand Smoke Exposure: No Substance Use Type: Marijuana Advance Directives: No Advance Directives Information Provided: No service: No Current occupational status: disabled Current occupational exposures/hazards: No Cognitive needs: No Hearing needs: No Vision needs: No Physical Exam Exam: Exam: EXAM: Gen: Alert, awake, well appearing, well hydrated. No distress, on 4 L L nasal cannula Head: Atraumatic Eyes: Anicteric, Normal conjunctiva. ENT: Moist mucosa, no pallor. ? Neck: Supple. Skin: ?No observable rash or bruising on exposed or examined skin Respiratory: Breathing comfortably, diminished breath sounds no audible wheeze or rales. Speaking full sentences on 4 L nasal cannula Cardiovascular: Regular rate and rhythm. No murmurs or rub. Well perfused periphery, warm extremities. No edema. ? Abdominal: No focal tenderness. Soft, no objective distension. No palpable masses or obvious organomegaly. ?No guarding, no rebound tenderness or other peritoneal findings. : No flank tenderness. Neuro: Alert. Gross movement of all extremities intact. ? Psych: Calm. Cooperative. MSK: No grossly visible deformity. Vital signs: See flowsheet Vital Signs: Vital Signs: Last Vital Signs Temp 98.4 F 05/12/25 14:37 Pulse 82 05/12/25 14:37 Resp 22 H 05/12/25 14:37 BP 158/67 H 05/12/25 14:37 Pulse Ox 99 05/12/25 14:37 O2 Del Method Nasal Cannula 05/12/25 14:37 Oxygen Flow Rate 4 05/12/25 14:37 BMI result Body Mass Index 23.5 Medical Decision Making Medical Decision Making MDM Narrative: Medical Decision Makin-year-old female with COPD/asthma recently escalated on home O2 subjectively feels dyspnea worsening but does not appear dyspneic or ill. There was no hypoxia. I do not see indication for extensive workup . Consultation with the patient's book sorter who is on-call now and follows the patient (Maki) who recommends discharge home no additional therapy or diagnostics. Preliminary Favored Differential Diagnosis: copd, bronchospasm, uri, chronic hypoxic resp failure among additional considered etiologies Testing Interpreted Independently: Not Applicable Radiology or Lab testing Results Reviewed: Not Applicable Consults: Dr. Gambino Independent Historians/External Chart Reviews: Not Applicable Social Determinants of Health Impacting MDM/Planning: Not Applicable Discharge Plan Discharge Clinical Impression: COPD (chronic obstructive pulmonary disease) Patient Disposition: Home, Self-Care Instructions: COPD (Chronic Obstructive Pulmonary Disease) (DC) Additional Instructions: In the emergency department you did not have any hypoxia and were on your baseline home oxygen level. We discussed the case with your book sorter who did not feel he needed to be admitted to the hospital or any additional therapy. Prescriptions: No Action Narcan 4 mg/actuation spray,non-aerosol 4 mg intranasal Q2M PRN (Reason: opioid overdose) 1 Days Qty: 2 1RF Rx Instructions: spray 1 dose into ONE nostril; alternate nostrils w each dose until help arrives diclofenac sodium 1 % gel 2 g topical .QD Qty: 100 3RF prochlorperazine [Compro] 25 mg suppository 25 mg NV TID PRN (Reason: for nausea/vomiting) Qty: 90 3RF (DME) BD Integra Syringe 3 mL 25 gauge x 5/8 syringe See Rx Instructions .Route Qty: 100 1RF Rx Instructions: As directed gabapentin 600 mg tablet 600 mg PO TID 30 Days Qty: 90 3RF (DME) incontinence pad, liner, disp Pad See Rx Instructions .Route Qty: 104 3RF Rx Instructions: Long. Daily as directed, 90 days cholecalciferol (vitamin D3) [Vitamin D3] 25 mcg (1,000 unit) capsule 25 mcg PO DAILY 30 Days Qty: 30 3RF famotidine 20 mg tablet 20 mg PO BID Qty: 180 3RF fluticasone propionate 50 mcg/actuation spray,suspension 2 spray intranasal BID 30 Days Qty: 16 2RF ipratropium bromide 42 mcg (0.06 %) spray,non-aerosol 2 spray intranasal TID-QID PRN (Reason: for allergies) Qty: 15 0RF valacyclovir 1 gram tablet 1,000 mg PO BEDTIME Qty: 90 3RF nystatin 100,000 unit/mL suspension 5 ml PO TID 7 Days Qty: 105 3RF Rx Instructions: swish and swallow magnesium chloride 71.5 mg tablet,delayed release (DR/EC) 71.5 mg PO BID Qty: 180 3RF lactase 3,000 unit tablet 3,000 unit PO QID Qty: 240 5RF albuterol sulfate [Ventolin HFA] 90 mcg/actuation HFA aerosol inhaler 2 puff inhalation Q4-6H PRN (Reason: shortness of breath or wheezing) 30 Days Qty: 1 6RF ipratropium-albuterol 0.5 mg-3 mg(2.5 mg base)/3 mL solution for nebulization 3 ml inhalation Q4-6H PRN (Reason: wheezing) Qty: 360 6RF [facility] 10 billion cell -200 mg capsule 1 cap PO DAILY 90 Days Qty: 90 0RF megestrol 20 mg tablet 20 mg PO DAILY 30 Days Qty: 30 1RF memantine 5 mg tablet 5 mg PO BID 90 Days Qty: 180 2RF folic acid 1 mg tablet 1 mg PO DAILY 90 Days Qty: 90 2RF Breztri Aerosphere 160-9-4.8 mcg/actuation HFA aerosol inhaler 2 inh PO BID Qty: 10.7 0RF arformoterol [Brovana] 15 mcg/2 mL solution for nebulization 2 ml inhalation BID Qty: 120 6RF (DME) BD Eclipse Luer-Emmanuel 3 mL 23 gauge x 1 1/2 syringe See Rx Instructions .Route Qty: 3 2RF Rx Instructions: Use to administer IM Cyanocobalamin, Monthly As directed, 90 days cyanocobalamin (vitamin B-12) 1,000 mcg/mL solution 1,000 mcg IM QMONTH 90 Days Qty: 3 3RF ferrous sulfate 220 mg (44 mg iron)/5 mL elixir 110 mg PO DAILY 30 Days Qty: 75 1RF Xiidra 5 % dropperette 1 drp ophthalmic (eye) BID mesalamine 1,000 mg suppository 1,000 mg NV BEDTIME PRN (Reason: rectal bleeding, pain) albuterol sulfate 0.63 mg/3 mL Solution For Nebulization 0.63 mg INHALATION Q4-6H PRN (Reason: Wheezing) miscellaneous medical supply Misc 1 ea miscellaneous DAILY 99 Days Qty: 2 0RF miscellaneous medical supply Misc See Rx Instructions miscellaneous .COMPLEX 90 Days Qty: 180 11RF Rx Instructions: Poise pads. 2 per day. 90 day supply; loperamide 2 mg tablet 2 mg PO QID PRN (Reason: loose stool) 30 Days Qty: 120 0RF Ensure Original Liquid 1 ea PO DAILY Qty: 7200 3RF Rx Instructions: Take 8 oz daily triamcinolone acetonide 0.1 % lotion 1 appl topical BID donepezil 23 mg tablet 23 mg PO BEDTIME lorazepam 0.5 mg tablet 0.5 mg PO BID PRN (Reason: Muscle Spasm) trazodone 50 mg tablet 75 mg PO BEDTIME sumatriptan succinate 50 mg tablet 50 mg PO NEEDED PRN (Reason: Migraine Headache) epinephrine 0.3 mg/0.3 mL auto-injector 0.3 ml IM ONCE PRN (Reason: Allergic Reaction) cetirizine 10 mg tablet 10 mg PO DAILY prednisone 10 mg tablet See Rx Instructions PO DAILY 10 Days Qty: 28 0RF Rx Instructions: 4 tabs daily for 4 days, 3 tabs daily for 2 days, 2 tabs daily for 2 days, 1 tab daily for 2 days PO daily; penicillin V potassium 500 mg tablet 500 mg PO TID 10 Days Qty: 30 0RF ondansetron 4 mg tablet,disintegrating 4 mg PO DAILY PRN (Reason: nausea and vomiting) 28 Days Qty: 12 0RF Discharge Date/Time: 05/12/25 18:07 Print Language: Swedish
== END 2025-05-12 18:07 | disposition home or self-care (01) ==
PROVIDERS: Emergency Provider Emergency Medicine; PCP Family Medicine
DX: J44.9 Chronic obstructive pulmonary disease, unspecified (principal); R06.02 Shortness of breath; Z79.899 Other long term (current) drug therapy
CPT/HCPCS: 99281; 99282

== ENCOUNTER 2025-05-24 12:08 | Outpatient (AMB) | payer MEDICARE, MEDICAID, SELFPAY ==
--- OUTSIDE RECORDS SUMMARY | 2024-07-01 11:25 | XMS_ITS | Encounter Summary ---
Author Organization [facility] [place] [address] Care Team Providers Care Street Cleaner Name Role Phone Lito Castro MD Primary Care Provider [phone] Encounter Details Date Type Department Care Team (Late Contact Info) Description 07/01/2024 11:25 AM EDT Hospital Encounter TH [facility]ISTORIC [facility]NCOUNTER[facility] ONLY Vijay Grissom MD [address] [place] [address] Social History Tobacco Use Types Packs/Day Years [...] in this encounter Progress Notes * Vijay Grsisom MD - 07/01/2024 11:00 AM EDT [facility] Cc: MS HPI: [...] tablet, , Disp: , Rfl: ??? Lactobacillus-Inulin ([facility]) CAPS, , Disp: , Rfl: ??? [...] CRAVINGS, Disp: , Rfl: ??? nystatin (MYCOSTATIN) [id number] UNIT/ML suspension, Take 5 mL (500,000 Units [...] She had multiple hospitalization with COVID/COVID-pneumonia at [facility] lastmonth she is also been [...] plan: -Will hold off Ocrevus per [facility] protocol and we discussed in the beginning of July after her GI evaluation MRI brain with and without contrast on annual basis to ensure radiological stability B. Symptomatic therapy plan: Gait and balance: Continue home PT/OT Urinary urgency: Will refer to a urologist for evaluation Mood changes: Continue with [facility] for behavioral health services Cognitive [...] 40 minutes. The majority of the actual yxph-ho-cxhe visit was spent counseling the patient with respect to the current neurological picture. Vijay Grissom MD documented in this encounter Plan of Treatment Upcoming Encounters Date Type Department Care Team (Late st Contact Info) Description 07/04/2025 3:30 PM EDT Office Visit [facility] 175 [facility] [address] [place] [address] Yolande Napier, PA [address] [place] [address] 07/17/2025 1:15 PM EDT Office Visit Orthopedic Surgery - [place] [address] [facility] [address] [place] [address] Maulik Walter, DPLonnie [address] [place] [address] documented as of this encounter Visit Diagnoses Not on filedocumented in this encounter Care Teams Street Cleaner Relationship Specialty Start Date End Date Lito Castro MD [address] [place] [address] Dr Moya [place] PCP - General 07/01/24 08/08/24 documented as of this encounter
--- OUTSIDE RECORDS SUMMARY | 2025-05-23 11:00 | XMS_ITS | Encounter Summary ---
Author Organization [facility] [place] [address] Care Team Providers Care Security Investigator Name Role Phone Azra Nation MD Primary Care Provider [phone] Reason for Visit * Reason Comments Crohn's Disease Diverticulitis Encounter Details Date Type Department Care Team (Latest Contact Info) Description 05/23/2025 11:00 AM EDT Office Visit Gastroenterology - [place] [address] [place] [address] Marcelino Clark MD [address] [place] [phone] Chronic obstructive pulmonary disease, unspecified COPD type (CMS/HCC V24, CMS/HCC V28) (Primary Dx); Crohn's disease without complication, unspecified gastrointestinal tract location (CMS/HCC V24, CMS/HCC V28); History of diverticulitis Social History Tobacco Use Types Packs/Day Years [...] Sign Reading Time Taken Comments Blood Pressure 144/80 05/23/2025 11:19 AM EDT Pulse 78 05/23/2025 11:19 AM EDT Temperature - - Respiratory Rate - - Oxygen Saturation - - Inhaled Oxygen Concentration - - Weight 61.2 kg (135 lb) 05/23/2025 11:19 AM EDT Height 170.2 cm (5' 7 ) 05/23/2025 11:19 AM EDT Body Mass Index 21.14 05/23/2025 11:19 AM EDT documented in this encounter Progress Notes * Marcelino Clark MD - 05/23/2025 11:00 AM EDT Medical MJ; re-evaluate for sigmoid resection if lung function improves * Marcelino Clark MD - 05/23/2025 11:00 AM EDT 64 y/o WF O2 dependent COPD with recurrent sigmoid diverticulitis. Has seen Dr Manuel Woods who would consider sigmoid resection if lung function improves. Also dental issues. Patient has persistent LLQ pain but normal Bms and no fever or chills. Requesting narcotics. Ex-smoker PMH: reviewed ROS: ORTIZ no SSCP or edema PE: Middle-aged WF on O2 HEENT no icterus Cor and Lungs: decreased BS Abd: mild tenderness LLQ no mass or guarding Extr: neg Imp & Plan; Recurrent Diverticulitis but poor candidate for sigmoid resection due to COPD O2 dependent. Have suggested medical Marijuana gummies or other form as opposed to narcotics for chronic pain. Patient is resistant documented in this encounter Plan of Treatment Upcoming Encounters Date Type Department Care Team (Late st Contact Info) Description 07/04/2025 3:30 PM EDT Office Visit [facility] [place] - [place] [address] [facility] [address] [place] [id number] Yolande Napier PA [address] [place] [address] 07/17/2025 1:15 PM EDT Office Visit Orthopedic Surgery - [place] [address] [facility] [address] [place] [id number] aMulik Walter DPM [address] [place] [phone] documented as of this encounter Visit Diagnoses Diagnosis Chronic obstructive pulmonary disease, unspecified COPD type ([facility] V24, [facility] V28)- Primary Crohn's disease without complication, unspecified gastrointestinal tract location ([facility] V24, [facility] V28) History of diverticulitis documented in this encounter Historical Medications * This list may reflect changes made after this encounter. nitroglycerin (Nitrostat) 0.[address] 1 tablet (0.4 mg total) under the tongue every 5 (five) minutes if needed for chest pain. carvediloL (COREG) 6.25 mg tablet Take 1 tablet (6.25 mg total) by mouth 2 (two) times a day with meals. 05/22/2025 added in this encounter Care Teams Security Investigator Relationship Specialty Start Date End Date Azra Nation MD [address] [place] [phone] PCP - General Internal Medicine 02/17/25 documented as of this encounter
--- NOTE | 2025-05-24 12:19 | A.OFFPC_ITS ---
Vital Signs 05/24/25 12:33 Height 5 ft 7 in Weight 143 lb BMI 22.4 BP 136/63 Blood Pressure Location Rt brachial Position Sitting Respiration 16 Pulse 75 Pulse Source Pulse Oximeter Temp 98.4 F Temp Source Oral Pulse Oximetry (%) 95 Oxygen Delivery Method Nasal Cannula Intake Visit Reasons: 30 min fu of chronic issues Intake Note: patient here for 30 min follow up of chronic issues Fence Erector Required: No Is last menstrual period known: No Post menopausal: No Patient : No Allergies blue dye (BLUE DYE) Allergy (Unknown, Verified 05/24/25 12:27) ANAPHYLAXIS escitalopram (From LEXAPRO) Allergy (Unknown, Verified 05/24/25 12:27) UNKNOWN infliximab (From REMICADE) Allergy (Unknown, Verified 05/24/25 12:27) EXACERBATES MS naproxen (NAPROXEN) Allergy (Unknown, Verified 05/24/25 12:27) SWELLING ALL NSAIDS NSAIDS (Non-Steroidal Anti-Inflamma (NSAIDS (NON-STEROIDAL ANTI-INFLAMMA) Allergy (Unknown, Verified 05/24/25 12:27) ABDOMINAL PAIN olanzapine (OLANZAPINE) Allergy (Unknown, Verified 05/24/25 12:27) UNKNOWN paroxetine (From PAXIL) Allergy (Unknown, Verified 05/24/25 12:27) DIZZINESS prednisone (PREDNISONE) Allergy (Unknown, Verified 05/24/25 12:27) HALLUCINATIONS with high doses Sulfa (Sulfonamide Antibiotics) (SULFA (SULFONAMIDE ANTIBIOTICS)) Allergy (Unknown, Verified 05/24/25 12:27) HIVES sulfasalazine (From Azulfidine) Allergy (Verified 05/24/25 12:27) Hives aspirin (ASPIRIN) Adverse Reaction (Unknown, Verified 05/24/25 12:27) STOMACH UPSET ciprofloxacin (From CIPRO) Adverse Reaction (Unknown, Verified 05/24/25 12:27) SKIN PEELING clarithromycin (From Biaxin) Adverse Reaction (Verified 05/24/25 12:27) Abdominal Pain ENVIRONMENTAL Allergy (Unknown, Uncoded 12/08/23 15:17) CATS,DOGS,HORSES,MOLD-RED SKIN,FACIAL SWELLING Medication List - Last Reconciled 05/24/25 by Lito Castro MD albuterol sulfate 0.63 mg inhalation Q4-6H PRN albuterol sulfate 90 mcg/actuation (Ventolin HFA) 2 puffs inhalation Q4-6H PRN 30 days arformoterol (Brovana) 2 mL inhalation BID thnlnsibri-yupfbfws-yvzywkzcct 160-9-4.8 mcg/actuation (Breztri Aerosphere) 2 inhalations PO BID cetirizine 10 mg PO DAILY cholecalciferol (vitamin D3) (Vitamin D3) 25 mcg PO DAILY 30 days cyanocobalamin (vitamin B-12) 1,000 mcg IM QMONTH 90 days diclofenac sodium 1% 2 grams topical .QD donepezil 23 mg PO BEDTIME epinephrine 0.3 mL IM ONCE PRN famotidine 20 mg PO BID ferrous sulfate 110 mg (2.5 mL) PO DAILY 30 days fluticasone propionate 50 mcg/actuation 2 sprays intranasal BID 30 days folic acid 1 mg PO DAILY 90 days gabapentin 600 mg PO TID 30 days incontinence pad, liner, disp Long. Daily as directed, 90 days ipratropium bromide 2 sprays intranasal TID-QID PRN ipratropium-albuterol 0.5 mg-3 mg(2.5 mg base)/3 mL 3 mL inhalation Q4-6H PRN lactase 3,000 units PO QID Lactobac. rhamnosus GG-inulin 10 billion cell -200 mg ([facility]) 1 cap PO DAILY 90 days lifitegrast 5% (Xiidra) 1 drp ophthalmic (eye) BID loperamide 2 mg PO QID PRN 30 days lorazepam 0.5 mg PO BID PRN magnesium chloride 71.5 mg PO BID megestrol 20 mg PO DAILY 30 days memantine 5 mg PO BID 90 days mesalamine 1,000 mg WI BEDTIME PRN miscellaneous medical supply 1 ea miscellaneous DAILY 99 days miscellaneous medical supply Poise pads. 2 per day. 90 day supply; 90 days naloxone 4 mg/actuation (Narcan) 4 mg intranasal Q2M PRN 1 day nystatin 5 mL PO TID 7 days ondansetron 4 mg PO DAILY PRN 28 days penicillin V potassium 500 mg PO TID 10 days prednisone 4 tabs daily for 4 days, 3 tabs daily for 2 days, 2 tabs daily for 2 days, 1 tab daily for 2 days PO daily; 10 days prochlorperazine (Compro) 25 mg WI TID PRN sumatriptan succinate 50 mg PO NEEDED PRN syringe with needle, safety (BD Integra Syringe) As directed syringe with needle, safety (BD Eclipse Luer-Emmanuel) Use to administer IM Cyanocobalamin, Monthly As directed, 90 days trazodone 75 mg PO BEDTIME triamcinolone acetonide 0.1% 1 appl topical BID valacyclovir 1,000 mg PO BEDTIME Tobacco use date assessed: 05/24/25 Fall risk assessment: 1 Fall in past year Last assessed Fall Risk: 05/24/25 Dental Screening Dental Screen Date: 05/24/25 Did you have a dental visit in the last 12 months?: No Did you have a dental problem in the last 6 months where you did not have access to dental care?: No Was dental information given to patient?: Patient has dentist HPI 30 min fu of chronic issues HPI Details 64 y/o female presents to f/u chronic co nditions. Ongoing COPD and patient was at the ED on 05/08/2025 and 05/12/2025. Followed closely by her nutritional assistant who added Edelmira recently. CT abdomen pelvis from March showed: Indeterminate 1.2 cm hypodense lesion in the left kidney lower pole which may represent cyst with internal debris. Will get renal ultrasound Pt notes dental abscess has improved. Reports ongonig abd. pain. [facility] Medical History OCD (obsessive compulsive disorder) History of dysphagia Neuropathy YOHAN (obstructive sleep apnea) Smoker Asthma-COPD overlap syndrome Annual physical exam Dementia Thumb pain Lumbar arthropathy Polyarthritis History of posttraumatic stress disorder (PTSD) Right shoulder pain History of cervical fracture VÁSQUEZ (nonalcoholic steatohepatitis) Bladder cancer Multiple sclerosis Migraines, neuralgic IBS (irritable colon syndrome) Crohn's disease Surgical History History of arthroplasty of right shoulder (05/07/22) Hx of cholecystectomy History of carpal tunnel surgery of right wrist (~05/2021) History of bladder surgery Hx of endoscopy (08/07/11) Hx of colonoscopy (08/07/11) Hx of foot surgery (04/25/14) History of resection of terminal ileum History of adenoidectomy Hx of tonsillectomy Hx of breast augmentation Family History Father Alzheimer disease Lymphoma Cancer Mother Lung cancer Sudden cardiac Cancer CVD (cardiovascular disease) Paternal Grandfather Colon cancer Cancer Maternal Grandfather Sudden cardiac CVD (cardiovascular disease) Social History (Reviewed 12/08/23 @ 15:20 by Cristin Voss [facility]) Household Members: None Household Members Other:: ALONE DISABLED SINCE AROUND 2014 DUE TO MS Housing: Apartment Are you a primary multi care technician to a significant other at home: No Do you presently have visiting nurse or other home services: No Alcohol intake: current Alcohol intake frequency: holidays/special occasions only Alcohol type: hard liquor Patient Tobacco Use Status: Current everyday Tobacco user Tobacco use type: Cigarette Cigarette Packs Per Day: 0.5 Cigarettes Per Day: 2 Years Smoked: 47 e-Cigarette/Vaping Use: Former Use Second Hand Smoke Exposure: No Substance Use Type: Marijuana service: No Current occupational status: disabled Current occupational exposures/hazards: No Cognitive needs: No Hearing needs: No Vision needs: No Questionnaire Thrive Questionnaire Date Thrive assessed: 04/19/25 I am a: Patient What is your living situation today?: I have a steady place to live Within the past 12 months, did the food you bought not last and you didn't have the money to get more?: Never true Within the past 12 months, did you worry whether your food would run out before you got money to buy more?: Never true Do you have trouble paying for medicines?: No Do you have trouble getting transportation to medical appointments?: Yes Do you have trouble paying your heating and electricity bill?: No Do you have trouble taking care of your child, family member or friend?: No Do you have trouble with day-to-day activities such as bathing, preparing meals, shopping, managing finances, etc.?: No Are you currently unemployed and looking for a job?: No Are you interested in more education?: No Please select the resources that you would like help with: Transportation Currently or been in a relationship where the following occur: I choose not to answer THRIVE Score: 1 JOSIE-7 AMB Questionnaire JOSIE-7 Date JOSIE - 7 assessed: 11/03/23 Source: Developed by Drs. Derrick Alfonso, Veronica Caraballo, Raul Zepeda and colleagues, with an educational fabi from [employer]. Review of Systems Const Denies chills, Denies fatigue, Denies fever(s), Denies headache(s) and Denies weakness ENT Denies dizziness and Denies headache(s) Card Denies dyspnea Resp Denies cough, Denies dyspnea, Denies wheezing and Denies other (shortness of breath) Musc Denies numbness and Denies tingling Neuro Denies dizziness, Denies headache(s), Denies numbness, Denies tingling and Denies weakness Psych Denies anxiety and Denies depression Endo Denies fatigue Aller/Immun Denies wheezing Physical exam (Primary Care) Vital Signs: Last Vital Signs Temp 98.4 F 05/24/25 12:33 Pulse 75 05/24/25 12:33 Resp 16 05/24/25 12:33 BP 136/63 05/24/25 12:33 Pulse Ox 95 05/24/25 12:33 Oxygen Delivery Method Nasal Cannula 05/24/25 12:33 BMI result Body Mass Index 22.4 Tobacco/Smoking Status: Tobacco use Status Tobacco use date assessed 05/24/25 05/24/25 12:37 Patient Tobacco Use Status Current everyday Tobacco 05/24/25 12:21 Tobacco use type Cigarette 05/24/25 12:21 e-Cigarette/Vaping Use Former Use 05/24/25 12:21 Thrive Assessment: Date of Thrive Assessment Date Thrive assessed 04/19/25 05/24/25 12:21 Currently or been in a relationship where the following occur: I choose not to answer Const General: well developed; No acute distress Nutritional Appearance: well nourished Orientation/consciousness: patient oriented x3 HENMT Head: Yes normocephalic and Yes atraumatic Eyes General: appearance normal, both eyes and all related structures Pupils: Equal, round and reactive pupils present EOM: EOMs intact bilaterally Resp Effort & Inspection: normal respiratory effort Neuro General: patient oriented x3 and gait normal Cranial nerves: Yes Equal, round and reactive pupils present Psych Affect: normal affect Coding Level of Care Code Est Pt Level 4 (78488) Diagnoses COPD (chronic obstructive pulmonary disease) J44.9 Kidney lesion N28.9 Dental abscess K04.7 Overgrown nail L60.2 Abdominal pain R10.9 Assessment & Plan Assessment & Plan (1) COPD (chronic obstructive pulmonary disease): Code(s): J44.9 - Chronic obstructive pulmonary disease, unspecified Category: Medical (2) Kidney lesion: Code(s): N28.9 - Disorder of kidney and ureter, unspecified Category: Medical (3) Dental abscess: Code(s): K04.7 - Periapical abscess without sinus Category: Medical (4) Overgrown nail: Code(s): L60.2 - Onychogryphosis Category: Medical (5) Abdominal pain: Code(s): R10.9 - Unspecified abdominal pain Category: Medical Plan Ongoing COPD and patient was at the ED on 05/08/2025 and 05/12/2025. Followed closely by her nutritional assistant who added Edelmira recently. Patient says she is switching nutritional assistant and has an appointment with Dr. Kaur at [facility]. Continue current medications Advised she avoid any vaping at all CT abdomen pelvis from March showed: Indeterminate 1.2 cm hypodense lesion in the left kidney lower pole which may represent cyst with internal debris. Will get renal ultrasound Significant mobility issues and shortness of breath with walking even short dist ances. Patient would benefit from a scooter. Will send script Orders: Orders US renal BI Today N28.9 - Disorder of kidney and ureter, unspecified Referrals Podiatry Referral L60.2 - Onychogryphosis Pain Management Referral M54.9 - Dorsalgia, unspecified, R10.9 - Unspecified abdominal pain Medications: New miscellaneous medical supply Motorized scooter. Daily As directed, 999 days 1 ea 0RF G35 - Multiple sclerosis, I25.10 - Atherosclerotic heart disease of [place] coronary artery without angina pectoris, J44.9 - Chronic obstructive pulmonary disease, unspecified, M19.90 - Unspecified osteoarthritis, unspecified site, Z99.81 - Dependence on supplemental oxygen miscellaneous medical supply Motorized scooter. Daily As directed, 999 days 1 ea 0RF G35 - Multiple sclerosis, I25.10 - Atherosclerotic heart disease of [place] coronary artery without angina pectoris, J44.9 - Chronic obstructive pulmonary disease, unspecified, M19.90 - Unspecified osteoarthritis, unspecified site, Z99.81 - Dependence on supplemental oxygen Refilled cyanocobalamin (vitamin B-12) 1,000 mcg IM QMONTH 3 mL 3RF 90 days ondansetron 4 mg PO DAILY PRN 12 tabs 0RF nausea and vomiting 28 days
[2025-05-24 12:33] VITALS: BP 136/63; PULSE 75; RESP 16; TEMP 36.9; O2SAT 95; BMI 22.4
--- OUTSIDE RECORDS SUMMARY | 2025-05-24 12:52 | XMS_ITS | Clinical Summary ---
Author Organization [facility] Address [address] [place] [address] Care Team Providers Care Volleyball Referee Name Role Phone Lito Castro MD Primary Care Provider [phone] Allergies Active Allergy Reactions Criticality Noted Date Comments Aspirin 09/04/2021 No reaction documented. Blue Dyes (Parenteral) Anaphylaxis High 03/14/2013 Ciprofloxacin Swelling 07/24/2021 Ciprofloxacin-Hydrocorti sone 09/04/2021 No reaction documented. Clarithromycin 10/22/2021 Dicyclomine 10/22/2021 Fd&C Blue #1 ([place] Blue) Anaphylaxis High 07/24/2021 Nsaids Nausea And [...] hours as needed. 0 Active nystatin (MYCOSTATIN) 057623 UNIT/ML suspension Take 5 mL (500,000 Units [...] 10 tablet 5 01/30/2023 Active Lactobacillus-Inuli n ([facility]) CAPS 0 10/29/2023 Active gabapentin (NEURONTIN) 600 [...] age to complete this topic Care Teams Volleyball Referee Relationship Specialty Start Date End Date Lito Castro MD [address] [place] [id number] PCP - General Family Medicine 04/28/22
--- OUTSIDE RECORDS SUMMARY | 2025-05-24 12:53 | XMS_ITS | Encounter Summary ---
[facility] [place] [address] Care Team Providers Care Associate Justice Name Role Phone Azra Nation MD Primary Care Provider [phone] Encounter Details Date Type Department Care Team (Late Contact Info) Description 04/05/2025 Lab Requisition [facility] Main Lab [address] [facility] [place] [address] Larry Hurley MD [address] [facility] [address] [place] [address] Personal history of malignant neoplasm of bladder Social History Tobacco Use Types Packs/Day Years [...] on file documented as of this encounter Plan of Treatment Upcoming Encounters Date Type Department Care Team ([facility] Contact Info) Description 07/04/2025 3:30 PM EDT Office Visit [facility] [address] [address] [place] [address] Yolande Napier PA [address] [place] [address] 07/17/2025 1:15 PM EDT Office Visit Orthopedic Surgery - [address] [place] [address] Maulik Walter, DPM [address] [place] [address] documented as of this encounter Procedures Procedure Name Priority Date/Time Associated Diagnosis Comments AP OUTSIDE CONSULT Routine 03/22/2025 12 :00 AM EDT Personal history of malignant neoplasm of bladder documented in this encounter Results * Anatomic pathology outside consult (03/22/2025 12:00 AM EDT) Final Diagnosis Urine, Voided, [id number]: Negative for high grade urothelial carcinoma. Acute inflammation present. Results of UroVysion fluorescence in situ hybridization (FISH) testing: CEP3: Normal CEP7: Normal CEP17: Normal LSI 9p21: Normal Interpretation: Normal profile Controls stained appropriately. Note: The results are intended as a screening device and should be interpreted in association with other clinical and pathological findings. 04/10/2025 2:[address] [facility] Clinical Information History of bladder neoplasm (malignant) Z85.51 Urine Cytology/FISH (now) 04/10/2025 2:[address] [facility] Gross Description A. Urine, Voided, [id number]: Received one ThinPrep slide for cytology and one ThinPrep slide for UroVysion FISH 04/10/2025 2:[address] [facility] Disclaimer Unless otherwise specified, all tissue is 10% NB formalin fixed and paraffin embedded. Technical pathology services provided by [facility] at [address], [place] [address] (CLIA #[id number]/Nikkie Lizama MD, Process Coordinator) 04/10/2025 2:[address] [facility] Tissue Urine specimen from urethra / Unknown 03/22/2025 04/05/2025 11:13 AM EDT us Larry Hurley MD LAB PATHOLOGY ORDERABLES Fi nal Result [facility] [address] [place] [address], documented in this encounter Visit Diagnoses Diagnosis Personal history of malignant neoplasm of bladder documented in this encounter Care Teams Associate Justice Relationship Specialty Start Date End Date Azra Nation MD [address] [place] [id number] PCP - General Internal Medicine 02/17/25 documented as of this encounter
--- OUTSIDE RECORDS SUMMARY | 2025-05-24 12:53 | XMS_ITS | Clinical Summary ---
Author Organization [facility] Address [address] [facility] [place] [address] Phone Care Team Providers Care Warper Creeler Name Role Phone Azra Nation MD Primary Care Provider [phone] Allergies Active Allergy Reactions Criticality Noted Date Comments Aspirin 09/04/2021 No reaction documented. No reaction documented. Blue Dye Anaphylaxis High 03/14/2013 Ciprofloxacin Swelling 07/24/2021 Ciprofloxacin-Hydrocorti sone 09/04/2021 No reaction documented. No reaction documented. Clarithromycin 10/22/2021 Dicyclomine 10/22/2021 Fd And C Blue No.1 Aluminum Mcdowell Anaphylaxis High 07/24/2021 Infliximab High 03/14/2013 Nsaids (Non-Steroidal Anti-Inflammatory Drug) Nausea And Vomiting 05/13/2013 Paroxetine 09/04/2021 No reaction documented. No reaction documented. Penicillins 03/14/2013 Sulfa (Sulfonamide Antibiotics) 03/14/2013 Medications albuterol HFA (PROAIR HFA ; PROVENTIL HFA ; VENTOLIN HFA) 90 mcg/actuation inhaler Inhale 2 puffs by mouth. 013 Active vitamin C tablet Take 1 tablet (100 mg total) by mouth. Active cyanocobalamin (VITAMIN B-12) 1,000 mcg/mL injection Inject 1 mL (1,000 mcg total) into the shoulder, thigh, or buttocks. Active fluticasone propionate (FLONASE) 50 mcg/actuation nasal spray 1 spray. Active folic acid (FOLVITE) 1 mg tablet Take 1 tablet (1 mg total) by mouth. Active hydrOXYzine pamoate (VISTARIL) 25 mg capsule TAKE 1 CAPSULE BY MOUTH ONCE A DAY NEEDED FOR ANXIETY, ITCHING Active ipratropium (ATROVENT) 0.02 % nebulizer solution 2.5 mL (0.5 mg total). Active ketoconazole (NIZORAL) 2 % shampoo SHAMPOO TWICE A WEEK UNTIL CLEAR Active lactase (LACTAID) 3,000 unit tablet Active lidocaine 1.8 % adhesive patch,medicated Apply topically. Active lifitegrast (Xiidra) 5 % dropperette 1 drop. Active LORazepam (ATIVAN) 0.5 mg tablet Take 1 tablet (0.5 mg total) by mouth every 8 hours as needed. Active memantine (NAMENDA) 5 mg tablet Take 1 tablet (5 mg total) by mouth 2 (two) times a day. Active valACYclovir (VALTREX) 1 gram tablet Take 1 tablet (1,000 mg total) by mouth. Active tiotropium (SPIRIVA) 18 mcg per inhalation capsule Place 1 capsule (18 mcg total) into inhaler and inhale. Active SUMAtriptan (IMITREX) 50 mg tablet Take 1 tablet (50 mg total) by mouth every 2 hours as needed. Active salmeteroL (SEREVENT) 50 mcg/dose diskus inhaler Inhale 1 puff by mouth. Active QUEtiapine (SEROquel) 25 mg tablet Active psyllium (METAMUCIL) 3.4 gram packet Take 1 packet by mouth. Active cholestyramine (QUESTRAN) 4 gram powder Take 1 packet (4 g total) by mouth 2 (two) times a day with meals. Dissolve in 8 oz of liquid and drink before a meal 60 packet 3 024 2024 Active budesonide 9 mg tablet,delayed and ext.releaseIndicati ons:Irritable bowel syndrome with diarrhea TAKE 1 TABLET BY MOUTH DAILY 30 tablet 11 Active cholestyramine light (Prevalite) 4 gram packet Take 1 packet (4 g total) by mouth 3 (three) times a day after meals. 90 packet 3 024 2024 Active Breztri Aerosphere 160-9-4.8 mcg/actuation HFA aerosol inhaler inhaler 024 Active multivitamin tablet Take 1 tablet by mouth 1 (one) time each day. Active mesalamine (CANASA) 1,000 mg suppository UNWRAP AND INSERT 1 SUPPOSITORY RECTALLY AT BEDTIME 30 each 3 Active mesalamine (CANASA) 1,000 mg suppository UNWRAP AND INSERT 1 SUPPOSITORY RECTALLY AT BEDTIME 23 each 11 Active famotidine (PEPCID) 20 mg tablet TAKE 1 TABLET BY MOUTH TWICE A DAY 180 tablet 3 024 Active mesalamine (CANASA) 1,000 mg suppository UNWRAP AND INSERT 1 SUPPOSITORY RECTALLY AT BEDTIME 30 each 3 025 Active nutritional supplement-fiber liquidIndications:C rohn's disease with complication, unspecified gastrointestinal tract location (CMS/HCC V24, CMS/HCC V28),Macrocytic anemia Take 1 each by mouth 2 (two) times a day. 1500 mL 11 Active acetaminophen (TYLENOL) 500 mg tablet TAKE 1 TABLET BY MOUTH EVERY SIX HOURS NEEDED FOR PAIN 60 tablet 1 Active gabapentin (NEURONTIN) 600 mg tablet Take 1 tablet (600 mg total) by mouth 3 (three) times a day. Take 1 tablet (600 mg total) by mouth 3 (three) times a day. 90 each 025 Active tiZANidine (ZANAFLEX) 2 mg tablet TAKE 1 TABLET BY MOUTH EVERY MORNING , TAKE 1 TABLET BY MOUTH IN THE AFTERNOON AND TAKE 2 TABLETS BY MOUTH EVERY EVENING 120 tablet 5 025 Active donepeziL (ARICEPT) 23 mg tablet TAKE 1 TABLET (23 MG TOTAL) BY MOUTH 1 (ONE) TIME EACH DAY. 30 tablet 5 025 2024 Active cholecalciferol (VITAMIN D-3) 25 mcg (1,000 unit) capsule Take 1 capsule (1,000 Units total) by mouth 1 (one) time each day. 30 capsule 3 025 Active hydrOXYzine HCL (ATARAX) 25 mg tabletIndications:A nxiety TAKE 1 TABLET AT NIGHT NEEDED FOR ITCH 30 tablet 3 025 Active clotrimazole (LOTRIMIN) 1 % cream APPLY TO AFFECTED AREA(S) TOPICALLY TWICE A DAY 30 g 1 025 Active carvediloL (COREG) 6.25 mg tablet Take 1 tablet (6.25 mg total) by mouth 2 (two) times a day with meals. 025 Active nitroglycerin (Nitrostat) 0.[address] 1 tablet (0.4 mg total) under the tongue every 5 (five) minutes if needed for chest pain. Active clotrimazole (LOTRIMIN) 1 % cream Apply topically 2 (two) times a day. 30 g 1 025 2024 Discontinued Active Problems Problem Noted Date Diagnosed Date History of diverticulitis 05/23/2025 Chronic obstructive pulmonar y disease ([facility] V24, [facility] V28) 10/19/2024 Hiatal hernia 11/14/2021 Overview (11/02/2022): Small, seen during EGD/colonoscopy 02/24/2017 Carpal tunnel syndrome of right wrist 09/04/2021 Overview (11/02/2022): Mild to moderate and mild of left wrist. 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 Depression 09/04/2021 Dementia ([facility] V24, [facility] V28) 09/04/2021 Fibromyalgia 09/04/2021 Migraine 09/04/2021 Multiple sclerosis ([facility] V24, [facility] V28) Neuropathic pain 09/04/2021 YOHAN on CPAP 09/04/2021 Psychological disorder 09/04/2021 Overview (11/02/2022): w/ significant paranoia. Anxiety 08/12/2013 GERD (gastroesophageal reflux disease) 3 IBS (irritable bowel syndrome) 04/08/2013 Crohn's disease ([facility] V24, [facility] V28) 03/14 Overview (11/02/2022): Colonoscopy and Upper GI done 02/24/2017, anastomotic erosive changes. Herpes simplex disease 03/14/2013 Overview (11/02/2022): Lesions on back. Insomnia 03/14/2013 Osteoarthritis, hand 03/14/2013 Encounters Date Type Department Care Team Description 05/23/2025 11:00 AM EDT Office Visit Gastroenterology - [address] [address] Marcelino Clark MD Chronic obstructive pulmonary disease, unspecified COPD type (CMS/HCC V24, CMS/HCC V28) (Primary Dx); Crohn's disease without complication, unspecified gastrointestinal tract location ([facility]/HCC V24, CMS/HCC V28); History of diverticulitis 04/18/2025 Telephone Internal Medicine - [place] [address] [address] Azra Nation MD 04/05/2025 Lab Requisition [facility] - Main Lab [address] [facility] [place] [phone] Larry Hurley MD Personal history of malignant neoplasm of bladder 03/28/2025 Telephone Internal Medicine - [place] [address] [address] Colon, JEFFERSON Nam 03/13/[address] [address] Sachi Restrepo LCSW 03/02/2025 Telephone Gastroenterology - [place] 175 [facility] [address] [facility] [address] [place] [address] Marcelino Clark MD 02/28/2025 Telephone Internal Medicine - [place] [address] [facility] [address] [place] [address] Viv Iqbal MA 02/22/2025 Telephone [facility] - [place] [address] [facility] [address] [place] [address] Alysa Madera MA from Last 3 Months Surgical History Surgery Date Site/Laterality Comments OTHER SURGICAL HISTORY 09/28/1990 PROCEDURE: BREAST RECONSTRUCTION; COMMENT: implants CHOLECYSTECTOMY PROCEDURE: KS CHOLECYSTECTOMY OTHER SURGICAL HISTORY 09/28/1979 PROCEDURE: KS HYSTEROSCOPY BI TUBE OCCLUSION W/PERM IMPLNTS; COMMENT: fallopian tube removed BOWEL RESECTION 09/28/2004 PROCEDURE: HISTORICAL BOWEL RESECTION; COMMENT: ilium HAND SURGERY PROCEDURE: HISTORICAL HAND SURGERY; COMMENT: R thumb COLONOSCOPY 02/24/2017 PROCEDURE: HISTORICAL COLONOSCOPY; COMMENT: and Upper GI. General impression: superficial gastritis, sm hiatal hernia w/ mild inflammatory changes at GE junction. BLADDER SURGERY PROCEDURE: HISTORICAL BLADDER SURGERY; COMMENT: TURBT. Per visit note 09/16/2017: hx bladder cancer Medical History Medical History Date Comments IBS (irritable bowel syndrome) D X:IBS (irritable bowel syndrome) Crohn's disease ([facility] V24 , [facility] V28) DX:Crohn's disease (HCC); CO MMENT: Colonoscopy and Upper GI done 02/24/2017, anastomotic erosive changes. Osteoarthritis DX:Osteoarthriti s Bilateral bunions DX:Bilateral b unions MS (multiple sclerosis) (CMS /[facility] V24, CMS/HCC V28) 09/04/2021 DX:MS (multiple sclerosis) ( [facility]) Neuropathic pain 09/04/2021 DX:Neuropathic pain Depression 09/04/2021 DX:Depression Migraine 09/04/2021 DX:Migraine Dementia (CMS/[facility] V24, CMS/[facility] V28) 09/04/2021 DX:Dementia (HCC) YOHAN on CPAP 09/04/2021 DX:YOHAN on CPAP Fibromyalgia 09/04/2021 DX:Fibromyalgia Insomnia 03/14/2013 DX:Insomnia Herpes simplex disease 03/14/2013 DX:Herpes simplex disease; COMMENT: Lesions on back. Psychological disorder 09/04/2021 DX:Psycho logical disorder; COMMENT: w/ significant paranoia. Carpal tunnel syndrome of right wrist 09/04/2021 DX:Carpal tunnel syndrome of right wrist; COMMENT: Mild to moderate and mild of left wrist. 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 Hiatal hernia 11/14/2021 DX:Hiatal hernia ; COMMENT: Small, seen during EGD/colonoscopy 02/24/2017 Bladder cancer ([facility] V24, [facility] V28) DX:Bladder cancer (HCC) Family History Medical History Relation Name Comments Breast cancer Aunt 1 Leukemia Brother Dementia Father Lymphoma Father Colon cancer Paternal Grandfather Lymphoma Uncle Ovarian cancer Neg Hx Relation Name Status Comments Aunt 1 Aunt 2 Brother Alive joint issues-ca lcium deposits; mental health-autism; barretts esophagus Daughter 1 Alive Nadine-thyroid problems Daughter 2 Alive Anna-health y Father (Age 84) lymphoma, Alzheimer's Maternal Grandfather (Age 88) ca rdiomyopathy, CHF Maternal Grandmother (Age 77) CV A Mother (Age 76) DM, [place], warren ng cancer. of pneumonia. Calcium oxalate kidney stones. Thyroid issues Paternal Grandfather (Age 74) co neri cancer Paternal Grandmother (Age 80s) C VA Uncle Other Social History Tobacco Use Types Packs/Day Years Used Date Smoking Tobacco: Every Day Cigarettes Smokeless Tobacco: Never Tobacco Cessation:Ready to Q uit: Not Asked; Counseling Given: Not Answered Alcohol Use Standard Drinks/Week Comments Yes 0 (1 standard drink = 0.6 oz pur e alcohol) Comments Unknown Sex and Gender Information Value Date Recorded Sex Assigned at Not on file Legal Sex Female 7:03 AM EST Gender Identity Not on file Sexual Orientation Not on file Obstetrics History Last Filed Vital Signs Vital Sign Reading Time Taken Comments Blood Pressure 144/80 05/23/2025 11:19 AM EDT Pulse 78 05/23/2025 11:19 AM EDT Temperature 36.1 C (97 F) 10/19/2024 1:40 PM EST Respiratory Rate - - Oxygen Saturation 99% 10/19/2024 1:40 PM EST Inhaled Oxygen Concentration - - Weight 61.2 kg (135 lb) 05/23/2025 11:19 AM EDT Height 170.2 cm (5' 7 ) 05/23/2025 11:19 AM EDT Body Mass Index 21.14 05/23/2025 11:19 AM EDT Plan of Treatment Upcoming Encounters Date Type Department Care Team (Late st Contact Info) Description 07/04/2025 3:30 PM EDT Office Visit [facility] - [place] [address] [facility] [address] [place] [phone] Yolande Napier, PA [address] [place] [address] 07/17/2025 1:15 PM EDT Office Visit Orthopedic Surgery - [place] [address] [facility] [address] [place] [phone] Maulik Walter, DPM [address] [place] [address] Health Maintenance Due Date Last Done Comments Breast Cancer Screening 1960 COVID-19 Vaccine (#1) 01/01/1964 Zoster Vaccines (1 of 2) 1977 RSV Immunization Adult Patients (1 - Risk 60-74 years 1-dose series) 2018 DTaP,Tdap,and Td Vaccines (3 - Td or Tdap) 06/02/2021 06/02/2011, 09/28/2008 Pneumococcal Vaccine: 50+ Years (2 of 2 - PCV) 07/16/2022 07/16/2021, 08/12/2013 Hepatitis C Screening 09/05/2022 Medicare Annual Wellness Visit 09/05/2022 Osteoporosis Screening (Bone Density Screening) 09/05/2022 Social Influencers of Health Screening 09/05/2022 Falls Risk Assessment 01/01/2024 Depression Screening 09/28/2024 Influenza Vaccine (#1) 2025 08/12/2013 Colorectal Cancer Screening: Colonoscopy 04/14/2026 Cholesterol Screening (Lipid Panel) 07/01/2029 07/01/2024 HIB Vaccines Aged Out No longer eligi ble based on patient's age to complete this topic HPV Vaccines Aged Out No longer eligi ble based on patient's age to complete this topic Hepatitis A Vaccines Aged Out No long er eligible based on patient's age to complete this topic Hepatitis B Vaccines Aged Out No long er eligible based on patient's age to complete this topic IPV Vaccines Aged Out No longer eligi ble based on patient's age to complete this topic MMR Vaccines Aged Out No longer eligi ble based on patient's age to complete this topic Meningococcal ACWY Vaccine Aged Out N o longer eligible based on patient's age to complete this topic Meningococcal B Vaccine Aged Out No l onger eligible based on patient's age to complete this topic RSV Immunization Patients Under 20 months Aged Out No longer eligible b ased on patient's age to complete this topic Varicella Vaccines Aged Out No longer eligible based on patient's age to complete this topic Procedures Procedure Name Priority Date/Time Associated Diagnosis Comments AP OUTSIDE CONSULT Routine 03/22/2025 12 :00 AM EDT Personal history of malignant neoplasm of bladder from Last 3 Months Results * Anatomic pathology outside consult (03/22/2025 12:00 AM EDT) Final Diagnosis Urine, Voided, [id number]: Negative for high grade urothelial carcinoma. Acute inflammation present. Results of UroVysion fluorescence in situ hybridization (FISH) testing: CEP3: Normal CEP7: Normal CEP17: Normal LSI 9p21: Normal Interpretation: Normal profile Controls stained appropriately. Note: The results are intended as a screening device and should be interpreted in association with other clinical and pathological findings. 04/10/2025 2:24 PM EDT [facility] Clinical Information History of bladder neoplasm (malignant) Z85.51 Urine Cytology/FISH (now) 04/10/2025 2:24 PM EDT [facility] Gross Description A. Urine, Voided, [id number]: Received one ThinPrep slide for cytology and one ThinPrep slide for UroVysion FISH 04/10/2025 2:24 PM EDT [facility] Disclaimer Unless otherwise specified, all tissue is 10% NB formalin fixed and paraffin embedded. Technical pathology services provided by [facility] at [address] [place] [address] [address], [place] [address] (CLIA #[id number]/Nikkie Lizama MD, Septic Technician) 04/10/2025 2:24 PM EDT [facility]) [facility] Tissue Urine specimen from urethra / Unknown 03/22/2025 04/05/2025 11:13 AM EDT us Larry Hurley MD LAB PATHOLOGY ORDERABLES Fi nal Result [facility] ([facility]) [facility] [address] [place] [address], [place] [phone] from Last 3 Months Insurance MEDICARE [place]ICAID [place] - [place] Care Teams Warper Creeler Relationship Specialty Start Date End Date Azra Nation MD [address] [place] [phone] PCP - General Internal Medicine 02/17/25
--- OUTSIDE RECORDS SUMMARY | 2025-05-24 12:53 | XMS_ITS | Encounter Summary ---
Author Organization [facility] [place] [address] Care Team Providers Care Transportation Lead Name Role Phone Azra Nation MD Primary Care Provider [phone] Encounter Details Date Type Department Care Team (Late Contact Info) Description 01/21/2025 Lab Requisition [facility] - Main Lab [address] [facility] [place] [address] Waleska Fitzgerald MD [address] [facility] 1 [place], [place] [id number] Chronic obstructive pulmonary disease, unspecified (CMS/HCC V24, CMS/HCC V28); Weakness; Crohn's disease, unspecified, with unspecified complications (CMS/HCC V24, CMS/HCC V28) Social History Tobacco Use Types Packs/Day Years [...] Encounters Date Type Department Care Team (Late Contact Info) Description 07/04/2025 3:30 PM EDT Office Visit [facility] [address] [facility] [address] [place] [phone] Yolande Napier, PA [address] [place] [address] 07/17/2025 1:15 PM EDT Office Visit Orthopedic Surgery - [place] [address] [place] [phone] Maulik Walter, DPM [address] [place] [address] documented as of this encounter Procedures Procedure Name Priority Date/Time Associated Diagnosis Comments COMPLETE BLOOD COUNT Routine 01/21/2025 5:22 AM EDT Chronic obstructive pulmonary disease, unspecified (CMS/HCC V24, CMS/HCC V28) Weakness Crohn's disease, unspecified, with unspecified complications ([facility] V24, CMS/[facility] V28) BASIC METABOLIC PANEL Routine 01/21/2025 5:22 AM EDT Chronic obstructive pulmonary disease, unspecified ([facility] V24, [facility] V28) Weakness Crohn's disease, unspecified, with unspecified complications ([facility]/HCC V24, CMS/[facility] V28) documented in this encounter Results * (ABNORMAL) Basic metabolic panel (01/21/2025 5:22 AM EDT) Sodium 140 133 - 145 mmol/L LAB CHEMISTRY METHOD 01/21/2025 9:16 AM [facility] Potassium 3.9 3.5 - 5.5 mmol/L LAB CHEMISTRY METHOD 01/21/2025 9:16 AM [facility] Chloride 105 96 - 110 mmol/L LAB CHEMISTRY METHOD 01/21/2025 9:16 AM [facility] CO2 28 21 - 32 mmol/L LAB CHEMISTRY METHOD 01/21/2025 9:16 AM [facility] Anion Gap 7 3 - 11 LAB CHEMISTRY METHOD 01/21/2025 9:16 AM [facility] Glucose 92 70 - 100 mg/dL LAB CHEMISTRY METHOD 01/21/2025 9:16 AM EDT [facility] BUN 12 5 - 25 mg/dL LAB CHEMISTRY METHOD 01/21/2025 9:16 AM EDT [facility] Creatinine 0.42(L) 0.50 - 1.10 mg/dL LAB CHEMISTRY METHOD 01/21/2025 9:16 AM [facility] eGFR 108 >=60 mL/min/1. 73m2 LAB CHEMISTRY METHOD 01/21/2025 9:16 AM EDT [facility] Comment:Calculation based on the Chronic Kidney Disease Epidemiology Collaboration (CKD-EPI) equation refit without adjustment for race. BUN/Creatinine Ratio 28.6 LAB CHEMISTRY METHOD 01/21/2025 9:16 AM [facility] Calcium 9.6 8.5 - 10.5 mg/dL LAB CHEMISTRY METHOD 01/21/2025 9:16 AM [facility] Blood Venous blood specimen / Unknown Venipuncture / Unknown 01/21/2025 5:22 AM EDT 01/21/2025 7:05 AM EDT us Waleska Fitzgerald MD LAB BLOOD ORDERABLES Fin al Result [facility] [address] [place] [address], * (ABNORMAL) Complete blood count (01/21/2025 5:22 AM EDT) WBC 10.2 4.8 - 10.8 K/mcL LAB HEMETOLOGY METHOD 01/21/2025 7:32 AM EDT [facility] RBC 3.50(L) 3.80 - 4.80 M/mcL LAB HEMETOLOGY METHOD 01/21/2025 7:32 AM EDT [facility] Hemoglobin 11.8 11.5 - 16.0 g/dL LAB HEMETOLOGY METHOD 01/21/2025 7:32 AM EDT [facility] Hematocrit 36.8 35.0 - 47.0 % LAB HEMETOLOGY METHOD 01/21/2025 7:32 AM EDT [facility] MCV 104.2(H) 79.0 - 98.0 FL LAB HEMETOLOGY METHOD 01/21/2025 7:32 AM EDT [facility] MCH 33.4(H) 27.0 - 32.0 pcg LAB HEMETOLOGY METHOD 01/21/2025 7:32 AM EDT [facility] MCHC 32.1 32.0 - 37.0 g/dL LAB HEMETOLOGY METHOD 01/21/2025 7:32 AM EDT [facility] RDW 12.3 11.0 - 15.0 % LAB HEMETOLOGY METHOD 01/21/2025 7:32 AM EDT [facility] Platelets 316 130 - 400 K/mcL LAB HEMETOLOGY METHOD 01/21/2025 7:32 AM EDT [facility] MPV 9.9 7.0 - 11.0 FL LAB HEMETOLOGY METHOD 01/21/2025 7:32 AM EDT [facility] NRBC 0.0 <1.0 % LAB HEMETOLOGY METHOD 01/21/2025 7:32 AM EDT [facility] NRBC Absolute 0.00 <0.10 K/mcL LAB HEMETOLOGY METHOD 01/21/2025 7:32 AM T [facility] Blood Venous blood specimen / Unknown Venipuncture / Unknown 01/21/2025 5:22 AM EDT 01/21/2025 7:05 AM EDT us Waleska Fitzgerald MD LAB BLOOD ORDERABLES Fin al Result [facility] [address] [place] [address], documented in this encounter Visit Diagnoses Diagnosis Chronic obstructive pulmonary disease, unspecified (CMS/[facility] V24, CMS/[facility] V28) Weakness Other malaise and fatigue Crohn's disease, unspecified, with unspecified complications (CMS/[facility] V24, CMS/[facility] V28) documented in this encounter Care Teams Transportation Lead Relationship Specialty Start Date End Date Azra Nation MD [address] [place] [phone] PCP - General Internal Medicine 02/17/25 documented as of this encounter
--- OUTSIDE RECORDS SUMMARY | 2025-05-24 12:53 | XMS_ITS | Encounter Summary ---
Author Organization [facility] [place] [address] Care Team Providers Care Fitness Assistant Name Role Phone Azra Nation MD Primary Care Provider [phone] Encounter Details Date Type Department Care Team (Late Contact Info) Description 01/23/[address] [facility] - Main Lab [address] [facility] [place] [address] Waleska Fitzgerald MD [address] [facility] 1 [place], [place] [phone] Chronic obstructive pulmonary disease, unspecified (CMS/HCC V24, CMS/HCC V28); Weakness; Crohn's disease, unspecified, without complications (CMS/HCC V24, CMS/HCC V28) Social History [...] Description 07/04/2025 3:30 PM EDT Office Visit [facility] [address] [facility] [address] [place] [address] Yolande Napier PA [address] [place] [address] 07/17/2025 1:15 PM EDT Office Visit Orthopedic Surgery - [address] [phone] Maulik Walter, DPM [address] [place] [address] documented as of this encounter Procedures Procedure Name Priority Date/Time Associated Diagnosis Comments COMPLETE BLOOD COUNT Routine 01/24/2025 6:42 AM EDT Chronic obstructive pulmonary disease, unspecified ([facility]/HCC V24, [facility] V28) Weakness Crohn's disease, unspecified, without complications ([facility] V24, [facility] V28) BASIC METABOLIC PANEL Routine 01/24/2025 6:42 AM EDT Chronic obstructive pulmonary disease, unspecified ([facility] V24, [facility] V28) Weakness Crohn's disease, unspecified, without complications ([facility]/HCC V24, [facility] V28) documented in this encounter Results * Basic metabolic panel (01/24/2025 6:42 AM EDT) Sodium 143 133 - 145 mmol/L LAB CHEMISTRY METHOD 01/24/2025 9:40 AM [facility] Potassium 4.1 3.5 - 5.5 mmol/L LAB CHEMISTRY METHOD 01/24/2025 9:40 AM [facility] Chloride 109 96 - 110 mmol/L LAB CHEMISTRY METHOD 01/24/2025 9:40 AM [facility] CO2 25 21 - 32 mmol/L LAB CHEMISTRY METHOD 01/24/2025 9:40 AM [facility] Anion Gap 9 3 - 11 LAB CHEMISTRY METHOD 01/24/2025 9:40 AM [facility] Glucose 73 70 - 100 mg/dL LAB CHEMISTRY METHOD 01/24/2025 9:40 AM [facility] BUN 9 5 - 25 mg/dL LAB CHEMISTRY METHOD 01/24/2025 9:40 AM EDT [facility] Creatinine 0.51 0.50 - 1.10 mg/dL LAB CHEMISTRY METHOD 01/24/2025 9:40 AM T [facility] eGFR 103 >=60 mL/min/1. 73m2 LAB CHEMISTRY METHOD 01/24/2025 9:40 AM EDT [facility] Comment:Calculation based on the Chronic Kidney Disease Epidemiology Collaboration (CKD-EPI) equation refit without adjustment for race. BUN/Creatinine Ratio 17.6 LAB CHEMISTRY METHOD 01/24/2025 9:40 AM T [facility] Calcium 9.2 8.5 - 10.5 mg/dL LAB CHEMISTRY METHOD 01/24/2025 9:40 AM [facility] Blood Venous blood specimen / Unknown Venipuncture / Unknown 01/24/2025 6:42 AM EDT 01/24/2025 8:18 AM EDT us Waleska Fitzgerald MD LAB BLOOD ORDERABLES Fin al Result [facility] [address] [place] [address], * (ABNORMAL) Complete blood count (01/24/2025 6:42 AM EDT) WBC 7.7 4.8 - 10.8 K/mcL LAB HEMETOLOGY METHOD 01/24/2025 9:09 AM EDT [facility] RBC 3.60(L) 3.80 - 4.80 M/mcL LAB HEMETOLOGY METHOD 01/24/2025 9:09 AM EDT [facility] Hemoglobin 12.3 11.5 - 16.0 g/dL LAB HEMETOLOGY METHOD 01/24/2025 9:09 AM EDT [facility] Hematocrit 39.0 35.0 - 47.0 % LAB HEMETOLOGY METHOD 01/24/2025 9:09 AM EDT [facility] MCV 109.2(H) 79.0 - 98.0 FL LAB HEMETOLOGY METHOD 01/24/2025 9:09 AM EDT [facility] MCH 34.5(H) 27.0 - 32.0 pcg LAB HEMETOLOGY METHOD 01/24/2025 9:09 AM EDT [facility] MCHC 31.5(L) 32.0 - 37.0 g/dL LAB HEMETOLOGY METHOD 01/24/2025 9:09 AM EDT [facility] RDW 13.1 11.0 - 15.0 % LAB HEMETOLOGY METHOD 01/24/2025 9:09 AM [facility] Platelets 224 130 - 400 K/mcL LAB HEMETOLOGY METHOD 01/24/2025 9:09 AM EDT [facility] MPV 11.6(H) 7.0 - 11.0 FL LAB HEMETOLOGY METHOD 01/24/2025 9:09 AM T [facility] NRBC 0.0 <1.0 % LAB HEMETOLOGY METHOD 01/24/2025 9:09 AM [facility] NRBC Absolute 0.00 <0.10 K/mcL LAB HEMETOLOGY METHOD 01/24/2025 9:09 AM EDT [facility] Blood Venous blood specimen / Unknown Venipuncture / Unknown 01/24/2025 6:42 AM EDT 01/24/2025 8:18 AM EDT us Waleska Fitzgerald MD LAB BLOOD ORDERABLES Fin al Result [facility] [address] [place] [address], documented in this encounter Visit Diagnoses Diagnosis Chronic obstructive pulmonary disease, unspecified ([facility] V24, [facility] V28) Weakness Other malaise and fatigue Crohn's disease, unspecified, without complications ([facility] V24, [facility] V28) documented in this encounter Care Teams Fitness Assistant Relationship Specialty Start Date End Date Azra Nation MD [address] [place] [phone] PCP - General Internal Medicine 02/17/25 documented as of this encounter
--- OUTSIDE RECORDS SUMMARY | 2025-05-24 12:53 | XMS_ITS | Encounter Summary ---
[facility] Organization [facility] [place] [address] Care Team Providers Care Busser Name Role Phone Azra Nation MD Primary Care Provider [phone] Encounter Details Date Type Department Care Team (Late Contact Info) Description 01/30/[address] [facility] - Main Lab [address] [facility] [place] [address] Waleska Fitzgerald MD [address] [facility] 1 [place], [place] [phone] Weakness; Chronic obstructive pulmonary disease, unspecified (CMS/HCC V24, CMS/HCC V28); Crohn's disease, unspecified, without complications (CMS/HCC V24, [...] Description 07/04/2025 3:30 PM EDT Office Visit [facility] [address] [facility] [address] [place] [phone] Yolande Napier PA [address] [place] [address] 07/17/2025 1:15 PM EDT Office Visit Orthopedic Surgery - [place] [address] [facility] [address] [place] [phone] Maulik Walter DPM [address] [place] [address] documented as of this encounter Visit Diagnoses Diagnosis Weakness Other malaise and fatigue Chronic obstructive pulmonary disease, unspecified (CMS/HCC V24, CMS/HCC V28) Crohn's disease, unspecified, without complications (CMS/[facility] V24, [facility] V28) documented in this encounter Care Teams Busser Relationship Specialty Start Date End Date Azra Nation MD [address] [facility] [address] [place] [phone] PCP - General Internal Medicine 02/17/25 documented as of this encounter
--- OUTSIDE RECORDS SUMMARY | 2025-05-24 12:53 | XMS_ITS | Clinical Summary ---
Author Organization [facility] Address [address] [place] [phone] Phone Care Team Providers Care Nursing Clerk Name Role Phone Unavailable Primary Care Provider [...] It is not the complete legal health record.[facility]
== END 2025-05-24 13:11 | disposition home or self-care (01) ==
LOC: HO.HMCFM 12:09
PROVIDERS: PCP Family Medicine; Visit Provider Family Medicine
DX: J44.9 Chronic obstructive pulmonary disease, unspecified (principal); N28.9 Disorder of kidney and ureter, unspecified; K04.7 Periapical abscess without sinus; L60.2 Onychogryphosis; R10.9 Unspecified abdominal pain

== ENCOUNTER → 2025-05-24 12:08 | Outpatient (BNVA) | payer MEDICARE, MEDICAID, SELFPAY | PROVIDERS: PCP Student in an Organized Health Care Education/Training Program; Visit Provider Family Medicine | DX: J44.9 Chronic obstructive pulmonary disease, unspecified (principal); N28.9 Disorder of kidney and ureter, unspecified; K04.7 Periapical abscess without sinus; L60.2 Onychogryphosis; R10.9 Unspecified abdominal pain | CPT/HCPCS: 99212 ==

== ENCOUNTER 2025-06-30 09:34 | Outpatient (AMB) | payer MEDICARE, MEDICAID, SELFPAY ==
--- OUTSIDE RECORDS SUMMARY | 2024-07-01 11:25 | XMS_ITS | Encounter Summary ---
Author Organization Jayda [facility] [place] [address] Care Team Providers Care Tool Specialist Name Role Phone Lito Castro MD Primary Care Provider [phone]- [phone] Encounter Details Date Type Department Care Team (Late st Contact Info) Description 07/01/2024 11:25 AM EDT Hospital Encounter TH HISTORIC ENCOUNTERS [facility] ONLY Vijay Grissom MD [address] [place] [address] Social History Tobacco Use Types Packs/Day Years [...] Grissom MD - 07/01/2024 11:00 AM EDT [facility] Cc: MS HPI: [...] Disp: , Rfl: ??? Lactobacillus-Inulin (Culturelle Digestive [facility]) CAPS, , Disp: , Rfl: ??? [...] CRAVINGS, Disp: , Rfl: ??? nystatin (MYCOSTATIN) [id number] UNIT/ML suspension, Take 5 mL (500,000 Units [...] She had multiple hospitalization with COVID/COVID[facility]pneumonia at [facility] lastmonth she is also been having [...] urologist for evaluation Mood changes: Continue with [facility] for behavioral health services Cognitive concerns: [...] 40 minutes. The majority of the actual fdiu-zs-jthf visit was spent counseling the patient with respect to the current neurological picture. Vijay Grissom MD documented in this encounter Plan of Treatment Upcoming Encounters Date Type Department Care Team (Late st Contact Info) Description 07/04/2025 3:30 PM EDT Office Visit [facility] [place] 175 [facility] [address] [place] [address] Yolande Napier PA 175 [facility] 150 [place] [address] 07/17/2025 1:15 PM EDT Office Visit Orthopedic Surgery - [place] 250 175 [facility] [address] [place] [phone] Maulik Walter DPM 175 [facility] [address] [place] [address] documented as of this encounter Visit Diagnoses Not on filedocumented in this encounter Care Teams Tool Specialist Relationship Specialty Start Date End Date Lito Castro MD [address] [place] [address] Dr Carter [facility] JEFFERSON Mireles PCP - General 07/01/24 08/08/24 documented as of this encounter
--- NOTE | 2025-06-30 09:37 | A.OFFPC_ITS ---
Vital Signs 06/30/25 09:48 Height 5 ft 7 in Weight 130 lb 6 oz BMI 20.4 BP 118/90 H Blood Pressure Location Rt brachial Position Sitting Respiration 16 Pulse 68 Pulse Source Pulse Oximeter Temp 97.7 F Temp Source Temporal Artery Scan Pulse Oximetry (%) 93 Oxygen Delivery Method Room Air Intake Visit Reasons: f/u ultrasound Intake Note: Negrita presents in the office today for leg swelling. Worried about the Carvedilol making her feel loopy. She can't think. Allergies blue dye (BLUE DYE) Allergy (Unknown, Verified 06/30/25 09:42) ANAPHYLAXIS escitalopram (From LEXAPRO) Allergy (Unknown, Verified 06/30/25 09:42) UNKNOWN infliximab (From REMICADE) Allergy (Unknown, Verified 06/30/25:42) EXACERBATES MS naproxen (NAPROXEN) Allergy (Unknown, Verified 06/30/25 09:42) SWELLING ALL NSAIDS NSAIDS (Non-Steroidal Anti-Inflamma (NSAIDS (NON-STEROIDAL ANTI-INFLAMMA) Allergy (Unknown, Verified 06/30/25 09:42) ABDOMINAL PAIN olanzapine (OLANZAPINE) Allergy (Unknown, Verified 06/30/25 09:42) UNKNOWN paroxetine (From PAXIL) Allergy (Unknown, Verified 06/30/25 09:42) DIZZINESS prednisone (PREDNISONE) Allergy (Unknown, Verified 06/30/25 09:42) HALLUCINATIONS with high doses Sulfa (Sulfonamide Antibiotics) (SULFA (SULFONAMIDE ANTIBIOTICS)) Allergy (Unknown, Verified 06/30/25 09:42) HIVES sulfasalazine (From Azulfidine) Allergy (Verified 06/30/25 09:42) Hives aspirin (ASPIRIN) Adverse Reaction (Unknown, Verified 06/30/25 09:42) STOMACH UPSET ciprofloxacin (From CIPRO) Adverse Reaction (Unknown, Verified 06/30/25 09:42) SKIN PEELING clarithromycin (From Biaxin) Adverse Reaction (Verified 06/30/25 09:42) Abdominal Pain ENVIRONMENTAL Allergy (Unknown, Uncoded 06/30/25 09:42) CATS,DOGS,HORSES,MOLD-RED SKIN,FACIAL SWELLING Medication List - Last Reconciled 06/30/25 by Lito Castro MD albuterol sulfate 0.63 mg inhalation Q4-6H PRN albuterol sulfate 90 mcg/actuation (Ventolin HFA) 2 puffs inhalation Q4-6H PRN 30 days arformoterol (Brovana) 2 mL inhalation BID arwcigdyai-efjxdqpe-ocrcbzuxoa 160-9-4.8 mcg/actuation (Breztri Aerosphere) 2 inhalations PO BID carvedilol 6.25 mg PO QAM 90 days cetirizine 10 mg PO DAILY cholecalciferol (vitamin D3) (Vitamin D3) 25 mcg PO DAILY 30 days cyanocobalamin (vitamin B-12) 1,000 mcg IM QMONTH 90 days diclofenac sodium 1% 2 grams topical .QD donepezil 23 mg PO BEDTIME epinephrine 0.3 mL IM ONCE PRN famotidine 20 mg PO BID ferrous sulfate 110 mg (2.5 mL) PO DAILY 30 days fluticasone propionate 50 mcg/actuation 2 sprays intranasal BID 30 days folic acid 1 mg PO DAILY 90 days gabapentin 600 mg PO TID 30 days hydrochlorothiazide 12.5 mg PO QAM 90 days incontinence pad, liner, disp Long. Daily as directed, 90 days ipratropium bromide 2 sprays intranasal TID-QID PRN ipratropium-albuterol 0.5 mg-3 mg(2.5 mg base)/3 mL 3 mL inhalation Q4-6H PRN lactase 3,000 units PO QID Lactobac. rhamnosus GG-inulin 10 billion cell -200 mg ([facility] SetuServ [facility]) 1 cap PO DAILY 90 days lifitegrast 5% (Xiidra) 1 drp ophthalmic (eye) BID loperamide 2 mg PO QID PRN 30 days lorazepam 0.5 mg PO BID PRN magnesium chloride 71.5 mg PO BID megestrol 20 mg PO DAILY 30 days memantine 5 mg PO BID 90 days mesalamine 1,000 mg [place] BEDTIME PRN miscellaneous medical supply 1 ea miscellaneous DAILY 99 days miscellaneous medical supply Poise pads. 2 per day. 90 day supply; 90 days miscellaneous medical supply Motorized scooter. Daily As directed, 999 days naloxone 4 mg/actuation (Narcan) 4 mg intranasal Q2M PRN 1 day nystatin 5 mL PO TID 7 days ondansetron 4 mg PO DAILY PRN 28 days prochlorperazine (Compro) 25 mg [place] TID PRN sumatriptan succinate 50 mg PO NEEDED PRN syringe with needle, safety (BD Integra Syringe) As directed syringe with needle, safety (BD Eclipse Luer-Emmanuel) Use to administer IM Cyanocobalamin, Monthly As directed, 90 days trazodone 75 mg PO BEDTIME triamcinolone acetonide 0.1% 1 appl topical BID valacyclovir 1,000 mg PO BEDTIME Tobacco use date assessed: 06/30/25 Dental Screening Dental Screen Date: 06/30/25 Did you have a dental visit in the last 12 months?: Yes Did you have a dental problem in the last 6 months where you did not have access to dental care?: No Was dental information given to patient?: Patient has dentist HPI f/u ultrasound HPI Details 64 y/o female presents today to 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 Has complaints of lower extremity swelling. Blood pressure today 118/90, 68p. She questions whether she is able to tolerate carvedilol. [facility] Medical History OCD (obsessive compulsive disorder) History of dysphagia Neuropathy YOHAN (obstructive sleep apnea) Smoker Asthma-COPD overlap syndrome Annual physical exam Dementia Thumb pain Lumbar arthropathy Polyarthritis History of posttraumatic stress disorder (PTSD) Right shoulder pain History of cervical fracture VÁSQUEZ (nonalcoholic steatohepatitis) Bladder cancer Multiple sclerosis Migraines, neuralgic IBS (irritable colon syndrome) Crohn's disease Surgical History History of arthroplasty of right shoulder (05/07/22) Hx of cholecystectomy History of carpal tunnel surgery of right wrist (~05/2021) History of bladder surgery Hx of endoscopy (08/07/11) Hx of colonoscopy (08/07/11) Hx of foot surgery (04/25/14) History of resection of terminal ileum History of adenoidectomy Hx of tonsillectomy Hx of breast augmentation Family History Father Alzheimer disease Lymphoma Cancer Mother Lung cancer Sudden cardiac Cancer CVD (cardiovascular disease) Paternal Grandfather Colon cancer Cancer Maternal Grandfather Sudden cardiac CVD (cardiovascular disease) Social History (Updated 06/30/25 @ 09:48 by Latisha Bustillos CMA) Household Members: None Household Members Other:: ALONE DISABLED SINCE AROUND 2014 DUE TO [place] Housing: Apartment Are you a primary child care giver to a significant other at home: No Do you presently have visiting nurse or other home services: No Alcohol intake: current Alcohol intake frequency: holidays/special occasions only Alcohol type: hard liquor Patient Tobacco Use Status: Former Tobacco user Tobacco use type: Cigarette Cigarette Packs Per Day: 0.5 Cigarettes Per Day: 2 Years Smoked: 47 e-Cigarette/Vaping Use: Former Use Second Hand Smoke Exposure: No Substance Use Type: Marijuana service: No Current occupational status: disabled Current occupational exposures/hazards: No Cognitive needs: No Hearing needs: No Vision needs: No Questionnaire Thrive Questionnaire Date Thrive assessed: 04/19/25 I am a: Patient What is your living situation today?: I have a steady place to live Within the past 12 months, did the food you bought not last and you didn't have the money to get more?: Never true Within the past 12 months, did you worry whether your food would run out before you got money to buy more?: Never true Do you have trouble paying for medicines?: No Do you have trouble getting transportation to medical appointments?: Yes Do you have trouble paying your heating and electricity bill?: No Do you have trouble taking care of your child, family member or friend?: No Do you have trouble with day-to-day activities such as bathing, preparing meals, shopping, managing finances, etc.?: No Are you currently unemployed and looking for a job?: No Are you interested in more education?: No Please select the resources that you would like help with: Transportation Currently or been in a relationship where the following occur: I choose not to answer THRIVE Score: 1 JOSIE-7 AMB Questionnaire JOSIE-7 Date JOSIE - 7 assessed: 11/03/23 Source: Developed by Drs. Derrick Alfonso, Veronica Caraballo, Raul Zepeda and colleagues, with an educational fabi from [employer]. Review of Systems Const Denies chills, Denies fatigue, Denies fever(s), Denies headache(s) and Denies weakness ENT Denies dizziness and Denies headache(s) Card Denies dyspnea Resp Denies cough, Denies dyspnea, Denies wheezing and Denies other (shortness of breath) Musc Denies numbness and Denies tingling Neuro Denies dizziness, Denies headache(s), Denies numbness, Denies tingling and Denies weakness Psych Denies anxiety and Denies depression Endo Denies fatigue Aller/Immun Denies wheezing Physical exam (Primary Care) Vital Signs: Last Vital Signs Temp 97.7 F 06/30/25 09:48 Pulse 68 06/30/25 09:48 Resp 16 06/30/25 09:48 BP 118/90 H 06/30/25 09:48 Pulse Ox 93 06/30/25 09:48 Oxygen Delivery Method Room Air 06/30/25 09:48 BMI result Body Mass Index 20.4 Tobacco/Smoking Status: Tobacco use Status Tobacco use date assessed 06/30/25 06/30/25 09:51 Patient Tobacco Use Status Former Tobacco user 06/30/25 09:51 Tobacco use type Cigarette 06/30/25 09:48 e-Cigarette/Vaping Use Former Use 06/30/25 09:48 Thrive Assessment: Date of Thrive Assessment Date Thrive assessed 04/19/25 06/30/25 09:40 Currently or been in a relationship where the following occur: I choose not to answer Const General: well developed; No acute distress Nutritional Appearance: well nourished Orientation/consciousness: patient oriented x3 [facility]: Yes normocephalic and Yes atraumatic Eyes General: appearance normal, both eyes and all related structures Pupils: Equal, round and reactive pupils present EOM: EOMs intact bilaterally Resp Effort & Inspection: normal respiratory effort Auscultation: clear to auscultation bilaterally Cardio Rate: regular rate Rhythm: regular rhythm Heart sounds: S1 normal heart sound present, S2 normal heart sound present, no gallops, no murmurs and no rubs Neuro General: patient oriented x3 and gait normal Cranial nerves: Yes Equal, round and reactive pupils present Psych Affect: normal affect Coding Level of Care Code Est Pt Level 4 (64227) Diagnoses Lower extremity edema R60.0 Hypertension I10 CAD in [place] artery I25.10 Unsteady gait R26.81 Assessment & Plan Assessment & Plan (1) Lower extremity edema: Code(s): R60.0 - Localized edema Category: Medical Plan: Lower extremity edema right worse than left No evidence of DVT Elevate leg Avoid salt/sodium Use compression stockings-will need help from VNA and her personal consultant Will trial hydrochlorothiazide to help edema and also blood pressure-see below. Risks/benefits discussed. May impact her incontinence. Patient will try this. (2) Hypertension: Code(s): I10 - Essential (primary) hypertension Category: Medical Plan: Patient is taking carvedilol 6.25 mg b.i.d. but this is causing Loopiness She will take the carvedilol once in morning as she does note that it helps with tremor in her ability to write during day. She hold off dose and we will work on controlling blood pressure with some hydrochlorothiazide as well. HCTZ may also help with diastolic blood pressure which is too high today. Hydrochlorothiazide may also help with lower extremity edema (3) CAD in [place] artery: Comment: CT 04/08/24 at [facility] Mild coronary artery calcification, moderate vascular calcification of the aorta without aneurysm, , severe arteriosclerotic vascular calcification of the blood vessels without aneurysm, Code(s): I25.10 - Atherosclerotic heart disease of [place] coronary artery without angina pectoris Category: Medical Plan: Stable (4) Unsteady gait: Code(s): R26.81 - Unsteadiness on feet Category: Medical Plan: History of multiple sclerosis and significantly unsteady gait She is using a walker Has had VNA care in the past I ordered VNA care physical therapy as well as help with medication management and application of compression stockings with FOREIGN BROADCAST SPECIALIST Will also fill out a handicap placard paperwork. Orders: [facility]errals [facility] Referral G35 - Multiple sclerosis, M47.816 - Spondylosis without myelopathy or radiculopathy, lumbar region, R26.81 - Unsteadiness on feet, R60.0 - Localized edema Medications: New hydrochlorothiazide 12.5 mg PO QAM 90 tabs 3RF 90 days carvedilol must administer with a meal/food 6.25 mg PO QAM 90 tabs 3RF 90 days
[2025-06-30 09:48] VITALS: BP 118/90; PULSE 68; RESP 16; TEMP 36.5; O2SAT 93; BMI 20.4
--- OUTSIDE RECORDS SUMMARY | 2025-06-30 10:11 | XMS_ITS | Clinical Summary ---
Author Organization [facility] Address [address] [place] [address] Care Team Providers Care Production Supv Name Role Phone Lito Castro MD Primary Care Provider [phone] Allergies Active Allergy Reactions Criticality Noted Date Comments Aspirin 09/04/2021 No reaction documented. Blue Dyes (Parenteral) Anaphylaxis High 03/14/2013 Ciprofloxacin Swelling 07/24/2021 Ciprofloxacin-Hydrocorti sone 09/04/2021 No reaction documented. Clarithromycin 10/22/2021 Dicyclomine 10/22/2021 Fd&C Blue #1 ([place] Blue) Anaphylaxis High 07/24/2021 Nsaids Nausea And [...] hours as needed. 0 Active nystatin (MYCOSTATIN) 076250 UNIT/ML suspension Take 5 mL (500,000 Units [...] 10 tablet 5 01/30/2023 Active Lactobacillus-Inuli n ([facility]) CAPS 0 10/29/2023 Active gabapentin (NEURONTIN) 600 [...] age to complete this topic Care Teams Production Supv Relationship Specialty Start Date End Date Lito Castro MD [address] [place] [id number] PCP - General Family Medicine 04/28/22
--- OUTSIDE RECORDS SUMMARY | 2025-06-30 10:11 | XMS_ITS | Encounter Summary ---
Author Organization [facility] [place] [address] Care Team Providers Care Apple Thinner Name Role Phone Azra Nation MD Primary Care Provider [phone] Encounter Details Date Type Department Care Team (Late Contact Info) Description 01/21/2025 Lab Requisition [facility] - Main Lab [address] [facility] [place] [address] Waleska Fitzgerald MD [address] [facility] 1 [place], [place] [id number] Chronic obstructive pulmonary disease, unspecified (CMS/HCC V24, [...] Description 07/04/2025 3:30 PM EDT Office Visit [facility] [address] [facility] [address] [place] [phone] Yolande Napier PA [address] [facility] [facility] [address] [place] [address] 07/17/2025 1:15 PM EDT Office Visit Orthopedic Surgery - [place] [address] [facility] [address] [place] [address] Maulik Walter DPM [address] [facility] [address] [place] [address] documented as of this encounter Procedures Procedure Name Priority Date/Time Associated Diagnosis Comments COMPLETE BLOOD COUNT Routine 01/21/2025 5:22 AM EDT Chronic obstructive pulmonary disease, unspecified (CMS/HCC V24, CMS/HCC V28) Weakness Crohn's disease, unspecified, with unspecified complications (CMS/HCC V24, CMS/HCC V28) BASIC METABOLIC PANEL Routine 01/21/2025 5:22 AM EDT Chronic obstructive pulmonary disease, unspecified (CMS/HCC V24, CMS/HCC V28) Weakness Crohn's disease, unspecified, with unspecified complications (CMS/HCC V24, CMS/HCC V28) documented in this encounter Results * (ABNORMAL) Basic metabolic panel (01/21/2025 5:22 AM EDT) Sodium 140 133 - 145 mmol/L LAB CHEMISTRY METHOD 01/21/2025 9:16 AM T [facility] Potassium 3.9 3.5 - 5.5 mmol/L LAB CHEMISTRY METHOD 01/21/2025 9:16 AM [facility] Chloride 105 96 - 110 mmol/L LAB CHEMISTRY METHOD 01/21/2025 9:16 AM [facility] CO2 28 21 - 32 mmol/L LAB CHEMISTRY METHOD 01/21/2025 9:16 AM [facility] Anion Gap 7 3 - 11 LAB CHEMISTRY METHOD 01/21/2025 9:16 AM EDT [facility] Glucose 92 70 - 100 mg/dL LAB CHEMISTRY METHOD 01/21/2025 9:16 AM T [facility] BUN 12 5 - 25 mg/dL LAB CHEMISTRY METHOD 01/21/2025 9:16 AM [facility] Creatinine 0.42(L) 0.50 - 1.10 mg/dL LAB CHEMISTRY METHOD 01/21/2025 9:16 AM T [facility] eGFR 108 >=60 mL/min/1. 73m2 LAB CHEMISTRY METHOD 01/21/2025 9:16 AM [facility] Comment:Calculation based on the Chronic Kidney Disease Epidemiology Collaboration (CKD-EPI) equation refit without adjustment for race. BUN/Creatinine Ratio 28.6 LAB CHEMISTRY METHOD 01/21/2025 9:16 AM [facility] Calcium 9.6 8.5 - 10.5 mg/dL LAB CHEMISTRY METHOD 01/21/2025 9:16 AM [facility] Blood Venous blood specimen / Unknown Venipuncture / Unknown 01/21/2025 5:22 AM EDT 01/21/2025 7:05 AM EDT us Waleska Fitzgerald MD LAB BLOOD ORDERABLES Fin al Result [facility] [address] [place] [address], * (ABNORMAL) Complete blood count (01/21/2025 5:22 AM EDT) WBC 10.2 4.8 - 10.8 K/mcL LAB HEMETOLOGY METHOD 01/21/2025 7:32 AM EDT [facility] RBC 3.50(L) 3.80 - 4.80 M/mcL LAB HEMETOLOGY METHOD 01/21/2025 7:32 AM T [facility] Hemoglobin 11.8 11.5 - 16.0 g/dL LAB HEMETOLOGY METHOD 01/21/2025 7:32 AM T [facility] Hematocrit 36.8 35.0 - 47.0 % LAB HEMETOLOGY METHOD 01/21/2025 7:32 AM [facility] MCV 104.2(H) 79.0 - 98.0 FL LAB HEMETOLOGY METHOD 01/21/2025 7:32 AM EDT [facility] MCH 33.4(H) 27.0 - 32.0 pcg LAB HEMETOLOGY METHOD 01/21/2025 7:32 AM T [facility] MCHC 32.1 32.0 - 37.0 g/dL LAB HEMETOLOGY METHOD 01/21/2025 7:32 AM [facility] RDW 12.3 11.0 - 15.0 % LAB HEMETOLOGY METHOD 01/21/2025 7:32 AM [facility] Platelets 316 130 - 400 K/mcL LAB HEMETOLOGY METHOD 01/21/2025 7:32 AM T [facility] MPV 9.9 7.0 - 11.0 FL LAB HEMETOLOGY METHOD 01/21/2025 7:32 AM [facility] NRBC 0.0 <1.0 % LAB HEMETOLOGY METHOD 01/21/2025 7:32 AM T [facility] NRBC Absolute 0.00 <0.10 K/mcL LAB HEMETOLOGY METHOD 01/21/2025 7:32 AM [facility] Blood Venous blood specimen / Unknown Venipuncture / Unknown 01/21/2025 5:22 AM EDT 01/21/2025 7:05 AM EDT us Waleska Fitzgerald MD LAB BLOOD ORDERABLES Fin al Result [facility] [address] [place] [address], documented in this encounter Visit Diagnoses Diagnosis Chronic obstructive pulmonary disease, unspecified (CMS/HCC V24, CMS/HCC V28) Weakness Other malaise and fatigue Crohn's disease, unspecified, with unspecified complications (CMS/HCC V24, CMS/HCC V28) documented in this encounter Care Teams Apple Thinner Relationship Specialty Start Date End Date Azra Nation MD [address] [place] [address] PCP - General Internal Medicine 02/17/25 documented as of this encounter
--- OUTSIDE RECORDS SUMMARY | 2025-06-30 10:11 | XMS_ITS | Clinical Summary ---
Author Organization [facility] Address [address] [facility] [address] [place] [phone] Phone Care Team Providers Care Leasing Assistant Name Role Phone Unavailable Primary Care Provider [...] It is not the complete legal health record.[facility]
--- OUTSIDE RECORDS SUMMARY | 2025-06-30 10:11 | XMS_ITS | Encounter Summary ---
Author Organization [facility] [place] [address] Care Team Providers Care Echocardiograph Technician Name Role Phone Azra Nation MD Primary Care Provider [phone] Encounter Details Date Type Department Care Team (Late Contact Info) Description 01/23/2025 Lab Requisition [facility] - Main Lab [address] [facility] [place] [address] Waleska Fitzgerald MD [address] [facility] 1 [place], [place] [phone] Chronic obstructive pulmonary disease, unspecified (CMS/HCC V24, [...] 3:30 PM EDT Office Visit [facility] [address] [facility] [address] [place] [address] Yolande Napier PA [address] [facility] [address] [place] [address] 07/17/2025 1:15 PM EDT Office Visit Orthopedic Surgery - [place] 250 [address] [facility] [address] [place] [phone] Maulik Walter DPM 175 [facility] 250 [place] [address] documented as of this encounter Procedures Procedure Name Priority Date/Time Associated Diagnosis Comments COMPLETE BLOOD COUNT Routine 01/24/2025 6:42 AM EDT Chronic obstructive pulmonary disease, unspecified (CMS/HCC V24, CMS/HCC V28) Weakness Crohn's disease, unspecified, without complications (CMS/HCC V24, CMS/HCC V28) BASIC METABOLIC PANEL Routine 01/24/2025 6:42 AM EDT Chronic obstructive pulmonary disease, unspecified (CMS/HCC V24, CMS/HCC V28) Weakness Crohn's disease, unspecified, without complications (CMS/HCC V24, CMS/HCC V28) documented in this encounter Results * Basic metabolic panel (01/24/2025 6:42 AM EDT) Sodium 143 133 - 145 mmol/L LAB CHEMISTRY METHOD 01/24/2025 9:40 AM [facility] Potassium 4.1 3.5 - 5.5 mmol/L LAB CHEMISTRY METHOD 01/24/2025 9:40 AM [facility] Chloride 109 96 - 110 mmol/L LAB CHEMISTRY METHOD 01/24/2025 9:40 AM [facility] CO2 25 21 - 32 mmol/L LAB CHEMISTRY METHOD 01/24/2025 9:40 AM [facility] Anion Gap 9 3 - 11 LAB CHEMISTRY METHOD [facility]/24[facility]25 [facility] Glucose 73 70 - 100 mg/dL LAB CHEMISTRY METHOD 01/24/2025 9:40 AM [facility] BUN 9 5 - 25 mg/dL LAB CHEMISTRY METHOD 01/24/2025 9:40 AM [facility] Creatinine 0.51 0.50 - 1.10 mg/dL LAB CHEMISTRY METHOD 01/24/2025 9:40 AM EDT [facility] eGFR 103 >=60 mL/min/1. 73m2 LAB CHEMISTRY METHOD 01/24/2025 9:40 AM [facility] Comment:Calculation based on the Chronic Kidney Disease Epidemiology Collaboration (CKD-EPI) equation refit without adjustment for race. BUN/Creatinine Ratio 17.6 LAB CHEMISTRY METHOD 01/24/2025 9:40 AM [facility] Calcium 9.2 8.5 - 10.5 mg/dL LAB CHEMISTRY METHOD 01/24/2025 9:40 AM [facility] Blood Venous blood specimen / Unknown Venipuncture / Unknown 01/24/2025 6:42 AM EDT 01/24/2025 8:18 AM EDT us Waleska Fitzgerald MD LAB BLOOD ORDERABLES Fin al Result [facility] [address] [place] [address], * (ABNORMAL) Complete blood count (01/24/2025 6:42 AM EDT) WBC 7.7 4.8 - 10.8 K/mcL LAB HEMETOLOGY METHOD 01/24/2025 9:09 AM [facility] RBC 3.60(L) 3.80 - 4.80 M/mcL LAB HEMETOLOGY METHOD 01/24/2025 9:09 AM [facility] Hemoglobin 12.3 11.5 - 16.0 g/dL LAB HEMETOLOGY METHOD 01/24/2025 9:09 AM EDT [facility] Hematocrit 39.0 35.0 - 47.0 % LAB HEMETOLOGY METHOD 01/24/2025 9:09 AM T [facility] MCV 109.2(H) 79.0 - 98.0 FL LAB HEMETOLOGY METHOD 01/24/2025 9:09 AM EDT [facility] MCH 34.5(H) 27.0 - 32.0 pcg LAB HEMETOLOGY METHOD 01/24/2025 9:09 AM T [facility] MCHC 31.5(L) 32.0 - 37.0 g/dL LAB HEMETOLOGY METHOD 01/24/2025 9:09 AM [facility] RDW 13.1 11.0 - 15.0 % LAB HEMETOLOGY METHOD 01/24/2025 9:09 AM EDT [facility] Platelets 224 130 - 400 K/mcL LAB HEMETOLOGY METHOD 01/24/2025 9:09 AM [facility] MPV 11.6(H) 7.0 - 11.0 FL LAB HEMETOLOGY METHOD 01/24/2025 9:09 AM [facility] NRBC 0.0 <1.0 % LAB HEMETOLOGY METHOD 01/24/2025 9:09 AM T [facility] NRBC Absolute 0.00 <0.10 K/mcL LAB HEMETOLOGY METHOD 01/24/2025 9:09 AM [facility] Blood Venous blood specimen / Unknown Venipuncture / Unknown 01/24/2025 6:42 AM EDT 01/24/2025 8:18 AM EDT us Waleska Fitzgerald MD LAB BLOOD ORDERABLES Fin al Result [facility] [address] [place] [address], documented in this encounter Visit Diagnoses Diagnosis Chronic obstructive pulmonary disease, unspecified (CMS/HCC V24, CMS/HCC V28) Weakness Other malaise and fatigue Crohn's disease, unspecified, without complications (CMS/HCC V24, CMS/[facility] V28) documented in this encounter Care Teams Echocardiograph Technician Relationship Specialty Start Date End Date Azra Nation MD [address] [place] [phone] PCP - General Internal Medicine 02/17/25 documented as of this encounter
--- OUTSIDE RECORDS SUMMARY | 2025-06-30 10:12 | XMS_ITS | Encounter Summary ---
Author [facility] [place] [address] Care Team Providers Care Marine Specialist Name Role Phone Azra Nation MD Primary Care Provider [phone] Encounter Details Date Type Department Care Team (Late Contact Info) Description 01/30/2025 Lab Requisition [facility] - Main Lab [address] [facility] [place] [address] Waleska Fitzgerald MD [address] [facility] 1 [place], [place] [phone] Weakness; Chronic obstructive pulmonary disease, unspecified (CMS/HCC [...] 07/04/2025 3:30 PM EDT Office Visit [facility] [address] [facility] [address] [place] [address] Yolande Napier PA [address] [facility] 150 [place], [place] [phone] 07/17/2025 1:15 PM EDT Office Visit Orthopedic Surgery - [place] 250 [address] [facility] 250 [place] [phone] Maulik Walter DPLonnie [address] [facility] 250 [place] [phone] documented as of this encounter Visit Diagnoses Diagnosis Weakness Other malaise and fatigue Chronic obstructive pulmonary disease, unspecified (CMS/HCC V24, CMS/HCC V28) Crohn's disease, unspecified, without complications (CMS/HCC V24, CMS/HCC V28) documented in this encounter Care Teams Marine Specialist Relationship Specialty Start Date End Date Azra Nation MD 175 [facility] 200 [place] [phone] PCP - General Internal Medicine 02/17/25 documented as of this encounter
--- OUTSIDE RECORDS SUMMARY | 2025-06-30 10:12 | XMS_ITS | Clinical Summary ---
Author Organization [facility] Address [address] [facility] [place] [address] Phone Care Team Providers Care Die Sinker Apprentice Name Role Phone Azra Nation MD Primary Care Provider [phone] Allergies Active Allergy Reactions Criticality Noted Date [...] Aerosphere 160-9-4.8 mcg/actuation HFA aerosol inhaler inhaler Active multivitamin tablet Take 1 tablet by [...] RECTALLY AT BEDTIME 30 each 3 Active nutritional supplement-fiber liquidIndications:C rohn's disease with complication, unspecified gastrointestinal tract location (CMS/HCC V24, CMS/HCC V28),Macrocytic anemia Take 1 each by mouth 2 (two) times a day. 1500 mL 11 Active gabapentin (NEURONTIN) 600 mg tablet Take 1 tablet (600 mg total) by mouth 3 (three) times a day. Take 1 tablet (600 mg total) by mouth 3 (three) times a day. 90 each Active tiZANidine (ZANAFLEX) 2 mg tablet TAKE 1 TABLET BY MOUTH EVERY MORNING , TAKE 1 TABLET BY MOUTH IN THE AFTERNOON AND TAKE 2 TABLETS BY MOUTH EVERY EVENING 120 tablet Active donepeziL (ARICEPT) 23 mg tablet TAKE 1 TABLET (23 MG TOTAL) BY MOUTH 1 (ONE) TIME EACH DAY. 30 tablet 5 025 2024 Active hydrOXYzine HCL (ATARAX) 25 mg tabletIndications:A [...] minutes if needed for chest pain. Active acetaminophen (TYLENOL) 500 mg tablet TAKE 1 TABLET BY MOUTH EVERY SIX HOURS NEEDED FOR PAIN 60 tablet 1 025 Active cholecalciferol (Vitamin D3) 25 mcg (1,000 unit) capsule TAKE 1 CAPSULE BY MOUTH DAILY 8 capsule 3 025 Active cholecalciferol (VITAMIN D-3) 25 mcg (1,000 unit) capsule Take 1 capsule (1,000 Units total) by mouth 1 (one) time each day. 30 capsule 3 025 2024 Discontinued Active Problems Problem Noted Date Diagnosed Date History of diverticulitis 05/23/2025 Chronic obstructive pulmonar y disease ([facility] V24, [facility] V28) 10/19/2024 Hiatal hernia 11/14/2021 Overview (11/02/2022): Small, seen during EGD/colonoscopy 02/24/2017 Carpal tunnel syndrome of right wrist 09/04/2021 Overview (11/02/2022): Mild to moderate and mild of left wrist. 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 Depression 09/04/2021 Dementia ([facility] V24, [facility] V28) 09/04/2021 Fibromyalgia 09/04/2021 Migraine 09/04/2021 Multiple sclerosis 09/04/2021 Neuropathic pain 09/04/2021 YOHAN on CPAP 09/04/2021 Psychological disorder 09/04/2021 Overview (11/02/2022): w/ significant paranoia. Anxiety 08/12/2013 GERD (gastroesophageal reflux disease) 3 IBS (irritable bowel syndrome) 04/08/2013 Crohn's disease ([facility] V24, [facility] V28) 03/14 Overview (11/02/2022): Colonoscopy and Upper GI done 02/24/2017, anastomotic erosive changes. Herpes simplex disease 03/14/2013 Overview (11/02/2022): Lesions on back. Insomnia 03/14/2013 Osteoarthritis, hand 03/14/2013 Encounters Date Type Department Care Team Description 05/23/2025 11:00 AM EDT Office Visit Gastroenterology - [address] [address] Marcelino Calrk MD Chronic obstructive pulmonary disease, unspecified COPD type (CMS/HCC V24, CMS/HCC V28) (Primary Dx); Crohn's disease without complication, unspecified gastrointestinal tract location (CMS/HCC V24, CMS/HCC V28); History of diverticulitis 04/18/2025 Telephone Internal Medicine - [place] 175 [facility] 200 [place] [address] Azra Nation MD 04/05/2025 Lab Requisition [facility] - Main Lab 299 [facility] [place] [address] Larry [place] MD Personal history of malignant neoplasm of bladder from Last 3 Months Surgical History Surgery Date Site/Laterality Comments OTHER SURGICAL HISTORY 09/28/1990 PROCEDURE: BREAST RECONSTRUCTION; COMMENT: implants CHOLECYSTECTOMY PROCEDURE: VT CHOLECYSTECTOMY OTHER SURGICAL HISTORY 09/28/1979 PROCEDURE: VT HYSTEROSCOPY BI TUBE OCCLUSION W/PERM IMPLNTS; COMMENT: [...] D X:IBS (irritable bowel syndrome) Crohn's disease ([facility] V24 , [facility] V28) DX:Crohn's disease ([facility]); CO MMENT: Colonoscopy and Upper GI done 02/24/2017, anastomotic erosive changes. Osteoarthritis DX:Osteoarthriti s Bilateral bunions DX:Bilateral b unions MS (multiple sclerosis) 09/04/2021 DX:MS (m ultiple sclerosis) ([facility]) Neuropathic pain 09/04/2021 DX:Neuropathic pain Depression 09/04/2021 DX:Depression Migraine 09/04/2021 DX:Migraine Dementia ([facility] V24, [facility] V28) 09/04/2021 DX:Dementia ([facility]) YOHAN on CPAP 09/04/2021 DX:YOHAN on CPAP [...] Small, seen during EGD/colonoscopy 02/24/2017 Bladder cancer ([facility] V24, [facility] V28) DX:Bladder cancer (HCC) Family History Medical [...] 77) CV A Mother (Age 76) DM, [place], warren ng cancer. of pneumonia. Calcium oxalate [...] Description 07/04/2025 3:30 PM EDT Office Visit [facility] - [place] [address] [place] [phone] Yolande Napier PA [address] [place] [address] 07/17/2025 1:15 PM EDT Office Visit Orthopedic Surgery - [place] [address] [place] [phone] Maulik Walter, DPM [address] [facility] [address] [place] [phone] Health Maintenance Due Date Last Done Comments [...] on patient's age to complete this topic Insurance MEDICARE MEDICAID - [place] Care Teams Die Sinker Apprentice Relationship Specialty Start Date End Date Azra Nation MD [address] [place] [phone] PCP - General Internal Medicine 02/17/25
--- OUTSIDE RECORDS SUMMARY | 2025-06-30 10:12 | XMS_ITS | Encounter Summary ---
Author [facility] [place] [address] Care Team Providers Care Car Supplier Name Role Phone Azra Nation MD Primary Care Provider [phone] Encounter Details Date Type Department Care Team (Late Contact Info) Description 04/05/2025 Lab Requisition [facility] - Main Lab 299 [facility] [place] [phone] Larry Hur[place] MD [address] [facility] 120 [place] [address] Personal history of malignant neoplasm of bladder [...] 07/04/2025 3:30 PM EDT Office Visit [facility] [address] [facility] [address] [place] [address] Yolande Napier PA 175 [facility] 150 [place], [place] [phone] 07/17/2025 1:15 PM EDT Office Visit Orthopedic Surgery - [place] 250 [address] [facility] [address] [place] [phone] Maulik Walter, DPM 175 [facility] 250 [place] [phone] documented as of this encounter Procedures Procedure Name Priority Date/Time Associated Diagnosis Comments AP OUTSIDE CONSULT Routine 03/22/2025 12 :00 AM EDT Personal history of malignant neoplasm of bladder documented in this encounter Results * Anatomic pathology outside consult (03/22/2025 12:00 AM EDT) Final Diagnosis Urine, Voided, [id number]: Negative for high grade urothelial carcinoma. Acute inflammation present. Results of UroVysion fluorescence in situ hybridization (FISH) testing: CEP3: Normal CEP7: Normal CEP17: Normal LSI 9p21: Normal Interpretation: Normal profile Controls stained appropriately. Note: The results are intended as a screening device and should be interpreted in association with other clinical and pathological findings. 04/10/2025 2:24 PM EDT [facility] Clinical Information History of bladder neoplasm (malignant) Z85.51 Urine Cytology/FISH (now) 04/10/2025 2:24 PM EDT [facility] Gross Description A. Urine, Voided, [id number]: Received one ThinPrep slide for cytology and one ThinPrep slide for UroVysion FISH 04/10/2025 2:24 PM EDT [facility] Disclaimer Unless otherwise specified, all tissue is 10% NB formalin fixed and paraffin embedded. Technical pathology services provided by [facility] at [address], [place] [address] (CLIA #[id number]/Nikkie Lizama MD, Financial Services Officer) 04/10/2025 2:24 PM EDT [facility] Tissue Urine specimen from urethra / Unknown 03/22/2025 04/05/2025 11:13 AM EDT us Larry [place] MD LAB PATHOLOGY ORDERABLES nal Result [email or web address] 299 [place] [address], documented in this encounter Visit Diagnoses Diagnosis Personal history of malignant neoplasm of bladder documented in this encounter Care Teams Car Supplier Relationship Specialty Start Date End Date Azra Nation MD [address] [place] [phone] PCP - General Internal Medicine 02/17/25 documented as of this encounter
== END 2025-06-30 10:19 | disposition home or self-care (01) ==
LOC: HO.HMCFM 09:34
PROVIDERS: PCP Family Medicine; Visit Provider Family Medicine
DX: R60.0 Localized edema (principal); I10 Essential (primary) hypertension; I25.10 Atherosclerotic heart disease of native coronary artery without angina pectoris; R26.81 Unsteadiness on feet

== ENCOUNTER → 2025-06-30 09:34 | Outpatient (BNVA) | payer MEDICARE, MEDICAID, SELFPAY | PROVIDERS: PCP Family Medicine; Visit Provider Family Medicine | DX: R60.0 Localized edema (principal); I10 Essential (primary) hypertension; I25.10 Atherosclerotic heart disease of native coronary artery without angina pectoris; R26.81 Unsteadiness on feet; G35.D Multiple sclerosis, unspecified; M47.816 Spondylosis without myelopathy or radiculopathy, lumbar region | CPT/HCPCS: 99212 ==

== ENCOUNTER 2025-08-04 14:24 | Outpatient (REF) | payer MEDICARE, MEDICAID, SELFPAY ==
--- OUTSIDE RECORDS SUMMARY | 2024-07-01 10:25 | XMS_ITS | Encounter Summary ---
Author Organization Jayda [facility] [place] [address] Care Team Providers Care Client Experience Administrator Name Role Phone Lito Castro MD Primary Care Provider [phone]- [phone] Encounter Details Date Type Department Care Team (Late st Contact Info) Description 07/01/2024 11:25 AM EDT Hospital Encounter TH HISTORIC ENCOUNTERS [facility] ONLY Vijay Grissom MD [address] [place] [address] Social History Tobacco Use Types Packs/Day Years [...] Grissom MD - 07/01/2024 11:00 AM EDT [facility] Cc: MS HPI: Patient [...] Disp: , Rfl: ??? Lactobacillus-Inulin (Culturelle Digestive [facility]) CAPS, , Disp: , Rfl: ??? [...] CRAVINGS, Disp: , Rfl: ??? nystatin (MYCOSTATIN) [id number] UNIT/ML suspension, Take 5 mL (500,000 Units [...] FTN without dysmetria or ataxia bilaterally, normal Qinaa, no dysdiadochokinesia, + Romberg Gait: cautious gait with cane, wide-based 25 foot timed walk: Not performed today (12.9, 13.3 last visit) A/P: Multiple Sclerosis: Negrita Sullivan is a 63-year-old female with multiple sclerosis, treated with Ocrevus for disease modifying therapy. She had multiple hospitalization with COVID/COVID-pneumonia at [facility] lastmonth she is also been having diverticulitis [...] diagnostic plan: -Will hold off Ocrevus per [facility] protocol and we discussed in the beginning of July after her GI evaluation MRI brain with and without contrast on annual basis to ensure radiological stability B. Symptomatic therapy plan: Gait and balance: Continue home PT/OT Urinary urgency: Will refer to a urologist for evaluation Mood changes: Continue with [facility] for behavioral health services Cognitive concerns: Neuropsych [...] 40 minutes. The majority of the actual iiim-ua-pwqh visit was spent counseling the patient with respect to the current neurological picture. Vijay Grissom MD documented in this encounter Plan of Treatment Not on file documented as of this encounter Visit Diagnoses Not on filedocumented in this encounter Care Teams Client Experience Administrator Relationship Specialty Start Date End Date Lito Castro MD [address] [place] [address] Dr Griffin [place] PCP - General 07/01/24 08/08/24 documented as of this encounter
--- NOTE | ~2025-08-04 | US_ITS ---
EXAMINATION: US KIDNEY BILATERAL HISTORY: N28.9 - Disorder of kidney and ureter, unspecified TECHNIQUE: Real-time grayscale ultrasound imaging of the kidneys was performed and images were reviewed. COMPARISON: Correlation is made with an abdominal ultrasound dated 04/16/2017. FINDINGS: Right kidney: The right kidney measures 9.9 x 4.7 x 5.2 cm. Renal parenchymal echotexture and thickness are normal. There are no masses. There is no hydronephrosis or renal calculi. Left Kidney: The left kidney measures 10.1 x 5.5 x 4.1 cm. Renal parenchymal echotexture and thickness are normal. There is a 7 x 8 x 8 mm cyst in the interpolar region and an 11 x 12 x 10 mm cyst at the lower pole. There is no hydronephrosis or renal calculi. US/US renal BI IMPRESSION: Left renal cysts as described. Otherwise unremarkable renal ultrasound. Electronically signed by: Derrick Keith MD 08/04/2025 03:28 PM [facility]
--- OUTSIDE RECORDS SUMMARY | 2025-08-04 16:05 | XMS_ITS | Encounter Summary ---
Author Organization [facility] [place] [address] Care Team Providers Care Government Property Inspector Name Role Phone Azra Nation MD Primary Care Provider [phone] Encounter Details Date Type Department Care Team (Late st Contact Info) Description 01/23/2025 Lab Requisition [facility] - Main Lab 299 [facility] [place] [phone] Waleska Fitzgerald MD [address] [id number] Chronic obstructive pulmonary disease, unspecified (CMS/HCC V24, [...] as of this encounter Plan of Treatment Not on file documented as of this encounter Procedures Procedure Name Priority Date/Time Associated Diagnosis Comments COMPLETE BLOOD COUNT Routine 01/24/2025 6:42 AM EDT Chronic obstructive pulmonary disease, unspecified (CMS/HCC V24, CMS/HCC V28) Weakness Crohn's disease, unspecified, without complications ([facility] V24, [facility] V28) BASIC METABOLIC PANEL Routine 01/24/2025 6:42 AM EDT Chronic obstructive pulmonary disease, unspecified ([facility] V24, [facility] V28) Weakness Crohn's disease, unspecified, without complications ([facility] V24, [facility] V28) documented in this encounter Results * Basic metabolic panel (01/24/2025 6:42 AM EDT) Sodium 143 133 - 145 mmol/L LAB CHEMISTRY METHOD 01/24/2025 9:40 AM [facility] Potassium 4.1 3.5 - 5.5 mmol/L LAB CHEMISTRY METHOD 01/24/2025 9:40 AM [facility] Chloride 109 96 - 110 mmol/L LAB CHEMISTRY METHOD 01/24/2025 9:40 AM [facility] CO2 25 21 - 32 mmol/L LAB CHEMISTRY METHOD 01/24/2025 9:40 AM [facility] Anion Gap 9 3 - 11 LAB CHEMISTRY METHOD 01/24/2025 9:40 AM [facility] Glucose 73 70 - 100 mg/dL LAB CHEMISTRY METHOD 01/24/2025 9:40 AM [facility] BUN 9 5 - 25 mg/dL LAB CHEMISTRY METHOD 01/24/2025 9:40 AM [facility] Creatinine 0.51 0.50 - 1.10 mg/dL LAB CHEMISTRY METHOD 01/24/2025 9:40 AM [facility] eGFR 103 >=60 mL/min/1. 73m2 LAB CHEMISTRY METHOD 01/24/2025 9:40 AM [facility] Comment:Calculation based on the Chronic Kidney Disease Epidemiology Collaboration (CKD-EPI) equation refit without adjustment for race. BUN/Creatinine Ratio 17.6 LAB CHEMISTRY METHOD 01/24/2025 9:40 AM T [facility] Calcium 9.2 8.5 - 10.5 mg/dL LAB CHEMISTRY METHOD 01/24/2025 9:40 AM [facility] Blood Venous blood specimen / Unknown Venipuncture / Unknown 01/24/2025 6:42 AM EDT 01/24/2025 8:18 AM EDT us Waleska Fitzgerald MD LAB BLOOD ORDERABLES Fin al Result [facility] [address] [place] [address], * (ABNORMAL) Complete blood count (01/24/2025 6:42 AM EDT) WBC 7.7 4.8 - 10.8 K/mcL LAB HEMETOLOGY METHOD 01/24/2025 9:09 AM [facility] RBC 3.60(L) 3.80 - 4.80 M/mcL LAB HEMETOLOGY METHOD 01/24/2025 9:09 AM [facility] Hemoglobin 12.3 11.5 - 16.0 g/dL LAB HEMETOLOGY METHOD 01/24/2025 9:09 AM [facility] Hematocrit 39.0 35.0 - 47.0 % LAB HEMETOLOGY METHOD 01/24/2025 9:09 AM [facility] MCV 109.2(H) 79.0 - 98.0 FL LAB HEMETOLOGY METHOD 01/24/2025 9:09 AM [facility] MCH 34.5(H) 27.0 - 32.0 pcg LAB HEMETOLOGY METHOD 01/24/2025 9:09 AM [facility] MCHC 31.5(L) 32.0 - 37.0 g/dL LAB HEMETOLOGY METHOD 01/24/2025 9:09 AM EDT [facility] RDW 13.1 11.0 - 15.0 % LAB HEMETOLOGY METHOD 01/24/2025 9:09 AM EDT [facility] Platelets 224 130 - 400 K/mcL LAB HEMETOLOGY METHOD 01/24/2025 9:09 AM EDT [facility] MPV 11.6(H) 7.0 - 11.0 FL LAB HEMETOLOGY METHOD 01/24/2025 9:09 AM EDT [facility] NRBC 0.0 <1.0 % LAB HEMETOLOGY METHOD 01/24/2025 9:09 AM EDT [facility] NRBC Absolute 0.00 <0.10 K/mcL LAB [facility] METHOD 01/24/2025 9:09 AM EDT [facility] Blood Venous blood specimen / Unknown Venipuncture / Unknown 01/24/2025 6:42 AM EDT 01/24/2025 8:18 AM EDT us Waleska Fitzgerald MD LAB BLOOD ORDERABLES Fin al Result Performing Organization Address [facility]/State/ZIP Co de Phone Number [facility] [address] [place] [address], documented in this encounter Visit Diagnoses Diagnosis Chronic obstructive pulmonary disease, unspecified (CMS/HCC V24, CMS/HCC V28) Weakness Other malaise and fatigue Crohn's disease, unspecified, without complications (CMS/HCC V24, CMS/HCC V28) documented in this encounter Care Teams Government Property Inspector Relationship Specialty Start Date End Date Azra Nation MD [address] [phone] PCP - General Internal Medicine 02/17/25 documented as of this encounter
--- OUTSIDE RECORDS SUMMARY | 2025-08-04 16:05 | XMS_ITS | Clinical Summary ---
Author Organization [facility] Address [address] [facility] [place] [address] Phone Care Team Providers Care Fiber Locking Supervisor Name Role Phone Azra Nation MD Primary Care Provider Allergies Active Allergy Reactions Criticality Noted Date [...] drink before a meal 60 packet 3 Active budesonide 9 mg tablet,delayed and ext.releaseIndicati [...] MOUTH TWICE A DAY 180 tablet 3 Active mesalamine (CANASA) 1,000 mg suppository [...] BY MOUTH EVERY EVENING 120 tablet 5 Active donepeziL (ARICEPT) 23 mg tablet TAKE 1 TABLET (23 MG TOTAL) BY MOUTH 1 (ONE) TIME EACH DAY. 30 tablet 5 025 2024 Active hydrOXYzine HCL (ATARAX) 25 mg tabletIndications:A nxiety TAKE 1 TABLET AT NIGHT NEEDED FOR ITCH 30 tablet 3 07/02/2 025 Active clotrimazole (LOTRIMIN) 1 % cream [...] minutes if needed for chest pain. Active cholecalciferol (Vitamin D3) 25 mcg (1,000 unit) capsule TAKE 1 CAPSULE BY MOUTH DAILY 8 capsule 3 025 Active acetaminophen (TYLENOL) 500 mg tablet TAKE 1 TABLET BY MOUTH EVERY SIX HOURS NEEDED FOR PAIN 60 tablet 1 025 Active acetaminophen (TYLENOL) 500 mg tablet TAKE 1 TABLET BY MOUTH EVERY SIX HOURS NEEDED FOR PAIN 60 tablet 1 025 2024 Discontinued Active Problems Problem Noted Date Diagnosed Date History of diverticulitis 05/23/2025 Chronic obstructive pulmonar y disease ([facility] V24, [facility] V28) 10/19/2024 Hiatal hernia 11/14/2021 Overview (11/02/2022): Small, seen during EGD/colonoscopy 02/24/2017 Carpal tunnel syndrome of right wrist 09/04/2021 Overview (11/02/2022): Mild to moderate and mild of left wrist. 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 Depression 09/04/2021 Dementia ([facility] V24, [facility] V28) 09/04/2021 Fibromyalgia 09/04/2021 Migraine 09/04/2021 Multiple sclerosis 09/04/2021 Neuropathic pain 09/04/2021 YOHAN on CPAP 09/04/2021 Psychological disorder 09/04/2021 Overview (11/02/2022): w/ significant paranoia. Anxiety 08/12/2013 GERD (gastroesophageal reflux disease) 3 IBS (irritable bowel syndrome) 04/08/2013 Crohn's disease ([facility] V24, [facility] V28) 03/14 Overview (11/02/2022): Colonoscopy and Upper GI done 02/24/2017, anastomotic erosive changes. Herpes simplex disease 03/14/2013 Overview (11/02/2022): Lesions on back. Insomnia 03/14/2013 Osteoarthritis, hand 03/14/2013 Encounters Date Type Department Care Team Description 07/18/2025 Telephone Gastroenterology [facility] [address] [address] Marcelino Clark MD 05/23/2025 11:00 AM EDT Office Visit Gastroenterology [facility] [address] [facility] [address] [place] [phone] Marcelino Clark MD Chronic obstructive pulmonary disease, unspecified COPD type ([facility] V24, [facility] V28) (Primary Dx); Crohn's disease without complication, unspecified gastrointestinal tract location ([facility] V24, [facility] V28); History of diverticulitis from Last 3 Months Surgical History Surgery Date Site/Laterality Comments OTHER SURGICAL HISTORY 09/28/1990 PROCEDURE: BREAST RECONSTRUCTION; COMMENT: implants CHOLECYSTECTOMY PROCEDURE: IN CHOLECYSTECTOMY OTHER SURGICAL HISTORY 09/28/1979 PROCEDURE: IN HYSTEROSCOPY BI TUBE OCCLUSION W/PERM IMPLNTS; COMMENT: [...] D X:IBS (irritable bowel syndrome) Crohn's disease ([facility] V24 , [facility] V28) DX:Crohn's disease (HCC); CO MMENT: Colonoscopy and Upper GI done 02/24/2017, anastomotic erosive changes. Osteoarthritis DX:Osteoarthriti s Bilateral bunions DX:Bilateral b unions MS (multiple sclerosis) 09/04/2021 DX:MS (m ultiple sclerosis) ([facility]) Neuropathic pain 09/04/2021 DX:Neuropathic pain Depression 09/04/2021 DX:Depression Migraine 09/04/2021 DX:Migraine Dementia ([facility] V24, [facility] V28) 09/04/2021 DX:Dementia ([facility]) YOHAN on CPAP 09/04/2021 DX:YOHAN on CPAP [...] Small, seen during EGD/colonoscopy 02/24/2017 Bladder cancer ([facility] V24, [facility] V28) DX:Bladder cancer ([facility]) Family History Medical History Relation Name Comments [...] 77) CV A Mother (Age 76) DM, [place], warren ng cancer. of pneumonia. Calcium oxalate [...] 05/23/2025 11:19 AM EDT Plan of Treatment Health Maintenance Due Date Last Done Comments Breast Cancer Screening 1958 COVID-19 Vaccine (#1) 01/01/1964 Zoster Vaccines (1 of 2) 1977 RSV Immunization Adult Patients (1 - Risk 50-74 years 1-dose series) 2008 DTaP,Tdap,and Td Vaccines (3 - Td or [...] Insurance MEDICARE MEDICAID - [place] Care Teams Fiber Locking Supervisor Relationship Specialty Start Date End Date Azra Nation MD [address] [place] [address] [address] [place] [address] PCP - General Internal Medicine 02/17/25
--- OUTSIDE RECORDS SUMMARY | 2025-08-04 16:05 | XMS_ITS | Clinical Summary ---
Author Organization [facility] Address [address] [place] [address] Phone Care Team Providers Care Door To Door Lead Generation Name Role Phone Unavailable Primary Care Provider Unavailabl e Encounters Date Type Department Care Team Description 07/18/2025 Transcribe Orders [facility] [address] [place] [address] Cami Bentley Encounter for rehabilitation (Primary Dx) from Last 3 Months Social History Tobacco Use Types Packs/Day Years [...] It is not the complete legal health record.[facility]
--- OUTSIDE RECORDS SUMMARY | 2025-08-04 16:05 | XMS_ITS | Clinical Summary ---
Author Organization [facility] Address [address] [place] [address] Care Team Providers Care Heel Wheeler Name Role Phone Lito Castro MD Primary Care Provider [phone] Allergies Active Allergy Reactions Criticality Noted Date Comments Aspirin 09/04/2021 No reaction documented. Blue Dyes (Parenteral) Anaphylaxis High 03/14/2013 Ciprofloxacin Swelling 07/24/2021 Ciprofloxacin-Hydrocorti sone 09/04/2021 No reaction documented. Clarithromycin 10/22/2021 Dicyclomine 10/22/2021 Fd&C Blue #1 ([place] Blue) Anaphylaxis High 07/24/2021 Nsaids Nausea And [...] hours as needed. 0 Active nystatin (MYCOSTATIN) 470483 UNIT/ML suspension Take 5 mL (500,000 Units [...] 10 tablet 5 01/30/2023 Active Lactobacillus-Inuli n ([facility]) CAPS 0 10/29/2023 Active gabapentin (NEURONTIN) [...] age to complete this topic Care Teams Heel Wheeler Relationship Specialty Start Date End Date Lito Castro MD [address] [place] [phone] PCP - General Family Medicine 04/28/22
--- OUTSIDE RECORDS SUMMARY | 2025-08-04 16:05 | XMS_ITS | Encounter Summary ---
Author Organization [facility] [place] [address] Care Team Providers Care Candle Wicker Name Role Phone Azra Nation MD Primary Care Provider [phone] Encounter Details Date Type Department Care Team (Late st Contact Info) Description 01/21/2025 Lab Requisition [facility] - Main Lab [address] [facility] [place] [phone] Waleska Fitzgerald MD [address] [address] Chronic obstructive pulmonary disease, unspecified (CMS/HCC V24, [...] Weakness Crohn's disease, unspecified, with unspecified complications ([facility] V24, [facility] V28) BASIC METABOLIC PANEL Routine 01/21/2025 5:22 AM EDT Chronic obstructive pulmonary disease, unspecified ([facility] V24, [facility] V28) Weakness Crohn's disease, unspecified, with unspecified complications ([facility] V24, [facility] V28) documented in this encounter Results * (ABNORMAL) Basic metabolic panel (01/21/2025 5:22 AM EDT) Sodium 140 133 - 145 mmol/L LAB CHEMISTRY METHOD 01/21/2025 9:16 AM [facility] Potassium 3.9 3.5 - 5.5 mmol/L LAB CHEMISTRY METHOD 01/21/2025 9:16 AM [facility] Chloride 105 96 - 110 mmol/L LAB CHEMISTRY METHOD 01/21/2025 9:16 AM [facility] CO2 28 21 - 32 mmol/L LAB CHEMISTRY METHOD 01/21/2025 9:16 AM [facility] Anion Gap 7 3 - 11 LAB CHEMISTRY METHOD 01/21/2025 9:16 AM [facility] Glucose 92 70 - 100 mg/dL LAB CHEMISTRY METHOD 01/21/2025 9:16 AM [facility] BUN 12 5 - 25 mg/dL LAB CHEMISTRY METHOD 01/21/2025 9:16 AM [facility] Creatinine 0.42(L) 0.50 - 1.10 mg/dL LAB CHEMISTRY METHOD 01/21/2025 9:16 AM [facility] eGFR 108 >=60 mL/min/1. 73m2 LAB CHEMISTRY METHOD 01/21/2025 9:16 AM [facility] Comment:Calculation based on the Chronic Kidney Disease Epidemiology Collaboration (CKD-EPI) equation refit without adjustment for race. BUN/Creatinine Ratio 28.6 LAB CHEMISTRY METHOD 01/21/2025 9:16 AM [facility] Calcium 9.6 8.5 - 10.5 mg/dL LAB CHEMISTRY METHOD 01/21/2025 9:16 AM [facility] Blood Venous blood specimen / Unknown Venipuncture / Unknown 01/21/2025 5:22 AM EDT 01/21/2025 7:05 AM EDT us Waleska Fitzgerald MD LAB BLOOD ORDERABLES Fin al Result [facility] [address] [place] [address], * (ABNORMAL) Complete blood count (01/21/2025 5:22 AM EDT) WBC 10.2 4.8 - 10.8 K/mcL LAB HEMETOLOGY METHOD 01/21/2025 7:32 AM [facility] RBC 3.50(L) 3.80 - 4.80 M/mcL LAB HEMETOLOGY METHOD 01/21/2025 7:32 AM [facility] Hemoglobin 11.8 11.5 - 16.0 g/dL LAB HEMETOLOGY METHOD 01/21/2025 7:32 AM [facility] Hematocrit 36.8 35.0 - 47.0 % LAB HEMETOLOGY METHOD 01/21/2025 7:32 AM [facility] MCV 104.2(H) 79.0 - 98.0 FL LAB HEMETOLOGY METHOD 01/21/2025 7:32 AM [facility] MCH 33.4(H) 27.0 - 32.0 pcg LAB HEMETOLOGY METHOD 01/21/2025 7:32 AM [facility] MCHC 32.1 32.0 - [...] 7:32 AM EDT [facility] Blood Venous blood specimen / Unknown Venipuncture / Unknown 01/21/2025 5:22 AM EDT 01/21/2025 7:05 AM EDT Waleska Fitzgerald MD LAB BLOOD ORDERABLES Fin al Result [facility] [address] [place] [address], documented in this encounter Visit Diagnoses Diagnosis Chronic obstructive pulmonary disease, unspecified (CMS/HCC V24, CMS/HCC V28) Weakness Other malaise and fatigue Crohn's disease, unspecified, with unspecified complications (CMS/HCC V24, CMS/HCC V28) documented in this encounter Care Teams Candle Wicker Relationship Specialty Start Date End Date Azra Nation MD [address] [place] [phone] PCP - General Internal Medicine 02/17/25 documented as of this encounter
--- OUTSIDE RECORDS SUMMARY | 2025-08-04 16:05 | XMS_ITS | Encounter Summary ---
Author Organization [facility] [place] [address] Care Team Providers Care Director Of Business Applications Name Role Phone Azra Nation MD Primary Care Provider [phone] Encounter Details Date Type Department Care Team (Late st Contact Info) Description 01/30/2025 Lab Requisition [facility] - Main Lab [address] [facility] [place] [phone] Waleska Fitzgerald MD [address] [phone] Weakness; Chronic obstructive pulmonary disease, unspecified (CMS/HCC V24, [facility] V28); Crohn's disease, unspecified, without complications ([facility] V24, [facility] V28) Social History Tobacco Use Types Packs/Day [...] Chronic obstructive pulmonary disease, unspecified (CMS/HCC V24, CMS/[facility] V28) Crohn's disease, unspecified, without complications (CMS/HCC V24, [facility] V28) documented in this encounter Care Teams Director Of Business Applications Relationship Specialty Start Date End Date Azra Nation MD [address] [place] [phone] PCP - General Internal Medicine 02/17/25 documented as of this encounter
--- OUTSIDE RECORDS SUMMARY | 2025-08-04 16:05 | XMS_ITS | Encounter Summary ---
Author Organization [facility] [facility] [place] [address] Care Team Providers Care Director Television News Name Role Phone Azra Nation MD Primary Care Provider [phone] Encounter Details Date Type Department Care Team (Late st Contact Info) Description 04/05/2025 Lab Requisition [facility] - Main Lab 299 [facility] [place] [phone] Larry Hurley MD [address] [place] [address] Personal history of malignant neoplasm of bladder [...] 12:00 AM EDT) Final Diagnosis Urine, Voided, [id number]: Negative for high grade urothelial carcinoma. Acute inflammation present. Results of UroVysion fluorescence in situ hybridization (FISH) testing: CEP3: Normal CEP7: Normal CEP17: Normal LSI 9p21: Normal Interpretation: Normal profile Controls stained appropriately. Note: The results are intended as a screening device and should be interpreted in association with other clinical and pathological findings. 04/10/2025 2:24 PM EDT [facility] Clinical Information History of bladder neoplasm (malignant) Z85.51 Urine Cytology/FISH (now) 04/10/2025 2:24 PM EDT [facility] Gross Description A. Urine, Voided, [id number]: Received one ThinPrep slide for cytology and one ThinPrep slide for UroVysion FISH 04/10/2025 2:24 PM EDT [facility] Disclaimer Unless otherwise specified, all tissue is 10% NB formalin fixed and paraffin embedded. Technical pathology services provided by [facility] at [address] [facility] [address] [place] [address] (CLIA #[id number]/Nikkie Lizama MD, [employer]) 04/10/2025 2:24 PM EDT [facility] Tissue Urine specimen from urethra / Unknown 03/22/2025 04/05/2025 11:13 AM EDT us Larry Hurley MD LAB PATHOLOGY ORDERABLES Fi nal Result [facility] [address] [place] [address], documented in this encounter Visit Diagnoses Diagnosis Personal history of malignant neoplasm of bladder documented in this encounter Care Teams Director Television News Relationship Specialty Start Date End Date Azra Nation MD [address] [place] [phone] PCP - General Internal Medicine 02/17/25 documented as of this encounter
--- OUTSIDE RECORDS SUMMARY | 2025-08-04 16:05 | XMS_ITS | Encounter Summary ---
Author [facility] [place] [address] Care Team Providers Care Accredited Legal Secretary Name Role Phone Azra Nation MD Primary Care Provider [phone] Reason for Visit * Reason Onset Date Comments e. Coli infection 07/18/2025 Encounter Details Date Type Department Care Team ([facility] st Contact Info) Description 07/18/2025 Telephone Gastroenterology - [place] 175 [facility] 175 [facility] [address] [place] [address] Marcelino Clark MD 299 [facility] [address] [place] [address] Social History Tobacco Use Types Packs/Day Years [...] on file documented as of this encounter Progress Notes * Talita Potter MA - 08/02/2025 1:18 PM EST Left message for patient to c/b. I am checking on her since the e coli outbreak. Wanting to know karl needs an appt with Dr Clark. If so please let me know as I can get her in sooner then the BSR's would be able to. Thanks Tara * Talita Potter MA - 07/21/2025 3:53 PM EDT Printed d/c summary, labs and CT scan to discuss with Dr Clark on Thursday in office. Tara * Manju Matias - 07/18/2025 10:37 AM EDT Patient called and stated she is currently admitted at [facility] for an e. Coli outbreak. She would like a call back to discuss options and to potentially go on Tremfya or any other comparable medication. Asked to call documented in this encounter Plan of Treatment Not on file documented as of this encounter Visit Diagnoses Not on filedocumented in this encounter Care Teams Accredited Legal Secretary Relationship Specialty Start Date End Date Azra Nation MD [address] [place] [phone] PCP - General Internal Medicine 02/17/25 documented as of this encounter
== END 2025-08-04 14:25 | disposition home or self-care (01) ==
LOC: HO.US 14:24
PROVIDERS: PCP Family Medicine; Visit Provider Family Medicine
DX: N28.9 Disorder of kidney and ureter, unspecified (principal)
CPT/HCPCS: 76775

== ENCOUNTER → 2025-08-04 14:27 | Outpatient (BNV) | payer MEDICARE, MEDICAID, SELFPAY | PROVIDERS: PCP Family Medicine; Visit Provider Radiology Diagnostic Radiology | DX: N28.1 Cyst of kidney, acquired (principal) | CPT/HCPCS: 76775 ==

== ENCOUNTER 2025-08-18 13:13 | Outpatient (REF) | payer MEDICARE, MEDICAID, SELFPAY | END 2025-08-18 13:14 | disposition home or self-care (01) | LOC: HO.LAB 13:13 | PROVIDERS: PCP Student in an Organized Health Care Education/Training Program; Visit Provider Family Medicine | DX: I10 Essential (primary) hypertension (principal); R29.6 Repeated falls; R53.1 Weakness; R32 Unspecified urinary incontinence; J44.9 Chronic obstructive pulmonary disease, unspecified; R06.02 Shortness of breath; R19.00 Intra-abdominal and pelvic swelling, mass and lump, unspecified site | CPT/HCPCS: 99212 ==

== ENCOUNTER 2025-08-18 13:13 | Outpatient (AMB) | payer MEDICARE, MEDICAID, SELFPAY ==
--- OUTSIDE RECORDS SUMMARY | 2024-07-01 10:25 | XMS_ITS | Encounter Summary ---
Author Organization Jayda [facility] [place] [address] Care Team Providers Care Mock Up Maker Name Role Phone Lito Castro MD Primary Care Provider [phone]- [phone] Encounter Details Date Type Department Care Team (Late st Contact Info) Description 07/01/2024 11:25 AM EDT Hospital Encounter TH HISTORIC ENCOUNTERS [facility] ONLY Vijay Grissom MD [address] [place] [address] Social History Tobacco Use Types Packs/Day Years [...] Grissom MD - 07/01/2024 11:00 AM EDT [facility] Cc: MS HPI: [...] Disp: , Rfl: ??? Lactobacillus-Inulin (Culturelle Digestive [facility]) CAPS, , Disp: , Rfl: ??? Lidocaine [...] CRAVINGS, Disp: , Rfl: ??? nystatin (MYCOSTATIN) [id number] UNIT/ML suspension, Take 5 mL (500,000 Units [...] She had multiple hospitalization with COVID/COVID-pneumonia at [facility] lastmonth she is also been having diverticulitis [...] diagnostic plan: -Will hold off Ocrevus per [facility] protocol and we discussed in the beginning [...] records, lab values and imaging results and preparingdocumentation for today's visit. There was also time spent following the in person visit documenting, arranging for further diagnostic testing and follow-up appointments. The entire time spent in this process was greater than 40 minutes. The majority of the actual ufvo-jq-rpua visit was spent counseling the patient with respect to the current neurological picture. Vijay Grissom MD documented in this encounter Plan of Treatment Not on file documented as of this encounter Visit Diagnoses Not on filedocumented in this encounter Care Teams Mock Up Maker Relationship Specialty Start Date End Date Lito Castro MD [address] [place] [address] Dr Griffin [place] PCP - General 07/01/24 08/08/24 documented as of this encounter
--- NOTE | 2025-08-18 13:23 | MHC.PC.OV ---
Vital Signs 08/18/25 13:32 Height 5 ft 7 in Weight 125 lb 4 oz BMI 19.6 BP 130/64 Blood Pressure Location Rt brachial Position Sitting Respiration 12 Pulse 78 Pulse Source Pulse Oximeter Temp 99.3 F Temp Source Oral Pulse Oximetry (%) 95 Oxygen Delivery Method Room Air Intake Visit Reasons: Discharge Follow-Up /[facility] Intake Note: patient is scheduled for ed follow up Technical Education Teacher Required: No Allergies blue dye (BLUE DYE) Allergy (Unknown, Verified 08/18/25 13:24) ANAPHYLAXIS escitalopram (From LEXAPRO) Allergy (Unknown, Verified 08/18/25 13:24) UNKNOWN infliximab (From REMICADE) Allergy (Unknown, Verified 08/18/25 13:24) EXACERBATES MS naproxen (NAPROXEN) Allergy (Unknown, Verified 08/18/25 13:24) SWELLING ALL NSAIDS NSAIDS (Non-Steroidal Anti-Inflamma (NSAIDS (NON-STEROIDAL ANTI-INFLAMMA) Allergy (Unknown, Verified 08/18/25 13:24) ABDOMINAL PAIN olanzapine (OLANZAPINE) Allergy (Unknown, Verified 08/18/25 13:24) UNKNOWN paroxetine (From PAXIL) Allergy (Unknown, Verified 08/18/25 13:24) DIZZINESS prednisone (PREDNISONE) Allergy (Unknown, Verified 08/18/25 13:24) HALLUCINATIONS with high doses Sulfa (Sulfonamide Antibiotics) (SULFA (SULFONAMIDE ANTIBIOTICS)) Allergy (Unknown, Verified 08/18/25 13:24) HIVES sulfasalazine (From Azulfidine) Allergy (Verified 08/18/25 13:24) Hives aspirin (ASPIRIN) Adverse Reaction (Unknown, Verified 08/18/25 13:24) STOMACH UPSET ciprofloxacin (From CIPRO) Adverse Reaction (Unknown, Verified 08/18/25 13:24) SKIN PEELING clarithromycin (From Biaxin) Adverse Reaction (Verified 08/18/25 13:24) Abdominal Pain ENVIRONMENTAL Allergy (Unknown, Uncoded 06/30/25 09:42) CATS,DOGS,HORSES,MOLD-RED SKIN,FACIAL SWELLING Medication List - Last Reconciled 08/18/25 by Lito Castro MD albuterol sulfate 0.63 mg inhalation Q4-6H PRN albuterol sulfate 90 mcg/actuation (Ventolin HFA) 2 puffs inhalation Q4-6H PRN 30 days arformoterol (Brovana) 2 mL inhalation BID bpnenveqmd-vhuxrluv-ytrgyqzjaj 160-9-4.8 mcg/actuation (Breztri Aerosphere) 2 inhalations PO BID buprenorphine 15 mcg/hour 1 patch topical QWEEK carvedilol 6.25 mg PO QAM 90 days cetirizine 10 mg PO DAILY cholecalciferol (vitamin D3) (Vitamin D3) 25 mcg PO DAILY 30 days cyanocobalamin (vitamin B-12) 1,000 mcg IM QMONTH 90 days diclofenac sodium 1% 2 grams topical .QD donepezil 23 mg PO BEDTIME epinephrine 0.3 mL IM ONCE PRN famotidine 20 mg PO BID ferrous sulfate 110 mg (2.5 mL) PO DAILY 30 days fluticasone propionate 50 mcg/actuation 2 sprays intranasal BID 30 days folic acid 1 mg PO DAILY 90 days furosemide (Lasix) 20 mg PO QAM 30 days gabapentin 600 mg PO TID 30 days hydrochlorothiazide 12.5 mg PO QAM 90 days hydroxyzine HCl 25 mg PO DAILY incontinence pad, liner, disp Long. Daily as directed, 90 days ipratropium bromide 2 sprays intranasal TID-QID PRN ipratropium-albuterol 0.5 mg-3 mg(2.5 mg base)/3 mL 3 mL inhalation Q4-6H PRN lactase 3,000 units PO QID Lactobac. rhamnosus GG-inulin 10 billion cell -200 mg ([facility] [employer] [facility]) 1 cap PO DAILY 90 days lifitegrast 5% (Xiidra) 1 drp ophthalmic (eye) BID loperamide 2 mg PO QID PRN 30 days lorazepam 0.5 mg PO BID PRN magnesium chloride 71.5 mg PO BID megestrol 20 mg PO DAILY 30 days memantine 5 mg PO BID 90 days mesalamine 1,000 mg NM BEDTIME PRN miscellaneous medical supply 1 ea miscellaneous DAILY 99 days miscellaneous medical supply Poise pads. 2 per day. 90 day supply; 90 days miscellaneous medical supply Motorized scooter. Daily As directed, 999 days naloxone 4 mg/actuation (Narcan) 4 mg intranasal Q2M PRN 1 day nitroglycerin 0.4 mg sublingual Q5M PRN 30 days nystatin 5 mL PO TID 7 days ondansetron 4 mg PO DAILY PRN 28 days prednisone 4 tabs daily for 4 days, 3 tabs daily for 2 days, 2 tabs daily for 2 days, 1 tab daily for 2 days PO daily; 10 days prochlorperazine (Compro) 25 mg NM TID PRN sumatriptan succinate 50 mg PO NEEDED PRN syringe with needle, safety (BD Integra Syringe) As directed syringe with needle, safety (BD Eclipse Luer-Emmanuel) Use to administer IM Cyanocobalamin, Monthly As directed, 90 days tizanidine mg PO trazodone 75 mg PO BEDTIME triamcinolone acetonide 0.1% 1 appl topical BID valacyclovir 1,000 mg PO BEDTIME Tobacco use date assessed: 06/30/25 Dental Screening Dental Screen Date: 06/30/25 HPI Discharge Follow-Up /[facility] HPI Details 64 y/o female presents to f/u hospital visit for multiple falls. She denied any LOC but she does not recall these events. Had concomitant feeling of generalized weakness and had been unable to pick herself up off the floor, remaining an hour and a half before she was able to pick herself up. Denied any F/C/S, no N/V but had reported multiple episodes of loose stools the day before and noticed mild dysuria. Noncontrast CT of head/neck unremarkable. CT abd. and pelvis showed circumferential wall thickening of sigmoid colon. Also enhancing soft tissue contacting L pelvic sidewall measuring 1.6 x 2.4 cm. They report difficulty breathing. HPI Comments History of Present Illness Details Documentation assistance for Lito Castro MD, was provided by Theo Kelley,? Iron Worker on 08/18/2025 at 2:06 PM EST. I, Dr. Castro, have read, observed, and verified documentation. ?? [facility] Medical History OCD (obsessive compulsive disorder) History of dysphagia Neuropathy YOHAN (obstructive sleep apnea) Smoker Asthma-COPD overlap syndrome Annual physical exam Dementia Thumb pain Lumbar arthropathy Polyarthritis History of posttraumatic stress disorder (PTSD) Right shoulder pain History of cervical fracture VÁSQUEZ (nonalcoholic steatohepatitis) Bladder cancer Multiple sclerosis Migraines, neuralgic IBS (irritable colon syndrome) Crohn's disease Surgical History History of arthroplasty of right shoulder (05/07/22) Hx of cholecystectomy History of carpal tunnel surgery of right wrist (~05/2021) History of bladder surgery Hx of endoscopy (08/07/11) Hx of colonoscopy (08/07/11) Hx of foot surgery (04/25/14) History of resection of terminal ileum History of adenoidectomy Hx of tonsillectomy Hx of breast augmentation Family History Father Alzheimer disease Lymphoma Cancer Mother Lung cancer Sudden cardiac Cancer CVD (cardiovascular disease) Paternal Grandfather Colon cancer Cancer Maternal Grandfather Sudden cardiac CVD (cardiovascular disease) Social History (Updated 06/30/25 @ 09:48 by Latisha Bustillos [facility]) Household Members: None Household Members Other:: ALONE DISABLED SINCE AROUND 2014 DUE TO MS Housing: Apartment Are you a primary home care associate to a significant other at home: No Do you presently have visiting nurse or other home services: No Alcohol intake: current Alcohol intake frequency: holidays/special occasions only Alcohol type: hard liquor Patient Tobacco Use Status: Former Tobacco user Tobacco use type: Cigarette Cigarette Packs Per Day: 0.5 Cigarettes Per Day: 2 Years Smoked: 47 e-Cigarette/Vaping Use: Former Use Second Hand Smoke Exposure: No Substance Use Type: Marijuana service: No Current occupational status: disabled Current occupational exposures/hazards: No Cognitive needs: No Hearing needs: No Vision needs: No Questionnaire Thrive Questionnaire Date Thrive assessed: 04/19/25 I am a: Patient What is your living situation today?: I have a steady place to live Within the past 12 months, did the food you bought not last and you didn't have the money to get more?: Never true Within the past 12 months, did you worry whether your food would run out before you got money to buy more?: Never true Do you have trouble paying for medicines?: No Do you have trouble getting transportation to medical appointments?: Yes Do you have trouble paying your heating and electricity bill?: No Do you have trouble taking care of your child, family member or friend?: No Do you have trouble with day-to-day activities such as bathing, preparing meals, shopping, managing finances, etc.?: No Are you currently unemployed and looking for a job?: No Are you interested in more education?: No Please select the resources that you would like help with: Transportation Currently or been in a relationship where the following occur: I choose not to answer THRIVE Score: 1 JOSIE-7 AMB Questionnaire JOSIE-7 Date JOSIE - 7 assessed: 11/03/23 Source: Developed by Drs. Derrick Alfonso, Veronica Caraballo, Raul Zepeda and colleagues, with an educational fabi from [employer]. Review of Systems Const Denies chills, Denies fatigue, Denies fever(s), Denies headache(s) and Denies weakness ENT Denies dizziness and Denies headache(s) Card Denies dyspnea Resp Denies cough, Denies dyspnea, Denies wheezing and Denies other (shortness of breath) Musc Denies numbness and Denies tingling Neuro Denies dizziness, Denies headache(s), Denies numbness, Denies tingling and Denies weakness Psych Denies anxiety and Denies depression Endo Denies fatigue Aller/Immun Denies wheezing Physical exam (Primary Care) Vital Signs: Last Vital Signs Temp 99.3 F 08/18/25 13:32 Pulse 78 08/18/25 13:32 Resp 12 08/18/25 13:32 BP 130/64 08/18/25 13:32 Pulse Ox 95 08/18/25 13:32 Oxygen Delivery Method Room Air 08/18/25 13:32 BMI result Body Mass Index 19.6 Tobacco/Smoking Status: Tobacco use Status Tobacco use date assessed 06/30/25 08/18/25 13:27 Patient Tobacco Use Status Former Tobacco user 08/18/25 13:27 Tobacco use type Cigarette 08/18/25 13:27 e-Cigarette/Vaping Use Former Use 08/18/25 13:27 Thrive Assessment: Date of Thrive Assessment Date Thrive assessed 04/19/25 08/18/25 13:27 Currently or been in a relationship where the following occur: I choose not to answer Const General: well developed; No acute distress Nutritional Appearance: well nourished Orientation/consciousness: patient oriented x3 HENMT Head: Yes normocephalic and Yes atraumatic Eyes General: appearance normal, both eyes and all related structures Pupils: Equal, round and reactive pupils present EOM: EOMs intact bilaterally Resp Effort & Inspection: normal respiratory effort Auscultation: clear to auscultation bilaterally Cardio Rate: regular rate Rhythm: regular rhythm Heart sounds: S1 normal heart sound present, S2 normal heart sound present, no gallops, no murmurs and no rubs Neuro General: patient oriented x3 and gait normal Cranial nerves: Yes Equal, round and reactive pupils present Psych Affect: normal affect Coding Level of Care Code Est Pt Level 4 (50863) Diagnoses Multiple falls R29.6 Hypertension I10 Generalized weakness R53.1 Urinary incontinence R32 Asthma-COPD overlap syndrome J44.9 Shortness of breath R06.02 Abdominal mass R19.00 Assessment & Plan Assessment & Plan (1) Multiple falls: Code(s): R29.6 - Repeated falls Category: Medical Plan: Hospital discharge follow-up after multiple sequential falls. Blood pressure was rather low and she has started a new medication, carvedilol. She had had ongoing diarrhea and was likely dehydrated as well. Hydrate well Holding carvedilol (2) Hypertension: Code(s): I10 - Essential (primary) hypertension Category: Medical Plan: As above blood pressure is fairly well controlled today She will continue home carvedilol (3) Generalized weakness: Code(s): R53.1 - Weakness Category: Medical Plan: Hydrate well Treating underlying causes including COPD exacerbation Possible urinary tract infection (4) Urinary incontinence: Code(s): R32 - Unspecified urinary incontinence Category: Medical Plan: Will start empiric Macrobid Sending urine for urinalysis and culture (5) Asthma-COPD overlap syndrome: Code(s): J44.9 - Chronic obstructive pulmonary disease, unspecified Category: Medical Plan: We qxcy-yq-mbyospqx COPD exacerbation. She has run out of ipratropium and they refill this. Giving her a prednisone taper. Patient says she has tolerated doses of 40 mg and lower (6) Shortness of breath: Code(s): R06.02 - Shortness of breath Category: Medical Plan: Likely secondary to mild/moderate COPD exacerbation Treating SOB Cont O2 (7) Abdominal mass: Code(s): R19.00 - Intra-abdominal and pelvic swelling, mass and lump, unspecified site Category: Medical Plan: CT abd. and pelvis showed circumferential wall thickening of sigmoid colon. Also enhancing soft tissue contacting L pelvic sidewall measuring 1.6 x 2.4 cm. Will check MRI Orders: Orders Urine Culture 08/18/25 R32 - Unspecified urinary incontinence UA CC w/rflx Micro + Cult 08/18/25 R32 - Unspecified urinary incontinence, Z00.00 - Encounter for general adult medical examination without abnormal findings MR pelvis wo/w con Today R19.00 - Intra-abdominal and pelvic swelling, mass and lump, unspecified site Medications: New prednisone 4 tabs daily for 4 days, 3 tabs daily for 2 days, 2 tabs daily for 2 days, 1 tab daily for 2 days PO daily; 10 days 28 tabs 0RF nitrofurantoin monohyd/m-cryst 100 mg (Macrobid) must administer with a meal/food 100 mg PO BID 14 caps 0RF 7 days R32 - Unspecified urinary incontinence prednisone 4 tabs daily for 4 days, 3 tabs daily for 2 days, 2 tabs daily for 2 days, 1 tab daily for 2 days PO daily; 28 tabs 0RF 10 days R32 - Unspecified urinary incontinence Refilled ipratropium bromide 2 sprays intranasal TID-QID PRN 15 mL 0RF for allergies ipratropium-albuterol 0.5 mg-3 mg(2.5 mg base)/3 mL 3 mL inhalation Q4-6H PRN 360 mL 6RF wheezing J44.9 - Chronic obstructive pulmonary disease, unspecified ipratropium-albuterol 0.5 mg-3 mg(2.5 mg base)/3 mL 3 mL inhalation Q4-6H PRN 360 mL 6RF wheezing J44.9 - Chronic obstructive pulmonary disease, unspecified
--- OUTSIDE RECORDS SUMMARY | 2025-08-18 13:30 | XMS_ITS | Encounter Summary ---
Author Organization [facility] [place] [address] Care Team Providers Care Internet Sales Representative Name Role Phone Azra Nation MD Primary Care Provider [phone] Encounter Details Date Type Department Care Team (Late st Contact Info) Description 04/05/2025 Lab Requisition [facility] - Main Lab [address] [facility] [place] [phone] Larry Hurley MD [address] [place] [address] Personal history of malignant neoplasm of bladder [...] 12:00 AM EDT) Final Diagnosis Urine, Voided, [id number]: Negative for high grade urothelial carcinoma. Acute inflammation present. Results of UroVysion fluorescence in situ hybridization (FISH) testing: CEP3: Normal CEP7: Normal CEP17: Normal LSI 9p21: Normal Interpretation: Normal profile Controls stained appropriately. Note: The results are intended as a screening device and should be interpreted in association with other clinical and pathological findings. 04/10/2025 2:24 PM EDT [facility] Clinical Information History of bladder neoplasm (malignant) Z85.51 Urine Cytology/FISH (now) 04/10/2025 2:24 PM EDT [facility] Gross Description A. Urine, Voided, [id number]: Received one ThinPrep slide for cytology and one ThinPrep slide for UroVysion FISH 04/10/2025 2:24 PM EDT [facility] Disclaimer Unless otherwise specified, all tissue is 10% NB formalin fixed and paraffin embedded. Technical pathology services provided by [facility] [address] [facility] [address] [place] [address] (CLIA #[id number]/Nikkie Lizama MD, Sap Consultant) 04/10/2025 2:24 PM EDT [facility] Tissue Urine specimen from urethra / Unknown 03/22/2025 04/05/2025 11:13 AM EDT us Larry Hurley MD LAB PATHOLOGY ORDERABLES Fi nal Result [facility] [address] [place] [address], documented in this encounter Visit Diagnoses Diagnosis Personal history of malignant neoplasm of bladder documented in this encounter Care Teams Internet Sales Representative Relationship Specialty Start Date End Date Azra Nation MD [address] [place] [phone] PCP - General Internal Medicine 02/17/25 documented as of this encounter
--- OUTSIDE RECORDS SUMMARY | 2025-08-18 13:30 | XMS_ITS | Encounter Summary ---
Author Organization [facility] [place] [address] Care Team Providers Care Oral Surgery Assistant Name Role Phone Azra Nation MD Primary Care Provider [phone] Encounter Details Date Type Department Care Team (Late st Contact Info) Description 01/23/[address] [facility] - Main Lab [address] [facility] [place] [phone] Waleska Fitzgerald MD [address] [phone] Chronic obstructive pulmonary disease, unspecified (CMS/HCC V24, [...] V28) Weakness Crohn's disease, unspecified, without complications ([facility] V24, [facility] V28) BASIC METABOLIC PANEL Routine 01/24/2025 6:42 AM EDT Chronic obstructive pulmonary disease, unspecified ([facility] V24, [facility] V28) Weakness Crohn's disease, unspecified, without complications ([facility] V24, [facility] V28) documented in this encounter Results * Basic metabolic panel (01/24/2025 6:42 AM EDT) Sodium 143 133 - 145 mmol/L LAB CHEMISTRY METHOD 01/24/2025 9:40 AM [facility] Potassium 4.1 3.5 - 5.5 mmol/L LAB CHEMISTRY METHOD 01/24/2025 9:40 AM [facility] Chloride 109 96 - 110 mmol/L LAB CHEMISTRY METHOD 01/24/2025 9:40 AM [facility] CO2 25 21 - 32 mmol/L LAB CHEMISTRY METHOD 01/24/2025 9:40 AM [facility] Anion Gap 9 3 - 11 LAB CHEMISTRY METHOD 01/24/2025 9:40 AM [facility] Glucose 73 70 - 100 mg/dL LAB CHEMISTRY METHOD 01/24/2025 9:40 AM [facility] BUN 9 5 - 25 mg/dL LAB CHEMISTRY METHOD 01/24/2025 9:40 AM [facility] Creatinine 0.51 0.50 - 1.10 mg/dL LAB CHEMISTRY METHOD 01/24/2025 9:40 AM [facility] eGFR 103 >=60 mL/min/1. 73m2 LAB CHEMISTRY METHOD 01/24/2025 9:40 AM [facility] Comment:Calculation based on the Chronic Kidney Disease Epidemiology Collaboration (CKD-EPI) equation refit without adjustment for race. BUN/Creatinine Ratio 17.6 LAB CHEMISTRY METHOD 01/24/2025 9:40 AM T [facility] Calcium 9.2 8.5 - 10.5 mg/dL LAB CHEMISTRY METHOD 01/24/2025 9:40 AM [facility] Blood Venous blood specimen / Unknown Venipuncture / Unknown 01/24/2025 6:42 AM EDT 01/24/2025 8:18 AM EDT us Waleska Fitzgerald MD LAB BLOOD ORDERABLES Fin al Result [facility] [address] [place] [address], * (ABNORMAL) Complete blood count (01/24/2025 6:42 AM EDT) WBC 7.7 4.8 - 10.8 K/mcL LAB HEMETOLOGY METHOD 01/24/2025 9:09 AM [facility] RBC 3.60(L) 3.80 - 4.80 M/mcL LAB HEMETOLOGY METHOD 01/24/2025 9:09 AM [facility] Hemoglobin 12.3 11.5 - 16.0 g/dL LAB HEMETOLOGY METHOD 01/24/2025 9:09 AM [facility] Hematocrit 39.0 35.0 - 47.0 % LAB HEMETOLOGY METHOD 01/24/2025 9:09 AM [facility] MCV 109.2(H) 79.0 - 98.0 FL LAB HEMETOLOGY METHOD 01/24/2025 9:09 AM [facility] MCH 34.5(H) 27.0 - 32.0 pcg LAB HEMETOLOGY METHOD 01/24/2025 9:09 AM [facility] MCHC 31.5(L) 32.0 - 37.0 g/dL LAB HEMETOLOGY METHOD 01/24/2025 9:09 AM EDT [facility] RDW 13.1 11.0 - 15.0 % LAB HEMETOLOGY METHOD 01/24/2025 9:09 AM EDT [facility] Platelets 224 130 - 400 K/mcL LAB HEMETOLOGY METHOD 01/24/2025 9:09 AM EDT [facility] MPV 11.6(H) 7.0 - 11.0 FL LAB HEMETOLOGY METHOD 01/24/2025 9:09 AM EDT [facility] NRBC 0.0 <1.0 % LAB HEMETOLOGY METHOD 01/24/2025 9:09 AM EDT [facility] NRBC Absolute 0.00 <0.10 K/mcL [facility] 01/24/2025 9:09 AM EDT [facility] Blood Venous blood specimen / Unknown Venipuncture / Unknown 01/24/2025 6:42 AM EDT 01/24/2025 8:18 AM EDT us Waleska Fitzgerald MD LAB BLOOD ORDERABLES Fin al Result Performing Organization Address [facility]/State/ZIP Co de Phone Number [facility] [address] [place] [address], documented in this encounter Visit Diagnoses Diagnosis Chronic obstructive pulmonary disease, unspecified (CMS/HCC V24, CMS/HCC V28) Weakness Other malaise and fatigue Crohn's disease, unspecified, without complications (CMS/HCC V24, CMS/HCC V28) documented in this encounter Care Teams Oral Surgery Assistant Relationship Specialty Start Date End Date Azra Nation MD [address] [phone] PCP - General Internal Medicine 02/17/25 documented as of this encounter
--- OUTSIDE RECORDS SUMMARY | 2025-08-18 13:30 | XMS_ITS | Clinical Summary ---
Author Organization [facility] Address [address] [place] [address] Care Team Providers Care Carpet Sewer Name Role Phone Lito Castro MD Primary Care Provider [phone] Allergies Active Allergy Reactions Criticality Noted Date Comments Aspirin 09/04/2021 No reaction documented. Blue Dyes (Parenteral) Anaphylaxis High 03/14/2013 Ciprofloxacin Swelling 07/24/2021 Ciprofloxacin-Hydrocorti sone 09/04/2021 No reaction documented. Clarithromycin 10/22/2021 Dicyclomine 10/22/2021 Fd&C Blue #1 ([place] Blue) Anaphylaxis High 07/24/2021 Nsaids Nausea And [...] hours as needed. 0 Active nystatin (MYCOSTATIN) 080782 UNIT/ML suspension Take 5 mL (500,000 Units [...] 5 01/30/2023 Active Lactobacillus-Inuli n ([facility]) CAPS 0 10/29/2023 Active gabapentin (NEURONTIN) [...] age to complete this topic Care Teams Carpet Sewer Relationship Specialty Start Date End Date Lito Castro MD [address] [place] [id number] PCP - General Family Medicine 04/28/22
--- OUTSIDE RECORDS SUMMARY | 2025-08-18 13:30 | XMS_ITS | Encounter Summary ---
Author Organization [facility] [place] [address] Care Team Providers Care Enrober Name Role Phone Azra Nation MD Primary Care Provider [phone] Encounter Details Date Type Department Care Team (Late st Contact Info) Description 01/30/2025 Lab Requisition [facility] - Main Lab [address] [facility] [place] [phone] Waleska Fitzgerald MD [address] [phone] Weakness; Chronic obstructive pulmonary disease, unspecified (CMS/HCC V24, CMS/[facility] V28); Crohn's disease, unspecified, without complications (CMS/[facility] V24, CMS/[facility] V28) Social History Tobacco Use Types Packs/Day [...] Chronic obstructive pulmonary disease, unspecified (CMS/HCC V24, CMS/[facility] V28) Crohn's disease, unspecified, without complications (CMS/HCC V24, CMS/[facility] V28) documented in this encounter Care Teams Enrober Relationship Specialty Start Date End Date Azra Nation MD [address] [place] [phone] PCP - General Internal Medicine 02/17/25 documented as of this encounter
--- OUTSIDE RECORDS SUMMARY | 2025-08-18 13:30 | XMS_ITS | Clinical Summary ---
Author Organization [facility] Address [address] [place] [address] Phone Care Team Providers Care Outsole Molder Name Role Phone Azra Nation MD Primary Care Provider [phone] Allergies Active Allergy Reactions Criticality Noted Date [...] diverticulitis 05/23/2025 Chronic obstructive pulmonar y disease ([facility] V24, [facility] V28) 10/19/2024 Hiatal hernia 11/14/2021 Overview (11/02/2022): Small, seen during EGD/colonoscopy 02/24/2017 Carpal tunnel syndrome of right wrist 09/04/2021 Overview (11/02/2022): Mild to moderate and mild of left wrist. 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 Depression 09/04/2021 Dementia ([facility] V24, [facility] V28) 09/04/2021 Fibromyalgia 09/04/2021 Migraine 09/04/2021 Multiple sclerosis 09/04/2021 Neuropathic pain 09/04/2021 YOHAN on CPAP 09/04/2021 Psychological disorder 09/04/2021 Overview (11/02/2022): w/ significant paranoia. Anxiety 08/12/2013 GERD (gastroesophageal reflux disease) 3 IBS (irritable bowel syndrome) 04/08/2013 Crohn's disease ([facility] V24, [facility] V28) 03/14 Overview (11/02/2022): Colonoscopy and Upper GI done 02/24/2017, anastomotic erosive changes. Herpes simplex disease 03/14/2013 Overview (11/02/2022): Lesions on back. Insomnia 03/14/2013 Osteoarthritis, hand 03/14/2013 Encounters Date Type Department Care Team Description 07/18/2025 Telephone Gastroenterology [facility] [address] [phone] Marcelino Clark MD 05/23/2025 11:00 AM EDT Office Visit Gastroenterology [facility] [address] 175 [facility] [address] [place] [phone] Marcelino Clark MD Chronic obstructive pulmonary disease, unspecified COPD type ([facility] V24, [facility] V28) (Primary Dx); Crohn's disease without complication, unspecified gastrointestinal tract location ([facility] V24, [facility] V28); History of diverticulitis from Last 3 Months Surgical History Surgery Date Site/Laterality Comments OTHER SURGICAL HISTORY 09/28/1990 PROCEDURE: BREAST RECONSTRUCTION; COMMENT: implants CHOLECYSTECTOMY PROCEDURE: MO CHOLECYSTECTOMY OTHER SURGICAL HISTORY 09/28/1979 PROCEDURE: MO HYSTEROSCOPY BI TUBE OCCLUSION W/PERM IMPLNTS; COMMENT: [...] D X:IBS (irritable bowel syndrome) Crohn's disease ([facility] V24 , [facility] V28) DX:Crohn's disease (HCC); CO MMENT: Colonoscopy and Upper GI done 02/24/2017, anastomotic erosive changes. Osteoarthritis DX:Osteoarthriti s Bilateral bunions DX:Bilateral b unions MS (multiple sclerosis) 09/04/2021 DX:MS (m ultiple sclerosis) ([facility]) Neuropathic pain 09/04/2021 DX:Neuropathic pain Depression 09/04/2021 DX:Depression Migraine 09/04/2021 DX:Migraine Dementia ([facility] V24, [facility] V28) 09/04/2021 DX:Dementia ([facility]) YOHAN on CPAP 09/04/2021 DX:YOHAN on [...] Small, seen during EGD/colonoscopy 02/24/2017 Bladder cancer ([facility] V24, [facility] V28) DX:Bladder cancer ([facility]) Family History Medical History Relation Name Comments [...] 77) CV A Mother (Age 76) DM, [place], warren ng cancer. of pneumonia. Calcium oxalate [...] Insurance MEDICARE MEDICAID - [place] Care Teams Outsole Molder Relationship Specialty Start Date End Date Azra Nation MD [address] [place] [address] [address] [place] [address] PCP - General Internal Medicine 02/17/25
--- OUTSIDE RECORDS SUMMARY | 2025-08-18 13:31 | XMS_ITS | Encounter Summary ---
Author Organization [facility] [place] [address] Care Team Providers Care Layout Former Name Role Phone Azra Nation MD Primary Care Provider [phone] Encounter Details Date Type Department Care Team (Late st Contact Info) Description 01/21/2025 Lab Requisition [facility] - Main Lab [address] [facility] [place] [phone] Waleska Fitzgerald MD [address] [address] Chronic obstructive pulmonary disease, unspecified (CMS/HCC V24, [...] Weakness Crohn's disease, unspecified, with unspecified complications ([facility] V24, [facility] V28) BASIC METABOLIC PANEL Routine 01/21/2025 5:22 AM EDT Chronic obstructive pulmonary disease, unspecified ([facility] V24, [facility] V28) Weakness Crohn's disease, unspecified, with unspecified complications ([facility] V24, [facility] V28) documented in this encounter Results * (ABNORMAL) Basic metabolic panel (01/21/2025 5:22 AM EDT) Sodium 140 133 - 145 mmol/L LAB CHEMISTRY METHOD 01/21/2025 9:16 AM [facility] Potassium 3.9 3.5 - 5.5 mmol/L LAB CHEMISTRY METHOD 01/21/2025 9:16 AM [facility] Chloride 105 96 - 110 mmol/L LAB CHEMISTRY METHOD 01/21/2025 9:16 AM [facility] CO2 28 21 - 32 mmol/L LAB CHEMISTRY METHOD 01/21/2025 9:16 AM [facility] Anion Gap 7 3 - 11 LAB CHEMISTRY METHOD 01/21/2025 9:16 AM [facility] Glucose 92 70 - 100 mg/dL LAB CHEMISTRY METHOD 01/21/2025 9:16 AM [facility] BUN 12 5 - 25 mg/dL LAB CHEMISTRY METHOD 01/21/2025 9:16 AM [facility] Creatinine 0.42(L) 0.50 - 1.10 mg/dL LAB CHEMISTRY METHOD 01/21/2025 9:16 AM [facility] eGFR 108 >=60 mL/min/1. 73m2 LAB CHEMISTRY METHOD 01/21/2025 9:16 AM [facility] Comment:Calculation based on the Chronic Kidney Disease Epidemiology Collaboration (CKD-EPI) equation refit without adjustment for race. BUN/Creatinine Ratio 28.6 LAB CHEMISTRY METHOD 01/21/2025 9:16 AM [facility] Calcium 9.6 8.5 - 10.5 mg/dL LAB CHEMISTRY METHOD 01/21/2025 9:16 AM [facility] Blood Venous blood specimen / Unknown Venipuncture / Unknown 01/21/2025 5:22 AM EDT 01/21/2025 7:05 AM EDT us Waleska Fitzgerald MD LAB BLOOD ORDERABLES Fin al Result [facility] [address] [place] [address], * (ABNORMAL) Complete blood count (01/21/2025 5:22 AM EDT) WBC 10.2 4.8 - 10.8 K/mcL LAB HEMETOLOGY METHOD 01/21/2025 7:32 AM [facility] RBC 3.50(L) 3.80 - 4.80 M/mcL LAB HEMETOLOGY METHOD 01/21/2025 7:32 AM [facility] Hemoglobin 11.8 11.5 - 16.0 g/dL LAB HEMETOLOGY METHOD 01/21/2025 7:32 AM [facility] Hematocrit 36.8 35.0 - 47.0 % LAB HEMETOLOGY METHOD 01/21/2025 7:32 AM [facility] MCV 104.2(H) 79.0 - 98.0 FL LAB HEMETOLOGY METHOD 01/21/2025 7:32 AM [facility] MCH 33.4(H) 27.0 - 32.0 pcg LAB HEMETOLOGY METHOD 01/21/2025 7:32 AM [facility] MCHC 32.1 32.0 - 37.0 g/dL LAB HEMETOLOGY METHOD 01/21/2025 7:32 AM EDT [facility] RDW 12.3 11.0 - 15.0 % LAB HEMETOLOGY METHOD 01/21/2025 7:32 AM EDT [facility] Platelets 316 130 - 400 K/mcL LAB HEMETOLOGY METHOD 01/21/2025 7:32 AM EDT [facility] MPV 9.9 7.0 - 11.0 FL LAB HEMETOLOGY METHOD 01/21/2025 7:32 AM EDT [facility] NRBC 0.0 <1.0 % LAB HEMETOLOGY METHOD 01/21/2025 7:32 AM EDT [facility] NRBC Absolute 0.00 <0.10 K/mcL LAB HEMETOLOGY METHOD 01/21/2025 7:32 AM EDT [facility] Blood Venous blood specimen / Unknown Venipuncture / Unknown 01/21/2025 5:22 AM EDT 01/21/2025 7:05 AM EDT Waleska Fitzgerald MD LAB BLOOD ORDERABLES Fin al Result [facility] [address] [place] [address], documented in this encounter Visit Diagnoses Diagnosis Chronic obstructive pulmonary disease, unspecified (CMS/HCC V24, CMS/HCC V28) Weakness Other malaise and fatigue Crohn's disease, unspecified, with unspecified complications (CMS/HCC V24, CMS/HCC V28) documented in this encounter Care Teams Layout Former Relationship Specialty Start Date End Date Azra Nation MD [address] [place] [phone] PCP - General Internal Medicine 02/17/25 documented as of this encounter
--- OUTSIDE RECORDS SUMMARY | 2025-08-18 13:31 | XMS_ITS | Clinical Summary ---
Author Organization [facility] Address [address] [place] [address] Phone Care Team Providers Care Apparatus Cleaner Name Role Phone Unavailable Primary Care Provider Unavailabl e Encounters Date Type Department Care Team Description 07/18/2025 Transcribe Orders [facility] [address] [place] [address] Cami Bentley Encounter for rehabilitation (Primary Dx) [...] It is not the complete legal health record.[facility]
[2025-08-18 13:32] VITALS: BP 130/64; PULSE 78; RESP 12; TEMP 37.4; O2SAT 95; BMI 19.6
== END 2025-08-18 14:37 | disposition home or self-care (01) ==
LOC: HO.HMCFM 13:14
PROVIDERS: PCP Student in an Organized Health Care Education/Training Program; Visit Provider Family Medicine
DX: I10 Essential (primary) hypertension (principal); R29.6 Repeated falls; J44.9 Chronic obstructive pulmonary disease, unspecified; R53.1 Weakness; R32 Unspecified urinary incontinence; R06.02 Shortness of breath; R19.00 Intra-abdominal and pelvic swelling, mass and lump, unspecified site

== ENCOUNTER 2025-09-19 14:54 | Outpatient (REF) | payer MEDICARE, MEDICAID, SELFPAY ==
--- OUTSIDE RECORDS SUMMARY | 2024-07-01 10:25 | XMS_ITS | Encounter Summary ---
Author Organization Jayda [facility] [place] [address] Care Team Providers Care Quality Reviewer Name Role Phone Lito Castro MD Primary Care Provider +1- [phone] Encounter Details Date Type Department Care Team (Late st Contact Info) Description 07/01/2024 11:25 AM EDT Hospital Encounter TH HISTORIC ENCOUNTERS [facility] ONLY Vijay Grissom MD [address] [place] [address] Social History Tobacco Use Types Packs/Day Years Used Date Smoking Tobacco: Every Day Cigarettes Smokeless Tobacco: Never Alcohol Use Standard Drinks/Week Comments Yes 0 (1 standard drink = 0.6 oz pur e alcohol) Comments Unknown Sex and Gender Information Value Date Recorded Sex Assigned at Not on file Legal Sex Female 7:03 AM EST Gender Identity Not on file Sexual Orientation Not on file documented as of this encounter Last Filed Vital Signs Vital Sign Reading Time Taken Comments Blood Pressure 161/84 07/01/2024 11:35 AM EDT Sitting Left arm Pulse 85 07/01/2024 11:35 AM EDT Temperature - - Respiratory Rate - - Oxygen Saturation - - Inhaled Oxygen Concentration - - Weight 71.7 kg (158 lb) 01/19/2024 1:21 PM EDT Height 170.2 cm (5' 7 ) 01/19/2024 1:21 PM EDT Body Mass Index 24.75 01/19/2024 1:21 PM EDT documented in this encounter Progress Notes * Vijay Grissom MD - 07/01/2024 11:00 AM EDT [facility] Cc: MS HPI: Patient is a 63 y.o. year old female who presents for follow-up regarding ongoing management of multiple sclerosis. Disease Summary Date of onset/Initial symptom presentation: 2013 Date of diagnosis of MS: 2013 Disease course at onset: Relapsing Current disease course: Progressive Last MS exacerbation: Previous disease therapies(reason for switch): Betaseron (injection site reaction), Tecfidera (allergic reaction) Current disease therapy: Ocrevus Most recent MRI Brain: 03/2024 stable 02/2023 (stable) Most recent MRI Cervical spine: 02/2023(degenerative changes, no cord lesions) Most recent MRI Thoracic spine: 02/2023 (no cord lesions) CSF: + for OCBs JCV serology result and date: Negative MS mimickers: RF, B12, folate normal EDSS: 6.0 (11/2022) Interval history Patient is here for follow up No new neurological symptom concerning for demyelination since last visit Patient still on Ocrevus tolerating it well , she was due now but we are holding Since last visit she was in hospital last month , she had COVID that was complicated by respiratorysymptoms and COVID-pneumonia does not recall being on Paxilovid she was close to being intubated but she was not intubated She was recently admitted with diverticulitis she started Augmentin today there was a question meeting with Dr. Woods for possible surgery at the end of June She is getting urinary incontinence increased from his of her baseline her urologist does not treaturinary symptoms in relation to MS will refer to new urology She is having PT/OT with home health at home she has been weaker since her discharge discussed withthe patient that this is a normal response Patient had multiple questions and concerns regarding to her pemphigus discussed the pathology of the disease and the trials that has been conducted to prove B- cell therapy helping with pemphigus Reviewed MRI results stable Last visit history: Patient returns for follow up visit. She continues Ocrevus for disease modifying therapy and her next infusion is scheduled for 07/01/2024. She denies new neurological symptoms/symptoms suggestive of demyelinating event since she was last seen in the office. She has been experiencing a tingling sensation on her scalp intermittently which feels a little better today. She also notes hair loss since her last Ocrevus infusion. Balance/gait, bowel/bladder function all remain stable. Review of Systems Constitutional: Positive for fatigue. Genitourinary: Positive for urgency. Psychiatric/Behavioral: The patient is nervous/anxious. All other systems reviewed and are negative. Patient Active Problem List Diagnosis SNOMED CT(R) ??? Multiple sclerosis (HCC) MULTIPLE SCLEROSIS Current Outpatient Medications: ??? Calcium Polycarbophil (FIBER-CAPS PO), Take by mouth., Disp: , Rfl: ??? cyanocobalamin (VITAMIN B12) 1000 MCG/ML injection, Inject 1 mL (1,000 mcg total) into the muscle once a week., Disp: , Rfl: ??? D3-1000 25 MCG (1000 UT) capsule, 1 po qd, Disp: 60 capsule, Rfl: 5 ??? Diclofenac-Na Hyaluron-Niacin 3-2-4 % GEL, Apply topically., Disp: , Rfl: ??? Donepezil HCl 23 MG TABS, Take 1 tablet by mouth daily., Disp: 30 tablet, Rfl: 5 ??? famotidine (PEPCID) 20 MG tablet, , Disp: , Rfl: ??? fluticasone (FLONASE) 50 MCG/ACT nasal spray, spray/apply 1 spray in each nostril daily., Disp:, Rfl: ??? folic acid (FOLVITE) tablet 1 mg, Take 1 tablet (1 mg total) by mouth daily., Disp: , Rfl: ??? gabapentin (NEURONTIN) 600 MG tablet, Take 1 tablet (600 mg total) by mouth 3 (three) times a day., Disp: 90 tablet, Rfl: 5 ??? hydrOXYzine (VISTARIL) 25 MG capsule, TAKE 1 CAPSULE BY MOUTH ONCE A DAY NEEDED FOR ANXIETY,ITCHING, Disp: , Rfl: ??? ipratropium (ATROVENT) 0.02 % nebulizer solution, Take 2.5 mL (500 mcg total) by nebulization 4(four) times a day., Disp: , Rfl: ??? Lactase Enzyme 3000 units tablet, , Disp: , Rfl: ??? Lactobacillus-Inulin (Culturelle Digestive [facility]) CAPS, , Disp: , Rfl: ??? Lidocaine 1.8 % PTCH, Apply topically as needed., Disp: , Rfl: ??? LORazepam (ATIVAN) 0.5 MG tablet, Take 1 tablet (0.5 mg total) by mouth every 8 (eight) hours as needed., Disp: , Rfl: ??? memantine (NAMENDA) 5 MG tablet, Take 1 tablet (5 mg total) by mouth 2 (two) times a day., Disp: 180 tablet, Rfl: 5 ??? nicotine polacrilex (COMMIT) 4 MG lozenge, 4 MG BUCCAL EVERY 8 HOURS 30 DAYS NEEDED FOR NICOTINE CRAVINGS, Disp: , Rfl: ??? nystatin (MYCOSTATIN) [id number] UNIT/ML suspension, Take 5 mL (500,000 Units total) by mouth 4 (four) times a day., Disp: , Rfl: ??? ProAir HFA 108 (90 Base) MCG/ACT inhaler, TAKE 2 PUFFS BY MOUTH EVERY 2 HRS NEEDED FOR WHEEZING, Disp: , Rfl: ??? psyllium (METAMUCIL) 58.6 % packet, Take 1 packet by mouth daily., Disp: , Rfl: ??? salmeterol (SEREVENT) 50 MCG/DOSE diskus inhaler, Inhale 1 inhalation. into the lungs 2 (two) times a day., Disp: , Rfl: ??? Slow-Mag 71.5-119 MG TBEC, Take 1 tablet by mouth 2 (two) times a day., Disp: , Rfl: ??? SUMAtriptan (IMITREX) 50 MG tablet, 1 po qd prn migraine, Disp: 10 tablet, Rfl: 5 ??? tiotropium (SPIRIVA) 18 MCG inhalation capsule, Place 1 capsule (18 mcg total) into inhaler andinhale daily., Disp: , Rfl: ??? tiZANidine (ZANAFLEX) 2 MG capsule, 1 po qd in am, Disp: 90 capsule, Rfl: 3 ??? traZODone (DESYREL) 25 MG split tablet, Take 3 split tablet (75 mg total) by mouth every night at bedtime., Disp: , Rfl: ??? valACYclovir (VALTREX) 1000 MG tablet, Take 1 tablet (1,000 mg total) by mouth., Disp: , Rfl: ??? Xiidra 5 % SOLN, Place 1 drop into both eyes 2 (two) times a day., Disp: , Rfl: Neuro Exam BP 161/84 (BP Location: Left arm, Patient Position: Sitting, Cuff Size: Adult Large) Pulse 85 There is no height or weight on file to calculate BMI. General: A&Ox3 Cranial Nerves: PERRL, EOMI without nystagmus, facial strength symmetric, no facial droop, tongue protrusion midline, speech clear, shoulder shrug symmetric Motor: strength 5/5 bilateral LE Sensory: temperature, light touch, and vibratory sense intact throughout Reflexes: 2+/4+ bilateral biceps, 2+/4+ bilateral patellar Cerebellar: FTN without dysmetria or ataxia bilaterally, normal Qiana, no dysdiadochokinesia, + Romberg Gait: cautious gait with cane, wide-based 25 foot timed walk: Not performed today (12.9, 13.3 last visit) A/P: Multiple Sclerosis: Negrita Sullivan is a 63-year-old female with multiple sclerosis, treated with Ocrevus for disease modifying therapy. She had multiple hospitalization with COVID/COVID[facility]pneumonia at [facility] lastmonth she is also been having diverticulitis currently on antibiotic , she had some deconditioning and worsening of her weakness after the COVID infection she is slowly recovering she is currently onoxygen discussed with the patient we will hold off this infusion until she had a clear plan for injection GI perspective and also finished her antibiotics we will touch base first week of radiologically stable MRI 03/2024 stable Patient had multiple questions in relation to her pemphigus on Ocrevus discussed with the patient B-cell therapies are one of the treatments that can help treat pemphigus A. Disease modifying therapy and diagnostic plan: -Will hold off Ocrevus per [facility] protocol and we discussed in the beginning of July after her GI evaluation MRI brain with and without contrast on annual basis to ensure radiological stability B. Symptomatic therapy plan: Gait and balance: Continue home PT/OT Urinary urgency: Will refer to a urologist for evaluation Mood changes: Continue with [facility] for behavioral health services Cognitive concerns: Neuropsych referral pending Diverticulitis/Crohn disease: Continue antibiotic continue follow-up with GI and surgery for further plans of management Patient was encouraged to call the office with any questions or concerns. Follow up in 4 months or sooner as needed The patient and I discussed the clinical picture during today's appointment. Additional time was spent prior to the actual appointment reviewing records, lab values and imaging results and preparing documentation for today's visit. There was also time spent following the in person visit documenting, arranging for further diagnostic testing and follow-up appointments. The entire time spent in thisprocess was greater than 40 minutes. The majority of the actual jssa-ts-sufe visit was spent counseling the patient with respect to the current neurological picture. Vijay Grissom MD documented in this encounter Plan of Treatment Not on file documented as of this encounter Visit Diagnoses Not on filedocumented in this encounter Care Teams Quality Reviewer Relationship Specialty Start Date End Date Lito Castro MD [address] [place] [address] Dr Griffin [place] PCP - General 07/01/24 08/08/24 documented as of this encounter
[2025-09-19 15:15] LABS: Appearance Urine Clear; Glucose Urine UA Negative (Negative); PH 5.0 (5.0-9.0); Specific Gravity - Urine 1.020 (1.005-1.025)
--- OUTSIDE RECORDS SUMMARY | 2025-09-19 16:11 | XMS_ITS | Encounter Summary ---
Author Organization [facility] [place] [address] Care Team Providers Care Telescope Operator Name Role Phone Azra Nation MD Primary Care Provider [phone] Encounter Details Date Type Department Care Team (Late st Contact Info) Description 01/23/[address] [facility] - Main Lab 299 [facility] [place] [phone] Waleska Fitzgerald MD [address] [phone] Chronic obstructive pulmonary disease, unspecified (CMS/HCC V24, [...] V28) Weakness Crohn's disease, unspecified, without complications ([facility] V24, [facility] V28) BASIC METABOLIC PANEL Routine 01/24/2025 6:42 AM EDT Chronic obstructive pulmonary disease, unspecified ([facility] V24, [facility] V28) Weakness Crohn's disease, unspecified, without complications ([facility] V24, [facility] V28) documented in this encounter Results * Basic metabolic panel (01/24/2025 6:42 AM EDT) Sodium 143 133 - 145 mmol/L LAB CHEMISTRY METHOD 01/24/2025 9:40 AM [facility] Potassium 4.1 3.5 - 5.5 mmol/L LAB CHEMISTRY METHOD 01/24/2025 9:40 AM [facility] Chloride 109 96 - 110 mmol/L LAB CHEMISTRY METHOD 01/24/2025 9:40 AM [facility] CO2 25 21 - 32 mmol/L LAB CHEMISTRY METHOD 01/24/2025 9:40 AM [facility] Anion Gap 9 3 - 11 LAB CHEMISTRY METHOD 01/24/2025 9:40 AM [facility] Glucose 73 70 - 100 mg/dL LAB CHEMISTRY METHOD 01/24/2025 9:40 AM [facility] BUN 9 5 - 25 mg/dL LAB CHEMISTRY METHOD 01/24/2025 9:40 AM [facility] Creatinine 0.51 0.50 - 1.10 mg/dL LAB CHEMISTRY METHOD 01/24/2025 9:40 AM [facility] eGFR 103 >=60 mL/min/1. 73m2 LAB CHEMISTRY METHOD 01/24/2025 9:40 AM [facility] Comment:Calculation based on the Chronic Kidney Disease Epidemiology Collaboration (CKD-EPI) equation refit without adjustment for race. BUN/Creatinine Ratio 17.6 LAB CHEMISTRY METHOD 01/24/2025 9:40 AM T [facility] Calcium 9.2 8.5 - 10.5 mg/dL LAB CHEMISTRY METHOD 01/24/2025 9:40 AM [facility] Blood Venous blood specimen / Unknown Venipuncture / Unknown 01/24/2025 6:42 AM EDT 01/24/2025 8:18 AM EDT us Waleska Fitzgerald MD LAB BLOOD ORDERABLES Fin al Result [facility] [address] [place] [address], * (ABNORMAL) Complete blood count (01/24/2025 6:42 AM EDT) WBC 7.7 4.8 - 10.8 K/mcL LAB HEMETOLOGY METHOD 01/24/2025 9:09 AM [facility] RBC 3.60(L) 3.80 - 4.80 M/mcL LAB HEMETOLOGY METHOD 01/24/2025 9:09 AM [facility] Hemoglobin 12.3 11.5 - 16.0 g/dL LAB HEMETOLOGY METHOD 01/24/2025 9:09 AM [facility] Hematocrit 39.0 35.0 - 47.0 % LAB HEMETOLOGY METHOD 01/24/2025 9:09 AM [facility] MCV 109.2(H) 79.0 - 98.0 FL LAB HEMETOLOGY METHOD 01/24/2025 9:09 AM [facility] MCH 34.5(H) 27.0 - 32.0 pcg LAB HEMETOLOGY METHOD 01/24/2025 9:09 AM [facility] MCHC 31.5(L) 32.0 - 37.0 g/dL LAB HEMETOLOGY METHOD 01/24/2025 9:09 AM EDT [facility] RDW 13.1 11.0 - 15.0 % LAB HEMETOLOGY METHOD 01/24/2025 9:09 AM EDT [facility] Platelets 224 130 - 400 K/mcL LAB HEMETOLOGY METHOD 01/24/2025 9:09 AM EDT [facility] MPV 11.6(H) 7.0 - 11.0 FL LAB HEMETOLOGY METHOD 01/24/2025 9:09 AM EDT [facility] NRBC 0.0 <1.0 % LAB HEMETOLOGY METHOD 01/24/2025 9:09 AM EDT [facility] NRBC Absolute 0.00 <0.10 K/mcL [facility] 01/24/2025 9:09 AM EDT [facility] Blood Venous blood specimen / Unknown Venipuncture / Unknown 01/24/2025 6:42 AM EDT 01/24/2025 8:18 AM EDT us Waleska Fitzgerald MD LAB BLOOD ORDERABLES Fin al Result Performing Organization Address [facility]/State/ZIP Co de Phone Number [facility] [address] [place] [address], documented in this encounter Visit Diagnoses Diagnosis Chronic obstructive pulmonary disease, unspecified (CMS/HCC V24, CMS/HCC V28) Weakness Other malaise and fatigue Crohn's disease, unspecified, without complications (CMS/HCC V24, CMS/HCC V28) documented in this encounter Care Teams Telescope Operator Relationship Specialty Start Date End Date Azra Nation MD [address] [phone] PCP - General Internal Medicine 02/17/25 documented as of this encounter
--- OUTSIDE RECORDS SUMMARY | 2025-09-19 16:11 | XMS_ITS | Encounter Summary ---
Author Organization [employer] [facility] [place] [address] Care Team Providers Care Canvass Manager Name Role Phone Azra Nation MD Primary Care Provider [phone] Encounter Details Date Type Department Care Team (Late st Contact Info) Description 04/05/2025 Lab Requisition [facility] - Main Lab [address] [facility] [place] [phone] Larry Hurley MD [address] [place] [address] Personal history of malignant neoplasm of bladder [...] 12:00 AM EDT) Final Diagnosis Urine, Voided, [id number]: Negative for high grade urothelial carcinoma. Acute inflammation present. Results of UroV[employer]ion fluorescence in situ hybridization (FISH) testing: CEP3: Normal CEP7: Normal CEP17: Normal LSI 9p21: Normal Interpretation: Normal profile Controls stained appropriately. Note: The results are intended as a screening device and should be interpreted in association with other clinical and pathological findings. 04/10/2025 2:24 PM EDT [facility] at 1424 EDT Clinical Information History of bladder neoplasm (malignant) Z85.51 Urine Cytology/FISH (now) 04/10/2025 2:24 PM EDT [facility] Gross Description A. Urine, Voided, [id number]: Received one ThinPrep slide for cytology and one ThinPrep slide for UroVysion FISH 04/10/2025 2:24 PM EDT [facility] Disclaimer Unless otherwise specified, all tissue is 10% NB formalin fixed and paraffin embedded. Technical pathology services provided by [facility] at [address], [place] [address] (CLIA #[id number]/Nikkie Lizama MD, [employer] Worker Helper) 04/10/2025 2:24 PM EDT [facility] Tissue Urine specimen from urethra / Unknown 03/22/2025 04/05/2025 11:13 AM EDT us Larry Hurley MD LAB PATHOLOGY ORDERABLES Fi nal Result [facility] [address] [place] [address], documented in this encounter Visit Diagnoses Diagnosis Personal history of malignant neoplasm of bladder documented in this encounter Care Teams Canvass Manager Relationship Specialty Start Date End Date Azra Nation MD [address] [place] [phone] PCP - General Internal Medicine 02/17/25 documented as of this encounter
--- OUTSIDE RECORDS SUMMARY | 2025-09-19 16:11 | XMS_ITS | Clinical Summary ---
Author Organization [facility] Address [address] [place] [address] Phone Care Team Providers Care Material Dispatcher Name Role Phone Unavailable Primary Care Provider Unavailabl e Encounters Date Type Department Care Team Description 07/18/2025 Transcribe Orders [facility] [address] [place] [phone] Cami Bentley Encounter for rehabilitation (Primary Dx) [...] It is not the complete legal health record.[facility]
--- OUTSIDE RECORDS SUMMARY | 2025-09-19 16:11 | XMS_ITS | Encounter Summary ---
Author Organization [facility] [place] [address] Care Team Providers Care Stock Puller Name Role Phone Azra Nation MD Primary Care Provider [phone] Encounter Details Date Type Department Care Team (Late st Contact Info) Description 01/21/2025 Lab Requisition [facility] - Main Lab 299 [facility] [place] [phone] Waleska Fitzgerald MD [address] [address] Chronic obstructive pulmonary disease, unspecified (CMS/HCC V24, [...] Weakness Crohn's disease, unspecified, with unspecified complications ([facility] V24, [facility] V28) BASIC METABOLIC PANEL Routine 01/21/2025 5:22 AM EDT Chronic obstructive pulmonary disease, unspecified ([facility] V24, [facility] V28) Weakness Crohn's disease, unspecified, with unspecified complications ([facility] V24, [facility] V28) documented in this encounter Results * (ABNORMAL) Basic metabolic panel (01/21/2025 5:22 AM EDT) Sodium 140 133 - 145 mmol/L LAB CHEMISTRY METHOD 01/21/2025 9:16 AM [facility] Potassium 3.9 3.5 - 5.5 mmol/L LAB CHEMISTRY METHOD 01/21/2025 9:16 AM [facility] Chloride 105 96 - 110 mmol/L LAB CHEMISTRY METHOD 01/21/2025 9:16 AM [facility] CO2 28 21 - 32 mmol/L LAB CHEMISTRY METHOD 01/21/2025 9:16 AM [facility] Anion Gap 7 3 - 11 LAB CHEMISTRY METHOD 01/21/2025 9:16 AM [facility] Glucose 92 70 - 100 mg/dL LAB CHEMISTRY METHOD 01/21/2025 9:16 AM [facility] BUN 12 5 - 25 mg/dL LAB CHEMISTRY METHOD 01/21/2025 9:16 AM [facility] Creatinine 0.42(L) 0.50 - 1.10 mg/dL LAB CHEMISTRY METHOD 01/21/2025 9:16 AM [facility] eGFR 108 >=60 mL/min/1. 73m2 LAB CHEMISTRY METHOD 01/21/2025 9:16 AM [facility] Comment:Calculation based on the Chronic Kidney Disease Epidemiology Collaboration (CKD-EPI) equation refit without adjustment for race. BUN/Creatinine Ratio 28.6 LAB CHEMISTRY METHOD 01/21/2025 9:16 AM [facility] Calcium 9.6 8.5 - 10.5 mg/dL LAB CHEMISTRY METHOD 01/21/2025 9:16 AM [facility] Blood Venous blood specimen / Unknown Venipuncture / Unknown 01/21/2025 5:22 AM EDT 01/21/2025 7:05 AM EDT us Waleska Fitzgerald MD LAB BLOOD ORDERABLES Fin al Result [facility] [address] [place] [address], * (ABNORMAL) Complete blood count (01/21/2025 5:22 AM EDT) WBC 10.2 4.8 - 10.8 K/mcL LAB HEMETOLOGY METHOD 01/21/2025 7:32 AM [facility] RBC 3.50(L) 3.80 - 4.80 M/mcL LAB HEMETOLOGY METHOD 01/21/2025 7:32 AM [facility] Hemoglobin 11.8 11.5 - 16.0 g/dL LAB HEMETOLOGY METHOD 01/21/2025 7:32 AM [facility] Hematocrit 36.8 35.0 - 47.0 % LAB HEMETOLOGY METHOD 01/21/2025 7:32 AM [facility] MCV 104.2(H) 79.0 - 98.0 FL LAB HEMETOLOGY METHOD 01/21/2025 7:32 AM [facility] MCH 33.4(H) 27.0 - 32.0 pcg LAB HEMETOLOGY METHOD 01/21/2025 7:32 AM [facility] MCHC 32.1 32.0 - 37.0 g/dL LAB HEMETOLOGY METHOD 01/21/2025 7:32 AM EDT [facility] RDW 12.3 11.0 - 15.0 % LAB HEMETOLOGY METHOD 01/21/2025 7:32 AM EDT [facility] Platelets 316 130 - 400 K/mcL LAB HEMETOLOGY METHOD 01/21/2025 7:32 AM EDT [facility] MPV 9.9 7.0 - 11.0 FL LAB HEMETOLOGY METHOD 01/21/2025 7:32 AM EDT [facility] NRBC 0.0 <1.0 % LAB HEMETOLOGY METHOD 01/21/2025 7:32 AM EDT [facility] NRBC Absolute 0.00 <0.10 K/mcL LAB HEMETOLOGY METHOD 01/21/2025 7:32 AM EDT [facility] Blood Venous blood specimen / Unknown Venipuncture / Unknown 01/21/2025 5:22 AM EDT 01/21/2025 7:05 AM EDT Waleska Fitzgerald MD LAB BLOOD ORDERABLES Fin al Result [facility] [address] [place] [address], documented in this encounter Visit Diagnoses Diagnosis Chronic obstructive pulmonary disease, unspecified (CMS/HCC V24, CMS/HCC V28) Weakness Other malaise and fatigue Crohn's disease, unspecified, with unspecified complications (CMS/HCC V24, CMS/HCC V28) documented in this encounter Care Teams Stock Puller Relationship Specialty Start Date End Date Azra Nation MD [address] [place] [phone] PCP - General Internal Medicine 02/17/25 documented as of this encounter
--- OUTSIDE RECORDS SUMMARY | 2025-09-19 16:11 | XMS_ITS | Clinical Summary ---
Author Organization [facility] Address [address] [facility] [place] [address] Phone Care Team Providers Care Rn Neurology Name Role Phone Azra Nation MD Primary Care Provider [phone] Allergies Active Allergy Reactions Criticality Noted Date [...] mcg/actuation inhaler Inhale 2 puffs by mouth. 06/23/20 13 Active vitamin C tablet Take 1 tablet (100 mg total) by mouth. Active cyanocobalamin (VITAMIN B-12) 1,000 mcg/mL injection Inject 1 mL (1,000 mcg total) into the shoulder, thigh, or buttocks. Active fluticasone propionate (FLONASE) 50 mcg/actuation nasal spray 1 spray. Active folic acid (FOLVITE) 1 mg tablet Take 1 tablet (1 mg total) by mouth. 09/02/20 21 Active hydrOXYzine pamoate (VISTARIL) 25 mg capsule TAKE 1 CAPSULE BY MOUTH ONCE A DAY NEEDED FOR ANXIETY, ITCHING 10/27/19 22 Active ipratropium (ATROVENT) 0.02 % nebulizer solution 2.5 mL (0.5 mg total). Active ketoconazole (NIZORAL) 2 % shampoo SHAMPOO TWICE A WEEK UNTIL CLEAR 02/11/20 14 Active lactase (LACTAID) 3,000 unit tablet 10/12/19 22 Active lidocaine 1.8 % adhesive patch,medicated Apply topically. Active lifitegrast (Xiidra) 5 % dropperette 1 drop. 04/10/20 22 Active LORazepam (ATIVAN) 0.5 mg tablet Take 1 tablet (0.5 mg total) by mouth every 8 hours as needed. Active memantine (NAMENDA) 5 mg tablet Take 1 tablet (5 mg total) by mouth 2 (two) times a day. 11/04/19 22 Active valACYclovir (VALTREX) 1 gram tablet Take 1 tablet (1,000 mg total) by mouth. 06/18/20 14 Active tiotropium (SPIRIVA) 18 mcg per inhalation capsule Place 1 capsule (18 mcg total) into inhaler and inhale. 10/03/19 22 Active SUMAtriptan (IMITREX) 50 mg tablet Take 1 tablet (50 mg total) by mouth every 2 hours as needed. 11/04/19 22 Active salmeteroL (SEREVENT) 50 mcg/dose diskus inhaler Inhale 1 puff by mouth. 11/04/19 22 Active QUEtiapine (SEROquel) 25 mg tablet 10/28/19 22 Active psyllium (METAMUCIL) 3.4 gram packet Take 1 packet by mouth. Active cholestyramine (QUESTRAN) 4 gram powder Take 1 packet (4 g total) by mouth 2 (two) times a day with meals. Dissolve in 8 oz of liquid and drink before a meal 60 packet 3 08/04/20 24 Active cholestyramine light (Prevalite) 4 gram packet Take 1 packet (4 g total) by mouth 3 (three) times a day after meals. 90 packet 3 09/07/20 24 Active Breztri Aerosphere 160-9-4.8 mcg/actuation HFA aerosol inhaler inhaler 03/18/20 24 Active multivitamin tablet Take 1 tablet by mouth 1 (one) time each day. Active mesalamine (CANASA) 1,000 mg suppository UNWRAP AND INSERT 1 SUPPOSITORY RECTALLY AT BEDTIME 30 each 3 09/22/20 24 Active mesalamine (CANASA) 1,000 mg suppository UNWRAP AND INSERT 1 SUPPOSITORY RECTALLY AT BEDTIME 23 each 11 09/22/20 24 Active mesalamine (CANASA) 1,000 mg suppository UNWRAP AND INSERT 1 SUPPOSITORY RECTALLY AT BEDTIME 30 each 3 10/19/19 25 Active nutritional supplement-fiber liquidIndications:C rohn's disease with complication, unspecified gastrointestinal tract location (CMS/HCC V24, CMS/HCC V28),Macrocytic anemia Take 1 each by mouth 2 (two) times a day. 1500 mL 11 11/29/19 25 Active gabapentin (NEURONTIN) 600 mg tablet Take 1 tablet (600 mg total) by mouth 3 (three) times a day. Take 1 tablet (600 mg total) by mouth 3 (three) times a day. 90 each 5 03/07/20 25 Active tiZANidine (ZANAFLEX) 2 mg tablet TAKE 1 TABLET BY MOUTH EVERY MORNING , TAKE 1 TABLET BY MOUTH IN THE AFTERNOON AND TAKE 2 TABLETS BY MOUTH EVERY EVENING 120 tablet 5 03/07/20 25 Active donepeziL (ARICEPT) 23 mg tablet TAKE 1 TABLET (23 MG TOTAL) BY MOUTH 1 (ONE) TIME EACH DAY. 30 tablet 5 03/08/20 25 Active hydrOXYzine HCL (ATARAX) 25 mg tabletIndications:A nxiety TAKE 1 TABLET AT NIGHT NEEDED FOR ITCH 30 tablet 3 03/29/20 25 Active clotrimazole (LOTRIMIN) 1 % cream APPLY TO AFFECTED AREA(S) TOPICALLY TWICE A DAY 30 g 1 04/27/20 25 Active carvediloL (COREG) 6.25 mg tablet Take 1 tablet (6.25 mg total) by mouth 2 (two) times a day with meals. 05/22/20 25 Active nitroglycerin (Nitrostat) 0.[address] 1 tablet (0.4 mg total) under the tongue every 5 (five) minutes if needed for chest pain. Active cholecalciferol (Vitamin D3) 25 mcg (1,000 unit) capsule TAKE 1 CAPSULE BY MOUTH DAILY 8 capsule 3 06/26/20 25 Active acetaminophen (TYLENOL) 500 mg tablet TAKE 1 TABLET BY MOUTH EVERY SIX HOURS NEEDED FOR PAIN 60 tablet 1 08/17/20 25 Active famotidine (PEPCID) 20 mg tabletIndications:G astroesophageal reflux disease, unspecified whether esophagitis present Take 1 tablet (20 mg total) by mouth 2 (two) times a day. 180 tablet 3 09/19/20 25 Active budesonide 9 mg tablet,delayed and ext.releaseIndicati ons:Irritable bowel syndrome with diarrhea Take 1 tablet (9 mg total) by mouth 1 (one) time each day. 30 tablet 11 09/19/20 25 Active budesonide 9 mg tablet,delayed and ext.releaseIndicati ons:Irritable bowel syndrome with diarrhea TAKE 1 TABLET BY MOUTH DAILY 30 tablet 11 08/30/20 24 025 Discontin ued(Reord er) famotidine (PEPCID) 20 mg tablet TAKE 1 TABLET BY MOUTH TWICE A DAY 180 tablet 3 09/22/20 24 025 Discontin ued(Reord er) Active Problems Problem Noted Date Diagnosed Date History of diverticulitis 05/23/2025 Chronic obstructive pulmonary disease 10/19/2024 Hiatal hernia 11/14/2021 Overview (11/02/2022): Small, seen during EGD/colonoscopy 02/24/2017 Carpal tunnel syndrome of right wrist 09/04/2021 Overview (11/02/2022): Mild to moderate and mild of left wrist. 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 Depression 09/04/2021 Dementia 09/04/2021 Fibromyalgia 09/04/2021 Migraine 09/04/2021 Multiple sclerosis 09/04/2021 Neuropathic pain 09/04/2021 YOHAN on CPAP 09/04/2021 Psychological disorder 09/04/2021 Overview (11/02/2022): w/ significant paranoia. Anxiety 08/12/2013 GERD (gastroesophageal reflux disease) 3 IBS (irritable bowel syndrome) 04/08/2013 Crohn's disease 03/14/2013 Overview (11/02/2022): Colonoscopy and Upper GI done 02/24/2017, anastomotic erosive changes. Herpes simplex disease 03/14/2013 Overview (11/02/2022): Lesions on back. Insomnia 03/14/2013 Osteoarthritis, hand 03/14/2013 Encounters Date Type Department Care Team Description 07/18/2025 Telephone Gastroenterology - [place] [address] [facility] [address] [facility] [address] [place] [address] Marcelino Clark MD from Last 3 Months Surgical History Surgery Date Site/Laterality Comments OTHER SURGICAL HISTORY 09/28/1990 PROCEDURE: BREAST RECONSTRUCTION; COMMENT: implants CHOLECYSTECTOMY PROCEDURE: DC CHOLECYSTECTOMY OTHER SURGICAL HISTORY 09/28/1979 PROCEDURE: DC HYSTEROSCOPY BI TUBE OCCLUSION W/PERM IMPLNTS; COMMENT: [...] D X:IBS (irritable bowel syndrome) Crohn's disease (CMS/HCC V24 , CMS/HCC V28) DX:Crohn's disease (HCC); CO MMENT: Colonoscopy and Upper GI done 02/24/2017, anastomotic erosive changes. Osteoarthritis DX:Osteoarthriti s Bilateral bunions DX:Bilateral b unions MS (multiple sclerosis) 09/04/2021 DX:MS (m ultiple sclerosis) ([facility]) Neuropathic pain 09/04/2021 DX:Neuropathic pain Depression 09/04/2021 DX:Depression Migraine 09/04/2021 DX:Migraine Dementia ([facility] V24, [facility] V28) 09/04/2021 DX:Dementia ([facility]) YOHAN on CPAP 09/04/2021 DX:YOHAN on [...] Small, seen during EGD/colonoscopy 02/24/2017 Bladder cancer ([facility] V24, [facility] V28) DX:Bladder cancer ([facility]) Family History Medical History Relation Name [...] on file Sexual Orientation Not on file Last Filed Vital Signs [...] Last Done Comments Breast Cancer Screening 1960 Drug Screen 1960 Non-Opioid Controlled Substance Agreement 1960 COVID-19 Vaccine (#1) 01/01/1964 Zoster Vaccines [...] Insurance MEDICARE MEDICAID - [place] Care Teams Rn Neurology Relationship Specialty Start Date End Date Azra Nation MD [address] [place] [address] [address] [place] [address] PCP - General Internal Medicine 02/17/25
--- OUTSIDE RECORDS SUMMARY | 2025-09-19 16:11 | XMS_ITS | Encounter Summary ---
Author Organization [facility] [place] [address] Care Team Providers Care Poly Operator Name Role Phone Azra Nation MD Primary Care Provider [phone] Encounter Details Date Type Department Care Team (Late st Contact Info) Description 01/30/[address] [facility] - Main Lab [address] [facility] [place] [id number] Waleska Fitzgerald MD [address] [id number] Weakness; Chronic obstructive pulmonary disease, unspecified (CMS/HCC V24, [facility] V28); Crohn's disease, unspecified, without complications ([facility] V24, CMS/[facility] V28) Social History Tobacco Use Types Packs/Day [...] Chronic obstructive pulmonary disease, unspecified (CMS/HCC V24, [facility] V28) Crohn's disease, unspecified, without complications (CMS/HCC V24, [facility] V28) documented in this encounter Care Teams Poly Operator Relationship Specialty Start Date End Date Azra Nation MD [address] [place] [phone] PCP - General Internal Medicine 02/17/25 documented as of this encounter
--- OUTSIDE RECORDS SUMMARY | 2025-09-19 16:11 | XMS_ITS | Clinical Summary ---
Author Organization [facility] Prior to 02/25/25 Address [address] [place] [address] Care Team Providers Care Drug Enforcement Agent Name Role Phone Lito Castro MD Primary Care Provider [phone] Allergies Active Allergy Reactions Criticality Noted Date Comments Aspirin 09/04/2021 No reaction documented. Blue Dyes (Parenteral) Anaphylaxis High 03/14/2013 Ciprofloxacin Swelling 07/24/2021 Ciprofloxacin-Hydrocorti sone 09/04/2021 No reaction documented. Clarithromycin 10/22/2021 Dicyclomine 10/22/2021 Fd&C Blue #1 ([place] Blue) Anaphylaxis High 07/24/2021 Nsaids Nausea And [...] hours as needed. 0 Active nystatin (MYCOSTATIN) 855421 UNIT/ML suspension Take 5 mL (500,000 Units [...] 10 tablet 5 01/30/2023 Active Lactobacillus-Inuli n ([facility]) CAPS 0 10/29/2023 Active gabapentin [...] age to complete this topic Care Teams Drug Enforcement Agent Relationship Specialty Start Date End Date Lito Castro MD [address] [place] [address] PCP - General Family Medicine 04/28/22
== END 2025-09-19 14:55 | disposition home or self-care (01) ==
LOC: HO.LNP 14:54
PROVIDERS: Visit Provider Family Medicine
DX: Z00.00 Encounter for general adult medical examination without abnormal findings (principal); R32 Unspecified urinary incontinence
CPT/HCPCS: 81001; 87086; 87088; 87186